=== PATIENT | female | born 1990 | race Caucasian/White ===

== ENCOUNTER 2022-05-08 17:14 | Emergency (ER) | payer MEDICAID, SELFPAY ==
[2022-05-08 17:14] VITALS: BP 183/119; PULSE 111; RESP 18; TEMP 35.9; O2SAT 95; BMI 43.3
--- NOTE | 2022-05-08 17:45 | CT_ITS ---
STUDY: CT FACIAL BONES WITHOUT CONTRAST REASON FOR EXAM: Female, 32 years old. Left mandibular trauma. RADIATION DOSAGE (If Supplied By Facility): CTDIvol = ( 29.38 ) mGy, DLP = ( 620.92 ) mGycm TECHNIQUE: The patient was scanned in a multi detector CT scanner. Sagittal and coronal images were reconstructed. Individualized dose optimization techniques were used for this CT. COMPARISON: CT of the head, May 08, 2022. FINDINGS: Normal soft tissue structures. There is a small central cutaneous calcification in the left maxillary region. Normal orbital curiel and orbital contents. Normal nasal bones and anterior nasal spine. Normal facial bones. There is no demonstrated fracture. Normal visualized paranasal sinuses. CT/Sinus/Facial Bone IMPRESSION: Normal unenhanced CT of the facial bones. Electronically Signed: Nawaf Abebe DO at 18:47 EST ,
--- NOTE | 2022-05-08 17:45 | EDS_ITS ---
HPI HPI - Fall History of Present Illness Chief Complaint: Fall Detail of Chief Complaint: Left jaw pain post fall down steps Informant: patient Occured/Mechanism Occurred: Today and Hours Usually ambulates: Without assistance Pain/Injury Pain Location: head, face and upper extremity Quality of Pain: Dull and Aching Current Severity: Mild Maximum Severity: Mild Associated Symptoms Associated Symptoms: Negative for Parasthesias, Weakness, Loss of function, Inability to ambulate, Loss of consciousness or Amnesia Narrative Narrative: 32-year-old female no seen past medical history. Today was going down wooden steps into the basement tripped and fell went down multiple steps hit her left jaw head and left arm. Denies any LOC. Primarily complaining of swelling and discomfort to her left jaw. No nausea or vomiting. She is on no blood thinners. Denies any neck or back pain. She has contusions to her left arm but normal range of motion. Prior similar symptoms: No Recent Illness/Hospitalization: No PFSH PFSH Medical History no medical history no medical history Allergy/AdvReac Type Severity Reaction Status Date / Time No Known Allergies Allergy Verified 05/08/22 17:14 Surgical History no surgical history Social History Smoking Status: Current every day smoker tobacco type: cigarettes ROS ROS ED ROS Narrative Denies recent illness. Review of Systems ROS Unobtainable: Denies due to encephalopathy Constitutional Constitutional ED: Denies chills or fever(s) Eyes Eyes: Denies blurry vision ENT ENT ED: Denies ear pain Cardiovascular Cardiovascular: Denies chest pain Respiratory/Chest Respiratory/Chest: Denies cough or dyspnea Gastrointestinal Gastrointestinal: Denies abdominal pain Genitourinary Genitourinary ED: Denies dysuria or hematuria Musculoskeletal Musculoskeletal: Denies arthralgias Integumentary Denies abscess Neurologic Neurologic: Denies headache(s) Psychiatric Psychiatric: Denies anxiety Endocrine Endocrinology: Denies polydipsia Hematologic/Lymphatic Hematologic/Lymphatic: Denies easy bleeding Allergic/Immunologic Allergic/Immunologic ED: Denies mouth swelling or tongue swelling EXAM Physical Exam Narrative Exam Narrative: 32-year-old female no acute distress. Vital signs stable afebrile. Blood pressure elevated 183/119. H EENT exam give dry reactive light. Mild tenderness and swelling of the left mandible. Able to open and close her mouth. Dentition intact. No trismus. No blood. Scalp nontender. C-spine and back nontender. No signs of trauma to the back. Trachea midline. Lungs clear to auscultation bilaterally. Heart regular rhythm rate about 110 no murmur. Chest wall and ribs nontender. Abdomen soft nontender no peritoneal signs. No bruising. Pelvic girdle intact. Moving all 4 extremities. Contusions and bruising left upper arm. No deformity. Normal range of motion. 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 Neurologic exam normal. GCS of 15. Awake and alert. Answering questions following commands. Const Vital Signs: 05/08/22 17:14 05/08/22 17:29 05/08/22 19:30 Temperature 96.7 F L Temperature Source Temporal Pulse Rate 111 H 94 Respiratory Rate 18 18 Respiratory Effort Normal Non-Labored Respiratory Depth Normal Respiratory Pattern Normal Blood Pressure 183/119 H 151/109 H Blood Pressure Mean 140 123 Pulse Ox 95 94 Oxygen Delivery Method Room Air Room Air Room Air Positive well nourished, well developed and obese; Negative for cachectic, contractures or unkempt General Appearance ED: well developed and NAD; Negative for unkempt, cachectic or contractures Nutritional Appearance: obese; Negative for cachectic HEENT Reports normocephalic HEENT Narrative: Mild swelling and tenderness along the left mandible. No deformity. No trismus. trauma, contusion and tenderness; Negative for atraumatic Eyes PERRL and EOMs intact bilaterally General Eye ED: Negative for pale conjunctiva or scleral icterus Neck full ROM, no lymphadenopathy and supple General: Negative for tenderness Chest Wall inspection of chest normal and palpation of chest normal Resp normal respiratory effort, no retractions and clear to auscultation bilaterally Effort and Inspection: Negative for pain with movement Auscultation: Negative for rales, rhonchi or wheezes Cardio regular rhythm, S1 normal heart sound, S2 normal heart sound and no murmurs; Negative for regular rate Rate: tachycardic GI non-tender, non-distended and no masses Inspection: Negative for abdominal distention Auscultation: normoactive bowel sounds Palpation: soft; Negative for guarding Back/Spine no CVA tenderness General Back: Negative for CVA tenderness Cervical Spine: Negative for cervical spine tenderness Thoracic Spine / Upper Back: Negative for ROM limited Lumbar Spine / Lower Back: Negative for lumbar spinal tenderness or paraspinal muscle tenderness Neuro oriented x3, CN's II-XII intact bilaterally, moves all extremities, no focal motor deficits and no sensory deficits noted Anthony Coma Scale: document GCS findings Spontaneous Obeys Commands Oriented 15 Sensorium / Orientation: alert, oriented to person, oriented to place and oriented to time; Negative for orientation impaired, confused, lethargic or stuporous Motor Exam: strength 5/5 throughout Psych mental status grossly normal and thought process normal Appearance: Negative for unkempt Attitude: No agitated Mood & Affect: Negative for depressed, anxious or tearful Skin Lesions: no lesions Rashes: no rashes Trauma: Negative for abrasion MDM MDM MDM Narrative Medical decision making narrative: 32-year-old female fell down steps primarily injured her left jaw. She has bruise on her left arm but normal range of motion no significant tenderness or bony deformity. She did not want a thing for pain. CAT scan of her head and facial bones to be obtained. Repeat exam patient is doing well at 7:40 PM. We went over CAT scan results. Atraumatic there is no acute intercranial abnormality and no jaw fracture. Discharged home. Treated with Tylenol Motrin for pain. Ice to the area. Follow-up if not improving. Radiography Diagnostic Testing: Clinical Impression(s) from Imaging Studies Brain CT 05/08/22 17:45 IMPRESSION: No acute intracranial or calvarial abnormality. Electronically Signed: Nawaf Abebe DO at 18:46 EST Reading Location ID and State: [employer] [facility] [employer] Tel [phone], Service support , Facial/Sinus 05/08/22 17:45 IMPRESSION: Normal unenhanced CT of the facial bones. Electronically Signed: Nawaf Abebe DO at 18:47 EST Reading Location ID and State: [employer] [facility] [employer] Tel [phone], Service support , Discharge Plan Triage Chief Complaint: Fall ED Provider: Augie Vargas Dx/Rx/DC Orders Clinical Impression: Fall down steps, Closed head injury, Contusion of jaw, Contusion of arm Instructions: ED Contusion, Upper Extremity, ED Facial Contusion, ED Head Injury (Adult) Primary Care Provider: Care Physician,No Primary Referrals: Ludin Warren MD [Med Staff - Manager Revenue] - 1 Week if not improving Care Physician,No Primary [Primary Care Provider] - Activity Restrictions/Additional Instructions: Motrin for pain and swelling and Tylenol for pain. Ice to the jaw on your arm. This should progressively continue to improve if not follow-up as reevaluated. Disposition Disposition: Home, Self Care
--- NOTE | 2022-05-08 17:45 | CT_ITS ---
STUDY: CT BRAIN WITHOUT CONTRAST REASON FOR EXAM: Female, 32 years old. Trauma. RADIATION DOSAGE (If Supplied By Facility): CTDIvol = ( 37.19 ) mGy, DLP = ( 1443.42 ) mGycm TECHNIQUE: Transaxial CT imaging of the brain was performed without administration of intravenous contrast material. Individualized dose optimization techniques were used for this CT. COMPARISON: [facility] line FINDINGS: Normal soft tissue structures. Normal calvarium. Normal size ventricles and extra-axial spaces for the patient''s age. Normal white matter tracts of the cerebral hemispheres. Normal basal ganglia and thalami. Normal brainstem. Normal cerebellum. There is no intracranial hemorrhage. There are no findings of an acute ischemic infarction. Normal visualized paranasal sinuses. CT/Brain/Head without Contrast IMPRESSION: No acute intracranial or calvarial abnormality. Electronically Signed: Nawaf Abebe DO at 18:46 EST ,
[2022-05-08 19:30] VITALS: BP 151/109; PULSE 94; RESP 18; O2SAT 94
== END 2022-05-08 19:53 | disposition home or self-care (01) ==
PROVIDERS: Emergency Provider Emergency Medicine; Visit Provider Emergency Medicine
DX: S09.90XA Unspecified injury of head, initial encounter (principal); S00.83XA Contusion of other part of head, initial encounter; S40.022A Contusion of left upper arm, initial encounter; F17.210 Nicotine dependence, cigarettes, uncomplicated; W10.9XXA Fall (on) (from) unspecified stairs and steps, initial encounter
CPT/HCPCS: 70450; 70486; 99282

== ENCOUNTER 2022-08-26 17:23 | Emergency (ER) | payer MEDICAID, SELFPAY ==
[2022-08-26 17:24] VITALS: BP 157/115; PULSE 117; RESP 18; TEMP 36.1; O2SAT 97; BMI 40.6
--- NOTE | 2022-08-26 19:58 | EDS_ITS ---
HPI History of Present Illness Chief Complaint: Nausea/Vomiting Informant: patient Onset/Context/Timing Onset: Days (5 days) Context: Gradual Onset Narrative Narrative: Patient presents with nausea and vomiting over the past 5 days. She states she will have chills and sweats but has had no measured fever. She has nausea sensation in her stomach, but no significant abdominal pain. She denies diarrhea. She does admit to alcoholism and has still been drinking over the past couple days. [facility] Medical History Alcoholism Home Medications ondansetron 4 mg disintegrating tablet 8 mg PO Q8H PRN PRN Nausea #20 tabs 08/27/22 [Rx Last Taken Unknown] sulfamethoxazole 800 mg-trimethoprim 160 mg tablet (Bactrim DS) 1 tab PO BID #6 tabs 08/27/22 [Rx Last Taken Unknown] Allergy/AdvReac Type Severity Reaction Status Date / Time hydrocodone Allergy Hives Verified 08/26/22 17:25 Social History Smoking Status: Current every day smoker tobacco type: cigarettes ROS ROS ED Constitutional Constitutional ED: Reports chills and sweats; Denies fever(s) Eyes Eyes: Denies change in vision or discharge from eye(s) ENT ENT ED: Denies discharge from eye(s), rhinorrhea or sore throat Cardiovascular Cardiovascular: Denies chest pain or palpitations Respiratory/Chest Respiratory/Chest: Denies cough or dyspnea Gastrointestinal Gastrointestinal: Reports nausea and vomiting; Denies abdominal pain or diarrhea Genitourinary Genitourinary ED: Denies difficulty urinating or dysuria Musculoskeletal Musculoskeletal: Denies back pain or extremity pain Integumentary Denies Abrasions or rash Neurologic Neurologic: Denies headache(s) or weakness Psychiatric Psychiatric: Denies anxiety or depression Allergic/Immunologic Allergic/Immunologic ED: Denies lip swelling or urticaria EXAM Physical Exam Const Vital Signs: 08/26/22 17:24 08/26/22 22:56 Temperature 97.0 F L Temperature Source Temporal Pulse Rate 117 H 104 H Respiratory Rate 18 16 Blood Pressure 157/115 H 134/78 H Blood Pressure Mean 129 96 Pulse Ox 97 98 Oxygen Delivery Method Room Air Room Air Positive well nourished and well developed General Appearance ED: well developed HEENT Reports normocephalic and head/scalp atraumatic Eyes PERRL and EOMs intact bilaterally Neck supple Chest Wall inspection of chest normal and palpation of chest normal Resp normal respiratory effort and clear to auscultation bilaterally Cardio regular rate and regular rhythm GI non-tender Auscultation: hypoactive bowel sounds Palpation: soft Extremity normal to inspection Neuro oriented x3 and no sensory deficits noted Sensorium / Orientation: alert Motor Exam: strength 5/5 throughout Psych mental status grossly normal Skin no rashes or lesions noted MDM MDM MDM Narrative Medical decision making narrative: Patient ordered IV fluids and Zofran. Lab work obtained to evaluate for leukocytosis, anemia, electrolyte derangement. Because the patient was considering possible admission for alcohol detox, alcohol level and urine tox screen are obtained. Lab Data Labs: Laboratory Results - last 24 hr 08/26/22 08/26/22 08/26/22 20:26 20:26 20:26 WBC 16.5 H RBC 4.82 Hgb 16.3 H Hct 47.5 H MCV 98.5 MCH 33.8 H MCHC 34.3 RDW Std Deviation 47.0 H RDW Coeff of Yan 12.9 Plt Count 146 L MPV 9.3 Immature Gran % (Auto) 0.500 Neut % (Auto) 92.3 H Lymph % (Auto) 2.9 L [place] % (Auto) 4.0 Eos % (Auto) 0.1 Baso % (Auto) 0.2 Absolute Neuts (auto) 15.2 H Absolute Lymphs (auto) 0.48 L Nucleated RBC % 0 Differential Comment SCANNED Sodium 136 Potassium 3.8 Chloride 97 L Carbon Dioxide 25.0 Anion Gap 14 BUN 7 Creatinine 0.71 Estim Creat Clear Calc 91.63 Est GFR (MDRD) Af Amer 124 Est GFR (MDRD) Non-Af 103 BUN/Creatinine Ratio 9.9 L Glucose 134 H Calcium 9.3 Total Bilirubin 2.60 H Direct Bilirubin 1.17 H AST 144 H ALT 175 H Alkaline Phosphatase 75 Total Protein 7.7 Albumin 3.8 Globulin 3.9 Lipase 54 L Serum , Qual Urine Color Urine Clarity Urine pH Ur Specific [place] Urine Protein Urine Glucose (UA) Urine Ketones Urine Occult Blood Urine Nitrite Urine Bilirubin Urine Urobilinogen Ur Leukocyte Esterase Urine RBC Urine WBC Ur Squamous Epith Cells Urine Bacteria Urine Mucus Ur Drug Screen Comment Ethyl Alcohol < 3.0 02/24/23 02/24/23 02/24/23 20:26 22:35 23:05 WBC RBC Hgb Hct MCV MCH MCHC RDW Std Deviation RDW Coeff of Yan Plt Count MPV Immature Gran % (Auto) Neut % (Auto) Lymph % (Auto) [place] % (Auto) Eos % (Auto) Baso % (Auto) Absolute Neuts (auto) Absolute Lymphs (auto) Nucleated RBC % Differential Comment Sodium Potassium Chloride Carbon Dioxide Anion Gap BUN Creatinine Estim Creat Clear Calc Est GFR (MDRD) Af Amer Est GFR (MDRD) Non-Af BUN/Creatinine Ratio Glucose Calcium Total Bilirubin Direct Bilirubin AST ALT Alkaline Phosphatase Total Protein Albumin Globulin Lipase Serum , Qual NEGATIVE Urine Color [place] Urine Clarity Clear Urine pH 6.5 Ur Specific [place] 1.010 Urine Protein 30 H Urine Glucose (UA) Normal Urine Ketones 150 A* Urine Occult Blood 150 H Urine Nitrite Positive H Urine Bilirubin 3 H Urine Urobilinogen 8 H Ur Leukocyte Esterase 25 H Urine RBC 0-5 SEEN Urine WBC 0-5 SEEN Ur Squamous Epith Cells 5-10 SEEN Urine Bacteria 1+ Urine Mucus 3+ Ur Drug Screen Comment Ethyl Alcohol Treatment and Re-Evaluation Narrative: CBC was a white count of 16.5 with 92% neutrophils. Hemoglobin is concentrated at 16.3. I believe this leukocytosis is secondary to acute stress response for her vomiting. Her abdominal examination is very benign. Chemistry studies are unremarkable. Her LFTs are elevated with a total bili of 2.6, direct bili of 1. 17, AST of 144, ALT of 75. Patient does admit to longstanding alcohol use. She does not have any focal tenderness in the right upper quadrant. Alcohol level today is negative. test negative. Urinalysis reveals 150 ketones. She is also positive for nitrates with 1+ bacteria. She does not have significantly elevated white count. However, because nitrites are only produced with bacteria, I will treat her with antibiotics. She is given a dose of IV Rocephin here. I was told by nursing staff that patient had been given something to drink after her Zofran. She became nauseated again. She was given a dose of Phenergan. At this time I have given her ice chips. She reports some mild nausea and states that she did have a small emesis. I discussed with her possible hospital ad mission for intractable vomiting as she has had 2 rounds of antiemetics. She would like to try to go home. I will write her for Zofran and return instructions have been given. Abdominal exam remains very benign. Discharge Plan Triage Chief Complaint: Nausea/Vomiting ED Provider: Zenaida Headley Dx/Rx/DC Orders Clinical Impression: Viral gastroenteritis, UTI (urinary tract infection), Transaminitis Instructions: ED Cystitis Female Adult, ED Gastroenteritis, Viral (Adult) Prescriptions: New ondansetron 4 mg tablet,disintegrating 8 mg PO Q8H PRN PRN (Reason: Nausea) Qty: 20 0RF sulfamethoxazole-trimethoprim [Bactrim DS] 800-160 mg tablet 1 tab PO BID Qty: 6 0RF Primary Care Provider: Care Physician,No Primary Referrals: Cristina Menchaca MD [Med Staff - Caddymaster] - 1-2 Weeks Care Physician,No Primary [Primary Care Provider] - Disposition Disposition: Home, Self Care
--- NOTE | 2022-08-26 20:15 | CM.ED ---
SW Note Referral Source: MD Headley Referral Reason: RAMP questions MD Headley met with SW and explained patient discussed struggling with alcohol use and had questions about RAMP program. SW to follow up. SW met with patient and patient's guest and introduced herself and role as [facility] [employer] Button Maker. SW requested permission to speak with guest present, patient in agreement. SW inquired about patient's currently frequency in drinking and increase in resources. Patient explained she had been drinking consistently and knows she needs to detox at some point. SW provided overview of program including 3-5 day stay, patient's items being locked up, patient not having access to their phone and working with Addictions therapist Clary for discharge plans which could include rehab or outpatient. Patient reports she is interested and wants to go at a later date so she has vacation time to use. SW explained patient would just need to present to ED and explain she was here to detox from alcohol. Patient voiced understanding. SW provided patient with treatment navigator information if she had other questions as well as [facility] resource list. No other needs voiced at this time. informed of interaction. Kristi Haley SENIOR MANAGER ASSET PROTECTION, DEE DEE
[2022-08-26] MEDS: 0.9% Normal Saline 1,000 ML 1000 ML IV (20:35)
[2022-08-26] MEDS: 0.9% Normal Saline 1,000 ML 150 ML IV (20:36)
[2022-08-26] MEDS: Ondansetron 4 MG/2 ML Vial IV (20:36)
[2022-08-26 20:39] LABS: Absolute Lymphocyte Count 0.48 X10^3/uL (0.83-4.51); Absolute Neutrophil Count 15.2 X10^3/uL (2.0-7.7); Basophil# 0.03 X10^3/uL; Basophil% 0.2 % (0-1); Eosinophil# 0.02 X10^3/uL; Eosinophils% 0.1 % (0-5); Hematocrit 47.5 % (37-47); Hemoglobin 16.3 g/dL (12.0-15.0); Lymphocyte # 0.48 X10^3/ul (0.83-4.51); Lymphocyte % 2.9 % (19-41); Mean Corp Hgb Conc 34.3 g/dL (32-36); Mean Corpuscular Hgb 33.8 pg (27.0-32.0); Mean Corpuscular Volume 98.5 fL (81-99); Mean Platelet Vol. 9.3 fl (6.2-12.0); Monocyte# 0.66 X10^3/uL; NRBC Flagged by Analyzer 0 % (0-5); Neutrophil # 15.21 X10^3/uL (2.7-7.7); Neutrophil % 92.3 % (47-70); POSITIVE DIFFERENTIAL YES; Platelet Count 146 K/mm3 (150-450); RBC Distribution Width CV 12.9 % (11.6-14.6); Red Blood Count 4.82 M/mm3 (4.2-5.4); White Blood Count 16.5 K/mm3 (4.4-11.0)
[2022-08-26 20:43] LABS: Differential Indicated SCAN CRITERIA MET
[2022-08-26 20:55] LABS: AST(SGOT) 144 U/L (15-37); Alanine Aminotransfer ALT/SGPT 175 U/L (13-56); Albumin, Serum 3.8 g/dL (3.2-5.0); Alkaline Phosphatase 75 U/L (45-117); Anion Gap 14 (5-15); BUN 7 mg/dL (7-18); BUN/Creat Ratio 9.9 RATIO (10-20); Bilirubin, Direct 1.17 mg/dL (0.00-0.30); Calcium,Total 9.3 mg/dL (8.5-10.1); Chloride 97 mmol/L (98-107); Creatinine, Serum 0.71 mg/dL (0.55-1.02); EST Glomerular Filtration Rate 103 mL/min (>60); Est Glom Filt Rate - Afr Amer 124 mL/min (>60); Estimated Creatinine Clearance 91.63 ml/min; Globulin 3.9 g/dL (2.2-4.2); Glucose 134 mg/dL (74-106); Internal QC Validated? YES +Cl - CLEAR BKGD; Lipase 54 U/L (73-393); Potassium 3.8 mmol/L (3.5-5.1); Pregnancy, Serum, hCG Quali. NEGATIVE Negative; Protein, Total 7.7 g/dL (6.4-8.2); Sodium Level 136 mmol/L (136-145)
[2022-08-26 20:58] LABS: Alcohol, Blood (Medical)-Serum < 3.0 mg/dL
[2022-08-26 21:45] LABS: Differential Comment SCANNED
[2022-08-26] MEDS: proMETHazine 25 MG/ML Syringe IM (22:47)
[2022-08-26 22:55] LABS: Glucose, Dipstick Normal (Normal); Leukocyte Esterase-Dipstick 25 /ul (Negative); Nitrite-Dipstick Positive (Negative); Occult Blood-Urine 150 /ul (Negative); Protein-Dipstick 30 mg/dl (Negative); Urine Clarity Clear (Clear); Urine Urobilinogen 8 mg/dl (Normal); Urine pH 6.5 (5.0 - 8.0)
[2022-08-26 22:56] VITALS: BP 134/78; PULSE 104; RESP 16; O2SAT 98
[2022-08-26 23:02] LABS: Urine Bilirubin Dipstick 3 mg/dL (Negative)
[2022-08-26 23:05] LABS: Color, Urine Orange (Yellow); Ketone-Dipstick 150 mg/dl (Negative)
[2022-08-26 23:07] LABS: Bacteria 1+ /hpf (None Seen); Squamous Epithelial Cells - UA 5-10 SEEN /hpf (5-10)
[2022-08-26 23:08] LABS: Mucous, Urine 3+ /hpf (<or=2+); Red Blood Cells-Urine 0-5 SEEN /hpf (0-5); White Blood Cells 0-5 SEEN /hpf (0-5)
[2022-08-26] MEDS: Ceftriaxone 1 GM/50 ML BAG IV (23:55)
[2022-08-27 00:15] LABS: Amphetamine Urine VISTA NEGATIVE (<1000 ng/mL); Barbiturate Urine VISTA NEGATIVE (< 200 ng/mL); Benzodiazepine Urine VISTA NEGATIVE (< 200 ng/mL); Cocaine Urine VISTA NEGATIVE (< 300 ng/mL); Ecstacy Urine VISTA NEGATIVE (< 500 ng/mL); Methadone Urine VISTA NEGATIVE (< 300 ng/mL); PCP Urine VISTA NEGATIVE (< 25 ng/mL); THC Urine VISTA POSITIVE (< 50 ng/mL); Vista UDS pH Range 6
== END 2022-08-27 01:03 | disposition home or self-care (01) ==
PROVIDERS: Emergency Provider Emergency Medicine; Visit Provider Emergency Medicine
DX: A08.4 Viral intestinal infection, unspecified (principal); N39.0 Urinary tract infection, site not specified; R74.01 Elevation of levels of liver transaminase levels; F17.210 Nicotine dependence, cigarettes, uncomplicated
CPT/HCPCS: 80048; 80076; 80307; 81001; 82077; 83690; 84703; 85025; 96365; 96372; 96375; 99283; J7030; A4216; J2405

== ENCOUNTER 2023-12-16 05:48 | Emergency (ER) | payer SELFPAY ==
[2023-12-16 05:50] VITALS: BP 129/78; PULSE 102; RESP 18; TEMP 36.6; O2SAT 99; BMI 27.4
--- NOTE | 2023-12-16 06:13 | CT_ITS ---
EXAM: CT ANGIOGRAPHY ABDOMEN AND PELVIS WITHOUT AND WITH INTRAVENOUS CONTRAST CLINICAL INDICATION: GI bleed GI bleed TECHNIQUE: Helically acquired angiography images were obtained of the abdomen and pelvis without and with intravenous contrast. This CT exam was performed using one or more of the following dose reduction techniques: automated exposure control, adjustment of the mA and/or kV according to patient size, and/or use of iterative reconstruction technique. MIP reconstructed images were created and reviewed. CONTRAST: IV 100mL [id number] RADIATION DOSE: CTDIvol = 13.28 mGy, DLP = 610.88 mGy-cm COMPARISON: No relevant prior studies available. FINDINGS: VASCULATURE: AORTA: No acute findings. Normal caliber abdominal aorta. No dissection. CELIAC TRUNK AND MESENTERIC ARTERIES: No acute findings. No occlusion or significant stenosis. No dissection. RENAL ARTERIES: No acute findings. No occlusion or significant stenosis. No dissection. ILIAC ARTERIES: No acute findings. No occlusion or significant stenosis. No dissection. LOWER THORAX: Unremarkable. Lung bases are clear. No cardiomegaly. No significant pericardial effusion. ABDOMEN: LIVER: There is decreased attenuation of the liver consistent with fatty infiltration. The liver is mildly enlarged. GALLBLADDER AND BILE DUCTS: There are multiple gallstones. No gallbladder distention or wall edema. No intra- or extrahepatic biliary ductal dilation. PANCREAS: Unremarkable. No focal cystic or solid mass. SPLEEN: The spleen is mildly enlarged. ADRENALS: Unremarkable. No nodules. KIDNEYS AND URETERS: Unremarkable. Normal renal size and position. No hydronephrosis. STOMACH AND BOWEL: There is mural thickening of loops of proximal jejunum and there is also mild mural thickening of some loops of distal ileum, including the terminal ileum. There is infiltration of mesenteric fat. Findings suggest an enteritis.. Crohn''s disease would be a strong consideration, given that discontinuous small bowel segments are involved. No stomach or bowel distention. PELVIS: APPENDIX: A normal appendix is seen on axial images 97-107. BLADDER: Unremarkable. REPRODUCTIVE: Unremarkable as visualized. No mass. ABDOMEN and PELVIS: INTRAPERITONEAL SPACE: Unremarkable. No ascites or other fluid collection. No free air. BONES/JOINTS: There are multilevel degenerative changes in the visualized spine. 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 No suspicious lytic or blastic abnormality. SOFT TISSUES: Unremarkable. No discrete abdominal or pelvic wall hernia. LYMPH NODES: Unremarkable. No enlarged lymph nodes. CT/CTA Abd/Pelvis W/WO Contrast IMPRESSION: 1. No demonstrated active GI bleed during the exam. 2. No evidence for aneurysm, dissection, or stenosis of the abdominal aorta or major abdominal or pelvic arteries. 3. Mural thickening of multiple discontinuous small bowel loops as well as mesenteric fat infiltration consistent with an enteritis. Given the distribution of findings, Crohn''s disease would be a consideration. 4. Gallstones. 5. Fatty liver. Mild hepatomegaly. 6. Mild splenomegaly. Electronically Signed: Marko Brown MD at 8:06 EDT Reading Location ID and State: [facility] / [place] , Service support ,
[2023-12-16] MEDS: 0.9% Normal Saline (1000mL) 1,000 ML 999 ML IV (06:22)
[2023-12-16] MEDS: Ondansetron 4 MG/2 ML Vial IV (06:25)
[2023-12-16 06:27] LABS: Absolute Neutrophil Count 3.1 X10^3/uL (2.0-7.7); Basophil# 0.01 X10^3/uL; Basophil% 0.2 % (0-1); Eosinophil# 0.02 X10^3/uL; Eosinophils% 0.5 % (0-5); Hematocrit 36.2 % (37-47); Hemoglobin 12.4 g/dL (12.0-15.0); Lymphocyte % 20.6 % (19-41); Mean Corp Hgb Conc 34.3 g/dL (32-36); Mean Corpuscular Hgb 38.4 pg (27.0-32.0); Mean Corpuscular Volume 112.1 fL (81-99); Mean Platelet Vol. 9.7 fl (6.2-12.0); Monocyte# 0.32 X10^3/uL; Monocyte% 7.3 % (0-10); NRBC Flagged by Analyzer 0 % (0-5); Neutrophil # 3.08 X10^3/uL (2.7-7.7); Neutrophil % 70.7 % (47-70); POSITIVE COUNT YES; Platelet Count 56 K/mm3 (150-450); RBC Distribution Width CV 13.9 % (11.6-14.6); RBC Distribution Width SD 56.4 fl (35.1-43.9); Red Blood Count 3.23 M/mm3 (4.2-5.4); White Blood Count 4.4 K/mm3 (4.4-11.0)
[2023-12-16 06:28] LABS: Differential Indicated SCAN CRITERIA MET
[2023-12-16 06:34] LABS: International Normalized Ratio 1.1; Prothrombin Time (Protime)PT. 14.6 SECONDS (11.7-14.9)
[2023-12-16 06:35] LABS: Partial Thromboplast Time 32.8 Seconds (24.1-36.2)
--- NOTE | 2023-12-16 06:39 | EDS_ITS ---
HPI History of Present Illness Chief Complaint: GI Bleed Informant: patient and spouse/S.O. Narrative Narrative: Patient is a 33-year-old female who reports a longstanding history of alcohol abuse. She reports she drinks a half a pint to a pint of whiskey daily. She also reports that she smokes roughly 1 pack a day. She states that she has bouts of vomiting intermittently secondary to her recurrent alcohol use. However today in the emesis appeared more dark with specks of bright red blood. Patient states that she has not noticed any type of blood in her urine or stool and she denies any abdominal pain. She does state that she has remote history of acid reflux but only takes medication for it occasionally and these meds are [id number]. Therefore at this time with her history of alcohol abuse and the worsening bouts of emesis now with discoloration concerning for blood she presents for evaluation [facility] Medical History Alcoholism Home Medications ?Medication ?Instructions ?Recorded ?Last Taken ?Type pantoprazole 40 mg tablet,delayed 40 mg PO BID 30 days #60 tabs 12/16/23 Unknown Rx release (Protonix) Allergy/AdvReac Type Severity Reaction Status Date / Time hydrocodone Allergy Hives Verified 12/16/23 05:56 Social History Smoking Status: Current every day smoker tobacco type: cigarettes ROS ROS ED Constitutional Constitutional ED: Denies chills or fever(s) Eyes Eyes: Denies change in vision or diplopia ENT ENT ED: Denies sore throat Cardiovascular Cardiovascular: Denies chest pain Respiratory/Chest Respiratory/Chest: Denies cough or dyspnea Gastrointestinal Gastrointestinal: Reports nausea and vomiting; Denies abdominal pain, diarrhea or melena Genitourinary Genitourinary ED: Denies dysuria or hematuria Musculoskeletal Musculoskeletal: Denies myalgias Integumentary Denies rash Neurologic Neurologic: Denies headache(s) Hematologic/Lymphatic Hematologic/Lymphatic: Denies easy bleeding or easy bruising EXAM Physical Exam Const Vital Signs: 12/16/23 05:50 12/16/23 07:49 Temperature 97.9 F Temperature Source Temporal Pulse Rate 102 H 100 Respiratory Rate 18 16 Blood Pressure 129/78 H 121/87 H Blood Pressure Mean 95 98 Pulse Ox 99 97 Oxygen Delivery Method Room Air Room Air Positive well nourished and well developed General Appearance ED: well developed; Negative for pallor HEENT Reports moist mucous membranes HEENT Narrative: No dried blood or active bleeding noted in the posterior pharynx No tongue or lip swelling no oral lesions no airway edema or compromise No secondary findings in the posterior pharynx to suggest infection Eyes PERRL and EOMs intact bilaterally General Eye ED: Yes scleral icterus Neck supple Neck Narrative: No crepitance palpated in the anterior neck No pain with external manipulation of the thyroid cartilage Chest Wall palpation of chest normal Resp normal respiratory effort Resp Narrative: Breath sounds are diminished throughout with diffuse expiratory wheeze and rhonchi in the bilateral bases consistent with history of smoking however no signs of respiratory distress Cardio regular rate and regular rhythm GI normal to inspection, nondistended, normoactive bowel sounds, non-tender, non- distended and no masses GI Narrative: No voluntary guarding or rigidity or pulsatile mass Auscultation: normoactive bowel sounds Palpation: soft Narrative: Rectal tone is normal stool is brown in color Extremity Extremity Narrative: Trace to +1 pitting edema to the bilateral lower extremities Negative Homans' sign bilaterally Neuro oriented x3, CN's II-XII intact bilaterally and no sensory deficits noted Sensorium / Orientation: alert Motor Exam: strength 5/5 throughout Psych mental status grossly normal Skin no rashes or lesions noted General Skin Exam: jaundice; Negative for pallor MDM MDM MDM Narrative Medical decision making narrative: Patient arrived to the ER with stable vitals and a soft nonsurgical abdomen. However with report of approximately 10 years of daily alcohol abuse patient is highly likely to have alcoholic gastritis which could lead to the cause of her hematemesis. She also has jaundice on exam and scleral icterus indicating she has worsening liver failure/cirrhosis. There is concern for acute blood loss anemia with her symptoms as well as potential intestinal/gastric perforation or esophageal varices. Secondary to this patient had basic lab work as well as a CTA of the abdomen and pelvis. The patient does not have crepitance in the neck or pain with palpation/manipulation of the thyroid cartilage and therefore I have low concern for Iliana-Tobar tear or Boerhaave syndrome. The patient was hydrated with normal saline and started on Protonix drip and bolus secondary to concern for GI bleed. At this time her hemoglobin is not anemic but she has dropped from 16-12 in the last year her platelets have also decreased to 56 and with Hemoccult positive stool as well as report of hematemesis I do feel her safest option would be admission to the hospital at this time for continued care and testing. Secondary to this the case was discussed with gastroenterology/Dr. Dyson. He states as patient's vitals are stable and she is not clinically anemic that she would benefit from an EGD and/or colonoscopy but there is no true emergent need for it. He states that if patient has concern about getting it performed that it could be admitted and she would be given IV medication and fluids and repeat labs and watch until Monday or Monday. The patient's had no further bouts of vomiting in the ER and states that she does not want to stay in the hospital. Therefore she replaced on Protonix twice a day and discharged home. She understands she needs to reduce her alcohol use to help heal the alcoholic gastritis but she cannot quit completely at this time as she would go through withdrawals. She understands that if she develops severe abdominal pain recurrent bouts of hematemesis or hematochezia that she needs to return for repeat evaluation. History & Record Review Discussion w/independent historian: Patient and Significant other Lab Data Attestation: I reviewed the patient's lab results. Labs: Laboratory Results - last 24 hr 12/16/23 12/16/23 06:05 06:20 WBC 4.4 RBC 3.23 L Hgb 12.4 Hct 36.2 L MCV 112.1 H MCH 38.4 H MCHC 34.3 RDW Std Deviation 56.4 H RDW Coeff of Yan 13.9 Plt Count 56 L MPV 9.7 Immature Gran % (Auto) 0.700 Neut % (Auto) 70.7 H Lymph % (Auto) 20.6 [place] % (Auto) 7.3 Eos % (Auto) 0.5 Baso % (Auto) 0.2 Absolute Neuts (auto) 3.1 Absolute Lymphs (auto) 0.90 Nucleated RBC % 0 Platelet Estimate MOD DEC PT 14.6 INR 1.1 APTT 32.8 Sodium 138 Potassium 4.1 Chloride 97 L Carbon Dioxide 28.0 Anion Gap 13 BUN 7 Creatinine 0.43 L Estim Creat Clear Calc 171.40 Est GFR (MDRD) Af Amer 219 Est GFR (MDRD) Non-Af 181 BUN/Creatinine Ratio 16.2 Glucose 69 L Lactic Acid 3.8 H* Calcium 8.5 Total Bilirubin 8.00 H Direct Bilirubin 4.84 H AST 214 H ALT 46 Alkaline Phosphatase 240 H Total Protein 7.1 Albumin 2.9 L Globulin 4.2 Lipase 37 Ethyl Alcohol 273.0 Radiography Diagnostic Testing: Clinical Impression(s) from Imaging Studies Abdomen/Pelvis CTA 12/16/23 06:13 IMPRESSION: 1. No demonstrated active GI bleed during the exam. 2. No evidence for aneurysm, dissection, or stenosis of the abdominal aorta or major abdominal or pelvic arteries. 3. Mural thickening of multiple discontinuous small bowel loops as well as mesenteric fat infiltration consistent with an enteritis. Given the distribution of findings, Crohn''s disease would be a consideration. 4. Gallstones. 5. Fatty liver. Mild hepatomegaly. 6. Mild splenomegaly. Electronically Signed: Marko Brown MD at 8:06 EDT Reading Location ID and State: [facility] / [place] , Service support , Discharge Plan Triage Chief Complaint: GI Bleed ED Provider: Maury Grijalva Dx/Rx/DC Orders Clinical Impression: Acute alcoholic gastritis, GI (gastrointestinal bleed), Thrombocytopenia, Alcohol abuse, Transaminitis Instructions: Alcohol Addiction, Alcoholism: Getting Help, ED Upper GI Bleeding (Stable) Prescriptions: New pantoprazole [Protonix] 40 mg tablet,delayed release (DR/EC) 40 mg PO BID 30 Days Qty: 60 0RF Primary Care Provider: Care Physician,No Primary Referrals: Roderick Myers MD [Med Staff - Active Staff] - Richar Dyson DO [Med Staff - Active Staff] - Care Physician,No Primary [Primary Care Provider] - Activity Restrictions/Additional Instructions: You need to reduce your alcohol intake to help heal your stomach but you cannot quit completely or cold turkey as this will precipitate alcohol withdrawal. If you develop increased abdominal pain blood in your stool or recurrent emesis with blood you need to return for repeat evaluation. Please follow-up with your family doctor and/or Dr. Dyson to discuss EGD and/or colonoscopy to further assess the cause of your symptoms. Print Language: [place] Disposition Disposition: Home, Self Care
[2023-12-16] MEDS: Pantoprazole Sodium 80 MG in 0.9% Normal Saline (50mL Bag) 15 ML 420 MG IV BOLUS (06:47)
[2023-12-16] MEDS: Pantoprazole Sodium 80 MG in 0.9% Normal Saline (100mL Bag) 80 ML 10 MG CONT INF (06:53)
[2023-12-16 06:56] LABS: AST(SGOT) 214 U/L (15-37); Alanine Aminotransfer ALT/SGPT 46 U/L (13-56); Albumin, Serum 2.9 g/dL (3.2-5.0); Alkaline Phosphatase 240 U/L (45-117); Anion Gap 13 (5-15); BUN 7 mg/dL (7-18); BUN/Creat Ratio 16.2 RATIO (10-20); Bilirubin, Direct 4.84 mg/dL (0.00-0.30); Calcium,Total 8.5 mg/dL (8.5-10.1); Chloride 97 mmol/L (98-107); Creatinine, Serum 0.43 mg/dL (0.55-1.02); EST Glomerular Filtration Rate 181 mL/min (>60); Est Glom Filt Rate - Afr Amer 219 mL/min (>60); Globulin 4.2 g/dL (2.2-4.2); Glucose 69 mg/dL (74-106); Lipase 37 U/L (13-75); Potassium 4.1 mmol/L (3.5-5.1); Protein, Total 7.1 g/dL (6.4-8.2); Sodium Level 138 mmol/L (136-145)
[2023-12-16 06:57] LABS: Platelet Estimate MOD DEC (ADEQ)
[2023-12-16 07:03] LABS: Lactic Acid 3.8 mmol/L (0.4-1.9)
[2023-12-16 07:49] VITALS: BP 121/87; PULSE 100; RESP 16; O2SAT 97
[2023-12-16 08:47] VITALS: BP 117/80; PULSE 64; RESP 16; TEMP 36.2; O2SAT 97
[2023-12-16 10:29] LABS: Reflex Lactate? Y
== END 2023-12-16 08:48 | disposition home or self-care (01) ==
PROVIDERS: Emergency Provider Emergency Medicine; Visit Provider Emergency Medicine
DX: K29.21 Alcoholic gastritis with bleeding (principal); D69.6 Thrombocytopenia, unspecified; F10.10 Alcohol abuse, uncomplicated; R74.01 Elevation of levels of liver transaminase levels; F17.210 Nicotine dependence, cigarettes, uncomplicated
CPT/HCPCS: 74174; 80048; 80076; 80320; 82274; 83605; 83690; 85025; 85610; 85730; 96365; 96366; 96375; 96376; 99282; J7030; Q9967; A4216; G0480; J2405; J3490

== ENCOUNTER 2024-01-09 09:19 | Inpatient (IN) | payer MEDICAID, SELFPAY ==
[2024-01-09] VITALS (44 sets, daily range): BP systolic 71–115; BP diastolic 31–76; PULSE 20–123; RESP 16–35; TEMP 36.4–38.8; O2SAT 94–100; BMI 29.7; BMI 28.8
--- NOTE | 2024-01-09 09:31 | EX.ED.GENINJ ---
HPI History of Present Illness Chief Complaint: Nausea/Vomiting [facility] Medical History Alcoholism Home Medications ?Medication ?Instructions ?Recorded ?Last Taken ?Type pantoprazole 40 mg tablet,delayed 40 mg PO BID GERD 30 days #60 tabs 12/16/23 Unknown Rx release (Protonix) Allergy/AdvReac Type Severity Reaction Status Date / Time hydrocodone Allergy Hives Verified 01/09/24 09:29 Social History Smoking Status: Current every day smoker tobacco type: cigarettes EXAM Physical Exam Const Vital Signs: 01/09/24 09:20 01/09/24 09:22 01/09/24 09:33 Temperature 98.2 F 98.2 F Temperature Source Oral Oral Pulse Rate 117 H 118 H Respiratory Rate 19 H 18 Blood Pressure 71/50 L 71/50 L Blood Pressure Mean 57 57 Blood Pressure Source Blood Pressure Position Blood Pressure Location Pulse Ox 99 100 100 Oxygen Delivery Method Room Air Room Air Room Air Oxygen Flow Rate (L/min) 01/09/24 09:38 01/09/24 10:29 01/09/24 10:38 Temperature 98.4 F Temperature Source Oral Pulse Rate 115 H 111 H 118 H Respiratory Rate 21 H 20 H 20 H Blood Pressure 77/44 L 83/31 L 81/34 L Blood Pressure Mean 55 48 49 Blood Pressure Source Blood Pressure Position Blood Pressure Location Pulse Ox 100 99 98 Oxygen Delivery Method Room Air Room Air Room Air Oxygen Flow Rate (L/min) 01/09/24 11:00 01/09/24 11:16 01/09/24 11:31 Temperature 97.8 F 98.7 F Temperature Source Temporal Oral Pulse Rate 115 H 115 H 119 H Respiratory Rate 21 H 18 20 H Blood Pressure 105/65 105/65 89/34 L Blood Pressure Mean 78 78 52 Blood Pressure Source Blood Pressure Position Blood Pressure Location Pulse Ox 100 98 97 Oxygen Delivery Method Room Air Room Air Room Air Oxygen Flow Rate (L/min) 01/09/24 11:46 01/09/24 12:00 01/09/24 12:01 Temperature 98.7 F 98.6 F Temperature Source Temporal Temporal Pulse Rate 114 H 20 L 114 H Respiratory Rate 16 18 16 Blood Pressure 81/31 L 89/34 L 81/76 L Blood Pressure Mean 47 52 77 Blood Pressure Source Blood Pressure Position Blood Pressure Location Pulse Ox 97 98 98 Oxygen Delivery Method Room Air Room Air Room Air Oxygen Flow Rate (L/min) 01/09/24 12:16 01/09/24 12:25 01/09/24 12:40 Temperature 98.9 F 98.6 F 97.6 F L Temperature Source Temporal Oral Core Pulse Rate 122 H 119 H 121 H Respiratory Rate 20 H 19 H 24 H Blood Pressure 99/55 L 99/55 L 88/44 L Blood Pressure Mean 69 69 58 Blood Pressure Source Monitor Monitor Blood Pressure Position Supine Supine Blood Pressure Location Right Arm Right Arm Pulse Ox 98 98 98 Oxygen Delivery Method Room Air Room Air Room Air Oxygen Flow Rate (L/min) 01/09/24 13:00 01/09/24 13:17 01/09/24 13:52 Temperature 99.5 F H 98.9 F 99.6 F H Temperature Source Core Core Core Pulse Rate 123 H 120 H 113 H Respiratory Rate 21 H 20 H 20 H Blood Pressure 104/67 95/33 L 84/53 L Blood Pressure Mean 79 53 63 Blood Pressure Source Monitor Blood Pressure Position Supine Blood Pressure Location Right Arm Pulse Ox 96 94 99 Oxygen Delivery Method Room Air Room Air Oxygen Flow Rate (L/min) 2 01/09/24 14:34 01/09/24 15:00 01/09/24 15:13 Temperature 99.7 F H 99.8 F H Temperature Source Core Core Pulse Rate 111 H 101 H 112 H Respiratory Rate 22 H 20 H 25 H Blood Pressure 90/60 81/44 L 81/44 L Blood Pressure Mean 70 56 56 Blood Pressure Source Blood Pressure Position Blood Pressure Location Pulse Ox 100 100 100 Oxygen Delivery Method Nasal Cannula Nasal Cannula Oxygen Flow Rate (L/min) 2 2 2 MDM MDM MDM Narrative Medical decision making narrative: HISTORY OF PRESENT ILLNESS: 33-year-old female presents with nausea vomiting weakness. Notes ongoing symptoms for the last several weeks. notes today symptoms became worse after she was having a bowel movement. Notes diffusely bloody bowel movement and then syncope thereafter. Denies chest pain currently. Denies shortness of breath. Denies fever. Does note a chronic cough. Does note episodes of bloody vomitus. Last bowel was just prior to arrival had merle blood. REVIEW OF SYSTEMS: Pertinent positives: weakness, fatigue, bright red blood per rectum, abdominal pain, nausea Pertinent negatives: PHYSICAL EXAM: Nursing triage notes reviewed, Vital signs reviewed Constitutional: please see [facility] HENT: MMM Eyes: Pupils equal round and reactive to light, Extraocular muscles intact Neck: No stridor, no JVD, full neck ROM Lungs: Clear to auscultation, No wheezing or rales. No increased work of breathing, no conversational dyspnea, no accessory muscle use, no nasal flaring. No respiratory distress noted Heart: Regular rate and rhythm, No murmurs, No rubs and No gallops, 2+ distal pulses (radial, femoral, posterior tibial) in all extremities Abdomen: Soft, there is no tenderness, rigidity, rebound or guarding, no obvious peritoneal signs, no palpable pulsatile abdominal masses, no auscultated abdominal bruit : No CVAT Exam: Performed group chief operator in room, Carol Ann JACKSON Extremities: No edema Neuro: No focal neurological deficits, cranial nerves II through XII intact, 5/5 strength in all extremities. Intact sensation to light touch in all extremities, 2+ reflexes bilateral patella tendons. Normal gait. No ataxia. Skin: No rash or lesions noted MEDICAL DECISION MAKING: Chief Complaint: Nausea vomiting and weakness External records reviewed: Last ED visit from December 2023 Factors affecting care: Alcohol-induced gastritis Social determinants of health: Alcohol abuse History obtained from others: Patient significant other Consults: Gastroenterology (Dr. Dyson), internal medicine open sees Dr. Rich), critical care (Dr. Prado) [facility] Narrative: Patient was initially hypotensive, tachycardic, afebrile I considered the following differential diagnosis: Bleeding gastric ulcer, anemia, electrolyte disturbance, distributive shock, acute pancreatitis, intra-abdominal surgical pathology (acute appendicitis, acute cholecystitis), , ectopic I obtained a broad lab and imaging workup to further elucidate etiology the patient complaints. 2 large-bore IVs were placed immediately. Patient was resuscitated with 30 cc/kg bolus. Patient continued to be hypotensive despite 2 L fluid bolus, 25 mg albumin bolus and 1 unit of packed red blood cells Given that his central line was placed. Please see below procedure note. Patient was started on Levophed at 5 mcg/min with improvement in blood pressures and maintenance of mean arterial pressures. ALL IMAGES (IF OBTAINED) HAVE BEEN PERSONALLY REVIEWED AND INTERPRETED BY MYSELF. EKG with sinus tachycardia, normal axis, intervals, no STEMI High-sensitivity troponin is negative, no evidence of myocardial ischemia Fecal occult blood sample positive CBC with no leukocytosis, noted severe worsening anemia, noted severe thrombocytopenia PT and PTT are elevated consistent with mild coagulopathy VBG without evidence of significant acidosis, there is a compensated metabolic acidosis BMP with hyponatremia, hypokalemia, no anion gap, noted CRICKET LFTs with significant hyperbilirubinemia with total bilirubin 21.6, but elevations in liver enzymes as well Lipase is wnl indicating no pancreatic inflammation. The synthesis of the patient's history, physical exam, labs images suggest multifactorial etiology including blood loss anemia, possibly septic shock due to pancolitis), acute liver failure, acute kidney injury. Patient's etiology is likely secondary to heavy habitual alcohol use. Patient was treated with 100 mg IV thiamine, D5 normal saline drip, as well as Ativan 2 improvement acute alcohol withdrawal. Discussed case with Dr. Dyson (gastroenterology) who agreed to see the patient to continue to manage as an inpatient. Endorsed the case to the hospitalist Dr. Archibald agreed admit the patient to intensive care unit. Also discussed the case with the family resource management specialist of Dr. Prado. Patient was admitted to intensive care unit in guarded condition for further evaluation workup and therapies. Procedure: Central line placement. Indication: Venous Access Consent: verbal. Risks of bleeding, infection, and pneumothorax were explained. A time out was completed. Maximal sterile barrier technique was used including cap, gown, sterile gloves, large sheet, hand washing and chlorhexidine prep. Anesthesia: The area anesthetized with 1% lidocaine. Procedure: Theright femoral vein vein was punctured with a 19 gauge finder needle, then a wire introducer was placed, a 7 [place] triple lumen catheter was placed using Seldinger technique. There were no complications. Blood return was low pressure and non-pulsatile dark blood. Line secured in place with suture, and a sterile bio-occlusive dressing was applied. Patient tolerated procedure well. The procedure was performed by Giuseppe Salcedo DO The patient and/or family, caregivers express understanding. The patient and/or family, caregivers agrees with the plan. Shared decision making: I will have a discussion with the patient and or visitors regarding risk/benefits of further testing or admission. They will be made aware of of the risk/benefits inherent in this decision they will be given the opportunity to voice understanding. Total critical care time today provided was at least 60 minutes. This excludes separately billable procedures. Critical care time (if documented) is secondary to the patient having high probability of clinically significant/life threatening deterioration in the patient's condition which required my urgent intervention. Impression: 1. Septic versus hemorrhagic shock 2. Acute liver failure 3. Acute kidney injury 4. Hyponatremia 5. Hypokalemia 6. Chronic alcohol abuse Dispo: Admit to ICU This note was generated with [employer] dictation software. It may contain incorrect words, spelling, and punctuation that were not noted in review of the chart prior to signing. Lab Data Labs: Laboratory Results - last 24 hr 01/09/24 01/09/24 01/09/24 09:25 09:54 13:01 WBC 6.0 RBC 1.92 L Hgb 7.7 L Hct 21.7 L MCV 113.0 H MCH 40.1 H MCHC 35.5 RDW Std Deviation 67.8 H RDW Coeff of Yan 16.7 H Plt Count 58 L MPV 11.7 Immature Gran % (Auto) 1.800 H Neut % (Auto) 84.0 H Lymph % (Auto) 8.1 L [place] % (Auto) 6.1 Eos % (Auto) 0.0 Baso % (Auto) 0.0 Absolute Neuts (auto) 5.0 Absolute Lymphs (auto) 0.48 L Nucleated RBC % 0.8 Differential Comment SCANNED Platelet Estimate MOD DEC Anisocytosis 2+ Macrocytosis 3+ Target Cells 1+ PT 17.8 H INR 1.5 APTT 36.8 H Sodium 128 L Potassium 3.4 L Chloride 88 L Carbon Dioxide 26.0 Anion Gap 14 BUN 10 Creatinine 1.58 H Estim Creat Clear Calc 48.49 Est GFR (MDRD) Af Amer 49 L Est GFR (MDRD) Non-Af 40 L BUN/Creatinine Ratio 6.3 L Glucose 61 L Lactic Acid 6.7 H* Calcium 8.2 L Total Bilirubin 21.60 H* AST 159 H ALT 44 Alkaline Phosphatase 161 H Troponin I High Sens 5 Total Protein 5.8 L Albumin 2.2 L Globulin 3.6 Albumin/Globulin Ratio 0.6 L Urine Color Brown Urine Clarity Turbid Urine pH 6.5 Ur Specific [place] 1.015 Urine Protein 100 H Urine Glucose (UA) 50 H Urine Ketones 15 H Urine Occult Blood 250 H Urine Nitrite Negative Urine Bilirubin 6 H Urine Urobilinogen 12 H Ur Leukocyte Esterase 25 H Urine RBC 0-5 SEEN Urine WBC 5-10 SEEN Ur Squamous Epith Cells 10-25 SEEN Ur Renal Epithelial Cell 50-100 SEEN Urine Bacteria 3+ Urine Mucus 0 SEEN Urine Test Negative Blood Type A NEGATIVE Antibody Screen NEGATIVE Crossmatch See Detail Radiography Diagnostic Testing: Clinical Impression(s) from Imaging Studies Chest X-Ray 01/09/24 09:40 IMPRESSION: No radiographic evidence of acute cardiopulmonary disease. Electronically Signed: Xochitl King MD at 9:50 EDT , Chest/Abdomen/Pelvis CTA 01/09/24 12:00 IMPRESSION: Hepatomegaly and diffuse fatty infiltration of the liver with the heterogeneities in appearance. Mild splenomegaly. Pancolitis. Diffuse thickening of the gastric wall. Thickened small bowel loops. Small amount of free fluid in the pelvis and perihepatic region. Electronically Signed: Tony Falcon MD at 14:56 EDT , Discharge Plan Triage Chief Complaint: Nausea/Vomiting ED Provider: Giuseppe Salcedo Dx/Rx/DC Orders Primary Care Provider: Care Physician,No Primary
--- NOTE | 2024-01-09 09:33 | EKG12_ITS ---
Test Reason : SOB Blood Pressure : / mmHG Vent. Rate : 111 BPM Atrial Rate : 111 BPM P-R Int : 114 ms QRS Dur : 080 ms QT Int : 338 ms P-R-T Axes : 071 071 090 degrees QTc Int : 459 ms Sinus tachycardia Otherwise normal ECG Confirmed by Edvin Foster ([id number]), communications editor JOHANNA VILLARREAL ([id number]) on 01/10/2024 9:54:26 AM Referred By: ADDISON Confirmed By:Edvin Foster
--- NOTE | 2024-01-09 09:40 | RAD_ITS ---
INDICATION: Weakness EXAMINATION/TECHNIQUE: X-RAY - XR Chest 1 View COMPARISON: No relevant prior comparison study available FINDINGS: LINES/DEVICES: None. LUNGS: No consolidation, edema or effusion. No pneumothorax. MEDIASTINUM AND CARDIOVASCULAR STRUCTURES: Cardiac silhouette not enlarged. Central airways and mediastinal contour are unremarkable. BONES AND SOFT TISSUES: Unremarkable. RAD/Chest 1 View (Portable) IMPRESSION: No radiographic evidence of acute cardiopulmonary disease. Electronically Signed: Xochitl King MD at 9:50 EDT ,
[2024-01-09 09:54] LABS: Absolute Lymphocyte Count 0.48 X10^3/uL (0.83-4.51); Hematocrit 21.7 % (37-47); Hemoglobin 7.7 g/dL (12.0-15.0); Lymphocyte # 0.48 X10^3/ul (0.83-4.51); Lymphocyte % 8.1 % (19-41); Mean Corp Hgb Conc 35.5 g/dL (32-36); Mean Corpuscular Hgb 40.1 pg (27.0-32.0); Mean Platelet Vol. 11.7 fl (6.2-12.0); Monocyte# 0.36 X10^3/uL; Monocyte% 6.1 % (0-10); NRBC Flagged by Analyzer 0.8 % (0-5); POSITIVE COUNT YES; POSITIVE DIFFERENTIAL YES; POSITIVE MORPHOLOGY YES; Platelet Count 58 K/mm3 (150-450); RBC Distribution Width CV 16.7 % (11.6-14.6); RBC Distribution Width SD 67.8 fl (35.1-43.9); Red Blood Count 1.92 M/mm3 (4.2-5.4)
[2024-01-09 09:59] LABS: Differential Indicated SCAN CRITERIA MET
[2024-01-09] MEDS: Ondansetron 4 MG/2 ML Vial IV ×2 (10:00→14:34)
[2024-01-09] MEDS: 0.9% Normal Saline (1000mL) 1,000 ML 999 ML IV ×2 (10:00→10:11)
[2024-01-09 10:06] LABS: International Normalized Ratio 1.5; Partial Thromboplast Time 36.8 Seconds (24.1-36.2); Prothrombin Time (Protime)PT. 17.8 SECONDS (11.7-14.9)
[2024-01-09 10:25] LABS: ALB/GLOB Ratio 0.6 RATIO (0.9-2.4); AST(SGOT) 159 U/L (15-37); Alanine Aminotransfer ALT/SGPT 44 U/L (13-56); Albumin, Serum 2.2 g/dL (3.2-5.0); Alkaline Phosphatase 161 U/L (45-117); Anion Gap 14 (5-15); BUN 10 mg/dL (7-18); BUN/Creat Ratio 6.3 RATIO (10-20); Calcium,Total 8.2 mg/dL (8.5-10.1); Chloride 88 mmol/L (98-107); Creatinine, Serum 1.58 mg/dL (0.55-1.02); EST Glomerular Filtration Rate 40 mL/min (>60); Est Glom Filt Rate - Afr Amer 49 mL/min (>60); Estimated Creatinine Clearance 48.49 ml/min; Globulin 3.6 g/dL (2.2-4.2); Glucose 61 mg/dL (74-106); Potassium 3.4 mmol/L (3.5-5.1); Protein, Total 5.8 g/dL (6.4-8.2); Sodium Level 128 mmol/L (136-145); Troponin-I HS 5 pg/mL (3.0-54.0)
[2024-01-09 10:49] LABS: Lactic Acid 6.7 mmol/L (0.4-1.9)
[2024-01-09] MEDS: Albumin Human 25% (100 mL) 25 GM/100 ML BAG IV (11:13)
[2024-01-09] MEDS: Thiamine Hydrochloride 100 MG in 0.9% Normal Saline (50mL Bag) 50 ML 200 MG IV (11:36)
[2024-01-09] MEDS: Dextrose 5%/0.9% NaCl 1,000 ML 200 ML IV (11:37)
--- NOTE | 2024-01-09 12:00 | CT_ITS ---
STUDY: CT CHEST, ABDOMEN T PELVIS WITH CONTRAST REASON FOR EXAM: Female, 33 years old. Vomiting, GI bleed RADIATION DOSAGE (If Supplied By Facility): CTDIvol = ( 14.69 ) mGy, DLP = ( 1187.93 ) mGycm TECHNIQUE: Transaxial imaging was performed following intravenous administration of IV 100mL Isovue-370. Multiplanar coronal and sagittal images were reformatted. Individualized dose optimization techniques were used for this CT. COMPARISON: Comparison is made with prior study dated December 16, 2023. FINDINGS: CHEST Stable mild linear scarring in the anterior aspect of the right lower lobe. There is no demonstrated pleural abnormality. Normal heart and pericardium. Normal mediastinum. Normal hilar regions. Normal unenhanced pulmonary arteries. Normal aorta arch and descending thoracic aorta. Normal osseous structures. ABDOMEN There is decreased attenuation of the liver consistent with steatosis. Hepatomegaly. Small amount of perihepatic fluid. Small gallstones. There is mild splenomegaly. Normal pancreas. Normal bilateral adrenal glands. Normal right kidney. Normal left kidney. Diffuse thickening of the gastric wall with prominence of the gastric folds. Mild thickening of multiple small bowel loops. Diffuse colitis. The appendix is visualized and appears normal. Normal abdominal aorta. Normal inferior vena cava. Normal retroperitoneum. Normal abdominal wall. Straightening of the normal lumbar lordosis. Fusion at the L4-L5 vertebral level. PELVIS A [place] catheter seen within a decompressed urinary bladder. There is diffuse mural thickening of the urinary bladder although this may be due to lack of adequate distention. Small amount of free fluid in the pelvis. Normal visualized small intestine. Normal visualized colon. There is no pelvic fluid. There is no pelvic lymphadenopathy or mass lesion. Normal visualized pelvic arteries. CT/CTA Chst, Abd, Pel W and/or WO IMPRESSION: Hepatomegaly and diffuse fatty infiltration of the liver with the heterogeneities in appearance. Mild splenomegaly. Pancolitis. Diffuse thickening of the gastric wall. Thickened small bowel loops. Small amount of free fluid in the pelvis and perihepatic region. Electronically Signed: Tony Falcon MD at 14:56 EDT ,
[2024-01-09] MEDS: Ceftriaxone 1 GM/50 ML BAG IV (12:49)
[2024-01-09] MEDS: Pantoprazole Sodium 80 MG in 0.9% Normal Saline (50mL Bag) 15 ML 420 MG IVPB (12:58)
[2024-01-09 13:12] LABS: Mucous, Urine 0 SEEN /hpf (<or=2+)
[2024-01-09 13:15] LABS: Anisocytosis 2+; Differential Comment SCANNED; Macrocytosis 3+; Platelet Estimate MOD DEC (ADEQ); Target Cells 1+
[2024-01-09 13:21] LABS: Color, Urine Brown (Yellow); Glucose, Dipstick 50 mg/dl (Normal); Ketone-Dipstick 15 mg/dl (Negative); Leukocyte Esterase-Dipstick 25 /ul (Negative); Nitrite-Dipstick Negative (Negative); Occult Blood-Urine 250 /ul (Negative); Protein-Dipstick 100 mg/dl (Negative); Specific Gravity, Urine 1.015 (1.002-1.030); Urine Clarity Turbid (Clear); Urine Urobilinogen 12 mg/dl (Normal); Urine pH 6.5 (5.0 - 8.0)
[2024-01-09 13:23] LABS: Internal QC Validated? YES +Cl - CLEAR BKGD; Pregnancy, Urine Negative Negative
[2024-01-09 13:27] LABS: Urine Bilirubin Dipstick 6 mg/dL (Negative)
[2024-01-09] MEDS: Octreotide 0.5 MG in Dextrose 5%-Water (250mL Bag) 249 ML 25 MG CONT INF ×2 (13:42→22:59)
[2024-01-09] MEDS: fentaNYL 100 MCG/2 ML Ampul 25 MCG IV (13:43)
[2024-01-09] MEDS: Norepinephrine 8 MG in 0.9% Normal Saline (250mL Bag) 242 ML 9.4 MG CONT INF (13:52)
[2024-01-09 13:56] LABS: White Blood Cells 5-10 SEEN /hpf (0-5)
[2024-01-09 13:58] LABS: Red Blood Cells-Urine 0-5 SEEN /hpf (0-5)
[2024-01-09 13:59] LABS: Reflex Lactate? Y
[2024-01-09 13:59] LABS: Bacteria 3+ /hpf (None Seen); Renal Epithelial Cells 50-100 SEEN /hpf (0-5); Squamous Epithelial Cells - UA 10-25 SEEN /hpf (5-10)
--- NOTE | 2024-01-09 15:14 | NURSING ---
NEED GREEN TOP FOR LIPASE
--- NOTE | 2024-01-09 15:33 | PCM.HP.STD ---
HPI - General General Date of Admission: 01/09/24 Date of Service: 01/09/24 HPI Narrative DEANA BADILLO, is a 33 F came to ED with vomiting blood, generalized weakness and jaundice ongoing for about a month. She states she also cares on and off abdominal pain mainly right and left upper quadrant but sometimes it becomes generalized for about 1 month. Her bowel movement is irregular Dion diarrhea, mucus, lose but sometimes constipated 2. Today she had a bloody bowel movement in the morning and and then she fainted, had syncope. Patient is accompanied with her girlfriend. Her girlfriend said she was thinking to come in the ER but she passed out before that. Patient also does not have insurance and no doctor takes her. She drinks whiskey daily about 1 to 2 pints daily. In ED, patient blood pressure was low hypotensive on IV vasopressor, Levophed drip. She had right femoral CVC catheter from where she was oozing blood for some time, coagulopathy. ABG was not done for this reason. Labs and imaging reviewed discussion assessment and plan. Patient is going to be admitted in ICU. [facility] Medical History Alcoholism Home Medications ?Medication ?Instructions ?Recorded ?Last Taken ?Type pantoprazole 40 mg tablet,delayed 40 mg PO BID GERD 30 days #60 tabs 12/16/23 Unknown Rx release (Protonix) Allergy/AdvReac Type Severity Reaction Status Date / Time hydrocodone Allergy Hives Verified 01/09/24 09:29 Social History Smoking Status: Current every day smoker tobacco type: cigarettes ROS ROS Narrative Constitutional: Generalized fatigue and very weak. Low-grade fever. HEENT: Reports systems reviewed and no addt'l complaints, except as documented Respiratory/Chest: Dyspnea on exertion. No respiratory distress or wheezing. CVS: Denies chest pain but had syncope. Gastrointestinal: Chronic alcohol hepatitis. The rest as described in HPI. Hematemesis, hematochezia. Diffuse abdominal pain. Genitourinary: Denies burning urination or new urinary tract symptoms Musculoskeletal: Denies acute joint pain or limited range of motion. No acute injury Neurologic: Denies seizure-like symptoms. skin: No ulcer. No rash Endocrinology: Reports systems reviewed and no addt'l complaints, except as documented Hematologic/Lymphatic: Coagulopathy. Reports systems reviewed and no addt'l complaints, except as documented Rest 14 ROS are negative except as mentioned in HPI Vital Signs Vital Signs Vital Signs: 01/09/24 09:20 01/09/24 09:22 01/09/24 09:33 Temperature 98.2 F 98.2 F Temperature Source Oral Oral Pulse Rate 117 H 118 H Respiratory Rate 19 H 18 Blood Pressure 71/50 L 71/50 L Blood Pressure Mean 57 57 Blood Pressure Source Blood Pressure Position Blood Pressure Location Pulse Ox 99 100 100 Oxygen Delivery Method Room Air Room Air Room Air Oxygen Flow Rate (L/min) 01/09/24 09:38 01/09/24 10:29 01/09/24 10:38 Temperature 98.4 F Temperature Source Oral Pulse Rate 115 H 111 H 118 H Respiratory Rate 21 H 20 H 20 H Blood Pressure 77/44 L 83/31 L 81/34 L Blood Pressure Mean 55 48 49 Blood Pressure Source Blood Pressure Position Blood Pressure Location Pulse Ox 100 99 98 Oxygen Delivery Method Room Air Room Air Room Air Oxygen Flow Rate (L/min) 01/09/24 11:00 01/09/24 11:16 01/09/24 11:31 Temperature 97.8 F 98.7 F Temperature Source Temporal Oral Pulse Rate 115 H 115 H 119 H Respiratory Rate 21 H 18 20 H Blood Pressure 105/65 105/65 89/34 L Blood Pressure Mean 78 78 52 Blood Pressure Source Blood Pressure Position Blood Pressure Location Pulse Ox 100 98 97 Oxygen Delivery Method Room Air Room Air Room Air Oxygen Flow Rate (L/min) 01/09/24 11:46 01/09/24 12:00 01/09/24 12:01 Temperature 98.7 F 98.6 F Temperature Source Temporal Temporal Pulse Rate 114 H 20 L 114 H Respiratory Rate 16 18 16 Blood Pressure 81/31 L 89/34 L 81/76 L Blood Pressure Mean 47 52 77 Blood Pressure Source Blood Pressure Position Blood Pressure Location Pulse Ox 97 98 98 Oxygen Delivery Method Room Air Room Air Room Air Oxygen Flow Rate (L/min) 01/09/24 12:16 01/09/24 12:25 01/09/24 12:40 Temperature 98.9 F 98.6 F 97.6 F L Temperature Source Temporal Oral Core Pulse Rate 122 H 119 H 121 H Respiratory Rate 20 H 19 H 24 H Blood Pressure 99/55 L 99/55 L 88/44 L Blood Pressure Mean 69 69 58 Blood Pressure Source Monitor Monitor Blood Pressure Position Supine Supine Blood Pressure Location Right Arm Right Arm Pulse Ox 98 98 98 Oxygen Delivery Method Room Air Room Air Room Air Oxygen Flow Rate (L/min) 01/09/24 13:00 01/09/24 13:17 01/09/24 13:52 Temperature 99.5 F H 98.9 F 99.6 F H Temperature Source Core Core Core Pulse Rate 123 H 120 H 113 H Respiratory Rate 21 H 20 H 20 H Blood Pressure 104/67 95/33 L 84/53 L Blood Pressure Mean 79 53 63 Blood Pressure Source Monitor Blood Pressure Position Supine Blood Pressure Location Right Arm Pulse Ox 96 94 99 Oxygen Delivery Method Room Air Room Air Oxygen Flow Rate (L/min) 2 01/09/24 14:34 01/09/24 15:00 01/09/24 15:13 Temperature 99.7 F H 99.8 F H Temperature Source Core Core Pulse Rate 111 H 101 H 112 H Respiratory Rate 22 H 20 H 25 H Blood Pressure 90/60 81/44 L 81/44 L Blood Pressure Mean 70 56 56 Blood Pressure Source Blood Pressure Position Blood Pressure Location Pulse Ox 100 100 100 Oxygen Delivery Method Nasal Cannula Nasal Cannula Oxygen Flow Rate (L/min) 2 2 2 Weight Weight: 162 lb 7.691 oz Body Mass Index (BMI) 29.7 Physical Exam Narrative General: Awake, oriented x3, Cooperative. Fatigue. Looks very sick. HEENT: Deep jaundice, icterus. Atraumatic, PERRLA, EOMI, Normocephalic Oral: Oral mucosa dry. Yellowish discoloration of oral mucosa. Neck: Supple, No JVD, Negative Carotid Bruits Chest wall/Lungs: Air entry diminished in bilateral lung bases. No crepitation/rhonchi Cardiovascular: Sinus rhythm, Normal S1, Normal S2, No M/G/R Abdomen: Bowel Sounds sluggish. Tenderness present all over predominantly in right and left upper quadrants. Liver enlarged. Spleen palpable. Abdomen distended. : No dysuria. No renal angle tenderness. No suprapubic tenderness. Extremities: Mild bilateral leg pitting edema, Capillary Refill Less than 3 Seconds Skin: No rashes, No breakdown Musculoskeletal: No Tenderness to Palpation of Joints or Extremities. ROM full and adequate. Neurological: Cranial nerves II-XII grossly intact, DTR 2+/4. No acute focal neurological deficit. Psych/Mental Status: Flat affect. Results Lab / Micro Data 01/09/24 09:25 01/09/24 09:25 Labs: Laboratory Results - last 24 hr 01/09/24 09:25: WBC 6.0, RBC 1.92 L, Hgb 7.7 L, Hct 21.7 L, MCV 113.0 H, MCH 40.1 H, MCHC 35.5, RDW Std Deviation 67.8 H, RDW Coeff of Yan 16.7 H, Plt Count 58 L, MPV 11.7, Immature Gran % (Auto) 1.800 H, Neut % (Auto) 84.0 H, Lymph % (Auto) 8.1 L, [place] % (Auto) 6.1, Eos % (Auto) 0.0, Baso % (Auto) 0.0, Absolute Neuts (auto) 5.0, Absolute Lymphs (auto) 0.48 L, Nucleated RBC % 0.8, Differential Comment SCANNED, Platelet Estimate MOD DEC, Anisocytosis 2+, Macrocytosis 3+, Target Cells 1+, PT 17.8 H, INR 1.5, APTT 36.8 H, Sodium 128 L, Potassium 3.4 L, Chloride 88 L, Carbon Dioxide 26.0, Anion Gap 14, BUN 10, Creatinine 1.58 H, Estim Creat Clear Calc 48.49, Est GFR (MDRD) Af Amer 49 L, Est GFR (MDRD) Non-Af 40 L, BUN/Creatinine Ratio 6.3 L, Glucose 61 L, Calcium 8.2 L, Total Bilirubin 21.60 H*, AST 159 H, ALT 44, Alkaline Phosphatase 161 H, Troponin I High Sens 5, Total Protein 5.8 L, Albumin 2.2 L, Globulin 3.6, Albumin/Globulin Ratio 0.6 L 01/09/24 09:54: Lactic Acid 6.7 H*, Blood Type A NEGATIVE, Antibody Screen NEGATIVE, Crossmatch See Detail 01/09/24 13:01: Urine Color Brown, Urine Clarity Turbid, Urine pH 6.5, Ur Specific Line [place] 1.015, Urine Protein 100 H, Urine Glucose (UA) 50 H, Urine Ketones 15 H, Urine Occult Blood 250 H, Urine Nitrite Negative, Urine Bilirubin 6 H, Urine Urobilinogen 12 H, Ur Leukocyte Esterase 25 H, Urine RBC 0-5 SEEN, Urine WBC 5-10 SEEN, Ur Squamous Epith Cells 10-25 SEEN, Ur Renal Epithelial Cell 50-100 SEEN, Urine Bacteria 3+, Urine Mucus 0 SEEN, Urine Test Negative Imaging Radiology Impression Chest X-Ray 01/09/24 09:40 IMPRESSION: No radiographic evidence of acute cardiopulmonary disease. Electronically Signed: Xochitl King MD at 9:50 EDT , Chest/Abdomen/Pelvis CTA 01/09/24 12:00 IMPRESSION: Hepatomegaly and diffuse fatty infiltration of the liver with the heterogeneities in appearance. Mild splenomegaly. Pancolitis. Diffuse thickening of the gastric wall. Thickened small bowel loops. Small amount of free fluid in the pelvis and perihepatic region. Electronically Signed: Tony Falcon MD at 14:56 EDT , Assessment & Plan Assessment/Plan (1) Shock: PLAN: Plan This is a 33-year-old female is being admitted in ICU for severe jaundice, abdominal pain, severe anemia and coagulopathy consistent with of acute liver injury and and shock 1. Shock likely hemorrhagic shock but possible septic shock possible due to hepatobiliary sepsis and/or pancolitis: Patient is being admitted in ICU. The patient presented with possible septic shock with clinical indicators of Low-grade fever Tmax 100.2 Fahrenheit, tachycardia, tachypnea due to hepatobiliary sepsis/acute liver injury with acute sepsis-related organ dysfunction as evidenced by hypotension not responsive to IV fluid, requiring vasopressor, coagulopathy, severe thrombocytopenia, hyperbilirubinemia. Patient started on broad-spectrum IV antibiotic Zosyn for gram-positive, gram-negative aerobic and anaerobic bacteria. Patient had 1 dose of IV ceftriaxone in the ER. [employer] and GI consulted. ABG was not done but VBG shows 7.56/20/total bicarb 18. Anion gap 14. Overall suggestive of high anion gap metabolic acidosis with respiratory alkalosis. 2. Acute liver injury, severe acute alcoholic hepatitis with history of chronic alcoholic hepatitis: CT abdomen shows hepatomegaly with diffuse heterogenous, fatty infiltration and splenomegaly. Liver chemistry shows total bilirubin 21.6, INR 1.5 with Madrey's discriminant function 48.3 showing poor prognosis. Patient not candidate for steroid because of possible septic shock. 3. Pancolitis, possible infectious: CT abdomen shows pancolitis, mild thickening of multiple small bowel loops, diffuse thickening of gastric wall. Patient on IV antibiotic. Enteric bacteriology panel, C. difficile ordered. 4. Electrolyte abnormality, hyponatremia, hypokalemia, 5. CRICKET, possible prerenal but at risk for ATN, possible HRS: BUN/creatinine 10/1.58. BUNs/creatinine ratio 6.3. Previous creatinine was 0.43 on December 16, 2023. Patient has [place] catheter. Strict intake and output. Patient on octreotide drip. Since patient already on Levophed and therefore did not start on midodrine 6. Coagulopathy and severe thrombocytopenia due to severe liver disease: INR 1.5. Platelet count is 58,000. Patient platelet count was low on December 15 56,000 and was 146,000 and infiltrate 2022. 7. DVT prophylaxis: Bilateral SCDs. Pharmacological prophylaxis contraindicated. Living will/advanced directive/end of life care: Patient does not have living will or advanced directive. Patient is accompanied with her girlfriend. After discussion of benefits/risks procedures involved with full code, DNR CC arrest and DNR CC, the patient Opted for full code. Patient does want artificial life support including intubation, tube feed, ventilator and/chest compression, central venous catheter, vasopressor and DC shock if needed Total time spent in [id number] encounter in discussion of advanced directive 17 minutes. Laboratory Results 01/09/24 09:25: WBC 6.0, RBC 1.92 L, Hgb 7.7 L, Hct 21.7 L, MCV 113.0 H, MCH 40.1 H, MCHC 35.5, RDW Std Deviation 67.8 H, RDW Coeff of Yan 16.7 H, Plt Count 58 L, MPV 11.7, Immature Gran % (Auto) 1.800 H, Neut % (Auto) 84.0 H, Lymph % (Auto) 8.1 L, [place] % (Auto) 6.1, Eos % (Auto) 0.0, Baso % (Auto) 0.0, Absolute Neuts (auto) 5.0, Absolute Lymphs (auto) 0.48 L, Nucleated RBC % 0.8, Differential Comment SCANNED, Platelet Estimate MOD DEC, Anisocytosis 2+, Macrocytosis 3+, Target Cells 1+, PT 17.8 H, INR 1.5, APTT 36.8 H, Sodium 128 L, Potassium 3.4 L, Chloride 88 L, Carbon Dioxide 26.0, Anion Gap 14, BUN 10, Creatinine 1.58 H, Estim Creat Clear Calc 48.49, Est GFR (MDRD) Af Amer 49 L, Est GFR (MDRD) Non-Af 40 L, BUN/Creatinine Ratio 6.3 L, Glucose 61 L, Calcium 8.2 L, Phosphorus 1.3 L, Magnesium 1.6, Total Bilirubin 21.60 H*, AST 159 H, ALT 44, Alkaline Phosphatase 161 H, Troponin I High Sens 5, Total Protein 5.8 L, Albumin 2.2 L, Globulin 3.6, Albumin/Globulin Ratio 0.6 L, Lipase 10 L 01/09/24 09:54: Lactic Acid 6.7 H*, Blood Type A NEGATIVE, Antibody Screen NEGATIVE, Crossmatch See Detail 01/09/24 09:54: Crossmatch See Detail 01/09/24 13:01: Urine Color Brown, Urine Clarity Turbid, Urine pH 6.5, Ur Specific Line [place] 1.015, Urine Protein 100 H, Urine Glucose (UA) 50 H, Urine Ketones 15 H, Urine Occult Blood 250 H, Urine Nitrite Negative, Urine Bilirubin 6 H, Urine Urobilinogen 12 H, Ur Leukocyte Esterase 25 H, Urine RBC 0-5 SEEN, Urine WBC 5-10 SEEN, Ur Squamous Epith Cells 10-25 SEEN, Ur Renal Epithelial Cell 50-100 SEEN, Urine Bacteria 3+, Urine Mucus 0 SEEN, Urine Test Negative 01/09/24 15:38: Lactic Acid 4.0 H* 01/09/24 16:07: Specimen Type CONSUELO, Sample Site Not entered, VBG pH 7.56 H, VBG pO2 133 H, VBG HCO3 18 L, VBG Total CO2 18 L, VBG O2 Sat (Calc) 100 H, VBG Base Excess -4 L, POC Mix VBG pCO2 Pt Tmp 19.7 L, O2 Delivery Device Not entered Clinical Impression(s) from Imaging Studies Chest X-Ray 01/09/24 09:40 IMPRESSION: No radiographic evidence of acute cardiopulmonary disease. Electronically Signed: Xochitl King MD at 9:50 EDT , Chest/Abdomen/Pelvis CTA 01/09/24 12:00 IMPRESSION: Hepatomegaly and diffuse fatty infiltration of the liver with the heterogeneities in appearance. Mild splenomegaly. Pancolitis. Diffuse thickening of the gastric wall. Thickened small bowel loops. Small amount of free fluid in the pelvis and perihepatic region. Electronically Signed: Tony Falcon MD at 14:56 EDT , Charges/Coding Visit Charges Inpatient E&M: 57703 Init Hosp L3 Procedures Hospitalists Procedures: [id number] Advncd Care Plan 30 Min
[2024-01-09 15:37] LABS: Lipase 10 U/L (13-75)
--- NOTE | 2024-01-09 15:47 | NURSING ---
ICU SOFYA HYPOTENSION
[2024-01-09] MEDS: LORazepam 2 MG/ML Syringe IV (16:04)
[2024-01-09 16:11] LABS: Blood Gas Specimen Type VEN; O2 Delivery Device Not entered; SITE Not entered; VBG BASE EXCESS -4 mmol/L (-1.0-3.5); VBG Bicarbonate 18 mmol/L (22-26); VBG PO2 133 mmHg (25-40); VBG SO2 100 % (50-70); VBG TCO2 18 mmol/L (23-33); VBG pCO2 19.7 mmHg (41-51); VBG pH 7.56 (7.32-7.42)
[2024-01-09 16:17] LABS: Magnesium 1.6 mg/dL (1.6-2.6); Phosphorus 1.3 mg/dL (2.5-4.9)
[2024-01-09 17:30] LABS: Hematocrit 22.5 % (37-47)
[2024-01-09] MEDS: 0.9% Normal Saline (250mL Bag) 250 ML 15 ML IV (17:30)
[2024-01-09] MEDS: Piperacil/Tazobactam 3.375 GM in 0.9% Normal Saline (50mL MB+) 50 ML IV ×2 (17:30→22:20)
[2024-01-09] MEDS: 0.9% Normal Saline (1000mL) 1,000 ML 100 ML IV (17:30)
--- NOTE | 2024-01-09 20:05 | EX.PCM.CON.G ---
HPI Consult Data Date of Consult: 01/09/24 HPI Narrative Reason for Consultation: GI bleed HPI Narrative: DEANA BADILLO, is a Patient is a 33-year-old female who reports a longstanding history of alcohol abuse and possible cirrhosis. She reports she drinks a half a pint to a pint of whiskey daily. She also reports that she smokes roughly 1 pack a day. She states that she has bouts of vomiting intermittently secondary to her recurrent alcohol use. However today in the emesis appeared more dark with specks of bright red blood. Patient states that she has not noticed any type of blood in her urine or stool and she denies any abdominal pain. She does state that she has remote history of acid reflux but only takes medication for it occasionally and these meds are [id number]. She Notes ongoing symptoms for the last several weeks. notes today symptoms became worse after she was having a bowel movement. Notes diffusely bloody bowel movement and then syncope thereafter. Denies chest pain currently. Denies shortness of breath. Denies fever. Does note a chronic cough. Does note episodes of bloody vomitus. Last bowel was just prior to arrival had merle blood. Biochemical workup in the ED shows a lactic acidosis of 6.1, hemoglobin is 7.7, MCV of 113, platelet count of 58. Also noted was a potassium of 3.4, sodium 128, INR 1.5, BUN of 10, creatinine of 1.5. Her bilirubin is 21, AST of 159, ALT of 44, alkaline phosphatase 161. [facility] Medical History Alcoholism Home Medications ?Medication ?Instructions ?Recorded ?Last Taken ?Type pantoprazole 40 mg tablet,delayed 40 mg PO BID GERD 30 days #60 tabs 12/16/23 Unknown Rx release (Protonix) Allergy/AdvReac Type Severity Reaction Status Date / Time hydrocodone Allergy Hives Verified 01/09/24 09:29 Social History Smoking Status: Current every day smoker tobacco type: cigarettes ROS ROS Narrative Constitutional: Generalized fatigue and very weak. Low-grade fever. HEENT: Reports systems reviewed and no addt'l complaints, except as documented Respiratory/Chest: Dyspnea on exertion. No respiratory distress or wheezing. CVS: Denies chest pain but had syncope. Gastrointestinal: Chronic alcohol hepatitis. The rest as described in HPI. Hematemesis, hematochezia. Diffuse abdominal pain. Genitourinary: Denies burning urination or new urinary tract symptoms Musculoskeletal: Denies acute joint pain or limited range of motion. No acute injury Neurologic: Denies seizure-like symptoms. skin: No ulcer. No rash Endocrinology: Reports systems reviewed and no addt'l complaints, except as documented Hematologic/Lymphatic: Coagulopathy. Reports systems reviewed and no addt'l complaints, except as documented Rest 14 ROS are negative except as mentioned in HPI Physical Exam Narrative General: Awake, oriented x3, Cooperative. Fatigue. Looks very sick. HEENT: Deep jaundice, icterus. Atraumatic, PERRLA, EOMI, Normocephalic Oral: Oral mucosa dry. Yellowish discoloration of oral mucosa. Neck: Supple, No JVD, Negative Carotid Bruits Chest wall/Lungs: Air entry diminished in bilateral lung bases. No crepitation/rhonchi Cardiovascular: Sinus rhythm, Normal S1, Normal S2, No M/G/R Abdomen: Bowel Sounds sluggish. Tenderness present all over predominantly in right and left upper quadrants. Liver enlarged. Spleen palpable. Abdomen distended. : No dysuria. No renal angle tenderness. No suprapubic tenderness. Extremities: Mild bilateral leg pitting edema, Capillary Refill Less than 3 Seconds Skin: No rashes, No breakdown Musculoskeletal: No Tenderness to Palpation of Joints or Extremities. ROM full and adequate. Neurological: Cranial nerves II-XII grossly intact, DTR 2+/4. No acute focal neurological deficit. Psych/Mental Status: Flat affect. Lab / Micro Data 01/09/24 17:00 01/09/24 09:25 Labs: Laboratory Results - last 24 hr 01/09/24 09:25: WBC 6.0, RBC 1.92 L, Hgb 7.7 L, Hct 21.7 L, MCV 113.0 H, MCH 40.1 H, MCHC 35.5, RDW Std Deviation 67.8 H, RDW Coeff of Yan 16.7 H, Plt Count 58 L, MPV 11.7, Immature Gran % (Auto) 1.800 H, Neut % (Auto) 84.0 H, Lymph % (Auto) 8.1 L, [place] % (Auto) 6.1, Eos % (Auto) 0.0, Baso % (Auto) 0.0, Absolute Neuts (auto) 5.0, Absolute Lymphs (auto) 0.48 L, Nucleated RBC % 0.8, Differential Comment SCANNED, Platelet Estimate MOD DEC, Anisocytosis 2+, Macrocytosis 3+, Target Cells 1+, PT 17.8 H, INR 1.5, APTT 36.8 H, Sodium 128 L, Potassium 3.4 L, Chloride 88 L, Carbon Dioxide 26.0, Anion Gap 14, BUN 10, Creatinine 1.58 H, Estim Creat Clear Calc 48.49, Est GFR (MDRD) Af Amer 49 L, Est GFR (MDRD) Non-Af 40 L, BUN/Creatinine Ratio 6.3 L, Glucose 61 L, Calcium 8.2 L, Phosphorus 1.3 L, Magnesium 1.6, Total Bilirubin 21.60 H*, AST 159 H, ALT 44, Alkaline Phosphatase 161 H, Troponin I High Sens 5, Total Protein 5.8 L, Albumin 2.2 L, Globulin 3.6, Albumin/Globulin Ratio 0.6 L, Lipase 10 L 01/09/24 09:54: Lactic Acid 6.7 H*, Blood Type A NEGATIVE, Antibody Screen NEGATIVE, Crossmatch See Detail 01/09/24 09:54: Crossmatch See Detail 01/09/24 13:01: Urine Color Brown, Urine Clarity Turbid, Urine pH 6.5, Ur Specific [place] 1.015, Urine Protein 100 H, Urine Glucose (UA) 50 H, Urine Ketones 15 H, Urine Occult Blood 250 H, Urine Nitrite Negative, Urine Bilirubin 6 H, Urine Urobilinogen 12 H, Ur Leukocyte Esterase 25 H, Urine RBC 0-5 SEEN, Urine WBC 5-10 SEEN, Ur Squamous Epith Cells 10-25 SEEN, Ur Renal Epithelial Cell 50-100 SEEN, Urine Bacteria 3+, Urine Mucus 0 SEEN, Urine Test Negative 01/09/24 15:38: Lactic Acid 4.0 H* 01/09/24 17:00: Hgb 8.0 L, Hct 22.5 L ABG Data ABG results: ABG 01/09/24 16:07 Specimen Type CONSUELO Sample Site Not entered VBG pH 7.56 H VBG pO2 133 H VBG HCO3 18 L VBG Total CO2 18 L VBG O2 Sat (Calc) 100 H VBG Base Excess -4 L POC Mix VBG pCO2 Pt Tmp 19.7 L O2 Delivery Device Not entered Imaging Radiology Impression Chest X-Ray 01/09/24 09:40 IMPRESSION: No radiographic evidence of acute cardiopulmonary disease. Electronically Signed: Xochitl King MD at 9:50 EDT , Chest/Abdomen/Pelvis CTA 01/09/24 12:00 IMPRESSION: Hepatomegaly and diffuse fatty infiltration of the liver with the heterogeneities in appearance. Mild splenomegaly. Pancolitis. Diffuse thickening of the gastric wall. Thickened small bowel loops. Small amount of free fluid in the pelvis and perihepatic region. Electronically Signed: Tony Falcon MD at 14:56 EDT , Assessment & Plan Assessment/Plan (1) Shock: PLAN: Plan 33-year-old female with history of alcohol abuse and possible alcoholic cirrhosis presents with intermittent episodes of hematemesis and discovered to have severe jaundice, abdominal pain, severe anemia and coagulopathy consistent with of acute liver injury and and shock Agree with her currently experiencing shock likely hemorrhagic shock. She has not had any more episodes of vomiting or hematemesis. Also the differential diagnosis is b septic shock possible or mild DIC secondary to hepatobiliary sepsis and/or pancolitis that was seen on the CT scan abdomen pelvis. Patient started on broad-spectrum IV antibiotic Zosyn for gram-positive, gram-negative aerobic and anaerobic bacteria. Patient had 1 dose of IV ceftriaxone in the ER. Plan is to perform an upper endoscopy tomorrow. Unless she becomes more hemodynamically unstable I would like her to have antibiotics and have doses of PPI and octreotide. Acute on chronic liver injury, severe acute alcoholic hepatitis with history of chronic alcoholic hepatitis: Liver chemistry shows total bilirubin 21.6, INR 1.5 with Madrey's discriminant function 48.3 showing poor prognosis. Patient not candidate for steroid because of possible septic shock. She is also not a candidate for N-acetylcysteine at this time because monotherapy with N-acetylcysteine and an acute alcoholic injury or been toxic finally do not have a long-term improvement or decrease length of stay in the hospital Pancolitis, possible infectious, but likely ischemic: CT abdomen shows pancolitis, mild thickening of multiple small bowel loops, diffuse thickening of gastric wall. Patient on IV antibiotic. Enteric bacteriology panel, C. difficile ordered. Charges/Coding Visit Charges Inpatient E&M: 34029 Init Hosp L3
[2024-01-09] MEDS: Norepinephrine 8 MG in 0.9% Normal Saline (250mL Bag) 242 ML 56.3 MG CONT INF (20:33)
[2024-01-09] MEDS: Acetaminophen 325 MG Tablet 650 MG PO (20:36)
[2024-01-09] MEDS: Pantoprazole Sodium 40 MG in 0.9% Normal Saline (100mL MB+) 100 ML 330 MG IV (21:57)
[2024-01-09] MEDS: 0.9% Saline Lock 10 ML Syringe IV ×3 (21:58→23:55)
[2024-01-09 22:11] LABS: Hematocrit 21.9 % (37-47); Hemoglobin 7.6 g/dL (12.0-15.0)
--- NOTE | 2024-01-09 23:20 | PN.HOSP_ITS ---
Hospitalist Note Patient with ongoing hypotension. From review of records GI bleed in the setting of chronic alcohol abuse. Currently maintained on IV Protonix with bolus initially given, octreotide IV infusion ongoing, norepinephrine and IV Zosyn therapy. GI and civil litigation attorney Dr. Prado consulted with whom ED physician discussed case upon patient's presentation in addition. Per discussion with civil litigation attorney nursing team tentative plan for endoscopy in a.m. Unfortunately, patient is still hypotensive but from review of records on 12/16/2023 hemoglobin had been 12.4 and is now down by a significant amount with most recent 01/09/2024 at 22:00 hemoglobin 7.6 patient. Is also still tachycardic in addition to hypotension thus in the interim will initiate also vasopressin but will order 2 additional PRBC units to be given now which was discussed with staff. In addition we will add electrolyte ICU protocol. Will continue to trend hemoglobin.
[2024-01-09] MEDS: Vasopressin 20 UNITS in 0.9% Normal Saline (50mL Bag) 24 ML 3 UNITS CONT INF (23:42)
[2024-01-10] VITALS (40 sets, daily range): BP systolic 104–140; BP diastolic 49–79; PULSE 70–117; RESP 18–31; TEMP 37–38.2; O2SAT 94–100; BMI 30.4
[2024-01-10 00:07] LABS: Magnesium 1.5 mg/dL (1.6-2.6); Phosphorus 1.5 mg/dL (2.5-4.9)
--- NOTE | 2024-01-10 00:17 | PCMCONS.TICU ---
HPI Consult Data Date of Consult: 01/10/24 HPI Narrative Reason for Consultation: shock with multiorgan failure, GIB HPI Narrative: 33Y F PMH ETOH, marijuana and tobacco abuse with likely underlying cirrhosis who presented early in the day today to the ED due to hematemesis. Workup in the ED c/w with acute liver injury and shock with multiorgan failure in the setting of GIB and acute ETOH abuse. Case discussed with on-site dividend deposit voucher clerk by ED but consult not completed. Pt ultimately was admitted to the ICU on NEpi and with GI on board with plans for EGD in AM. Pt's shock however continued to worsen and when RN had maxed her NEpi I was contacted for further assistance. Pt was started on vasopressin and given 2U PRBC shortly before my visit. On my exam the patient is acutely ill and lethargic but A&Ox3 and appropriate. She has not had further episodes of GIB since admission to the ICU. Current pressors are NEpi @ 30 & Vaso @ 0.04 via Rt fem CVC with a current MAP of 68. Octreotide gtt & NS also infusing. PPI IV BID on board. [facility] Medical History Alcoholism Home Medications ?Medication ?Instructions ?Recorded ?Last Taken ?Type pantoprazole 40 mg tablet,delayed 40 mg PO BID GERD 30 days #60 tabs 12/16/23 Unknown Rx release (Protonix) Allergy/AdvReac Type Severity Reaction Status Date / Time hydrocodone Allergy Hives Verified 01/09/24 09:29 Social History Smoking Status: Current every day smoker tobacco type: cigarettes ROS ROS Narrative Full 12 point ROS completed and neg unless stated in HPI above Objective Data Objective Data Vital Signs: Vital Signs Last response Temperature 38.2 C H 01/10/24 00:00 Temperature Source Core 01/10/24 00:00 Pulse Rate 117 H 01/10/24 00:00 Respiratory Rate 26 H 01/10/24 00:00 Respiratory Effort Normal, Non-Labored 01/10/24 00:00 Respiratory Depth Normal 01/10/24 00:00 Respiratory Pattern Tachypnea 01/10/24 00:00 Blood Pressure 104/51 L 01/10/24 00:00 Blood Pressure Mean 68 01/10/24 00:00 Blood Pressure Source Monitor 01/10/24 00:00 Blood Pressure Position Supine 01/09/24 13:17 Blood Pressure Location Right Arm 01/09/24 13:17 Pulse Ox 97 01/10/24 00:00 Oxygen Delivery Method Nasal Cannula 01/10/24 00:00 Oxygen Flow Rate (L/min) 3 01/10/24 00:00 I&O: I&O Last 24 Hours 01/09/24 01/09/24 01/10/24 11:59 23:59 11:59 Intake Total 4002.75 / 4059.05 56.3 / 56.3 Balance 4002.75 / 4059.05 56.3 / 56.3 I&O: Total Stay 01/09/24 09:19 thru 01/10/24 00:00 Intake Total 4059.05 Balance 4059.05 Current Meds Ordered / Administered: Current meds ordered / Administered Generic Name Dose Route Start Last Admin Trade Name Freq PRN Reason Stop Dose Admin Acetaminophen 650 mg 01/09/24 16:27 01/09/24 20:36 Acetaminophen 325 Mg Tablet PO 650 mg Q6H PRN PRN Administration Pain 1-10 Or Fever >100.7 Folic Acid 1 mg 01/10/24 08:00 Folic Acid 1 Mg Tablet PO BREAKFAST XENIA Norepinephrine Bitartrate 8 mg 250 mls @ 9.375 mls/hr 01/09/24 12:00 01/10/24 00:00 / Sodium Chloride CONT INF 30 mcg/min .[id number] XENIA 56.3 mls/hr Titration Protocol 5 MCG/MIN Octreotide Acetate 0.5 mg/ 250 mls @ 25 mls/hr 01/09/24 12:05 01/09/24 22:59 Dextrose CONT INF 25 mls/hr .Q10H XENIA Administration Sodium Chloride 1,000 mls @ 100 mls/hr 01/09/24 16:27 01/09/24 17:30 IV 100 mls/hr .Q10H XENIA Administration Pantoprazole Sodium 40 mg/ 110 mls @ 330 mls/hr 01/09/24 22:00 01/09/24 22:20 Sodium Chloride IV Infused Q12 XENIA Infusion Sodium Chloride 250 mls @ 15 mls/hr 01/09/24 16:33 01/09/24 17:30 IV 15 mls/hr .[id number] PRN Administration Additional IVPB Infusion Sodium Chloride 250 mls @ 15 mls/hr 01/09/24 16:33 IV .[id number] PRN Saline Flush Piperacillin Sod/Tazobactam 50 mls @ 12.5 mls/hr 01/09/24 16:50 01/09/24 22:20 Sod 3.375 gm/ Sodium Chloride IV 12.5 mls/hr Q8 XENIA Administration Vasopressin 20 units/ Sodium 25 mls @ 3 mls/hr 01/09/24 23:20 01/09/24 23:42 Chloride CONT INF 0.04 units/min .[id number] XENIA 3 mls/hr Administration 0.04 UNITS/MIN Nicotine 21 mg 01/09/24 18:00 01/09/24 19:19 Nicotine 21 Mg Patch TD 21 mg DAILY XENIA Administration Nitroglycerin 0.4 mg 01/09/24 16:27 Nitroglycerin (Inpatient Use) 0.4 Mg Tab.Subl SL Q5M PRN CARDIAC/CHEST PAIN Prochlorperazine Edisylate 5 mg 01/09/24 16:27 Prochlorperazine 10 Mg/2 Ml Vial IV Q4H PRN PRN Breakthrough Nausea/Vomiting Senna/Docusate Sodium 2 tablet 01/09/24 16:27 Senna/Docusate Sodium 1 Tablet PO BID PRN Constipation Sodium Chloride 10 - 40 ml 01/09/24 16:33 0.9 % Nacl (Sterile) Posiflush 10 Ml IV UD PRN Port access or dressing change Sodium Chloride 10 - 40 ml 01/09/24 16:33 01/09/24 23:55 0.9% Saline Lock 10 Ml Syringe IV 20 ml UD PRN Administration Multilumen/Rincon Flush Sodium Chloride 10 - 40 ml 01/09/24 16:33 0.9% Saline Lock 10 Ml Syringe IV UD PRN SALINE FLUSH Thiamine HCl 100 mg 01/10/24 08:00 Thiamine Hydrochloride 100 Mg Tablet PO BREAKFAST XENIA Physical Exam Narrative General: obese acutely ill female, lethargic HEENT: PERRL, EOMI, + scleral icterus, nl nose; supple neck, no masses Cardiovascular: tachy, S1/S2; No rubs, gallops; no displaced PM Respiratory: diminished; no crackles, wheezes, or rhonchi Abdominal: soft, mildly distended, + tenderness; +BS x 4 Extremities: Warm, well perfused; No clubbing, cyanosis; capillary refill >2 sec Skin: intact, no rashes Neurological: lethargic but A&Ox3, no asterixis, no gross deficits appreciated Psych: normal affect, no hallucinations Lab / Micro Data 01/09/24 22:00 01/09/24 09:25 Labs: Laboratory Results - last 24 hr 01/09/24 09:25: WBC 6.0, RBC 1.92 L, Hgb 7.7 L, Hct 21.7 L, MCV 113.0 H, MCH 40.1 H, MCHC 35.5, RDW Std Deviation 67.8 H, RDW Coeff of Yan 16.7 H, Plt Count 58 L, MPV 11.7, Immature Gran % (Auto) 1.800 H, Neut % (Auto) 84.0 H, Lymph % (Auto) 8.1 L, [place] % (Auto) 6.1, Eos % (Auto) 0.0, Baso % (Auto) 0.0, Absolute Neuts (auto) 5.0, Absolute Lymphs (auto) 0.48 L, Nucleated RBC % 0.8, Differential Comment SCANNED, Platelet Estimate MOD DEC, Anisocytosis 2+, Macrocytosis 3+, Target Cells 1+, PT 17.8 H, INR 1.5, APTT 36.8 H, Sodium 128 L, Potassium 3.4 L, Chloride 88 L, Carbon Dioxide 26.0, Anion Gap 14, BUN 10, Creatinine 1.58 H, Estim Creat Clear Calc 48.49, Est GFR (MDRD) Af Amer 49 L, Est GFR (MDRD) Non-Af 40 L, BUN/Creatinine Ratio 6.3 L, Glucose 61 L, Calcium 8.2 L, Phosphorus 1.3 L, Magnesium 1.6, Total Bilirubin 21.60 H*, AST 159 H, ALT 44, Alkaline Phosphatase 161 H, Troponin I High Sens 5, Total Protein 5.8 L, Albumin 2.2 L, Globulin 3.6, Albumin/Globulin Ratio 0.6 L, Lipase 10 L 01/09/24 09:54: Lactic Acid 6.7 H*, Blood Type A NEGATIVE, Antibody Screen NEGATIVE, Crossmatch See Detail 01/09/24 09:54: Crossmatch See Detail 01/09/24 13:01: Urine Color Brown, Urine Clarity Turbid, Urine pH 6.5, Ur Specific [place] 1.015, Urine Protein 100 H, Urine Glucose (UA) 50 H, Urine Ketones 15 H, Urine Occult Blood 250 H, Urine Nitrite Negative, Urine Bilirubin 6 H, Urine Urobilinogen 12 H, Ur Leukocyte Esterase 25 H, Urine RBC 0-5 SEEN, Urine WBC 5-10 SEEN, Ur Squamous Epith Cells 10-25 SEEN, Ur Renal Epithelial Cell 50-100 SEEN, Urine Bacteria 3+, Urine Mucus 0 SEEN, Urine Test Negative 01/09/24 15:38: Lactic Acid 4.0 H* 01/09/24 17:00: Hgb 8.0 L, Hct 22.5 L 01/09/24 22:00: Hgb 7.6 L, Hct 21.9 L 01/09/24 23:35: Phosphorus 1.5 L, Magnesium 1.5 L ABG Data ABG results: ABG 01/09/24 16:07 Specimen Type CONSUELO Sample Site Not entered VBG pH 7.56 H VBG pO2 133 H VBG HCO3 18 L VBG Total CO2 18 L VBG O2 Sat (Calc) 100 H VBG Base Excess -4 L POC Mix VBG pCO2 Pt Tmp 19.7 L O2 Delivery Device Not entered Imaging Radiology Impression Chest X-Ray 01/09/24 09:40 IMPRESSION: No radiographic evidence of acute cardiopulmonary disease. Electronically Signed: Xochitl King MD at 9:50 EDT , Chest/Abdomen/Pelvis CTA 01/09/24 12:00 IMPRESSION: Hepatomegaly and diffuse fatty infiltration of the liver with the heterogeneities in appearance. Mild splenomegaly. Pancolitis. Diffuse thickening of the gastric wall. Thickened small bowel loops. Small amount of free fluid in the pelvis and perihepatic region. Electronically Signed: Tony Falcon MD at 14:56 EDT , Assessment and Plan . Assessment and plan: A/P: #Shock, multifactorial (septic, hypovolemic 2* to GIB) #Acute on chronic liver injury with acute failure and severe acute alcoholic hepatitis #Acute GIB #Acute blood loss anemia #Acute on likely chronic thrombocytopenia #UTI #?Pancolitis #CRICKET #Acute lactic acidosis #Hyponatremia #Hypokalemia #Hypomagnesemia #Acute toxic/metabolic encephalopathy #ETOH abuse #Tobacco abuse #Marijuana abuse -Cont NEpi, agree with fixed dose vaso, add [place] if needed; add scheduled albumin + stress dose steroids -Cont broad spectrum emp IV Abx, F/U Cx -Cont PPI + octreotide gtt, GI on board and pending EGD when more hemodynamically stable; cont mgmt of acute liver failure per GI -Cont serial Hgb monitoring; transfuse to keep Hgb > 7 but given worsening shock OK to continue more aggressive transfusion strategy -Monitor PLTs, F/U DIC labs, cont supportive care and transfuse per usual guidelines -Cont IVF, strict I/Os, high risk of ATN and need for COACH OPERATOR, recommend early nephro consult -Close monitoring of electolytes, repeat chem panel now, replace per usual guidelines -Close glycemic monitoring given acute liver failure and high risk of hypo-/hyperglycemic events; goal ~140-200 mg/dL -Cont thiamine/folic/MVIs x3d; monitor for withdrawal syndromes in coming days -Counseling for substance abuse cessation when appropriate NPO PPI IV BID, SCDs Poor prognosis Critical Care Time: 60 min The entirety of this encounter was done via Telemedicine
[2024-01-10] MEDS: Norepinephrine 8 MG in 0.9% Normal Saline (250mL Bag) 242 ML 56.3 MG CONT INF ×2 (00:56→05:23)
[2024-01-10 01:36] LABS: Anion Gap 12 (5-15); BUN 12 mg/dL (7-18); BUN/Creat Ratio 6.2 RATIO (10-20); Calcium,Total 7.1 mg/dL (8.5-10.1); Chloride 100 mmol/L (98-107); Creatinine, Serum 1.92 mg/dL (0.55-1.02); EST Glomerular Filtration Rate 32 mL/min (>60); Est Glom Filt Rate - Afr Amer 39 mL/min (>60); Estimated Creatinine Clearance 39.29 ml/min; Glucose 111 mg/dL (74-106); Sodium Level 134 mmol/L (136-145)
[2024-01-10] MEDS: Potassium Chloride 20mEq/100mL 20 MEQ/100 ML IV.SOLN. 100 MEQ IV BOLUS ×2 (02:24→08:37)
[2024-01-10] MEDS: 0.9% Normal Saline (1000mL) 1,000 ML 100 ML IV ×3 (02:29→23:51)
[2024-01-10] MEDS: Magnesium Sulfate 2 GM in Dextrose 5%-Water (100mL Bag) 100 ML IV (03:24)
--- NOTE | 2024-01-10 03:54 | PCM.HOSP.N ---
Hospitalist Note Nursing staff reporting + cdiff on stool assessment. Will start oral vanc.
[2024-01-10] MEDS: Vancomycin HCl 250 MG Capsule 500 MG PO ×2 (04:30→17:33)
[2024-01-10] MEDS: Piperacil/Tazobactam 3.375 GM in 0.9% Normal Saline (50mL MB+) 50 ML IV ×3 (05:30→21:33)
[2024-01-10] MEDS: 0.9% Saline Lock 10 ML Syringe IV (05:38)
[2024-01-10] MEDS: Hydrocortisone Sod Succinate 100 MG/2 ML Vial 50 MG IV ×3 (05:38→17:33)
[2024-01-10] MEDS: Albumin Human 25% (100 mL) 25 GM/100 ML BAG IV (05:39)
[2024-01-10 05:44] LABS: Blood Gas Specimen Type VEN; O2 Delivery Device Cannula; SITE Central Line; VBG BASE EXCESS -5 mmol/L (-1.0-3.5); VBG Bicarbonate 20 mmol/L (22-26); VBG PO2 42 mmHg (25-40); VBG SO2 77 % (50-70); VBG TCO2 21 mmol/L (23-33); VBG pCO2 32.3 mmHg (41-51); VBG pH 7.39 (7.32-7.42)
[2024-01-10 06:00] LABS: Absolute Lymphocyte Count 0.41 X10^3/uL (0.83-4.51); Basophil# 0.02 X10^3/uL; Basophil% 0.2 % (0-1); Eosinophil# 0.01 X10^3/uL; Eosinophils% 0.1 % (0-5); Hematocrit 27.5 % (37-47); Hemoglobin 9.5 g/dL (12.0-15.0); Lymphocyte # 0.41 X10^3/ul (0.83-4.51); Lymphocyte % 4.5 % (19-41); Mean Corp Hgb Conc 34.5 g/dL (32-36); Mean Corpuscular Hgb 34.8 pg (27.0-32.0); Mean Corpuscular Volume 100.7 fL (81-99); Mean Platelet Vol. 10.1 fl (6.2-12.0); Monocyte# 0.51 X10^3/uL; Monocyte% 5.5 % (0-10); NRBC Flagged by Analyzer 0.7 % (0-5); Neutrophil # 7.99 X10^3/uL (2.7-7.7); POSITIVE COUNT YES; POSITIVE DIFFERENTIAL YES; POSITIVE MORPHOLOGY YES; Platelet Count 70 K/mm3 (150-450); RBC Distribution Width CV 25.9 % (11.6-14.6); Red Blood Count 2.73 M/mm3 (4.2-5.4); White Blood Count 9.2 K/mm3 (4.4-11.0)
[2024-01-10 06:21] LABS: Differential Indicated SCAN CRITERIA MET
[2024-01-10 06:34] LABS: International Normalized Ratio 1.8; Prothrombin Time (Protime)PT. 20.7 SECONDS (11.7-14.9)
[2024-01-10 06:36] LABS: ALB/GLOB Ratio 0.8 RATIO (0.9-2.4); AST(SGOT) 112 U/L (15-37); Alanine Aminotransfer ALT/SGPT 36 U/L (13-56); Albumin, Serum 2.2 g/dL (3.2-5.0); Alkaline Phosphatase 112 U/L (45-117); Anion Gap 13 (5-15); BUN 12 mg/dL (7-18); BUN/Creat Ratio 6.6 RATIO (10-20); Chloride 100 mmol/L (98-107); Creatinine, Serum 1.81 mg/dL (0.55-1.02); EST Glomerular Filtration Rate 35 mL/min (>60); Est Glom Filt Rate - Afr Amer 42 mL/min (>60); Estimated Creatinine Clearance 42.72 ml/min; Globulin 2.9 g/dL (2.2-4.2); Glucose 143 mg/dL (74-106); Potassium 3.1 mmol/L (3.5-5.1); Protein, Total 5.1 g/dL (6.4-8.2); Sodium Level 133 mmol/L (136-145)
[2024-01-10] MEDS: Vasopressin 20 UNITS in 0.9% Normal Saline (50mL Bag) 24 ML 3 UNITS CONT INF ×2 (06:37→13:30)
--- NOTE | 2024-01-10 07:02 | PN.HOSP_ITS ---
Reason for Visit Reason for Visit: Diagnoses Shock, unspecified (01/09/24) Subjective Subjective Wants to go home. Having abdominal pain. Objective Data Objective Data Vital Signs: Vital Signs Temp Pulse Resp BP Pulse Ox O2 Del Method O2 Flow Rate 37.9 C H 105 H 31 H 125/62 H 99 Nasal Cannula 3 01/10/24 04:00 01/10/24 06:00 01/10/24 06:00 01/10/24 06:00 01/10/24 06:00 01/10/24 06:00 01/10/24 06:00 Oxygen Flow Rate (L/min) 3 Oxygen Delivery Method Nasal Cannula Weight: 75.07 kg Body Mass Index (BMI) 30.4 Intake & Output: Intake and Output for Last 24 Hours 01/08/24 01/09/24 01/10/24 23:59 23:59 23:59 Intake Total 4002.75 / 4059.05 1568.05 / 1568.05 Output Total 200 / 200 Balance 4002.75 / 4059.05 1368.05 / 1368.05 Lab / Micro Data 01/10/24 05:35 01/10/24 05:35 Labs: Laboratory Results - last 24 hr 01/09/24 09:25: WBC 6.0, RBC 1.92 L, Hgb 7.7 L, Hct 21.7 L, MCV 113.0 H, MCH 40.1 H, MCHC 35.5, RDW Std Deviation 67.8 H, RDW Coeff of Yan 16.7 H, Plt Count 58 L, MPV 11.7, Immature Gran % (Auto) 1.800 H, Neut % (Auto) 84.0 H, Lymph % (Auto) 8.1 L, [place] % (Auto) 6.1, Eos % (Auto) 0.0, Baso % (Auto) 0.0, Absolute Neuts (auto) 5.0, Absolute Lymphs (auto) 0.48 L, Nucleated RBC % 0.8, Differential Comment SCANNED, Platelet Estimate MOD DEC, Anisocytosis 2+, Macrocytosis 3+, Target Cells 1+, PT 17.8 H, INR 1.5, APTT 36.8 H, Sodium 128 L, Potassium 3.4 L, Chloride 88 L, Carbon Dioxide 26.0, Anion Gap 14, BUN 10, C reatinine 1.58 H, Estim Creat Clear Calc 48.49, Est GFR (MDRD) Af Amer 49 L, Est GFR (MDRD) Non-Af 40 L, BUN/Creatinine Ratio 6.3 L, Glucose 61 L, Calcium 8.2 L, Phosphorus 1.3 L, Magnesium 1.6, Total Bilirubin 21.60 H*, AST 159 H, ALT 44, A lkaline Phosphatase 161 H, Troponin I High Sens 5, Total Protein 5.8 L, Albumin 2.2 L, Globulin 3.6, Albumin/Globulin Ratio 0.6 L, Lipase 10 L 01/09/24 09:54: Lactic Acid 6.7 H*, Blood Type A NEGATIVE, Antibody Screen NEGATIVE, Crossmatch See Detail 01/09/24 09:54: Crossmatch See Detail 01/09/24 13:01: Urine Color Brown, Urine Clarity Turbid, Urine pH 6.5, Ur Specific [place] 1.015, Urine Protein 100 H, Urine Glucose (UA) 50 H, Urine Ketones 15 H, Urine Occult Blood 250 H, Urine Nitrite Negative, Urine Bilirubin 6 H, Urine Urobilinogen 12 H, Ur Leukocyte Esterase 25 H, Urine RBC 0-5 SEEN, Urine WBC 5-10 SEEN, Ur Squamous Epith Cells 10-25 SEEN, Ur Renal Epithelial Cell 50-100 SEEN, Urine Bacteria 3+, Urine Mucus 0 SEEN, Urine Test Negative 01/09/24 15:38: Lactic Acid 4.0 H* 01/09/24 17:00: Hgb 8.0 L, Hct 22.5 L 01/09/24 22:00: Hgb 7.6 L, Hct 21.9 L 01/09/24 23:35: Sodium 134 L, Potassium 3.0 L, Chloride 100, Carbon Dioxide 22.0, Anion Gap 12, BUN 12, Creatinine 1.92 H, Estim Creat Clear Calc 39.29, Est GFR (MDRD) Af Amer 39 L, Est GFR (MDRD) Non-Af 32 L, BUN/Creatinine Ratio 6.2 L, Glucose 111 H, Calcium 7.1 L, Phosphorus 1.5 L, Magnesium 1.5 L 01/10/24 05:35: WBC 9.2, RBC 2.73 L, Hgb 9.5 L, Hct 27.5 L, MCV 100.7 H D, MCH 34.8 H, MCHC 34.5, RDW Std Deviation 93.0 H, RDW Coeff of Yan 25.9 H, Plt Count 70 L, MPV 10.1, Immature Gran % (Auto) 2.700 H, Neut % (Auto) 87.0 H, Lymph % (Auto) 4.5 L, [place] % (Auto) 5.5, Eos % (Auto) 0.1, Baso % (Auto) 0.2, Absolute Neuts (auto) 8.0 H, Absolute Lymphs (auto) 0.41 L, Nucleated RBC % 0.7, PT 20.7 H, INR 1.8, Sodium 133 L, Potassium 3.1 L, Chloride 100, Carbon Dioxide 20.0 L, Anion Gap 13, BUN 12, Creatinine 1.81 H, Estim Creat Clear Calc 42.72, Est GFR (MDRD) Af Amer 42 L, Est GFR (MDRD) Non-Af 35 L, BUN/Creatinine Ratio 6.6 L, G lucose 143 H, Calcium 7.0 L, Total Bilirubin 24.20 H*, AST 112 H, ALT 36, Alkaline Phosphatase 112, Total Protein 5.1 L, Albumin 2.2 L, Globulin 2.9, A lbumin/Globulin Ratio 0.8 L Micro: Microbiology 01/10/24 02:15 Stool Clostridioides difficile (PCR) - Final ABG Data ABG results: ABG 01/09/24 01/10/24 16:07 05:40 Specimen Type CONSUELO CONSUELO Sample Site Not entered Central Line O2 % 3.0 VBG pH 7.56 H 7.39 VBG pO2 133 H 42 H VBG HCO3 18 L 20 L VBG Total CO2 18 L 21 L VBG O2 Sat (Calc) 100 H 77 H VBG Base Excess -4 L -5 L POC Mix VBG pCO2 Pt Tmp 19.7 L 32.3 L O2 Delivery Device Not entered Cannula Radiography Diagnostic Testing: Radiology Impression Chest X-Ray 01/09/24 09:40 IMPRESSION: No radiographic evidence of acute cardiopulmonary disease. Electronically Signed: Xochitl King MD at 9:50 EDT , Chest/Abdomen/Pelvis CTA 01/09/24 12:00 IMPRESSION: Hepatomegaly and diffuse fatty infiltration of the liver with the heterogeneities in appearance. Mild splenomegaly. Pancolitis. Diffuse thickening of the gastric wall. Thickened small bowel loops. Small amount of free fluid in the pelvis and perihepatic region. Electronically Signed: Tony Falcon MD at 14:56 EDT , Physical Exam Const alert Constitutional Narrative: uncomfortable. Jaundiced. HEENT head/scalp atraumatic and moist oral mucous membranes Eyes PERRL Eyes Narrative: icterus. Neck no lymphadenopathy Neck Narrative: no thyromegaly. Resp normal respiratory effort, no retractions, no use of accessory muscles and clear to auscultation bilaterally Cardio regular rate, regular rhythm, S1 normal heart sound and S2 normal heart sound GI GI Narrative: distended. NT. hypoactive BS. Extremity normal to inspection and no clubbing, cyanosis or edema Skin Skin Narrative: jaundiced. Neuro Sensorium / Orientation: awake and alert Psych affect normal Assessment & Plan Assessment/Plan (1) Shock: PLAN: Plan Shock * septic and hemorrhagic * on norepinephrine gtt and vasopressin gtt (Right femoral TLC) placed on 01/08. Started on hydrocortisone 50 Q6. * on pip/tazo and PO vancomycin * follow up cultures * CCM consult Cdiff Pancolitis * C.diff + * enteric panel pending * on PO vancomycin. IV pip/tazo Acute blood loss anemia * hematemesis and hematochezia * Hg was 12.4 on 12/16/23 dropped to 7.6. * Transfused 2 units PRBCs and Hg improved to 9.5 GI bleed * GI consult * Was seen in ED 12/15 with milder hematemesis, advised admission at that time, but elected to go home. * on PPI gtt and octeotide gtt * at least partly due to the colitis, but from the upper source may be PUD, MWT, varix. Complicated by coagulaopathy and thrombocytopenia. Suspected acute alcoholic hepatitis * Hyperbilirubinemia 24.2, was 8 on 12/15 and 2.6 on 08/26/22. * CT showed hepatomegaly and diffuse fatty infiltration of the liver * suspect due to liver disease. * Madrey score 50.2 * started on hydrocortisone 50 Q6 CRICKET * Baseline creatinine 0.43 on 12/16/23, admission 1.58, went up to 1.92, down to 1.81 * Check urine studies * Continue IVF Impending alcohol withdrawal * per significant other, drinks about 1 pint whiskey/d. I suspect pt drinks more than that. * Thiamine and folate * PRN lorazepam Thrombocytopenia * Had been low in 08/26/22 at 146, 56 on 12/16/23, now 70. * Likely 2/2 underlying alcoholic cirrhosis * monitor for now. VTE prophylaxis: SCDs poor prognosis. Charges/Coding Visit Charges Inpatient E&M: 99183 Subs Hosp L3
--- NOTE | 2024-01-10 07:16 | PCM.PN.INT ---
Assessment & Plan Assessment/Plan (1) Shock: PLAN: Plan RECOMMENDATIONS: 1. Continue empiric broad-spectrum antimicrobials, pending finalized infectious workup. 2. Continue vasopressor support to maintain a mean arterial pressure at or above 65 mmHg. 3. Continue stress dose steroids. 4. Aggressive electrolyte repletion. 5. Octreotide as ordered. Continue PPI therapy. 6. Tentative plans for endoscopic evaluation. 7. Maintain n.p.o. status for now. IMPRESSIONS: 1. Multifactorial shock The patient presented to the hospital with nausea, vomiting and generalized weakness and developed fluid refractory hypotension, which is likely multifactorial in etiology. I do suspect that the patient has a component of hemorrhagic shock based upon her presenting anemia coupled with hypovolemia and possible septic etiologies, given positive C. difficile PCR and possible urinary tract source of infection. The patient has received supplemental IV fluid hydration and has been initiated on appropriate vasopressor support with Levophed and vasopressin. Stress dose steroids have been initiated and will be continued. The patient's anemia has improved with transfusion of blood products. The patient will be continued on empiric broad-spectrum antimicrobials, pending finalized culture results. 2. Acute liver injury with severe alcoholic hepatitis Gastroenterology is currently following to assist with medical management. Continue PPI therapy along with octreotide. There are tentative plans for possible endoscopic evaluation today. 3. C. difficile colitis Continue p.o. vancomycin as ordered. 4. Acute kidney injury Most likely prerenal in etiology, with possible evolution to ischemic ATN in the setting of #1. The patient will be continued on vasopressor support in an attempt to maintain hemodynamic stability. Continue to monitor urine output for now. No emergent indication for renal replacement therapy. 5. Encephalopathy Most likely toxic/metabolic in etiology, in the setting of acute liver injury and sepsis. Continue supportive measures as noted above. 6. Anemia/thrombocytopenia Most likely related to presenting sepsis and potential sources of GI blood loss. The patient has been transfused blood products with appropriate improvement in her H&H. Continue octreotide and PPI therapy. Transfuse if hemoglobin drops below 7 g/dL. Gastroenterology is currently following to assist with additional medical management. 7. Hypokalemia/hypophosphatemia/hypomagnesemia Continue aggressive electrolyte repletion as needed. 8. History of alcohol and tobacco dependency Complicates care, management, recovery and prognosis. Continue supportive measures as noted above. Anticipate that the patient will experience alcohol withdrawal during this hospitalization. Continue thiamine and folic acid supplementation. TIME: 34 minutes of critical care time, independent of procedures, was spent addressing the patient's multifactorial shock, acute liver injury, C. difficile colitis, acute kidney injury, encephalopathy, anemia, thrombocytopenia, electrolyte disturbances, review of all data and collaboration with the care team. Subjective Subjective The patient was seen and examined at the bedside this morning. Events from the last 24 hours have been reviewed. The patient currently has a low-grade fever and remains on a combination of Levophed and vasopressin in an attempt to maintain hemodynamic stability. The patient is also scheduled to receive stress dose steroids. Overnight, the patient was transfused 2 units packed red blood cells. Hemoglobin is improved to 9.5 g/dL this morning. Platelet count has improved to 70,000. Potassium is low at 3.1 with a bicarbonate of 20 and creatinine of 1.8. Total bilirubin has increased to 24.2. The patient remains confused and disoriented this morning. Objective Data Objective Data The patient's most recent lab work, culture data and imaging studies have all been personally reviewed. C. difficile PCR was positive. Blood and urine cultures are pending. Vital Signs: Vital Signs Temp Pulse Resp BP Pulse Ox O2 Del Method O2 Flow Rate 100.3 F H 99 30 H 140/59 H 95 Nasal Cannula 3 01/10/24 07:00 01/10/24 07:00 01/10/24 07:00 01/10/24 07:00 01/10/24 07:00 01/10/24 07:00 01/10/24 07:00 Oxygen Flow Rate (L/min) 3 Oxygen Delivery Method Nasal Cannula Weight: 165 lb 8 oz Body Mass Index (BMI) 30.4 Intake & Output: Intake and Output for Last 24 Hours 01/08/24 01/09/24 01/10/24 23:59 23:59 23:59 Intake Total 4002.75 / 4059.05 1624.35 / 1624.35 Output Total 200 / 200 Balance 4002.75 / 4059.05 1424.35 / 1424.35 Lab / Micro Data Attestation: I reviewed the patient's lab results. 01/10/24 05:35 01/10/24 05:35 Labs: Laboratory Results - last 24 hr 01/09/24 09:25: WBC 6.0, RBC 1.92 L, Hgb 7.7 L, Hct 21.7 L, MCV 113.0 H, MCH 40.1 H, MCHC 35.5, RDW Std Deviation 67.8 H, RDW Coeff of Yan 16.7 H, Plt Count 58 L, MPV 11.7, Immature Gran % (Auto) 1.800 H, Neut % (Auto) 84.0 H, Lymph % (Auto) 8.1 L, [place] % (Auto) 6.1, Eos % (Auto) 0.0, Baso % (Auto) 0.0, Absolute Neuts (auto) 5.0, Absolute Lymphs (auto) 0.48 L, Nucleated RBC % 0.8, Differential Comment SCANNED, Platelet Estimate MOD DEC, Anisocytosis 2+, Macrocytosis 3+, Target Cells 1+, PT 17.8 H, INR 1.5, APTT 36.8 H, Sodium 128 L, Potassium 3.4 L, Chloride 88 L, Carbon Dioxide 26.0, Anion Gap 14, BUN 10, Creatinine 1.58 H, Estim Creat Clear Calc 48.49, Est GFR (MDRD) Af Amer 49 L, Est GFR (MDRD) Non-Af 40 L, BUN/Creatinine Ratio 6.3 L, Glucose 61 L, Calcium 8.2 L, Phosphorus 1.3 L, Magnesium 1.6, Total Bilirubin 21.60 H*, AST 159 H, ALT 44, Alkaline Phosphatase 161 H, Troponin I High Sens 5, Total Protein 5.8 L, Albumin 2.2 L, Globulin 3.6, Albumin/Globulin Ratio 0.6 L, Lipase 10 L 01/09/24 09:54: Lactic Acid 6.7 H*, Blood Type A NEGATIVE, Antibody Screen NEGATIVE, Crossmatch See Detail 01/09/24 09:54: Crossmatch See Detail 01/09/24 13:01: Urine Color Brown, Urine Clarity Turbid, Urine pH 6.5, Ur Specific [place] 1.015, Urine Protein 100 H, Urine Glucose (UA) 50 H, Urine Ketones 15 H, Urine Occult Blood 250 H, Urine Nitrite Negative, Urine Bilirubin 6 H, Urine Urobilinogen 12 H, Ur Leukocyte Esterase 25 H, Urine RBC 0-5 SEEN, Urine WBC 5-10 SEEN, Ur Squamous Epith Cells 10-25 SEEN, Ur Renal Epithelial Cell 50-100 SEEN, Urine Bacteria 3+, Urine Mucus 0 SEEN, Urine Test Negative 01/09/24 15:38: Lactic Acid 4.0 H* 01/09/24 17:00: Hgb 8.0 L, Hct 22.5 L 01/09/24 22:00: Hgb 7.6 L, Hct 21.9 L 01/09/24 23:35: Sodium 134 L, Potassium 3.0 L, Chloride 100, Carbon Dioxide 22.0, Anion Gap 12, BUN 12, Creatinine 1.92 H, Estim Creat Clear Calc 39.29, Est GFR (MDRD) Af Amer 39 L, Est GFR (MDRD) Non-Af 32 L, BUN/Creatinine Ratio 6.2 L, Glucose 111 H, Calcium 7.1 L, Phosphorus 1.5 L, Magnesium 1.5 L 01/10/24 05:35: WBC 9.2, RBC 2.73 L, Hgb 9.5 L, Hct 27.5 L, MCV 100.7 H D, MCH 34.8 H, MCHC 34.5, RDW Std Deviation 93.0 H, RDW Coeff of Yan 25.9 H, Plt Count 70 L, MPV 10.1, Immature Gran % (Auto) 2.700 H, Neut % (Auto) 87.0 H, Lymph % (Auto) 4.5 L, [place] % (Auto) 5.5, Eos % (Auto) 0.1, Baso % (Auto) 0.2, Absolute Neuts (auto) 8.0 H, Absolute Lymphs (auto) 0.41 L, Nucleated RBC % 0.7, PT 20.7 H, INR 1.8, Sodium 133 L, Potassium 3.1 L, Chloride 100, Carbon Dioxide 20.0 L, Anion Gap 13, BUN 12, Creatinine 1.81 H, Estim Creat Clear Calc 42.72, Est GFR (MDRD) Af Amer 42 L, Est GFR (MDRD) Non-Af 35 L, BUN/Creatinine Ratio 6.6 L, Glucose 143 H, Calcium 7.0 L, Total Bilirubin 24.20 H*, AST 112 H, ALT 36, Alkaline Phosphatase 112, Total Protein 5.1 L, Albumin 2.2 L, Globulin 2.9, Albumin/Globulin Ratio 0.8 L Micro: Microbiology 01/10/24 02:15 Stool Clostridioides difficile (PCR) - Final ABG Data ABG results: ABG 01/09/24 01/10/24 16:07 05:40 Specimen Type CONSUELO CONSUELO Sample Site Not entered Central Line O2 % 3.0 VBG pH 7.56 H 7.39 VBG pO2 133 H 42 H VBG HCO3 18 L 20 L VBG Total CO2 18 L 21 L VBG O2 Sat (Calc) 100 H 77 H VBG Base Excess -4 L -5 L POC Mix VBG pCO2 Pt Tmp 19.7 L 32.3 L O2 Delivery Device Not entered Cannula Radiography Diagnostic Testing: Radiology Impression Chest X-Ray 01/09/24 09:40 IMPRESSION: No radiographic evidence of acute cardiopulmonary disease. Electronically Signed: Xochitl King MD at 9:50 EDT , Chest/Abdomen/Pelvis CTA 01/09/24 12:00 IMPRESSION: Hepatomegaly and diffuse fatty infiltration of the liver with the heterogeneities in appearance. Mild splenomegaly. Pancolitis. Diffuse thickening of the gastric wall. Thickened small bowel loops. Small amount of free fluid in the pelvis and perihepatic region. Electronically Signed: Tony Falcon MD at 14:56 EDT , Physical Exam Const General Appearance: lethargic and ill appearing HEENT normocephalic and head/scalp atraumatic HEENT Narrative: Dry mucous membranes Eyes EOMs intact bilaterally Sclera: sclera abnormal Neck supple General: trachea midline Chest inspection of chest normal Resp normal respiratory effort Auscultation: diminished lung sounds Cardio S1 normal heart sound and S2 normal heart sound Rate: tachycardic GI soft to palpation Extremity no clubbing, cyanosis or edema Skin no rashes or lesions noted Neuro CN's II-XII intact bilaterally and no focal motor deficits Psych Mood & Affect: flat affect Charges/Coding Procedures Hospitalists Procedures: 86943 Critical Care 1st Hr
[2024-01-10 08:01] LABS: Anisocytosis 2+; Platelet Estimate MOD DEC (ADEQ)
[2024-01-10] MEDS: Folic Acid 1 MG Tablet PO (08:35)
[2024-01-10] MEDS: Thiamine Hydrochloride 100 MG Tablet PO (08:35)
[2024-01-10] MEDS: Pantoprazole Sodium 40 MG in 0.9% Normal Saline (100mL MB+) 100 ML 330 MG IV ×2 (08:42→21:33)
[2024-01-10] MEDS: Octreotide 0.5 MG in Dextrose 5%-Water (250mL Bag) 249 ML 25 MG CONT INF (08:43)
[2024-01-10 08:57] LABS: Fibrinogen 157 mg/dl (203-444)
[2024-01-10 09:34] LABS: Urine Sodium 9 mmol/L (Not Establ.)
[2024-01-10 09:51] LABS: LDH 244 U/L (84-246); Magnesium 2.3 mg/dL (1.6-2.6)
[2024-01-10 10:29] LABS: Phosphorus 1.9 mg/dL (2.5-4.9)
--- NOTE | 2024-01-10 11:09 | CASEMGMT ---
Social Work SW met with pt and friend Addi Parker and introduced self and role of SW. Pt laying in bed with eyes closed but does speak with SW, is AOx4 and answer questions appropriately. Pt and friend agreeable to complete initial assessment. Care providers, pharmacy, and demographics verified. SW provided emotional support to pt's significant other Addi during visit as pt's medical course is complicated. PCP: none, Jennifer Penn information provided Specialists: none Preferred Pharmacy: [facility] Insurance: none, prior to SW arrival to room pt met with Ruthie at [facility] who will assist with completing Medicaid application Prescription Benefit:? none, prescription assistance information given Living Will/HPOA:?Pt does not have a living will or HCPOA. SW explored with pt legal decision maker hierarchy. Pt states her mother is and she does not speak with her father. Pt has a twin sister and an older sistera and a step brother. SW explained that pt's father would be legal decision maker if pt was not able to make her own decisions. Pt does not want this and pt is able to express desire for her friend Addi to be medical decision maker. SW explained HCPOA and Living Will and pt requesting to complete both. SW assisted pt in completing advance directives. Original given to pt and copy placed on pt chart. Pt has named Addi Parker as her HCPOA. LNOK: Addi Parker, friend/HCPOA. Pt does have two sister and a step brother Living Arrangements: Pt lives in an apartment with a flight of stairs in. Pt lives with her significant other Addi Parekr. Addi reports that pt has had a decline over the past two weeks and has needed assignment desk assistant to get up the stairs, assistance with bathing and dressing. Prior to decline, pt was independent. 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 Addi works third shift and is therefore available to help pt during the day. Addi provides for IADLs. Transportation:?Pt does not drive, Addi provides transportation HHC/SNF: none prior Substace Use: Pt admits to drinking 1/2 pint of whiskey daily and smoking marijuana some. Pt states she has never spoken to a counselor regarding alcohol use. LATASHA spoke with pt regarding [employer] and the Addiction Therapist who would be able to meed with pt while in the hospital. Pt is agreeable to meet with Addiction Therapy. LATASHA will make referral at the appropriate time when pt is medically improved. Finances: Addi reports that pt and Addi work and at this time have no housing, food or transportation concerns. [facility] to discuss [facility] application. SW provided pt with resources for [facility], Prescription Assistance Information, [employer], [employer], [employer] and [employer] card. PLAN: Pt plans to return home at time of discharge with assistance of significant other Addi. LATASHA/MARY GRACE to follow along for dc planning and support. MARIA VICTORIA Moore
--- NOTE | 2024-01-10 12:49 | OP.EGD_ITS ---
Patient Name: Genevieve Maldonado Procedure Date: 01/10/2024 11:51 AM Date of : 1990 Age: 33 Procedure: Upper GI endoscopy Indications: Iron deficiency anemia, Hematemesis Providers: Richar Dyson DO Medicines: Monitored Anesthesia Care Patient Profile: This is a 33 year old female. Refer to note in patient chart for documentation of history and physical. Patient has symptoms of acute vomiting. Complications: No immediate complications. Procedure: Pre-Anesthesia Assessment: - Prior to the procedure, a History and Physical was performed, and patient medications and allergies were reviewed. The patient is competent. The risks and benefits of the procedure and the sedation options and risks were discussed with the patient. All questions were answered and informed consent was obtained. Patient identification and proposed procedure were verified by the physician in the pre-procedure area. Mental Status Examination: alert and oriented. Airway Examination: normal oropharyngeal airway and neck mobility. Respiratory Examination: clear to auscultation. CV Examination: normal. Prophylactic Antibiotics: The patient does not require prophylactic antibiotics. Prior Anticoagulants: The patient has taken no anticoagulant or antiplatelet agents. ASA Grade Assessment: III - A patient with severe systemic disease. After reviewing the risks and benefits, the patient was deemed in satisfactory condition to undergo the procedure. The anesthesia plan was to use moderate sedation / analgesia (conscious sedation). Immediately prior to administration of medications, the patient was re-assessed for adequacy to receive sedatives. The heart rate, respiratory rate, oxygen saturations, blood pressure, adequacy of pulmonary ventilation, and response to care were monitored throughout the procedure. The physical status of the patient was re-assessed after the procedure. After obtaining informed consent, the endoscope was passed under direct vision. Throughout the procedure, the patient's blood pressure, pulse, and oxygen saturations were monitored continuously. The was introduced through the mouth, and advanced to the second part of duodenum. The upper GI endoscopy was accomplished without difficulty. The patient tolerated the procedure well. Scope In: 12:24:51 PM Scope Out: 12:30:12 PM Total Procedure Duration Time 0 hours 5 minutes 21 seconds Findings: A 5 mm bleeding Iliana-Tobar tear with stigmata of recent bleeding was found. To stop active bleeding, one hemostatic clip was successfully placed. Clip supervisor housecleaner: KO-SU. There was no bleeding at the end of the procedure. The entire examined stomach was normal. The first portion of the duodenum was normal. Impression: - Iliana-Tobar tear. Clip was placed. Clip supervisor housecleaner: KO-SU. - Normal stomach. - Normal first portion of the duodenum. - No specimens collected. Recommendation: - Return patient to ICU for ongoing care. - Full liquid diet. - Continue present medications. Procedure Code(s): --- Professional --- 06096, Esophagogastroduodenoscopy, flexible, transoral; with control of bleeding, any method CPT copyright 2021 [employer]. All rights reserved. The codes documented in this report are preliminary and upon surgical coder review may be revised to meet current compliance requirements. Richar Dyson DO 01/10/2024 12:49:03 PM This report has been signed electronically. Number of Addenda: 0 Note Initiated On: 01/10/2024 11:51 AM
--- NOTE | 2024-01-10 12:49 | OP.CCLET_ITS ---
01/10/2024 No Primary Care Physician Re : Upper GI endoscopy procedure for Genevieve Maldonado Dear Care Physician This procedure was performed on Wednesday, January 10, 2024. My impressions and recommendations are as follows: Impressions : - Iliana-Tobar tear. Clip was placed. Clip collet gluer: [employer]. - Normal stomach. - Normal first portion of the duodenum. - No specimens collected. Recommendations : - Return patient to ICU for ongoing care. - Full liquid diet. - Continue present medications. My findings are described in the full procedure note, which is enclosed. If I can be of further assistance, please feel free to contact me at . Sincerely, Richar Dyson, 01/10/2024 12:49:03 PM This report has been signed electronically.
[2024-01-10] MEDS: LORazepam 1 MG Tablet 2 MG PO (13:27)
[2024-01-10] MEDS: Acetaminophen 325 MG Tablet 650 MG PO (13:28)
[2024-01-10] MEDS: Gabapentin 300 MG Capsule PO (13:29)
[2024-01-10] MEDS: Norepinephrine 8 MG in 0.9% Normal Saline (250mL Bag) 242 ML 37.5 MG CONT INF (13:40)
--- NOTE | 2024-01-10 21:05 | PN.GI_ITS ---
Objective Data Objective Data Vital Signs: Vital Signs Temp Pulse Resp BP Pulse Ox O2 Del Method O2 Flow Rate 99.3 F H 71 24 H 105/55 L 94 Nasal Cannula 3 01/10/24 17:00 01/10/24 17:00 01/10/24 17:00 01/10/24 17:00 01/10/24 17:00 01/10/24 20:00 01/10/24 20:00 Oxygen Flow Rate (L/min) 3 Oxygen Delivery Method Nasal Cannula Weight: 165 lb 8.016 oz Body Mass Index (BMI) 30.4 Intake & Output: Intake and Output for Last 24 Hours 01/08/24 01/09/24 01/10/24 23:59 23:59 23:59 Intake Total 4002.75 / 4059.05 4021.02 / 4021.02 Output Total 400 / 400 Balance 4002.75 / 4059.05 3621.02 / 3621.02 Lab / Micro Data 01/10/24 05:35 01/10/24 05:35 Labs: Laboratory Results - last 24 hr 01/09/24 09:54: Crossmatch See Detail 01/09/24 22:00: Hgb 7.6 L, Hct 21.9 L 01/09/24 23:35: Sodium 134 L, Potassium 3.0 L, Chloride 100, Carbon Dioxide 22.0, Anion Gap 12, BUN 12, Creatinine 1.92 H, Estim Creat Clear Calc 39.29, Est GFR (MDRD) Af Amer 39 L, Est GFR (MDRD) Non-Af 32 L, BUN/Creatinine Ratio 6.2 L, Glucose 111 H, Calcium 7.1 L, Phosphorus 1.5 L, Magnesium 1.5 L 01/10/24 05:35: WBC 9.2, RBC 2.73 L, Hgb 9.5 L, Hct 27.5 L, MCV 100.7 H D, MCH 34.8 H, MCHC 34.5, RDW Std Deviation 93.0 H, RDW Coeff of Yan 25.9 H, Plt Count 70 L, MPV 10.1, Immature Gran % (Auto) 2.700 H, Neut % (Auto) 87.0 H, Lymph % (Auto) 4.5 L, [place] % (Auto) 5.5, Eos % (Auto) 0.1, Baso % (Auto) 0.2, Absolute Neuts (auto) 8.0 H, Absolute Lymphs (auto) 0.41 L, Nucleated RBC % 0.7, Platelet Estimate MOD DEC, Anisocytosis 2+, PT 20.7 H, INR 1.8, Fibrinogen 157 L, Sodium 133 L, Potassium 3.1 L, Chloride 100, Carbon Dioxide 20.0 L, Anion Gap 13, BUN 12, Creatinine 1.81 H, Estim Creat Clear Calc 42.72, Est GFR (MDRD) Af Amer 42 L , Est GFR (MDRD) Non-Af 35 L, BUN/Creatinine Ratio 6.6 L, Glucose 143 H, Calcium 7.0 L, Total Bilirubin 24.20 H*, AST 112 H, ALT 36, Alkaline Phosphatase 112, T otal Protein 5.1 L, Albumin 2.2 L, Globulin 2.9, Albumin/Globulin Ratio 0.8 L 01/10/24 08:45: Phosphorus 1.9 L, Magnesium 2.3, Lactate Dehydrogenase 244 01/10/24 08:50: Ur Random Sodium 9, Urine Creatinine 102.00 Micro: Microbiology 01/10/24 02:15 Stool Stool Occult Blood (ESTRELLITA) - Final Occult Blood Positive 01/10/24 02:15 Stool Enteric Bacteriology - Final 01/10/24 02:15 Stool C. difficile GDH Antigen & Toxins - Final Toxigenic C. difficile 01/10/24 02:15 Stool Clostridioides difficile (PCR) - Final 01/09/24 13:01 Urine, Clean Catch Urine Culture - Preliminary Gram negative avelina ABG Data ABG results: ABG 01/10/24 05:40 Specimen Type CONSUELO Sample Site Central Line O2 % 3.0 VBG pH 7.39 VBG pO2 42 H VBG HCO3 20 L VBG Total CO2 21 L VBG O2 Sat (Calc) 77 H VBG Base Excess -5 L POC Mix VBG pCO2 Pt Tmp 32.3 L O2 Delivery Device Cannula Assessment & Plan Assessment/Plan (1) Shock: (2) C. difficile colitis: (3) Alcoholic hepatitis: PLAN: Plan 33-year-old female with history of alcohol abuse and possible alcoholic cirrhosis presents with intermittent episodes of hematemesis and discovered to have severe jaundice, abdominal pain, severe anemia and coagulopathy consistent with of acute liver injury and and shock Agree with her currently experiencing shock likely hemorrhagic shock. She has not had any more episodes of vomiting or hematemesis. Also the differential diagnosis is b septic shock possible or mild DIC secondary to hepatobiliary sepsis and/or pancolitis that was seen on the CT scan abdomen pelvis. Patient started on broad-spectrum IV antibiotic Zosyn for gram-positive, gram-negative aerobic and anaerobic bacteria. Patient had 1 dose of IV ceftriaxone in the ER. Plan is to perform an upper endoscopy tomorrow. Unless she becomes more hemodynamically unstable I would like her to have antibiotics and have doses of PPI and octreotide. Acute on chronic liver injury, severe acute alcoholic hepatitis with history of chronic alcoholic hepatitis: Liver chemistry shows total bilirubin 21.6, INR 1.5 with Madrey's discriminant function 48.3 showing poor prognosis. Patient not candidate for steroid because of possible septic shock. She is also not a candidate for N-acetylcysteine at this time because monotherapy with N- acetylcysteine and an acute alcoholic injury or been toxic finally do not have a long-term improvement or decrease length of stay in the hospital Pancolitis, possible infectious, but likely ischemic: CT abdomen shows pancolitis, mild thickening of multiple small bowel loops, diffuse thickening of gastric wall. Patient on IV antibiotic. Enteric bacteriology panel, C. difficile ordered. 01/10/2024-The patient underwent and upper endoscopy at the bedside. She was discovered to have large Iliana Tobar tear. They were no esophageal gastric or doudenal varices. She did have alcoholic and stress induced gastritis without any sign of recent hemorrhage. There were no ulcerations seen in the upper GI tract. She did have hemorrhagic esophagitis that was also seen. She still remains on pressors and receive stress dose steroids today for septic shock. Her severe alcoholic hepatitis is getting worse corresponding with the decrease completely count, increase INR and Bilirubin with the picture of DIC multifactorial from acute alcoholic hepatitis, and now discovered severe pain colitis associated with Cdiff. I am suspecting that she has elements of homolysis secondary to severe alcoholic hepatitis was as a unfortunate complication. She did receive blood transfusion today. Severe alcoholic hepatitis is defined by modified discriminant function >=2, is the most severe form of alcohol-induced liver disease and is associated with a 1-month mortality rate of around 30%. Corticosteroid treatment remains the only therapeutic option that improves short-term survival. Infectious complications, occurring in approximately 50% of patients, are the main causes of , even in patients who benefit from corticosteroids. Although infection is a well-described feature of cirrhosis, little is known about the characteristics of infections in SAH. Infection is mainly of bacterial origin and frequently affects the respiratory tract. Pathogens classically observed in cirrhosis, such as gram-negative bacilli, are frequently involved, but opportunistic pathogens, such as fungi (Aspergillus fumigatus, Pneumocystis jirovecii) or viruses (Cytomegalovirus, Herpes simplex) may appear, mainly related to corticosteroid treatment. She is on broad spectrum antibiotics at this time. She continues to be febrile. Recommendations: -low threshold for diagnostic paracentesis. -Check INR. -Start xifaxan 500 mg PO BID and lactulose 30 cc BID -Check ammonia level Charges/Coding Visit Charges Inpatient E&M: 52257 Subs Hosp L3
[2024-01-10] MEDS: 0.9 % NaCl (Sterile) Posiflush 10 mL IV (21:33)
[2024-01-10] MEDS: Norepinephrine 8 MG in 0.9% Normal Saline (250mL Bag) 242 ML 18.8 MG CONT INF (21:47)
[2024-01-11] VITALS (29 sets, daily range): BP systolic 83–128; BP diastolic 54–90; PULSE 61–98; RESP 17–27; TEMP 35.9–36.8; O2SAT 90–100; BMI 31.6
[2024-01-11] MEDS: Vancomycin HCl 250 MG Capsule 500 MG PO ×3 (00:20→10:56)
[2024-01-11] MEDS: Hydrocortisone Sod Succinate 100 MG/2 ML Vial 50 MG IV ×4 (00:20→17:35)
[2024-01-11 01:57] LABS: Bedside Glucose 147 mg/dL (74-106)
[2024-01-11 02:32] LABS: Magnesium 1.9 mg/dL (1.6-2.6); Phosphorus 1.3 mg/dL (2.5-4.9)
[2024-01-11 04:07] LABS: Haptoglobin < 10 mg/dL (33-278)
[2024-01-11] MEDS: Piperacil/Tazobactam 3.375 GM in 0.9% Normal Saline (50mL MB+) 50 ML IV (04:41)
[2024-01-11] MEDS: 0.9 % NaCl (Sterile) Posiflush 10 mL IV (04:45)
[2024-01-11 05:13] LABS: Absolute Lymphocyte Count 0.46 X10^3/uL (0.83-4.51); Absolute Neutrophil Count 5.2 X10^3/uL (2.0-7.7); Basophil# 0.01 X10^3/uL; Basophil% 0.2 % (0-1); Hematocrit 24.1 % (37-47); Hemoglobin 8.2 g/dL (12.0-15.0); Lymphocyte # 0.46 X10^3/ul (0.83-4.51); Lymphocyte % 7.6 % (19-41); Mean Corpuscular Hgb 34.7 pg (27.0-32.0); Mean Corpuscular Volume 102.1 fL (81-99); Mean Platelet Vol. 10.1 fl (6.2-12.0); Monocyte# 0.24 X10^3/uL; NRBC Flagged by Analyzer 0 % (0-5); Neutrophil # 5.17 X10^3/uL (2.7-7.7); Neutrophil % 85.2 % (47-70); POSITIVE COUNT YES; POSITIVE DIFFERENTIAL YES; POSITIVE MORPHOLOGY YES; Platelet Count 53 K/mm3 (150-450); RBC Distribution Width CV 27.2 % (11.6-14.6); RBC Distribution Width SD 95.7 fl (35.1-43.9); Red Blood Count 2.36 M/mm3 (4.2-5.4); White Blood Count 6.1 K/mm3 (4.4-11.0)
[2024-01-11 05:19] LABS: International Normalized Ratio 1.7; Prothrombin Time (Protime)PT. 20.2 SECONDS (11.7-14.9)
[2024-01-11 05:24] LABS: Differential Indicated SCAN CRITERIA MET
[2024-01-11 05:59] LABS: ALB/GLOB Ratio 0.9 RATIO (0.9-2.4); AST(SGOT) 88 U/L (15-37); Alanine Aminotransfer ALT/SGPT 35 U/L (13-56); Albumin, Serum 2.2 g/dL (3.2-5.0); Alkaline Phosphatase 83 U/L (45-117); Anion Gap 10 (5-15); BUN 18 mg/dL (7-18); BUN/Creat Ratio 14.4 RATIO (10-20); Chloride 104 mmol/L (98-107); Creatinine, Serum 1.25 mg/dL (0.55-1.02); EST Glomerular Filtration Rate 53 mL/min (>60); Est Glom Filt Rate - Afr Amer 64 mL/min (>60); Estimated Creatinine Clearance 63.23 ml/min; Globulin 2.5 g/dL (2.2-4.2); Glucose 164 mg/dL (74-106); Potassium 2.9 mmol/L (3.5-5.1); Protein, Total 4.7 g/dL (6.4-8.2); Sodium Level 135 mmol/L (136-145)
--- NOTE | 2024-01-11 06:51 | PCM.PN.INT ---
Assessment & Plan Assessment/Plan (1) Shock: PLAN: Plan RECOMMENDATIONS: 1. Continue antimicrobials. 2. Continue stress dose steroids. If the patient remains hemodynamically stable over the next 24 hours, will begin to wean. 3. Aggressive electrolyte repletion. 4. Continue PPI therapy. 5. Aggressive physical therapy. 6. Dietary advancement, following speech therapy evaluation. IMPRESSIONS: 1. Multifactorial shock The patient presented to the hospital with nausea, vomiting and generalized weakness and developed fluid refractory hypotension, which is likely multifactorial in etiology. I do suspect that the patient has a component of hemorrhagic shock based upon her presenting anemia coupled with hypovolemia and possible septic etiologies, given positive C. difficile PCR. The patient received supplemental IV fluid hydration and was initiated on vasopressor support. However, at this time, she has been weaned from Levophed and remains hemodynamically stable. The patient remains on stress dose steroids, which will be continued at the current dose yet today. If she remains hemodynamically stable over the next 24 hours, will begin to wean stress dose steroids beginning tomorrow. 2. Acute liver injury with severe alcoholic hepatitis Gastroenterology is currently following to assist with medical management. Continue PPI therapy. 3. C. difficile colitis Continue p.o. vancomycin as ordered. 4. Acute kidney injury Improving. Most likely prerenal in etiology, with possible evolution to ischemic ATN in the setting of #1. Continue to monitor urine output for now. No current indication for renal replacement therapy. 5. Encephalopathy Most likely toxic/metabolic in etiology, in the setting of acute liver injury and sepsis. Continue supportive measures as noted above. 6. Anemia/thrombocytopenia Most likely related to presenting sepsis and GI blood loss in the setting of Iliana-Tobar tear. The patient has been transfused blood products with appropriate improvement in her H&H. Continue PPI therapy. Transfuse if hemoglobin drops below 7 g/dL. Gastroenterology is currently following to assist with additional medical management. 7. Hypokalemia/hypophosphatemia Continue aggressive electrolyte repletion as needed. 8. History of alcohol and tobacco dependency Complicates care, management, recovery and prognosis. Continue supportive measures as noted above. Anticipate that the patient will experience alcohol withdrawal during this hospitalization. Continue thiamine and folic acid supplementation. This note was generated with [employer] dictation software. It may contain incorrect words, spelling, and punctuation that were not noted in checking the note before signing. Subjective Subjective The patient was seen and examined at the bedside this morning. Events from the last 24 hours have been reviewed. The patient is currently afebrile maintaining appropriate oxygen saturations on room air. She had an uneventful night, according to nursing report. She was able to be weaned off of her Levophed. The patient is more alert and interactive this morning. The patient was noted to have a Iliana-Tobar tear on EGD yesterday, which was treated endoscopically. Hemoglobin is stable at 8.2 g/dL with a platelet count of 53,000. INR this morning was noted to be 1.7. Potassium is low at 2.9. Creatinine has improved to 1.25. Phosphorus remains low at 1.3. Total bilirubin remains elevated at 23.7. Objective Data Objective Data The patient's most recent lab work, culture data and imaging studies have all been personally reviewed. C. difficile PCR was positive. Vital Signs: Vital Signs Temp Pulse Resp BP Pulse Ox O2 Del Method O2 Flow Rate 97.8 F 95 19 H 112/73 97 Room Air 3 01/11/24 06:00 01/11/24 06:00 01/11/24 06:00 01/11/24 06:00 01/11/24 06:00 01/11/24 06:00 01/11/24 03:45 Oxygen Flow Rate (L/min) 3 Oxygen Delivery Method Room Air Weight: 172 lb 13.478 oz Body Mass Index (BMI) 31.6 Intake & Output: Intake and Output for Last 24 Hours 01/09/24 01/10/24 01/11/24 23:59 23:59 23:59 Intake Total 4002.75 / 4059.05 5243.82 / 5762.62 644.00 / 644.00 Output Total 400 / 650 250 / 250 Balance 4002.75 / 4059.05 4843.82 / 5112.62 394.00 / 394.00 Lab / Micro Data Attestation: I reviewed the patient's lab results. 01/11/24 04:52 01/11/24 04:52 Labs: Laboratory Results - last 24 hr 01/10/24 05:35: Platelet Estimate MOD DEC, Anisocytosis 2+, Fibrinogen 157 L 01/10/24 08:45: Haptoglobin < 10 L, Phosphorus 1.9 L, Magnesium 2.3, Lactate Dehydrogenase 244 01/10/24 08:50: Ur Random Sodium 9, Urine Creatinine 102.00 01/10/24 21:45: Ammonia 62.0 H 01/11/24 01:07: POC Glucose 147 H 01/11/24 01:43: Phosphorus 1.3 L, Magnesium 1.9 01/11/24 04:52: WBC 6.1, RBC 2.36 L, Hgb 8.2 L, Hct 24.1 L, MCV 102.1 H, MCH 34.7 H, MCHC 34.0, RDW Std Deviation 95.7 H, RDW Coeff of Yan 27.2 H, Plt Count 53 L, MPV 10.1, Immature Gran % (Auto) 3.000 H, Neut % (Auto) 85.2 H, Lymph % (Auto) 7.6 L, [place] % (Auto) 4.0, Eos % (Auto) 0.0, Baso % (Auto) 0.2, Absolute Neuts (auto) 5.2, Absolute Lymphs (auto) 0.46 L, Nucleated RBC % 0, PT 20.2 H, INR 1.7, Sodium 135 L, Potassium 2.9 L, Chloride 104, Carbon Dioxide 21.0, Anion Gap 10, BUN 18, Creatinine 1.25 H, Estim Creat Clear Calc 63.23, Est GFR (MDRD) Af Amer 64, Est GFR (MDRD) Non-Af 53 L, BUN/Creatinine Ratio 14.4, Glucose 164 H, Calcium 7.0 L, Total Bilirubin 23.70 H*, AST 88 H, ALT 35, Alkaline Phosphatase 83, Total Protein 4.7 L, Albumin 2.2 L, Globulin 2.5, Albumin/Globulin Ratio 0.9 Micro: Microbiology 01/09/24 13:01 Urine, Clean Catch Urine Culture - Final Escherichia coli 01/10/24 02:15 Stool Stool Occult Blood (ESTRELLITA) - Final Occult Blood Positive 01/10/24 02:15 Stool Enteric Bacteriology - Final 01/10/24 02:15 Stool C. difficile GDH Antigen & Toxins - Final Toxigenic C. difficile 01/10/24 02:15 Stool Clostridioides difficile (PCR) - Final Physical Exam Const Constitutional Narrative: Extremely jaundiced in appearance. General Appearance: lethargic and ill appearing HEENT normocephalic and head/scalp atraumatic HEENT Narrative: Dry mucous membranes Eyes EOMs intact bilaterally Sclera: sclera abnormal Neck supple General: trachea midline Chest inspection of chest normal Resp normal respiratory effort Auscultation: diminished lung sounds Cardio regular rate, regular rhythm, S1 normal heart sound and S2 normal heart sound GI soft to palpation and non-tender Extremity no clubbing, cyanosis or edema Skin no rashes or lesions noted Neuro CN's II-XII intact bilaterally and no focal motor deficits Psych Mood & Affect: flat affect Charges/Coding Visit Charges Inpatient E&M: 68737 Subs Hosp L3
[2024-01-11 07:01] LABS: Differential Comment SCANNED
[2024-01-11 07:02] LABS: Anisocytosis 1+; Platelet Estimate MOD DEC (ADEQ); Stomatocyte 2+
[2024-01-11 07:06] LABS: Bedside Glucose 170 mg/dL (74-106)
[2024-01-11] MEDS: 0.9% Normal Saline (1000mL) 1,000 ML 100 ML IV ×2 (08:04→17:33)
[2024-01-11] MEDS: Folic Acid 1 MG Tablet PO (08:04)
[2024-01-11] MEDS: Thiamine Hydrochloride 100 MG Tablet PO (08:04)
[2024-01-11] MEDS: Potassium Chloride 20mEq/100mL 20 MEQ/100 ML IV.SOLN. 100 MEQ IV BOLUS ×2 (08:21→09:22)
[2024-01-11] MEDS: Potassium Phosphate 40 MM in 0.9% Normal Saline (500mL Bag) 500 ML 62.5 MM IV (08:25)
--- NOTE | 2024-01-11 08:51 | PN.HOSP_ITS ---
Reason for Visit Reason for Visit: Diagnoses Enterocolitis due to Clostridium difficile, not specified as recurrent (01/09/24) Alcoholic hepatitis without ascites (01/09/24) Shock, unspecified (01/09/24) Subjective Subjective More lethargic today. Objective Data Objective Data Vital Signs: Vital Signs Temp Pulse Resp BP Pulse Ox O2 Del Method O2 Flow Rate 36.2 C L 95 21 H 98/72 97 Room Air 3 01/11/24 08:00 01/11/24 08:00 01/11/24 08:00 01/11/24 08:00 01/11/24 08:00 01/11/24 08:00 01/11/24 03:45 Oxygen Flow Rate (L/min) 3 Oxygen Delivery Method Room Air Weight: 78.4 kg Body Mass Index (BMI) 31.6 Intake & Output: Intake and Output for Last 24 Hours 01/09/24 01/10/24 01/11/24 23:59 23:59 23:59 Intake Total 4002.75 / 4059.05 5243.82 / 5762.62 1715.67 / 1715.67 Output Total 400 / 650 425 / 425 Balance 4002.75 / 4059.05 4843.82 / 5112.62 1290.67 / 1290.67 Lab / Micro Data 01/11/24 04:52 01/11/24 04:52 Labs: Laboratory Results - last 24 hr 01/10/24 05:35: Fibrinogen 157 L 01/10/24 08:45: Haptoglobin < 10 L, Phosphorus 1.9 L, Magnesium 2.3, Lactate Dehydrogenase 244 01/10/24 08:50: Ur Random Sodium 9, Urine Creatinine 102.00 01/10/24 21:45: Ammonia 62.0 H 01/11/24 01:07: POC Glucose 147 H 01/11/24 01:43: Phosphorus 1.3 L, Magnesium 1.9 01/11/24 04:51: POC Glucose 170 H 01/11/24 04:52: WBC 6.1, RBC 2.36 L, Hgb 8.2 L, Hct 24.1 L, MCV 102.1 H, MCH 34.7 H, MCHC 34.0, RDW Std Deviation 95.7 H, RDW Coeff of Yan 27.2 H, Plt Count 53 L, MPV 10.1, Immature Gran % (Auto) 3.000 H, Neut % (Auto) 85.2 H, Lymph % (Auto) 7.6 L, [place] % (Auto) 4.0, Eos % (Auto) 0.0, Baso % (Auto) 0.2, Absolute Neuts (auto) 5.2, Absolute Lymphs (auto) 0.46 L, Nucleated RBC % 0, Differential Comment SCANNED, Platelet Estimate MOD DEC, Anisocytosis 1+, Stomatocytes 2+, PT 20.2 H, INR 1.7, Sodium 135 L, Potassium 2.9 L, Chloride 104, Carbon Dioxide 21.0, Anion Gap 10, BUN 18, Creatinine 1.25 H, Estim Creat Clear Calc 63.23, Est GFR (MDRD) Af Amer 64, Est GFR (MDRD) Non-Af 53 L, BUN/Creatinine Ratio 14.4, G lucose 164 H, Calcium 7.0 L, Total Bilirubin 23.70 H*, AST 88 H, ALT 35, Alkaline Phosphatase 83, Total Protein 4.7 L, Albumin 2.2 L, Globulin 2.5, Albumin/Globulin Ratio 0.9 Micro: Microbiology 01/09/24 13:01 Urine, Clean Catch Urine Culture - Final Escherichia coli 01/10/24 02:15 Stool Stool Occult Blood (ESTRELLITA) - Final Occult Blood Positive 01/10/24 02:15 Stool Enteric Bacteriology - Final 01/10/24 02:15 Stool C. difficile GDH Antigen & Toxins - Final Toxigenic C. difficile 01/10/24 02:15 Stool Clostridioides difficile (PCR) - Final Physical Exam Const no apparent distress Constitutional Narrative: listless. afebrile. making jokes despite her listlessness. HEENT head/scalp atraumatic and moist oral mucous membranes Eyes Eyes Narrative: icterus. Resp normal respiratory effort, no retractions, no use of accessory muscles and clear to auscultation bilaterally Cardio regular rate, regular rhythm, S1 normal heart sound and S2 normal heart sound GI normal to inspection, nondistended, normoactive bowel sounds, soft to palpation and non-tender GI Narrative: distended but not taut. Extremity normal to inspection and no clubbing, cyanosis or edema Neuro Sensorium / Orientation: awake and alert Psych affect normal Assessment & Plan Assessment/Plan (1) Shock: PLAN: Plan Shock * improving * septic and hemorrhagic * on norepinephrine gtt and vasopressin gtt, since weaned off. Started on hydrocortisone 50 Q6. * on pip/tazo and PO vancomycin * follow up cultures * [facility] consult Cdiff Pancolitis * C.diff + * enteric panel pending * on PO vancomycin. IV pip/tazo Acute blood loss anemia * hematemesis and hematochezia * Hg was 12.4 on 12/16/23 dropped to 7.6. * Transfused 2 units PRBCs and Hg improved to 9.5 GI bleed * GI consult * Was seen in ED 12/15 with milder hematemesis, advised admission at that time, but elected to go home. * 2/ MWT. Clipped on 01/09 Suspected acute alcoholic hepatitis * Hyperbilirubinemia 24.2, was 8 on 12/15 and 2.6 on 08/26/22. * CT showed hepatomegaly and diffuse fatty infiltration of the liver * suspect due to liver disease. * Madrey score 50.2 * started on hydrocortisone 50 Q6 CRICKET * Baseline creatinine 0.43 on 12/16/23, admission 1.58, went up to 1.92, down to 1.81 * Improving with IVF. Impending alcohol withdrawal * per significant other, drinks about 1 pint whiskey/d. I suspect pt drinks more than that. * Thiamine and folate * PRN lorazepam Thrombocytopenia * Had been low in 08/26/22 at 146, 56 on 12/16/23, now 70. * Likely 2/2 underlying alcoholic cirrhosis * monitor for now. Lethargy * pt profoundly weak. Ammonia on 48. Monitor. Maybe related with underlying illnesses. VTE prophylaxis: SCDs DW patient's significant other at bedside. Greater than 50 minutes of which greater than 50% of time was counseling the significant other about septic shock, C.diff, CRICKET. Charges/Coding Visit Charges Inpatient E&M: 71196 Subs Hosp L3
[2024-01-11] MEDS: Pantoprazole Sodium 40 MG in 0.9% Normal Saline (100mL MB+) 100 ML 330 MG IV ×2 (09:21→23:30)
[2024-01-11] MEDS: 0.9% Saline Lock 10 ML Syringe IV (10:57)
[2024-01-11] MEDS: hydrOXYzine PAM 25 MG Capsule 50 MG PO (13:24)
[2024-01-11] MEDS: Ensure Plus High Protein 120 ML LIQUID PO (13:29)
[2024-01-11] MEDS: LORazepam 2 MG/ML Syringe 1 MG IV (14:47)
[2024-01-11] MEDS: Albuterol 2.5 MG/3 ML VIAL.NEB. INHALATION (15:22)
[2024-01-11] MEDS: dexMEDEtomidine 400 MCG in 0.9% Normal Saline (100mL Bag) 96 ML 9.8 MCG CONT INF (15:39)
--- NOTE | 2024-01-11 15:54 | PCM.HOSP.N ---
Hospitalist Note Patient more agitated insisting on being discharged was still confused. Patient had received earlier some lorazepam but was ineffective. Will start the patient on dexmedetomidine drip.
[2024-01-11] MEDS: Vancomycin 125 MG/5 ML Susp PO.SYRINGE 500 MG PO (17:33)
--- NOTE | 2024-01-11 18:23 | NURSING ---
1733- patient able to wake up and started taking vancomycin. Patient continued to state leave me alone I want to leave, get out of here. This RN educated patient on c-diff and the treatement is taking oral vancomycin. Patient took 15 mLs of vancomycin and then became more verbally aggressive stating to leave her the Fk alone she isn't taking anymore of that sh and spitting out the medication. This RN continued to increase precedex per protocol (see med titrations) 1820- patient sitting up in bed, took off EKG leads, pulling at ta catheter, ta stat lock broken, patient threatening to hit up, continued to state don't Fdanielle touch me, let's Fdanielle go, get me the Fk out of here. Multiple staff in room to assist patient, Dr. Martinez contacted for restraint order.
--- NOTE | 2024-01-11 19:31 | EX.PCM.PN.GI ---
Subjective Subjective Patient is currently on Precedex with her family at the bedside. She has been sleeping most of the day. Objective Data Objective Data Vital Signs: Vital Signs Temp Pulse Resp BP Pulse Ox O2 Del Method O2 Flow Rate 97.0 F L 67 26 H 83/57 L 99 Nasal Cannula 2 01/11/24 17:00 01/11/24 18:40 01/11/24 18:40 01/11/24 18:40 01/11/24 18:40 01/11/24 18:40 01/11/24 18:40 Oxygen Flow Rate (L/min) 2 Oxygen Delivery Method Nasal Cannula Weight: 172 lb 13.478 oz Body Mass Index (BMI) 31.6 Intake & Output: Intake and Output for Last 24 Hours 01/09/24 01/10/24 01/11/24 23:59 23:59 23:59 Intake Total 4002.75 / 4059.05 5243.82 / 5762.62 3577.5533 / 3577.5533 Output Total 400 / 650 875 / 875 Balance 4002.75 / 4059.05 4843.82 / 5112.62 2702.5533 / 2702.5533 Lab / Micro Data 01/11/24 04:52 01/11/24 04:52 Labs: Laboratory Results - last 24 hr 01/10/24 08:45: Haptoglobin < 10 L 01/10/24 21:45: Ammonia 62.0 H 01/11/24 01:07: POC Glucose 147 H 01/11/24 01:43: Phosphorus 1.3 L, Magnesium 1.9 01/11/24 04:51: POC Glucose 170 H 01/11/24 04:52: WBC 6.1, RBC 2.36 L, Hgb 8.2 L, Hct 24.1 L, MCV 102.1 H, MCH 34.7 H, MCHC 34.0, RDW Std Deviation 95.7 H, RDW Coeff of Yan 27.2 H, Plt Count 53 L, MPV 10.1, Immature Gran % (Auto) 3.000 H, Neut % (Auto) 85.2 H, Lymph % (Auto) 7.6 L, Story % (Auto) 4.0, Eos % (Auto) 0.0, Baso % (Auto) 0.2, Absolute Neuts (auto) 5.2, Absolute Lymphs (auto) 0.46 L, Nucleated RBC % 0, Differential Comment SCANNED, Platelet Estimate MOD DEC, Anisocytosis 1+, Stomatocytes 2+, PT 20.2 H, INR 1.7, Sodium 135 L, Potassium 2.9 L, Chloride 104, Carbon Dioxide 21.0, Anion Gap 10, BUN 18, Creatinine 1.25 H, Estim Creat Clear Calc 63.23, Est GFR (MDRD) Af Amer 64, Est GFR (MDRD) Non-Af 53 L, BUN/Creatinine Ratio 14.4, Glucose 164 H, Calcium 7.0 L, Total Bilirubin 23.70 H*, AST 88 H, ALT 35, Alkaline Phosphatase 83, Total Protein 4.7 L, Albumin 2.2 L, Globulin 2.5, Albumin/Globulin Ratio 0.9 01/11/24 10:45: Ammonia 48.0 H Micro: Microbiology 01/09/24 10:25 Blood Culture (Wb) - Arm Left Blood Culture - Preliminary No growth in 48 hours. 01/09/24 09:54 Blood Culture (Wb) - Left Forearm Blood Culture - Preliminary No growth in 48 hours. 01/09/24 13:01 Urine, Clean Catch Urine Culture - Final Escherichia coli 01/10/24 02:15 Stool Stool Occult Blood (ESTRELLITA) - Final Occult Blood Positive 01/10/24 02:15 Stool Enteric Bacteriology - Final 01/10/24 02:15 Stool C. difficile GDH Antigen & Toxins - Final Toxigenic C. difficile 01/10/24 02:15 Stool Clostridioides difficile (PCR) - Final Physical Exam Const no apparent distress Constitutional Narrative: listless. afebrile. making jokes despite her listlessness. General Appearance: lethargic and ill appearing HEENT head/scalp atraumatic and moist oral mucous membranes HEENT Narrative: Dry mucous membranes Eyes EOMs intact bilaterally Eyes Narrative: icterus. Sclera: sclera abnormal Neck supple General: trachea midline Chest inspection of chest normal Resp normal respiratory effort, no retractions, no use of accessory muscles and clear to auscultation bilaterally Auscultation: diminished lung sounds Cardio regular rate, regular rhythm, S1 normal heart sound and S2 normal heart sound GI normal to inspection, nondistended, normoactive bowel sounds, soft to palpation and non-tender GI Narrative: distended but not taut. Extremity normal to inspection and no clubbing, cyanosis or edema Skin no rashes or lesions noted Neuro CN's II-XII intact bilaterally and no focal motor deficits Sensorium / Orientation: awake and alert Psych affect normal Mood & Affect: flat affect Assessment & Plan Assessment/Plan (1) Shock: (2) C. difficile colitis: (3) Alcoholic hepatitis: PLAN: Plan 33-year-old female with history of alcohol abuse and possible alcoholic cirrhosis presents with intermittent episodes of hematemesis and discovered to have severe jaundice, abdominal pain, severe anemia and coagulopathy consistent with of acute liver injury and and shock Agree with her currently experiencing shock likely hemorrhagic shock. She has not had any more episodes of vomiting or hematemesis. Also the differential diagnosis is b septic shock possible or mild DIC secondary to hepatobiliary sepsis and/or pancolitis that was seen on the CT scan abdomen pelvis. Patient started on broad-spectrum IV antibiotic Zosyn for gram-positive, gram-negative aerobic and anaerobic bacteria. Patient had 1 dose of IV ceftriaxone in the ER. Plan is to perform an upper endoscopy tomorrow. Unless she becomes more hemodynamically unstable I would like her to have antibiotics and have doses of PPI and octreotide. Acute on chronic liver injury, severe acute alcoholic hepatitis with history of chronic alcoholic hepatitis: Liver chemistry shows total bilirubin 21.6, INR 1.5 with Madrey's discriminant function 48.3 showing poor prognosis. Patient not candidate for steroid because of possible septic shock. She is also not a candidate for N-acetylcysteine at this time because monotherapy with N-acetylcysteine and an acute alcoholic injury or been toxic finally do not have a long-term improvement or decrease length of stay in the hospital Pancolitis, possible infectious, but likely ischemic: CT abdomen shows pancolitis, mild thickening of multiple small bowel loops, diffuse thickening of gastric wall. Patient on IV antibiotic. Enteric bacteriology panel, C. difficile ordered. 01/10/2024-The patient underwent and upper endoscopy at the bedside. She was discovered to have large Iliana Tobar tear. They were no esophageal gastric or doudenal varices. She did have alcoholic and stress induced gastritis without any sign of recent hemorrhage. There were no ulcerations seen in the upper GI tract. She did have hemorrhagic esophagitis that was also seen. She still remains on pressors and receive stress dose steroids today for septic shock. Her severe alcoholic hepatitis is getting worse corresponding with the decrease completely count, increase INR and Bilirubin with the picture of DIC multifactorial from acute alcoholic hepatitis, and now discovered severe pain colitis associated with Cdiff. I am suspecting that she has elements of homolysis secondary to severe alcoholic hepatitis was as a unfortunate complication. She did receive blood transfusion today. Severe alcoholic hepatitis is defined by modified discriminant function >=2, is the most severe form of alcohol-induced liver disease and is associated with a 1-month mortality rate of around 30%. Corticosteroid treatment remains the only therapeutic option that improves short-term survival. Infectious complications, occurring in approximately 50% of patients, are the main causes of , even in patients who benefit from corticosteroids. Although infection is a well-described feature of cirrhosis, little is known about the characteristics of infections in SAH. Infection is mainly of bacterial origin and frequently affects the respiratory tract. Pathogens classically observed in cirrhosis, such as gram-negative bacilli, are frequently involved, but opportunistic pathogens, such as fungi (Aspergillus fumigatus, Pneumocystis jirovecii) or viruses (Cytomegalovirus, Herpes simplex) may appear, mainly related to corticosteroid treatment. She is on broad spectrum antibiotics at this time. She continues to be febrile. Recommendations: -low threshold for diagnostic paracentesis. -Check INR. -Start xifaxan 500 mg PO BID and lactulose 30 cc BID -Check ammonia level 01/11/2024-I had a talk with the family at the bedside and told him how sick she is. I explained to her with her very high modified discriminant score she has a almost 50% mortality due to severe alcoholic hepatitis in the setting of sepsis. She remains on vancomycin and fortunately has been able to be weaned off of pressors. She is on hydrocortisone prophylaxis. She is still bicytopenia with hemoglobin slightly down to 8.2 from 9.5 and platelet count of 53,000. Kidney function has improved which is a good sign. Her INR is down to 1.7 from 1.8. Her ammonia went from 62-48 which is also a good sign. Hopefully she will continue to improve. No clear need for paracenteses on exam. Mental status cannot be assessed at that time. Recommendations: -Continue to monitor INR, LFTs. -Continue to monitor ammonia -Continue current medications Charges/Coding Visit Charges Inpatient E&M: 62499 [facility] Hosp L3
[2024-01-11] MEDS: dexMEDEtomidine 400 MCG in 0.9% Normal Saline (100mL Bag) 96 ML 27.4 MCG CONT INF (22:30)
[2024-01-12] VITALS (29 sets, daily range): BP systolic 78–109; BP diastolic 42–64; PULSE 57–74; RESP 16–77; TEMP 36–36.4; O2SAT 92–100; BMI 31.6
[2024-01-12] MEDS: Hydrocortisone Sod Succinate 100 MG/2 ML Vial 50 MG IV ×5 (00:19→22:49)
--- NOTE | 2024-01-12 00:30 | NURSING ---
attempted to give oral vanc to pt. started coughing after swallowing the first few mls. medication not given. pt npo until speech eval this am.
[2024-01-12] MEDS: dexMEDEtomidine 1,000 MCG in 0.9% Normal Saline (250mL Bag) 240 ML 19.6 MCG CONT INF (02:21)
[2024-01-12 02:48] LABS: Bedside Glucose 161 mg/dL (74-106)
[2024-01-12] MEDS: 0.9% Normal Saline (1000mL) 1,000 ML 100 ML IV ×2 (03:56→15:38)
[2024-01-12 04:25] LABS: Hemoglobin 8.3 g/dL (12.0-15.0); Mean Corp Hgb Conc 33.2 g/dL (32-36); Mean Corpuscular Hgb 34.4 pg (27.0-32.0); Mean Corpuscular Volume 103.7 fL (81-99); Mean Platelet Vol. 10.1 fl (6.2-12.0); POSITIVE COUNT YES; POSITIVE DIFFERENTIAL YES; POSITIVE MORPHOLOGY YES; RBC Distribution Width CV 26.5 % (11.6-14.6); Red Blood Count 2.41 M/mm3 (4.2-5.4); White Blood Count 3.1 K/mm3 (4.4-11.0)
[2024-01-12 04:30] LABS: Differential Indicated MANUAL DIFF; Platelet Count 36 K/mm3 (150-450)
[2024-01-12 04:46] LABS: Magnesium 2.2 mg/dL (1.6-2.6); Phosphorus 3.4 mg/dL (2.5-4.9)
[2024-01-12 07:00] LABS: Total Cells Counted 100 (MANUAL DIFF)
[2024-01-12 07:01] LABS: Differential Comment SCANNED; Lymphocyte 8 % (19-41); Myelocyte 3 % (0-0); Neutrophil-Band 0 % (0-5); Neutrophil-Segmented 89 % (47-70)
[2024-01-12 07:02] LABS: Anisocytosis 1+; Platelet Estimate MKD DEC (ADEQ)
[2024-01-12 07:03] LABS: Absolute Neutrophil Count 2.7 X10^3/uL (2.0-7.7)
[2024-01-12 07:04] LABS: Absolute Lymphocyte Count 0.25 X10^3/uL (0.83-4.51)
--- NOTE | 2024-01-12 07:19 | PN.HOSP_ITS ---
Reason for Visit Reason for Visit: Diagnoses Enterocolitis due to Clostridium difficile, not specified as recurrent (01/09/24) Alcoholic hepatitis without ascites (01/09/24) Shock, unspecified (01/09/24) Subjective Subjective More lethargic today. Precedex gtt turn off. Diffuse petechiae noted. Objective Data Objective Data Vital Signs: Vital Signs Temp Pulse Resp BP Pulse Ox O2 Del Method O2 Flow Rate 36.3 C L 58 L 20 H 94/59 L 99 Nasal Cannula 2 01/12/24 06:00 01/12/24 06:00 01/12/24 06:00 01/12/24 06:00 01/12/24 06:00 01/12/24 06:00 01/12/24 06:00 Oxygen Flow Rate (L/min) 2 Oxygen Delivery Method Nasal Cannula Weight: 78.401 kg Body Mass Index (BMI) 31.6 Intake & Output: Intake and Output for Last 24 Hours 01/10/24 01/11/24 01/12/24 23:59 23:59 23:59 Intake Total 5243.82 / 5762.62 3637.3333 / 3678.4333 1236.32 / 1236.32 Output Total 400 / 650 945 / 965 145 / 145 Balance 4843.82 / 5112.62 2692.3333 / 2713.4333 1091.32 / 1091.32 Lab / Micro Data 01/12/24 04:00 01/12/24 08:40 Labs: Laboratory Results - last 24 hr 01/11/24 10:45: Ammonia 48.0 H 01/12/24 02:27: POC Glucose 161 H 01/12/24 04:00: WBC 3.1 L, RBC 2.41 L, Hgb 8.3 L, Hct 25.0 L, MCV 103.7 H, MCH 34.4 H, MCHC 33.2, RDW Std Deviation 96.0 H, RDW Coeff of Yan 26.5 H, Plt Count 36 L*, MPV 10.1, Neut % (Auto) Not Reportable, Absolute Neuts (auto) 2.7, A bsolute Lymphs (auto) 0.25 L, Total Counted 100, Neutrophils % (Manual) 89 H, Band Neutrophils % 0, Lymphocytes % (Manual) 8 L, Myelocytes % 3 H, Differential Comment SCANNED, Diff Path Review May foll, Platelet Estimate MKD DEC, Anisocytosis 1+, Phosphorus 3.4, Magnesium 2.2 Micro: Microbiology 01/09/24 10:25 Blood Culture (Wb) - Arm Left Blood Culture - Preliminary No growth in 48 hours. 01/09/24 09:54 Blood Culture (Wb) - Left Forearm Blood Culture - Preliminary No growth in 48 hours. 01/09/24 13:01 Urine, Clean Catch Urine Culture - Final Escherichia coli 01/10/24 02:15 Stool Stool Occult Blood (ESTRELLITA) - Final Occult Blood Positive 01/10/24 02:15 Stool Enteric Bacteriology - Final 01/10/24 02:15 Stool C. difficile GDH Antigen & Toxins - Final Toxigenic C. difficile 01/10/24 02:15 Stool Clostridioides difficile (PCR) - Final Physical Exam Const Constitutional Narrative: lethargic. mumble incoherently. HEENT head/scalp atraumatic Eyes Eyes Narrative: narrow pupils. icterus. Neck no lymphadenopathy Neck Narrative: no thyromegaly. Resp normal respiratory effort, no retractions, no use of accessory muscles and clear to auscultation bilaterally Cardio regular rate, regular rhythm, S1 normal heart sound and S2 normal heart sound GI normal to inspection, nondistended, normoactive bowel sounds and soft to palpation Skin Skin Narrative: diffuse petechiae. on abdomen. Neuro Neuro Narrative: no asterixis. no clonus. Assessment & Plan Assessment/Plan (1) Shock: PLAN: Plan Shock * improving * septic and hemorrhagic * on norepinephrine gtt and vasopressin gtt, since weaned off. Started on hydrocortisone 50 Q6. * on pip/tazo and PO vancomycin * follow up cultures * CCM consult Cdiff Pancolitis * C.diff + * enteric panel pending * on PO vancomycin. Acute blood loss anemia * hematemesis and hematochezia * Hg was 12.4 on 12/16/23 dropped to 7.6. * Transfused 2 units PRBCs and Hg improved to 9.5 GI bleed * Was seen in ED 12/15 with milder hematemesis, advised admission at that time, but elected to go home. * EGD on 01/09 showed MWT. Clipped Suspected acute alcoholic hepatitis * Hyperbilirubinemia 24.2, was 8 on 12/15 and 2.6 on 08/26/22. * CT showed hepatomegaly and diffuse fatty infiltration of the liver * suspect due to liver disease. * Madrey score 50.2 * started on hydrocortisone 50 Q6 * INR has been stable. Discussed with Dr. Dyson and he and I were both in the room together discussing with the patient's significant other about her overall poor prognosis. He is recommending a liver biopsy to see if there is any evidence of necrosis. He feels that if there is evidence of necrosis the patient may be potentially candidate for referral for a liver transplant. Did discuss case with Dr. Falcon who was seen there again to look into see if they could fit him in today. CRICKET * Baseline creatinine 0.43 on 12/16/23, admission 1.58, went up to 1.92, down to 1.81 * Improving with IVF. Acute alcohol withdrawal * per significant other, drinks about 1 pint whiskey/d. I suspect pt drinks more than that. * Thiamine and folate * 01/10: Started on dexmedetomidine drip due to severe agitation. Given severe agitation and, at risk for self, patient did require soft restraints. * 01/11: Patient more lethargic so the dexmedetomidine drip was discontinued. Patient has remained lethargic after its discontinuation. Thrombocytopenia * Had been low in 08/26/22 at 146, 56 on 12/16/23, now 70. * Likely 2/2 underlying alcoholic cirrhosis * monitor for now. * Now developing petechiae. INR 1.7. Lethargy * pt profoundly weak. Ammonia on 48. Monitor. Maybe related with underlying illnesses. VTE prophylaxis: SCDs DW patient's significant other at bedside. Poor prognosis. Greater than 55 minutes of which greater than 50% of time was coordinating care and, speaking with specialist, speak with the patient's significant other. Charges/Coding Visit Charges Inpatient E&M: 40689 Subs Hosp L3
[2024-01-12] MEDS: Pantoprazole Sodium 40 MG in 0.9% Normal Saline (100mL MB+) 100 ML 330 MG IV ×2 (08:50→20:19)
[2024-01-12] MEDS: Menthol/Lanolin/Calamine/Znox 113 GM Tube 1 APPLIC TOPICAL ×2 (08:52→20:19)
[2024-01-12 09:07] LABS: International Normalized Ratio 1.7; Prothrombin Time (Protime)PT. 19.6 SECONDS (11.7-14.9)
[2024-01-12 09:11] LABS: ALB/GLOB Ratio 0.8 RATIO (0.9-2.4); AST(SGOT) 97 U/L (15-37); Alanine Aminotransfer ALT/SGPT 49 U/L (13-56); Albumin, Serum 2.1 g/dL (3.2-5.0); Alkaline Phosphatase 81 U/L (45-117); Anion Gap 6 (5-15); BUN 29 mg/dL (7-18); BUN/Creat Ratio 25.7 RATIO (10-20); Calcium,Total 7.3 mg/dL (8.5-10.1); Chloride 111 mmol/L (98-107); Creatinine, Serum 1.13 mg/dL (0.55-1.02); EST Glomerular Filtration Rate 59 mL/min (>60); Est Glom Filt Rate - Afr Amer 72 mL/min (>60); Estimated Creatinine Clearance 69.94 ml/min; Globulin 2.7 g/dL (2.2-4.2); Glucose 155 mg/dL (74-106); Potassium 3.8 mmol/L (3.5-5.1); Protein, Total 4.8 g/dL (6.4-8.2); Sodium Level 137 mmol/L (136-145)
--- NOTE | 2024-01-12 10:09 | PCM.PN.TICU ---
Objective Data Objective Data Vital Signs: Vital Signs Last response Temperature 36.2 C L 01/12/24 09:00 Temperature Source Core 01/12/24 09:00 Pulse Rate 58 L 01/12/24 09:00 Pulse Strength Normal (2+) 01/12/24 09:23 Respiratory Rate 18 01/12/24 09:00 Respiratory Effort Normal, Non-Labored 01/11/24 16:00 Respiratory Depth Normal 01/11/24 16:00 Respiratory Pattern Normal 01/11/24 16:00 Blood Pressure 87/56 L 01/12/24 09:00 Blood Pressure Mean 66 01/12/24 09:00 Blood Pressure Source Monitor 01/12/24 09:00 Blood Pressure Position Semi-Fowlers 01/12/24 09:00 Blood Pressure Location Right Forearm 01/12/24 09:00 Pulse Ox 98 01/12/24 09:00 Oxygen Delivery Method Nasal Cannula 01/12/24 09:00 Oxygen Flow Rate (L/min) 2 01/12/24 09:00 I&O: I&O Last 24 Hours 01/11/24 01/11/24 01/12/24 11:59 23:59 11:59 Intake Total 2075.67 / 3678.4333 1561.6633 / 3678.4333 1346.32 / 1346.32 Output Total 550 / 965 395 / 965 175 / 175 Balance 1525.67 / 2713.4333 1166.6633 / 2713.4333 1171.32 / 1171.32 I&O: Total Stay 01/09/24 09:19 thru 01/12/24 09:38 Intake Total 43071.2233 Output Total 1520 Balance 95506.2233 Current Meds Ordered / Administered: Current meds ordered / Administered Generic Name Dose Route Start Last Admin Trade Name Freq PRN Reason Stop Dose Admin Acetaminophen 650 mg 01/09/24 16:27 01/10/24 13:28 Acetaminophen 325 Mg Tablet PO 650 mg Q6H PRN PRN Administration Pain 1-10 Or Fever >100.7 Albuterol Sulfate 2.5 mg 01/11/24 14:42 01/11/24 15:22 Albuterol 2.5 Mg/3 Ml Vial.Neb. INHALATION 2.5 mg Q2H PRN PRN Administration SOB &/OR WHEEZING Calamine/Phenol 1 applic 01/12/24 10:00 01/12/24 08:52 Menthol/Lanolin/Calamine/Znox 113 Gm Tube TOPICAL 1 applic BID XENIA Administration Protocol Dicyclomine HCl 20 mg 01/10/24 11:26 Dicyclomine 10 Mg Capsule PO Q6H PRN PRN abdominal discomfort Folic Acid 1 mg 01/10/24 08:00 01/12/24 08:51 Folic Acid 1 Mg Tablet PO Not Given BREAKFAST XENIA Gabapentin 300 mg 01/10/24 11:26 01/10/24 13:29 Gabapentin 300 Mg Capsule PO 300 mg Q8H PRN PRN Administration moderate to severe anxiety Hydrocortisone Sodium Succinate 50 mg 01/10/24 06:00 01/12/24 06:00 Hydrocortisone Sod Succinate 100 Mg/2 Ml Vial IV 50 mg Q6 XENIA Administration Hydroxyzine Pamoate 50 mg 01/10/24 11:26 01/11/24 13:24 Hydroxyzine Dayanna 25 Mg Capsule PO 50 mg Q4H PRN PRN Administration mild anxiety Sodium Chloride 1,000 mls @ 100 mls/hr 01/09/24 16:27 01/12/24 03:56 IV 100 mls/hr .Q10H XENIA Administration Pantoprazole Sodium 40 mg/ 110 mls @ 330 mls/hr 01/09/24 22:00 01/12/24 09:38 Sodium Chloride IV Infused Q12 XENIA Infusion Sodium Chloride 250 mls @ 15 mls/hr 01/09/24 16:33 01/10/24 10:21 IV Infused .[id number] PRN Infusion Additional IVPB Infusion Sodium Chloride 250 mls @ 15 mls/hr 01/09/24 16:33 IV .[id number] PRN Saline Flush Dexmedetomidine HCl 1,000 mcg/ 250 mls @ 9.8 mls/hr 01/12/24 02:00 01/12/24 04:00 Sodium Chloride CONT INF 0.5 mcg/kg/hr .[id number] XENIA 9.8 mls/hr Titration Protocol 0.5 MCG/KG/HR Lorazepam 1 mg 01/11/24 14:42 01/11/24 14:47 Lorazepam 2 Mg/Ml Syringe IV 1 mg Q4H PRN PRN Administration AGITATION Nicotine 21 mg 01/09/24 18:00 01/12/24 08:52 Nicotine 21 Mg Patch TD 21 mg DAILY XENIA Administration Nitroglycerin 0.4 mg 01/09/24 16:27 Nitroglycerin (Inpatient Use) 0.4 Mg Tab.Subl SL Q5M PRN CARDIAC/CHEST PAIN Nutritional Formula (Lactose Free) 120 ml 01/11/24 10:00 01/12/24 08:50 Ensure Plus High Protein 120 Ml Liquid PO Not Given 4X/DAY [facility] Ondansetron HCl 8 mg 01/10/24 11:26 Ondansetron 8 Mg Tablet PO Q8H PRN PRN NAUSEA Prochlorperazine Edisylate 5 mg 01/09/24 16:27 Prochlorperazine 10 Mg/2 Ml Vial IV Q4H PRN PRN Breakthrough Nausea/Vomiting Senna/Docusate Sodium 2 tablet 01/09/24 16:27 Senna/Docusate Sodium 1 Tablet PO BID PRN Constipation Sodium Chloride 10 - 40 ml 01/09/24 16:33 01/11/24 04:45 0.9 % Nacl (Sterile) Posiflush 10 Ml IV 40 ml UD PRN Administration Port access or dressing change Sodium Chloride 10 - 40 ml 01/09/24 16:33 01/10/24 05:38 0.9% Saline Lock 10 Ml Syringe IV 40 ml UD PRN Administration Multilumen/Rincon Flush Sodium Chloride 10 - 40 ml 01/09/24 16:33 01/11/24 10:57 0.9% Saline Lock 10 Ml Syringe IV 10 ml UD PRN Administration SALINE FLUSH Thiamine HCl 100 mg 01/10/24 08:00 01/12/24 08:51 Thiamine Hydrochloride 100 Mg Tablet PO Not Given BREAKFAST [facility] Trazodone HCl 100 mg 01/10/24 11:26 Trazodone 100 Mg Tablet PO QHS PRN INSOMNIA Vancomycin HCl 500 mg 01/11/24 18:00 01/12/24 06:07 Vancomycin 125 Mg/5 Ml Susp Po.Syringe PO Not Given Q6 [facility] Lab / Micro Data 01/13/24 04:17 01/13/24 04:17 Labs: Laboratory Results - last 24 hr 01/11/24 10:45: Ammonia 48.0 H 01/12/24 02:27: POC Glucose 161 H 01/12/24 04:00: WBC 3.1 L, RBC 2.41 L, Hgb 8.3 L, Hct 25.0 L, MCV 103.7 H, MCH 34.4 H, MCHC 33.2, RDW Std Deviation 96.0 H, RDW Coeff of Yan 26.5 H, Plt Count 36 L*, MPV 10.1, Neut % (Auto) Not Reportable, Absolute Neuts (auto) 2.7, Absolute Lymphs (auto) 0.25 L, Total Counted 100, Neutrophils % (Manual) 89 H, Band Neutrophils % 0, Lymphocytes % (Manual) 8 L, Myelocytes % 3 H, Differential Comment SCANNED, Diff Path Review October foll, Platelet Estimate MKD DEC, Anisocytosis 1+, Phosphorus 3.4, Magnesium 2.2 01/12/24 08:40: PT 19.6 H, INR 1.7, Sodium 137, Potassium 3.8, Chloride 111 H, Carbon Dioxide 20.0 L, Anion Gap 6, BUN 29 H, Creatinine 1.13 H, Estim Creat Clear Calc 69.94, Est GFR (MDRD) Af Amer 72, Est GFR (MDRD) Non-Af 59 L, BUN/Creatinine Ratio 25.7 H, Glucose 155 H, Calcium 7.3 L, Total Bilirubin 21.10 H*, AST 97 H, ALT 49, Alkaline Phosphatase 81, Ammonia 45.0 H, Total Protein 4.8 L, Albumin 2.1 L, Globulin 2.7, Albumin/Globulin Ratio 0.8 L Micro: Microbiology 01/09/24 10:25 Blood Culture (Wb) - Arm Left Blood Culture - Preliminary No growth in 48 hours. 01/09/24 09:54 Blood Culture (Wb) - Left Forearm Blood Culture - Preliminary No growth in 48 hours. 01/09/24 13:01 Urine, Clean Catch Urine Culture - Final Escherichia coli Assessment and Plan . Assessment and plan: [facility] Medical Records Department [address] [place] [address] Progress Note - Clinical Documentation Manager 01/12/24 1013 MR#: [id number] Acct: [id number] Name: MAY THOMPSON Rep #: [id number] : 01/05/1983 41 From: Kenji March MD PCP: Dr. Edvin Chavez, DO Status: ADM IN Location: ICU ICU02-1 Objective Data Objective Data Vital Signs: Vital Signs Last response Temperature 36.6 C 01/12/24 06:00 Temperature Source Temporal 01/12/24 06:00 Pulse Rate 106 H 01/12/24 06:38 Pulse Strength Normal (2+) 01/11/24 21:42 Respiratory Rate 14 01/12/24 06:38 Respiratory Effort Normal, Non-Labored 01/12/24 00:00 Respiratory Depth Normal 01/12/24 00:00 Respiratory Pattern Normal 01/12/24 06:38 Blood Pressure 88/64 L 01/12/24 06:00 Blood Pressure Mean 72 01/12/24 06:00 Blood Pressure Source Monitor 01/12/24 02:00 Blood Pressure Position Semi-Fowlers 01/12/24 04:00 Blood Pressure Location Left Arm 01/12/24 04:00 Pulse Ox 97 01/12/24 06:38 Oxygen Delivery Method Room Air 01/12/24 06:38 I&O: I&O Last 24 Hours 01/11/24 01/11/24 01/12/24 11:59 23:59 11:59 Intake Total 839.52 / 1278.12 434.8 / 1278.12 876.60 / 876.60 Output Total 150 / 500 250 / 500 100 / 100 Balance 689.52 / 778.12 184.8 / 778.12 776.60 / 776.60 I&O: Total Stay 01/09/24 12:47 thru 01/12/24 09:42 Intake Total 6478.82 Output Total 1050 Balance 5428.82 Current Meds Ordered / Administered: Current meds ordered / Administered Generic Name Dose Route Start Last Admin Trade Name Freq PRN Reason Stop Dose Admin Albuterol/Ipratropium 3 ml 01/11/24 13:30 01/12/24 06:38 Ipratropium/Albuterol Sulfate 3 Ml Ampul.Neb INHALATION 3 ml Q4HWA.RT XENIA Administration Ascorbic Acid 500 mg 01/10/24 10:00 01/12/24 08:08 Ascorbic Acid 500 Mg Tablet PO 500 mg DAILY XENIA Administration Calamine/Phenol 1 applic 01/09/24 22:00 01/12/24 08:07 Menthol/Lanolin/Calamine/Znox 113 Gm Tube TOPICAL 1 applic 4X/DAY XENIA Administration Protocol Colestipol HCl 1 gm 01/10/24 09:00 01/12/24 08:09 Colestipol 1 Gm Tablet PO 1 gm BIDPC XENIA Administration Dicyclomine HCl 20 mg 01/09/24 21:00 Dicyclomine 10 Mg Capsule PO DAILY PRN PRN ABD CRAMPING Enoxaparin Sodium 30 mg 01/09/24 18:30 01/12/24 08:04 Enoxaparin 30 Mg/0.3 Ml Syringe SC 30 mg Q24 XENIA Administration Fluoxetine HCl 20 mg 01/10/24 10:00 01/12/24 08:08 Fluoxetine 20 Mg Capsule PO 20 mg DAILY XENIA Administration Fluticasone Propionate 1 spray 01/10/24 10:00 01/12/24 08:05 Fluticasone 0.05% 1 Brook Nasal.Sry NASAL 1 spray DAILY XENIA Administration Folic Acid 1 mg 01/10/24 08:00 01/12/24 08:08 Folic Acid 1 Mg Tablet PO 1 mg DAILYCM XENIA Administration Gabapentin 300 mg 01/09/24 22:00 01/12/24 08:12 Gabapentin 300 Mg Capsule PO 300 mg BID XENIA Administration Hydroxyzine Pamoate 50 mg 01/10/24 10:00 01/12/24 08:10 Hydroxyzine Dayanna 25 Mg Capsule PO 50 mg DAILY XENIA Administration Sodium Chloride 250 mls @ 15 mls/hr 01/09/24 18:11 01/12/24 04:33 IV Infused .[id number] PRN Infusion Additional IVPB Infusion Sodium Chloride 250 mls @ 15 mls/hr 01/09/24 18:11 IV .[id number] PRN Saline Flush Norepinephrine Bitartrate 8 mg 250 mls @ 9.375 mls/hr 01/10/24 18:05 01/12/24 06:00 / Sodium Chloride CONT INF 2 mcg/min .[id number] XENIA 3.8 mls/hr Titration Protocol 5 MCG/MIN Sodium Chloride 500 mls @ 30 mls/hr 01/11/24 10:00 01/12/24 03:03 Sodium Cl 3% IV 30 mls/hr .[id number] XENIA Administration Ceftriaxone Sodium 1 gm in 50 mls @ 100 mls/hr 01/11/24 10:00 01/12/24 08:14 Rocephin IV 100 mls/hr Q24 XENIA Administration Albumin Human 25 gm in 100 mls @ 60 mls/hr 01/12/24 10:00 IV 01/13/24 21:00 BID XENIA Lactulose 20 gm 01/09/24 18:10 01/12/24 05:42 Lactulose 20 Gm/30 Ml Udc PO 20 gm Q6 XENIA Administration Lamotrigine 25 mg 01/09/24 22:00 01/12/24 08:09 Lamotrigine 25 Mg Tablet PO 25 mg BID XENIA Administration Midodrine 10 mg 01/10/24 17:00 01/12/24 08:08 Midodrine Hcl 5 Mg Tablet PO 10 mg TIDCM XENIA Administration Nicotine 21 mg 01/09/24 18:35 01/12/24 08:04 Nicotine 21 Mg Patch TD 21 mg DAILY XENIA Administration Nutritional Formula (Lactose Free) 118 ml 01/10/24 08:00 01/12/24 08:18 Ensure Compact 118 Ml Liquid PO 118 ml TIDCM XENIA Administration Nystatin 1 applic 01/09/24 22:00 01/12/24 05:42 Nystatin Ointment TOPICAL 1 applic TID XENIA Administration Octreotide Acetate 0.1 mg 01/10/24 16:00 01/12/24 05:44 Octreotide 0.1 Mg/Ml Ml SC 0.1 mg TID XENIA Administration Oxycodone HCl 5 mg 01/09/24 22:00 01/12/24 05:41 Oxycodone 5 Mg Tablet PO 5 mg Q8 XENIA Administration Pantoprazole Sodium 40 mg 01/10/24 10:00 01/12/24 08:04 Pantoprazole Sodium 40 Mg Tablet PO 40 mg DAILY XENIA Administration Prochlorperazine Edisylate 5 mg 01/09/24 18:10 01/12/24 01:22 Prochlorperazine 10 Mg/2 Ml Vial IV 5 mg Q4H PRN PRN Administration Breakthrough Nausea/Vomiting Rifaximin 550 mg 01/09/24 22:00 01/12/24 08:08 Rifaximin 550 Mg Tablet PO 550 mg BID XENIA Administration Sodium Chloride 10 - 40 ml 01/09/24 18:11 01/12/24 01:23 0.9% Saline Lock 10 Ml Syringe IV 10 ml UD PRN Administration SALINE FLUSH Lab / Micro Data 01/13/24 03:25 01/13/24 03:25 Labs: Laboratory Results - last 24 hr 01/11/24 13:25: Sodium 127 L 01/11/24 14:45: Sodium 117 L* 01/11/24 21:33: Sodium 120 L 01/12/24 01:40: Sodium 121 L 01/12/24 05:55: PT 18.5 H, INR 1.5, Sodium 120 L, Potassium 4.5, Chloride 91 L, Carbon Dioxide 19.0 L, Anion Gap 10, BUN 57 H, Creatinine 2.93 H, Estim Creat Clear Calc 27.19, Est GFR (MDRD) Af Amer 23 L, Est GFR (MDRD) Non-Af 19 L, BUN/Creatinine Ratio 19.5, Glucose 126 H, Calcium 7.9 L, Total Bilirubin 0.40, AST 12 L, ALT 8 L, Alkaline Phosphatase 196 H, Total Protein 5.2 L, Albumin 1.8 L, Globulin 3.4, Albumin/Globulin Ratio 0.5 L Micro: Microbiology 01/09/24 19:45 Blood Culture (Wb) - Anticubital Right Blood Culture - Preliminary No growth in 48 hours. 01/09/24 15:20 Urine Catheter - [place] Urine Culture - Final [facility] Medical Records Department [address] [place] [address] Progress Note - Clinical Documentation Manager 01/12/24 1013 MR#: [id number] Acct: [id number] Name: MAY THOMPSON Rep #: [id number] : 01/05/1983 41 From: Kenji March MD PCP: Dr. Edvin Chavez, DO Status: ADM IN Location: ICU ICU02-1 Objective Data Objective Data Vital Signs: Vital Signs Last response Temperature 36.6 C 01/12/24 06:00 Temperature Source Temporal 01/12/24 06:00 Pulse Rate 106 H 01/12/24 06:38 Pulse Strength Normal (2+) 01/11/24 21:42 Respiratory Rate 14 01/12/24 06:38 Respiratory Effort Normal, Non-Labored 01/12/24 00:00 Respiratory Depth Normal 01/12/24 00:00 Respiratory Pattern Normal 01/12/24 06:38 Blood Pressure 88/64 L 01/12/24 06:00 Blood Pressure Mean 72 01/12/24 06:00 Blood Pressure Source Monitor 01/12/24 02:00 Blood Pressure Position Semi-Fowlers 01/12/24 04:00 Blood Pressure Location Left Arm 01/12/24 04:00 Pulse Ox 97 01/12/24 06:38 Oxygen Delivery Method Room Air 01/12/24 06:38 I&O: I&O Last 24 Hours 01/11/24 01/11/24 01/12/24 11:59 23:59 11:59 Intake Total 839.52 / 1278.12 434.8 / 1278.12 876.60 / 876.60 Output Total 150 / 500 250 / 500 100 / 100 Balance 689.52 / 778.12 184.8 / 778.12 776.60 / 776.60 I&O: Total Stay 01/09/24 12:47 thru 01/12/24 09:42 Intake Total 6478.82 Output Total 1050 Balance 5428.82 Current Meds Ordered / Administered: Current meds ordered / Administered Generic Name Dose Route Start Last Admin Trade Name Freq PRN Reason Stop Dose Admin Albuterol/Ipratropium 3 ml 01/11/24 13:30 01/12/24 06:38 Ipratropium/Albuterol Sulfate 3 Ml Ampul.Neb INHALATION 3 ml Q4HWA.RT XENIA Administration Ascorbic Acid 500 mg 01/10/24 10:00 01/12/24 08:08 Ascorbic Acid 500 Mg Tablet PO 500 mg DAILY XENIA Administration Calamine/Phenol 1 applic 01/09/24 22:00 01/12/24 08:07 Menthol/Lanolin/Calamine/Znox 113 Gm Tube TOPICAL 1 applic 4X/DAY XENIA Administration Protocol Colestipol HCl 1 gm 01/10/24 09:00 01/12/24 08:09 Colestipol 1 Gm Tablet PO 1 gm BIDPC XENIA Administration Dicyclomine HCl 20 mg 01/09/24 21:00 Dicyclomine 10 Mg Capsule PO DAILY PRN PRN ABD CRAMPING Enoxaparin Sodium 30 mg 01/09/24 18:30 01/12/24 08:04 Enoxaparin 30 Mg/0.3 Ml Syringe SC 30 mg Q24 XENIA Administration Fluoxetine HCl 20 mg 01/10/24 10:00 01/12/24 08:08 Fluoxetine 20 Mg Capsule PO 20 mg DAILY XENIA Administration Fluticasone Propionate 1 spray 01/10/24 10:00 01/12/24 08:05 Fluticasone 0.05% 1 [place] Nasal.Sry NASAL 1 spray DAILY XENIA Administration Folic Acid 1 mg 01/10/24 08:00 01/12/24 08:08 Folic Acid 1 Mg Tablet PO 1 mg DAILYCM XENIA Administration Gabapentin 300 mg 01/09/24 22:00 01/12/24 08:12 Gabapentin 300 Mg Capsule PO 300 mg BID XENIA Administration Hydroxyzine Pamoate 50 mg 01/10/24 10:00 01/12/24 08:10 Hydroxyzine Dayanna 25 Mg Capsule PO 50 mg DAILY XENIA Administration Sodium Chloride 250 mls @ 15 mls/hr 01/09/24 18:11 01/12/24 04:33 IV Infused .[id number] PRN Infusion Additional IVPB Infusion Sodium Chloride 250 mls @ 15 mls/hr 01/09/24 18:11 IV .[id number] PRN Saline Flush Norepinephrine Bitartrate 8 mg 250 mls @ 9.375 mls/hr 01/10/24 18:05 01/12/24 06:00 / Sodium Chloride CONT INF 2 mcg/min .[id number] XENIA 3.8 mls/hr Titration Protocol 5 MCG/MIN Sodium Chloride 500 mls @ 30 mls/hr 01/11/24 10:00 01/12/24 03:03 Sodium Cl 3% IV 30 mls/hr .[id number] XENIA Administration Ceftriaxone Sodium 1 gm in 50 mls @ 100 mls/hr 01/11/24 10:00 01/12/24 08:14 Rocephin IV 100 mls/hr Q24 XENIA Administration Albumin Human 25 gm in 100 mls @ 60 mls/hr 01/12/24 10:00 IV 01/13/24 21:00 BID XENIA Lactulose 20 gm 01/09/24 18:10 01/12/24 05:42 Lactulose 20 Gm/30 Ml Udc PO 20 gm Q6 XENIA Administration Lamotrigine 25 mg 01/09/24 22:00 01/12/24 08:09 Lamotrigine 25 Mg Tablet PO 25 mg BID XENIA Administration Midodrine 10 mg 01/10/24 17:00 01/12/24 08:08 Midodrine Hcl 5 Mg Tablet PO 10 mg TIDCM XENIA Administration Nicotine 21 mg 01/09/24 18:35 01/12/24 08:04 Nicotine 21 Mg Patch TD 21 mg DAILY XENIA Administration Nutritional Formula (Lactose Free) 118 ml 01/10/24 08:00 01/12/24 08:18 Ensure Compact 118 Ml Liquid PO 118 ml TIDCM XENIA Administration Nystatin 1 applic 01/09/24 22:00 01/12/24 05:42 Nystatin Ointment TOPICAL 1 applic TID XENIA Administration Octreotide Acetate 0.1 mg 01/10/24 16:00 01/12/24 05:44 Octreotide 0.1 Mg/Ml Ml SC 0.1 mg TID XENIA Administration Oxycodone HCl 5 mg 01/09/24 22:00 01/12/24 05:41 Oxycodone 5 Mg Tablet PO 5 mg Q8 XENIA Administration Pantoprazole Sodium 40 mg 01/10/24 10:00 01/12/24 08:04 Pantoprazole Sodium 40 Mg Tablet PO 40 mg DAILY XENIA Administration Prochlorperazine Edisylate 5 mg 01/09/24 18:10 01/12/24 01:22 Prochlorperazine 10 Mg/2 Ml Vial IV 5 mg Q4H PRN PRN Administration Breakthrough Nausea/Vomiting Rifaximin 550 mg 01/09/24 22:00 01/12/24 08:08 Rifaximin 550 Mg Tablet PO 550 mg BID XENIA Administration Sodium Chloride 10 - 40 ml 01/09/24 18:11 01/12/24 01:23 0.9% Saline Lock 10 Ml Syringe IV 10 ml UD PRN Administration SALINE FLUSH Lab / Micro Data 01/13/24 03:25 01/13/24 03:25 Labs: Laboratory Results - last 24 hr 01/11/24 13:25: Sodium 127 L 01/11/24 14:45: Sodium 117 L* 01/11/24 21:33: Sodium 120 L 01/12/24 01:40: Sodium 121 L 01/12/24 05:55: PT 18.5 H, INR 1.5, Sodium 120 L, Potassium 4.5, Chloride 91 L, Carbon Dioxide 19.0 L, Anion Gap 10, BUN 57 H, Creatinine 2.93 H, Estim Creat Clear Calc 27.19, Est GFR (MDRD) Af Amer 23 L, Est GFR (MDRD) Non-Af 19 L, BUN/Creatinine Ratio 19.5, Glucose 126 H, Calcium 7.9 L, Total Bilirubin 0.40, AST 12 L, ALT 8 L, Alkaline Phosphatase 196 H, Total Protein 5.2 L, Albumin 1.8 L, Globulin 3.4, Albumin/Globulin Ratio 0.5 L Micro: Microbiology 01/09/24 19:45 Blood Culture (Wb) - Anticubital Right Blood Culture - Preliminary No growth in 48 hours. 01/09/24 15:20 Urine Catheter - [place] Urine Culture - Final Patient seen and examined Chart and data reviewed She is gravely ill Stuporous today - unable to take po No gross bleeding currently NS infusing UCX reveals E coli Modest stool o/p She is receiving ABX and hydrocortisone PHYSICAL EXAM GEN NAD, stuporous VS as above HEENT o/p clear NECK supple COR RRR CHEST CTAB ABD soft EXT modest edema SKIN jaundiced LISET NF, stuporous ASSESSMENT 1. Stupor/encephalopathy 2. Severe alcoholic liver disease 3. Recent GI bleeding d/t M-W tear 4. CDAD 5. UTI 6. Pancytopenia TREATMENT PLAN -follow CLIENT SERVICES ADMINISTRATOR clinically -lactulose/xifaxan -IV ABX -thiamine -hydrocortisone -no A/C for now -nutritional support, as able -prognosis very guarded -50 min CCT -the entirety of this encounter performed using telemedicine
--- NOTE | 2024-01-12 13:02 | CASEMGMT ---
Social Work Pt's significant other Addi and pt's sister are at the bedside. SW met with family and provided emotional support. Family aware that SW will remain available should they desire additional support. MARIA VICTORIA Moore
--- NOTE | 2024-01-12 13:28 | NURSING ---
patient transferred off floor at this time for liver biopsy
--- NOTE | 2024-01-12 13:36 | PN.GI_ITS ---
Subjective Subjective Patient seen at the bedside with patient's girlfriend. She is off of Precedex but very incoherent. Objective Data Objective Data Vital Signs: Vital Signs Temp Pulse Resp BP Pulse Ox O2 Del Method O2 Flow Rate 97.3 F L 60 18 91/56 L 93 Nasal Cannula 1 01/12/24 12:00 01/12/24 12:00 01/12/24 12:00 01/12/24 12:00 01/12/24 12:00 01/12/24 12:00 01/12/24 12:00 Oxygen Flow Rate (L/min) 1 Oxygen Delivery Method Nasal Cannula Weight: 172 lb 13.5 oz Body Mass Index (BMI) 31.6 Intake & Output: Intake and Output for Last 24 Hours 01/10/24 01/11/24 01/12/24 23:59 23:59 23:59 Intake Total 5243.82 / 5762.62 3637.3333 / 3678.4333 1346.32 / 1346.32 Output Total 400 / 650 945 / 965 245 / 245 Balance 4843.82 / 5112.62 2692.3333 / 2713.4333 1101.32 / 1101.32 Lab / Micro Data 01/12/24 04:00 01/12/24 08:40 Labs: Laboratory Results - last 24 hr 01/12/24 02:27: POC Glucose 161 H 01/12/24 04:00: WBC 3.1 L, RBC 2.41 L, Hgb 8.3 L, Hct 25.0 L, MCV 103.7 H, MCH 34.4 H, MCHC 33.2, RDW Std Deviation 96.0 H, RDW Coeff of Yan 26.5 H, Plt Count 36 L*, MPV 10.1, Neut % (Auto) Not Reportable, Absolute Neuts (auto) 2.7, A bsolute Lymphs (auto) 0.25 L, Total Counted 100, Neutrophils % (Manual) 89 H, Band Neutrophils % 0, Lymphocytes % (Manual) 8 L, Myelocytes % 3 H, Differential Comment SCANNED, Diff Path Review May , Platelet Estimate MKD DEC, Anisocytosis 1+, Phosphorus 3.4, Magnesium 2.2 01/12/24 08:40: PT 19.6 H, INR 1.7, Sodium 137, Potassium 3.8, Chloride 111 H, C arbon Dioxide 20.0 L, Anion Gap 6, BUN 29 H, Creatinine 1.13 H, Estim Creat Clear Calc 69.94, Est GFR (MDRD) Af Amer 72, Est GFR (MDRD) Non-Af 59 L, B UN/Creatinine Ratio 25.7 H, Glucose 155 H, Calcium 7.3 L, Total Bilirubin 21.10 H*, AST 97 H, ALT 49, Alkaline Phosphatase 81, Ammonia 45.0 H, Total Protein 4.8 L, Albumin 2.1 L, Globulin 2.7, Albumin/Globulin Ratio 0.8 L Micro: Microbiology 01/09/24 10:25 Blood Culture (Wb) - Arm Left Blood Culture - Preliminary No growth in 48 hours. 01/09/24 09:54 Blood Culture (Wb) - Left Forearm Blood Culture - Preliminary No growth in 48 hours. 01/09/24 13:01 Urine, Clean Catch Urine Culture - Final Escherichia coli 01/10/24 02:15 Stool Stool Occult Blood (ESTRELLITA) - Final Occult Blood Positive 01/10/24 02:15 Stool Enteric Bacteriology - Final 01/10/24 02:15 Stool C. difficile GDH Antigen & Toxins - Final Toxigenic C. difficile 01/10/24 02:15 Stool Clostridioides difficile (PCR) - Final Physical Exam Const Constitutional Narrative: lethargic. mumble incoherently. HEENT head/scalp atraumatic Eyes Eyes Narrative: narrow pupils. icterus. Neck no lymphadenopathy Neck Narrative: no thyromegaly. Resp normal respiratory effort, no retractions, no use of accessory muscles and clear to auscultation bilaterally Cardio regular rate, regular rhythm, S1 normal heart sound and S2 normal heart sound GI normal to inspection, nondistended, normoactive bowel sounds and soft to palpation Skin Skin Narrative: diffuse petechiae. on abdomen. Neuro Neuro Narrative: no asterixis. no clonus. Assessment & Plan Assessment/Plan (1) Shock: (2) C. difficile colitis: (3) Alcoholic hepatitis: PLAN: Plan 33-year-old female with history of alcohol abuse and possible alcoholic cirrhosis presents with intermittent episodes of hematemesis and discovered to have severe jaundice, abdominal pain, severe anemia and coagulopathy consistent with of acute liver injury and and shock Agree with her currently experiencing shock likely hemorrhagic shock. She has not had any more episodes of vomiting or hematemesis. Also the differential diagnosis is b septic shock possible or mild DIC secondary to hepatobiliary sepsis and/or pancolitis that was seen on the CT scan abdomen pelvis. Patient started on broad-spectrum IV antibiotic Zosyn for gram-positive, gram-negative aerobic and anaerobic bacteria. Patient had 1 dose of IV ceftriaxone in the ER. Plan is to perform an upper endoscopy tomorrow. Unless she becomes more hemodynamically unstable I would like her to have antibiotics and have doses of PPI and octreotide. Acute on chronic liver injury, severe acute alcoholic hepatitis with history of chronic alcoholic hepatitis: Liver chemistry shows total bilirubin 21.6, INR 1.5 with Madrey's discriminant function 48.3 showing poor prognosis. Patient not candidate for steroid because of possible septic shock. She is also not a candidate for N-acetylcysteine at this time because monotherapy with N- acetylcysteine and an acute alcoholic injury or been toxic finally do not have a long-term improvement or decrease length of stay in the hospital Pancolitis, possible infectious, but likely ischemic: CT abdomen shows pancolitis, mild thickening of multiple small bowel loops, diffuse thickening of gastric wall. Patient on IV antibiotic. Enteric bacteriology panel, C. difficile ordered. 01/10/2024-The patient underwent and upper endoscopy at the bedside. She was discovered to have large Iliana Tobar tear. They were no esophageal gastric or doudenal varices. She did have alcoholic and stress induced gastritis without any sign of recent hemorrhage. There were no ulcerations seen in the upper GI tract. She did have hemorrhagic esophagitis that was also seen. She still remains on pressors and receive stress dose steroids today for septic shock. Her severe alcoholic hepatitis is getting worse corresponding with the decrease completely count, increase INR and Bilirubin with the picture of DIC multifactorial from acute alcoholic hepatitis, and now discovered severe pain colitis associated with Cdiff. I am suspecting that she has elements of homolysis secondary to severe alcoholic hepatitis was as a unfortunate complication. She did receive blood transfusion today. Severe alcoholic hepatitis is defined by modified discriminant function >=2, is the most severe form of alcohol-induced liver disease and is associated with a 1-month mortality rate of around 30%. Corticosteroid treatment remains the only therapeutic option that improves short-term survival. Infectious complications, occurring in approximately 50% of patients, are the main causes of , even in patients who benefit from corticosteroids. Although infection is a well-described feature of cirrhosis, little is known about the characteristics of infections in SAH. Infection is mainly of bacterial origin and frequently affects the respiratory tract. Pathogens classically observed in cirrhosis, such as gram-negative bacilli, are frequently involved, but opportunistic pathogens, such as fungi (Aspergillus fumigatus, Pneumocystis jirovecii) or viruses (Cytomegalovirus, Herpes simplex) may appear, mainly related to corticosteroid treatment. She is on broad spectrum antibiotics at this time. She continues to be febrile. Recommendations: -low threshold for diagnostic paracentesis. -Check INR. -Start xifaxan 500 mg PO BID and lactulose 30 cc BID -Check ammonia level 01/11/2024-I had a talk with the family at the bedside and told him how sick she is. I explained to her with her very high modified discriminant score she has a almost 50% mortality due to severe alcoholic hepatitis in the setting of sepsis. She remains on vancomycin and fortunately has been able to be weaned off of pressors. She is on hydrocortisone prophylaxis. She is still bicytopenia with hemoglobin slightly down to 8.2 from 9.5 and platelet count of 53,000. Kidney function has improved which is a good sign. Her INR is down to 1.7 from 1.8. Her ammonia went from 62-48 which is also a good sign. Hopefully she will continue to improve. No clear need for paracenteses on exam. Mental status cannot be assessed at that time. Recommendations: -Continue to monitor INR, LFTs. -Continue to monitor ammonia -Continue current medications 01/12/2024-patient has worsening auto mental status. Her ammonia level is basically the same it went from 62-40 8-45. She is on prophylaxis for hyperammonemia. She is incoherent. Her bilirubin improved slightly to 21. That did help her overall numbers but clinically she looks a little worse. She is developing worsening pancytopenia. Her INR is the same at 1.7. Creatinine remains normal which is also a good sign Recommendations: -Liver biopsy to see if there is any sign of necrosis -Autoimmune labs are pending -Continue to monitor INR, LFTs, CBC -Guarded prognosis Charges/Coding Visit Charges Inpatient E&M: 03184 Subs Hosp L3
[2024-01-12] MEDS: Lidocaine 2% (20 ml mdv) 20 ML Vial INFILT (14:22)
--- NOTE | 2024-01-12 14:25 | LIV_PTH ---
PATIENT: DEANA BADILLO LOC: [facility] U#:[id number] AGE/SX: 33/F ROOM: [facility] RE01/09/[address]: Dr. Wood Rich MD : 1990 BED: 1 DIS: 01/24/2024 SPEC #: [id number] RECD: 01/12/24 14:40 STATUS: LIZETH REQ #: [id number] GRISEL: 01/12/24 14:[address]: Fabian Martinez DEPT: SURGICAL PATHOLOGY RECD BY: Lionel Pacheco ENTERED: 01/12/24 14:40 SP TYPE: LIVER RES OTHR DR: MD Dr. Juan Bautista MD Dr. Derek Brown, DO Dr. Edward Matheis, MD Dr. Gautam Baskaran, MD Dr. Gabriele Pedicelli, MD Dr. Yordanos Habtegebriel, MD Dr. Hemant Dand, MD Dr. Jose Ochoa, MD Dr. Kimber Foust, MD Dr. Lamia Aljundi, MD Dr. Prakash Chand, MD Dr. Pritam Ghosh, MD Dr. Pavan Irukulla, MD Dr. Saad Farooqi, MD Dr. Vikram Anand, MD Dr. William Haden, MD No Primary Care Phys Tissues: Liver, NOS Procedures: PAS with Diastase (control) Trichrome (control) Special Stain Group I PAS Stain (control) Surgery Specimen Level V Retic (control) Iron Stain (control) HEADER OPERATION: CT guided liver biopsy PRE-OP DIAGNOSIS: Septic shock, alcoholic hepatitis TISSUE SUBMITTED: 18 gauge x 3 cores- right lobe liver MICROSCOPIC DIAGNOSIS Liver, CT guided core biopsy: Consistent with cirrhosis. Extensive macro- and microvesicular steatosis. See microscopic description and comment. Charlene 01/15/2024 COMMENT Correlation with clinical, laboratory and radiologic findings and appropriate follow up are necessary. MICROSCOPIC DESCRIPTION Slides are reviewed. This specimen shows liver parenchymal tissue with distortion of abnormal architecture into multiple nodules divided by fibrous septa. Hepatocytes show extensive macro- and microvesicular steatosis, and reactive changes. Ballooning degeneration of hepatocytes are also noted. Hepatocytes also shows bile stasis. Mild chronic inflammation is noted in the hepatocyte nodules. Fibrous septa in between the hepatocyte nodules shows chronic inflammation consisting of lymphocytes and plasma cells. Iron stains show 3-4+ iron in the hepatocytes. Trichrome and reticulin stain highlights the fibrosepta in between the hepatocyte nodules. PAS stain with and without diastase do not show any abnormal accumulation of protein. All stains are performed with appropriate matched controls. GROSS DESCRIPTION Received in fixative is one container labeled with the patient's name and designated Liver biopsy. The specimen consists of three elongated pieces of liu soft tissue measuring in aggregate 2.0 x 0.3 x 0.1cm. The entire specimen is submitted in one cassette. Charlene 01/12/2024 TC:5 CPT:53214
--- NOTE | 2024-01-12 14:31 | PCM.OP.PRO ---
Procedure Report Date of Procedure: 01/12/24 Assessment & Plan Assessment/Plan (1) Alcoholic hepatitis: QUALIFIERS: Ascites presence: unspecified Qualified Code(s): K70.10 - Alcoholic hepatitis without ascites PLAN: PROCEDURE: CT DIRECTED CORE LIVER BIOPSY ORDERING PROVIDER: Dr. Martinez INDICATION: Female, 33 years old. Alcoholic hepatitis. PROVIDER: JAMES Esparza CONSENT: Written informed consent was obtained having explained the risks, benefits and alternatives in detail with the patient who accepted the risks and agreed to proceed. Laboratory review and clinical assessment was performed. PRE-PROCEDURE SEDATION ASSESSMENT: Current history and physical dictated by referring provider and reviewed. No clinical changes since date of exam. Patient is sleeping and will arouse to tactile stimulation. Patient is alert to self but is reoriented to her location and time. Patient is comfortable and will be reassessed during the procedure to determine need for sedation. Current plan is local anesthetic only. Patient has an ASA score of 3. PROCEDURAL SEDATION PROTOCOL: Procedural sedation was not used. RADIATION DOSAGE (If Supplied By Facility): CTDIvol = 24.38 mGy, DLP = 689.34 mGycm Individualized dose optimization techniques were used for this CT. TECHNIQUE: The patient was placed in a supine position. Using CT image guidance with image documentation, a suitable location in the right anterior lobe of the liver was identified. The skin surface was prepped with betadine and draped in a sterile fashion. 2% lidocaine was used for local anesthesia. Using an anterior approach, puncture of the liver was uneventful with an 18-gauge core needle system. 3, 18-gauge core samples were obtained, and submitted in formalin to the pathologist for further assessment. The needle was removed. An occlusive sterile dressing was applied. Patient tolerated the procedure well, and returned to the holding bay for nursing monitoring. IMPRESSION: 1. CT directed core needle biopsy of the liver, using CT image guidance with image documentation as described. Procedures Radiology Radiology CT Procedures: 40692 Biopsy Liver Multi Select Codes Radiology Radiology CT Procedures: 13341-95 CT guidance parenchymal tissue
[2024-01-13] VITALS (26 sets, daily range): BP systolic 88–124; BP diastolic 48–75; PULSE 62–97; RESP 18–32; TEMP 36.3–37.1; O2SAT 88–100; BMI 33.1
[2024-01-13 00:12] LABS: Bedside Glucose 135 mg/dL (74-106)
[2024-01-13] MEDS: 0.9% Normal Saline (1000mL) 1,000 ML 100 ML IV ×2 (01:20→10:19)
[2024-01-13 04:27] LABS: Hematocrit 24.7 % (37-47); Hemoglobin 8.1 g/dL (12.0-15.0); Mean Corp Hgb Conc 32.8 g/dL (32-36); Mean Corpuscular Hgb 34.8 pg (27.0-32.0); Mean Platelet Vol. 10.6 fl (6.2-12.0); POSITIVE COUNT YES; POSITIVE DIFFERENTIAL YES; POSITIVE MORPHOLOGY YES; RBC Distribution Width CV 25.9 % (11.6-14.6); RBC Distribution Width SD 97.6 fl (35.1-43.9); Red Blood Count 2.33 M/mm3 (4.2-5.4)
[2024-01-13 04:30] LABS: Differential Indicated MANUAL DIFF; Platelet Count 35 K/mm3 (150-450)
[2024-01-13 05:12] LABS: ALB/GLOB Ratio 0.8 RATIO (0.9-2.4); AST(SGOT) 133 U/L (15-37); Alanine Aminotransfer ALT/SGPT 65 U/L (13-56); Alkaline Phosphatase 82 U/L (45-117); Anion Gap 7 (5-15); BUN 39 mg/dL (7-18); BUN/Creat Ratio 33.9 RATIO (10-20); Calcium,Total 7.4 mg/dL (8.5-10.1); Chloride 112 mmol/L (98-107); Creatinine, Serum 1.15 mg/dL (0.55-1.02); EST Glomerular Filtration Rate 58 mL/min (>60); Est Glom Filt Rate - Afr Amer 70 mL/min (>60); Estimated Creatinine Clearance 70.43 ml/min; Globulin 2.5 g/dL (2.2-4.2); Glucose 146 mg/dL (74-106); Potassium 3.9 mmol/L (3.5-5.1); Protein, Total 4.5 g/dL (6.4-8.2); Sodium Level 139 mmol/L (136-145)
[2024-01-13] MEDS: 0.9% Saline Lock 10 ML Syringe IV (05:13)
[2024-01-13] MEDS: Hydrocortisone Sod Succinate 100 MG/2 ML Vial 50 MG IV ×3 (05:13→18:18)
[2024-01-13 05:25] LABS: Magnesium 2.2 mg/dL (1.6-2.6)
[2024-01-13 05:28] LABS: Neutrophil-Band 4 % (0-5); Neutrophil-Segmented 79 % (47-70); Total Cells Counted 100 (MANUAL DIFF)
[2024-01-13 05:29] LABS: Lymphocyte 10 % (19-41); Metamyelocyte 1 % (0-1); Monocyte 2 % (0-10); Myelocyte 3 % (0-0); Nucleated Red Bld Cells,Manual 3 % (0-5); Other WBC Type 1 %
[2024-01-13 05:31] LABS: Anisocytosis 3+; Macrocytosis 1+; Platelet Estimate MKD DEC (ADEQ)
[2024-01-13 05:32] LABS: Ovalocyte 1+; Stomatocyte RARE
[2024-01-13 05:33] LABS: Absolute Neutrophil Count 0.3 X10^3/uL (2.0-7.7)
--- NOTE | 2024-01-13 07:07 | PN.HOSP_ITS ---
Reason for Visit Reason for Visit: Diagnoses Enterocolitis due to Clostridium difficile, not specified as recurrent (01/09/24) Alcoholic hepatitis without ascites (01/09/24) Shock, unspecified (01/09/24) Subjective Subjective More alert today. Saying she wants to go home. Denies pain. Objective Data Objective Data Vital Signs: Vital Signs Temp Pulse Resp BP Pulse Ox O2 Del Method O2 Flow Rate 36.4 C L 73 23 H 99/60 99 Nasal Cannula 1 01/13/24 04:00 01/13/24 07:00 01/13/24 07:00 01/13/24 07:00 01/13/24 07:00 01/13/24 07:00 01/13/24 07:00 Oxygen Flow Rate (L/min) 1 Oxygen Delivery Method Nasal Cannula Weight: 82.2 kg Body Mass Index (BMI) 33.1 Intake & Output: Intake and Output for Last 24 Hours 01/11/24 01/12/24 01/13/24 23:59 23:59 23:59 Intake Total 3637.3333 / 3678.4333 2485.72 / 2485.72 970 / 970 Output Total 945 / 965 415 / 415 75 / 75 Balance 2692.3333 / 2713.4333 2070.72 / 2070.72 895 / 895 Lab / Micro Data 01/13/24 04:17 01/13/24 04:17 Labs: Laboratory Results - last 24 hr 01/12/24 08:40: PT 19.6 H, INR 1.7, Sodium 137, Potassium 3.8, Chloride 111 H, C arbon Dioxide 20.0 L, Anion Gap 6, BUN 29 H, Creatinine 1.13 H, Estim Creat Clear Calc 69.94, Est GFR (MDRD) Af Amer 72, Est GFR (MDRD) Non-Af 59 L, B UN/Creatinine Ratio 25.7 H, Glucose 155 H, Calcium 7.3 L, Total Bilirubin 21.10 H*, AST 97 H, ALT 49, Alkaline Phosphatase 81, Ammonia 45.0 H, Total Protein 4.8 L, Albumin 2.1 L, Globulin 2.7, Albumin/Globulin Ratio 0.8 L 01/12/24 23:52: POC Glucose 135 H 01/13/24 04:17: WBC 3.0 L, RBC 2.33 L, Hgb 8.1 L, Hct 24.7 L, MCV 106.0 H, MCH 34.8 H, MCHC 32.8, RDW Std Deviation 97.6 H, RDW Coeff of Yan 25.9 H, Plt Count 35 L*, MPV 10.6, Neut % (Auto) Not Reportable, Absolute Neuts (auto) 0.3 L, A bsolute Lymphs (auto) 0.30 L, Total Counted 100, Neutrophils % (Manual) 79 H, Band Neutrophils % 4, Lymphocytes % (Manual) 10 L, Monocytes % (Manual) 2, Metamyelocytes % 1, Myelocytes % 3 H, Other Cells % 1, Nucleated RBCs/100 WBC 3, Diff Path Review October, Platelet Estimate MKD DEC, Anisocytosis 3+, Macrocytosis 1+, Ovalocytes 1+, Stomatocytes RARE, Sodium 139, Potassium 3.9, C hloride 112 H, Carbon Dioxide 20.0 L, Anion Gap 7, BUN 39 H, Creatinine 1.15 H, Estim Creat Clear Calc 70.43, Est GFR (MDRD) Af Amer 70, Est GFR (MDRD) Non-Af 58 L, BUN/Creatinine Ratio 33.9 H, Glucose 146 H, Calcium 7.4 L, Phosphorus 3.0, Magnesium 2.2, Total Bilirubin 20.00 H*, AST 133 H, ALT 65 H, Alkaline Phosphatase 82, Total Protein 4.5 L, Albumin 2.0 L, Globulin 2.5, A lbumin/Globulin Ratio 0.8 L Micro: Microbiology 01/09/24 10:25 Blood Culture (Wb) - Arm Left Blood Culture - Preliminary No growth in 48 hours. 01/09/24 09:54 Blood Culture (Wb) - Left Forearm Blood Culture - Preliminary No growth in 48 hours. 01/09/24 13:01 Urine, Clean Catch Urine Culture - Final Escherichia coli 01/10/24 02:15 Stool Stool Occult Blood (ESTRELLITA) - Final Occult Blood Positive 01/10/24 02:15 Stool Enteric Bacteriology - Final 01/10/24 02:15 Stool C. difficile GDH Antigen & Toxins - Final Toxigenic C. difficile 01/10/24 02:15 Stool Clostridioides difficile (PCR) - Final Physical Exam Const alert and oriented x3 Constitutional Narrative: Jaundiced. Follows commands. HEENT head/scalp atraumatic and moist oral mucous membranes Eyes EOMs intact bilaterally Eyes Narrative: icterus Resp normal respiratory effort, no retractions, no use of accessory muscles and clear to auscultation bilaterally Cardio regular rate, regular rhythm, S1 normal heart sound and S2 normal heart sound GI normal to inspection, nondistended, normoactive bowel sounds and soft to palpation GI Narrative: slight distention Neuro Sensorium / Orientation: awake and alert Psych affect normal Assessment & Plan Assessment/Plan (1) Shock: PLAN: Plan Shock * improving * septic and hemorrhagic * on norepinephrine gtt and vasopressin gtt, since weaned off. Started on hydrocortisone 50 Q6. * on pip/tazo and PO vancomycin * follow up cultures * CCM consult Cdiff Pancolitis * C.diff + * enteric panel pending * on PO vancomycin. Acute blood loss anemia * hematemesis and hematochezia * Hg was 12.4 on 12/16/23 dropped to 7.6. * Transfused 2 units PRBCs and Hg improved to 9.5 GI bleed * Was seen in ED 12/15 with milder hematemesis, advised admission at that time, but elected to go home. * EGD on 01/09 showed MWT. Clipped Suspected acute alcoholic hepatitis * Hyperbilirubinemia 24.2, was 8 on 12/15 and 2.6 on 08/26/22. * CT showed hepatomegaly and diffuse fatty infiltration of the liver * suspect due to liver disease. * Madrey score 50.2 * started on hydrocortisone 50 Q6 * Biopsy performed on 01/11. CRICKET * Baseline creatinine 0.43 on 12/16/23, admission 1.58, went up to 1.92, down to 1.81 * Improving with IVF. Acute alcohol withdrawal * per significant other, drinks about 1 pint whiskey/d. I suspect pt drinks more than that. * Thiamine and folate * 01/10: Started on dexmedetomidine drip due to severe agitation. Given severe agitation and, at risk for self, patient did require soft restraints. * 01/11: Patient more lethargic so the dexmedetomidine drip was discontinued. Patient has remained lethargic after its discontinuation. Thrombocytopenia * Had been low in 08/26/22 at 146, 56 on 12/16/23, now 70. * Likely 2/2 underlying alcoholic cirrhosis * monitor for now. * Now developing petechiae. INR 1.7. Lethargy * pt profoundly weak. Ammonia on 48. Monitor. Maybe related with underlying illnesses. * 01/12: much more alert. VTE prophylaxis: SCDs DW patient's significant other at bedside. Guarded prognosis. Discussed with the patient's significant other, Addi. Explained that she does look slightly better today as she is more alert, kidney functions better, her hyperbilirubinemia though still elevated is better. Explained to patient is going other as well as segment others mother and father that the patient is improved at this point in time and I do not feel that she is hospice appropriate at this time. Would recommend continue with ongoing treatments to see how she does. She was relieved given the patient's appearance on the 12th was much more diarrhea. But understands that the patient still has a very long way to get better. Greater than 60 minutes of which greater than 50% of time was counseling patient assessing and other about her status. Charges/Coding Visit Charges Inpatient E&M: 41972 Subs Hosp L3
[2024-01-13] MEDS: Ensure Plus High Protein 120 ML LIQUID PO ×4 (10:17→20:26)
[2024-01-13] MEDS: Pantoprazole Sodium 40 MG in 0.9% Normal Saline (100mL MB+) 100 ML 330 MG IV ×2 (10:18→20:24)
--- NOTE | 2024-01-13 12:39 | PN.CC_ITS ---
Objective Data Objective Data Vital Signs: Vital Signs Last response 3 Temperature 36.7 C 01/13/24 10:00 Temperature Source Core 01/13/24 10:00 Pulse Rate 86 01/13/24 10:00 Pulse Strength Weak (1+) 01/12/24 21:13 Respiratory Rate 23 H 01/13/24 10:00 Respiratory Effort Normal, Non-Labored 01/13/24 08:00 Respiratory Depth Normal 01/13/24 08:00 Respiratory Pattern Normal 01/13/24 08:00 Blood Pressure 112/69 01/13/24 10:00 Blood Pressure Mean 83 01/13/24 10:00 Blood Pressure Source Monitor 01/13/24 10:00 Blood Pressure Position Semi-Fowlers 01/13/24 10:00 Blood Pressure Location Right Forearm 01/13/24 10:00 Pulse Ox 100 01/13/24 10:00 Oxygen Delivery Method Nasal Cannula 01/13/24 10:00 Oxygen Flow Rate (L/min) 1 01/13/24 10:00 I&O: I&O Last 24 Hours 3 01/12/24 01/13/24 01/13/24 23:59 11:59 23:59 Intake Total 1110 / 2485.72 1977.33 / 1977.33 Output Total 170 / 415 75 / 75 Balance 940 / 2070.72 1903.33 / 1903.33 I&O: Total Stay 3 01/09/24 09:19 thru 01/13/24 10:38 Intake Total 57542.9533 Output Total 1835 Balance 56447.9533 Current Meds Ordered / Administered: Current meds ordered / Administered 3 Generic Name Dose Route Start Last Admin Trade Name Sandy PRN Reason Stop Dose Admin Acetaminophen 650 mg 01/09/24 16:27 01/10/24 13:28 Acetaminophen 325 Mg Tablet PO 650 mg Q6H PRN PRN Administration Pain 1-10 Or Fever >100.7 Albuterol Sulfate 2.5 mg 01/11/24 14:42 01/11/24 15:22 Albuterol 2.5 Mg/3 Ml Vial.Neb. INHALATION 2.5 mg Q2H PRN PRN Administration SOB &/OR WHEEZING Calamine/Phenol 1 applic 01/12/24 10:00 01/12/24 20:19 Menthol/Lanolin/Calamine/Znox 113 Gm Tube TOPICAL 1 applic BID XENIA Administration Protocol Dicyclomine HCl 20 mg 01/10/24 11:26 Dicyclomine 10 Mg Capsule PO Q6H PRN PRN abdominal discomfort Flumazenil 0.2 mg 01/12/24 14:09 Flumazenil 0.5 Mg/5 Ml Vial IV Q1M PRN Respirations <10 per minute Folic Acid 1 mg 01/10/24 08:00 01/13/24 09:25 Folic Acid 1 Mg Tablet PO Not Given BREAKFAST XENIA Hydrocortisone Sodium Succinate 50 mg 01/10/24 06:00 01/13/24 05:13 Hydrocortisone Sod Succinate 100 Mg/2 Ml Vial IV 50 mg Q6 XENIA Administration Hydroxyzine Pamoate 50 mg 01/10/24 11:26 01/11/24 13:24 Hydroxyzine Dayanna 25 Mg Capsule PO 50 mg Q4H PRN PRN Administration mild anxiety Sodium Chloride 1,000 mls @ 100 mls/hr 01/09/24 16:27 01/13/24 10:19 IV 100 mls/hr .Q10H XENIA Administration Pantoprazole Sodium 40 mg/ 110 mls @ 330 mls/hr 01/09/24 22:00 01/13/24 10:38 Sodium Chloride IV Infused Q12 XENIA Infusion Sodium Chloride 250 mls @ 15 mls/hr 01/09/24 16:33 01/10/24 10:21 IV Infused .[id number] PRN Infusion Additional IVPB Infusion Sodium Chloride 250 mls @ 15 mls/hr 01/09/24 16:33 IV .[id number] PRN Saline Flush Dexmedetomidine HCl 1,000 mcg/ 250 mls @ 9.8 mls/hr 01/12/24 02:00 01/13/24 05:00 Sodium Chloride CONT INF Not Given .[id number] XENIA Protocol 0.5 MCG/KG/HR Naloxone HCl 0.02 mg 01/12/24 14:09 Naloxone 0.02mg/0.5ml Syringe Kit IV Q1M PRN Respiratory Depression Nicotine 21 mg 01/09/24 18:00 01/13/24 10:17 Nicotine 21 Mg Patch TD 21 mg DAILY XENIA Administration Nitroglycerin 0.4 mg 01/09/24 16:27 Nitroglycerin (Inpatient Use) 0.4 Mg Tab.Subl SL Q5M PRN CARDIAC/CHEST PAIN Nutritional Formula (Lactose Free) 120 ml 01/11/24 10:00 01/13/24 10:17 Ensure Plus High Protein 120 Ml Liquid PO 120 ml 4X/DAY XENIA Administration Ondansetron HCl 8 mg 01/10/24 11:26 Ondansetron 8 Mg Tablet PO Q8H PRN PRN NAUSEA Ondansetron HCl 4 mg 01/12/24 14:09 Ondansetron 4 Mg/2 Ml Vial IV X1 PRN NAUSEA/VOMITING Prochlorperazine Edisylate 5 mg 01/09/24 16:27 Prochlorperazine 10 Mg/2 Ml Vial IV Q4H PRN PRN Breakthrough Nausea/Vomiting Senna/Docusate Sodium 2 tablet 01/09/24 16:27 Senna/Docusate Sodium 1 Tablet PO BID PRN Constipation Sodium Chloride 10 - 40 ml 01/09/24 16:33 01/11/24 04:45 0.9 % Nacl (Sterile) Posiflush 10 Ml IV 40 ml UD PRN Administration Port access or dressing change Sodium Chloride 10 - 40 ml 01/09/24 16:33 01/10/24 05:38 0.9% Saline Lock 10 Ml Syringe IV 40 ml UD PRN Administration Multilumen/Rincon Flush Sodium Chloride 10 - 40 ml 01/09/24 16:33 01/13/24 05:13 0.9% Saline Lock 10 Ml Syringe IV 10 ml UD PRN Administration SALINE FLUSH Thiamine HCl 100 mg 01/10/24 08:00 01/13/24 09:25 Thiamine Hydrochloride 100 Mg Tablet PO Not Given BREAKFAST [facility] Vancomycin HCl 500 mg 01/11/24 18:00 01/13/24 05:14 Vancomycin 125 Mg/5 Ml Susp Po.Syringe PO Not Given Q6 [facility] Lab / Micro Data 01/13/24 04:17 01/13/24 04:17 Labs: Laboratory Results - last 24 hr 01/12/24 23:52: POC Glucose 135 H 01/13/24 04:17: WBC 3.0 L, RBC 2.33 L, Hgb 8.1 L, Hct 24.7 L, MCV 106.0 H, MCH 34.8 H, MCHC 32.8, RDW Std Deviation 97.6 H, RDW Coeff of Yan 25.9 H, Plt Count 35 L*, MPV 10.6, Neut % (Auto) Not Reportable, Absolute Neuts (auto) 0.3 L, A bsolute Lymphs (auto) 0.30 L, Total Counted 100, Neutrophils % (Manual) 79 H, Band Neutrophils % 4, Lymphocytes % (Manual) 10 L, Monocytes % (Manual) 2, Metamyelocytes % 1, Myelocytes % 3 H, Other Cells % 1, Nucleated RBCs/100 WBC 3, Diff Path Review May foll, Platelet Estimate MKD DEC, Anisocytosis 3+, Macrocytosis 1+, Ovalocytes 1+, Stomatocytes RARE, Sodium 139, Potassium 3.9, C hloride 112 H, Carbon Dioxide 20.0 L, Anion Gap 7, BUN 39 H, Creatinine 1.15 H, Estim Creat Clear Calc 70.43, Est GFR (MDRD) Af Amer 70, Est GFR (MDRD) Non-Af 58 L, BUN/Creatinine Ratio 33.9 H, Glucose 146 H, Calcium 7.4 L, Phosphorus 3.0, Magnesium 2.2, Total Bilirubin 20.00 H*, AST 133 H, ALT 65 H, Alkaline Phosphatase 82, Total Protein 4.5 L, Albumin 2.0 L, Globulin 2.5, A lbumin/Globulin Ratio 0.8 L Assessment and Plan . Assessment and plan: Patient seen and examined Chart and data reviewed She is gravely ill She is more interactive today, but remains hypoactive No gross bleeding currently NS infusing UCX reveals E coli s/p perc liver BX yesterday She is receiving ABX and hydrocortisone PHYSICAL EXAM GEN NAD, hypoactive VS as above HEENT o/p clear NECK supple COR RRR CHEST CTAB ABD soft EXT modest edema SKIN jaundiced LISET NF ASSESSMENT 1. Stupor/encephalopathy 2. Severe alcoholic liver disease - s/p liver BX 01/12/24 3. Recent GI bleeding d/t M-W tear 4. CDAD 5. UTI 6. Pancytopenia TREATMENT PLAN -follow [facility] clinically -lactulose/xifaxan -IV ABX -thiamine -hydrocortisone -no A/C for now -nutritional support, as able -f/u hepatic pathology -prognosis very guarded -50 min CCT -the entirety of this encounter performed using telemedicine
[2024-01-13] MEDS: Menthol/Lanolin/Calamine/Znox 113 GM Tube 1 APPLIC TOPICAL ×2 (12:46→20:24)
[2024-01-13] MEDS: Vancomycin 125 MG/5 ML Susp PO.SYRINGE 500 MG PO ×2 (12:47→18:18)
[2024-01-13 14:07] LABS: Bedside Glucose 123 mg/dL (74-106)
[2024-01-13] MEDS: Lactulose 20 GM/30 ML UDC PO ×2 (15:00→20:24)
[2024-01-13] MEDS: 0.9% Normal Saline (1000mL) 1,000 ML 150 ML IV (18:17)
[2024-01-14] VITALS (17 sets, daily range): BP systolic 106–134; BP diastolic 68–94; PULSE 76–99; RESP 18–30; TEMP 36.7–37.1; O2SAT 93–100; BMI 34.4
[2024-01-14] MEDS: Vancomycin 125 MG/5 ML Susp PO.SYRINGE 500 MG PO ×4 (00:05→20:21)
[2024-01-14] MEDS: Hydrocortisone Sod Succinate 100 MG/2 ML Vial 50 MG IV ×4 (00:06→18:33)
[2024-01-14] MEDS: 0.9% Normal Saline (1000mL) 1,000 ML 150 ML IV ×4 (01:13→22:04)
[2024-01-14 04:39] LABS: Absolute Lymphocyte Count 0.39 X10^3/uL (0.83-4.51); Absolute Neutrophil Count 3.1 X10^3/uL (2.0-7.7); Basophil# 0.05 X10^3/uL; Basophil% 1.1 % (0-1); Hemoglobin 8.2 g/dL (12.0-15.0); Lymphocyte # 0.39 X10^3/ul (0.83-4.51); Lymphocyte % 8.6 % (19-41); Mean Corp Hgb Conc 34.2 g/dL (32-36); Mean Corpuscular Volume 102.6 fL (81-99); Mean Platelet Vol. 10.7 fl (6.2-12.0); Monocyte# 0.49 X10^3/uL; Monocyte% 10.8 % (0-10); NRBC Flagged by Analyzer 1.3 % (0-5); Neutrophil # 3.12 X10^3/uL (2.7-7.7); Neutrophil % 68.5 % (47-70); POSITIVE COUNT YES; POSITIVE DIFFERENTIAL YES; POSITIVE MORPHOLOGY YES; RBC Distribution Width CV 24.7 % (11.6-14.6); Red Blood Count 2.34 M/mm3 (4.2-5.4); White Blood Count 4.6 K/mm3 (4.4-11.0)
[2024-01-14 04:47] LABS: International Normalized Ratio 1.7; Prothrombin Time (Protime)PT. 19.6 SECONDS (11.7-14.9)
[2024-01-14 04:55] LABS: ALB/GLOB Ratio 0.8 RATIO (0.9-2.4); AST(SGOT) 212 U/L (15-37); Alanine Aminotransfer ALT/SGPT 110 U/L (13-56); Albumin, Serum 2.1 g/dL (3.2-5.0); Alkaline Phosphatase 99 U/L (45-117); Anion Gap 7 (5-15); BUN 35 mg/dL (7-18); BUN/Creat Ratio 41.4 RATIO (10-20); Calcium,Total 7.8 mg/dL (8.5-10.1); Chloride 115 mmol/L (98-107); Creatinine, Serum 0.85 mg/dL (0.55-1.02); EST Glomerular Filtration Rate 83 mL/min (>60); Est Glom Filt Rate - Afr Amer 100 mL/min (>60); Estimated Creatinine Clearance 97.22 ml/min; Globulin 2.8 g/dL (2.2-4.2); Glucose 146 mg/dL (74-106); Magnesium 2.3 mg/dL (1.6-2.6); Phosphorus 1.4 mg/dL (2.5-4.9); Potassium 3.3 mmol/L (3.5-5.1); Protein, Total 4.9 g/dL (6.4-8.2); Sodium Level 143 mmol/L (136-145)
[2024-01-14 04:56] LABS: Differential Indicated SCAN CRITERIA MET; Platelet Count 35 K/mm3 (150-450)
[2024-01-14 05:18] LABS: Differential Comment SCANED
[2024-01-14] MEDS: Potassium Phosphate 30 MM in 0.9% Normal Saline (250mL Bag) 250 ML 42 MM IV (06:01)
[2024-01-14] MEDS: 0.9% Saline Lock 10 ML Syringe IV (06:02)
[2024-01-14] MEDS: Lactulose 20 GM/30 ML UDC PO (06:02)
[2024-01-14 07:29] LABS: Bedside Glucose 146 mg/dL (74-106)
--- NOTE | 2024-01-14 07:30 | PN.HOSP_ITS ---
Reason for Visit Reason for Visit: Diagnoses Enterocolitis due to Clostridium difficile, not specified as recurrent (01/09/24) Alcoholic hepatitis without ascites (01/09/24) Shock, unspecified (01/09/24) Subjective Subjective Still alert. Wants to shower. Objective Data Objective Data Vital Signs: Vital Signs Temp Pulse Resp BP Pulse Ox O2 Del Method O2 Flow Rate 37.1 C 96 24 H 131/86 H 97 Room Air 1 01/14/24 04:00 01/14/24 07:00 01/14/24 07:00 01/14/24 07:00 01/14/24 07:00 01/14/24 07:00 01/14/24 06:00 Oxygen Flow Rate (L/min) 1 Oxygen Delivery Method Room Air Weight: 85.4 kg Body Mass Index (BMI) 34.4 Intake & Output: Intake and Output for Last 24 Hours 01/12/24 01/13/24 01/14/24 23:59 23:59 23:59 Intake Total 2485.72 / 2485.72 3288.33 / 3388.33 1200 / 1200 Output Total 415 / 415 425 / 575 300 / 300 Balance 2070.72 / 2070.72 2863.33 / 2813.33 900 / 900 Lab / Micro Data 01/14/24 04:20 01/14/24 04:20 Labs: Laboratory Results - last 24 hr 01/13/24 13:35: POC Glucose 123 H 01/14/24 01:12: POC Glucose 146 H 01/14/24 04:20: WBC 4.6, RBC 2.34 L, Hgb 8.2 L, Hct 24.0 L, MCV 102.6 H, MCH 35.0 H, MCHC 34.2, RDW Std Deviation 90.0 H, RDW Coeff of Yan 24.7 H, Plt Count 35 L*, MPV 10.7, Immature Gran % (Auto) 11.000 H, Neut % (Auto) 68.5, Lymph % (Auto) 8.6 L, [place] % (Auto) 10.8 H, Eos % (Auto) 0.0, Baso % (Auto) 1.1 H, Absolute Neuts (auto) 3.1, Absolute Lymphs (auto) 0.39 L, Nucleated RBC % 1.3, Differential Comment SCANED, Diff Path Review May foll, PT 19.6 H, INR 1.7, Sodium 143, Potassium 3.3 L, Chloride 115 H, Carbon Dioxide 21.0, Anion Gap 7, B UN 35 H, Creatinine 0.85, Estim Creat Clear Calc 97.22, Est GFR (MDRD) Af Amer 100, Est GFR (MDRD) Non-Af 83, BUN/Creatinine Ratio 41.4 H, Glucose 146 H, C alcium 7.8 L, Phosphorus 1.4 L, Magnesium 2.3, Total Bilirubin 22.70 H*, AST 212 H, ALT 110 H, Alkaline Phosphatase 99, Total Protein 4.9 L, Albumin 2.1 L, Globulin 2.8, Albumin/Globulin Ratio 0.8 L Micro: Microbiology 01/09/24 10:25 Blood Culture (Wb) - Arm Left Blood Culture - Preliminary No growth in 48 hours. 01/09/24 09:54 Blood Culture (Wb) - Left Forearm Blood Culture - Preliminary No growth in 48 hours. 01/09/24 13:01 Urine, Clean Catch Urine Culture - Final Escherichia coli 01/10/24 02:15 Stool Stool Occult Blood (ESTRELLITA) - Final Occult Blood Positive 01/10/24 02:15 Stool Enteric Bacteriology - Final 01/10/24 02:15 Stool C. difficile GDH Antigen & Toxins - Final Toxigenic C. difficile 01/10/24 02:15 Stool Clostridioides difficile (PCR) - Final Physical Exam Const alert Constitutional Narrative: listless. afebrile. HEENT head/scalp atraumatic and moist oral mucous membranes Eyes Eyes Narrative: icterus. Neck no lymphadenopathy and supple Resp normal respiratory effort, no retractions, no use of accessory muscles and clear to auscultation bilaterally Cardio regular rate and regular rhythm GI GI Narrative: distended. Hepatomegaly. Extremity Extremity Narrative: non-pitting LE edema. Neuro Sensorium / Orientation: awake and alert Psych affect normal Assessment & Plan Assessment/Plan (1) Shock: PLAN: Plan Shock * improved * septic and hemorrhagic * on norepinephrine gtt and vasopressin gtt, since weaned off. Started on hydrocortisone 50 Q6. * on pip/tazo and PO vancomycin * follow up cultures * [facility] consult Cdiff Pancolitis * improving * C.diff + * enteric panel pending * on PO vancomycin. Acute blood loss anemia * stable after transufusion of 2 units PRBCs. * hematemesis and hematochezia * Hg was 12.4 on 12/16/23 dropped to 7.6. GI bleed 2/2 MWT * Was seen in ED 12/15 with milder hematemesis, advised admission at that time, but elected to go home. * EGD on 01/09 showed MWT. Clipped Suspected acute alcoholic hepatitis * Hyperbilirubinemia 24.2, was 8 on 12/15 and 2.6 on 08/26/22. * CT showed hepatomegaly and diffuse fatty infiltration of the liver * suspect due to liver disease. * Madrey score 50.2 * started on hydrocortisone 50 Q6 * Biopsy performed on 01/11. Pathology still pending CRICKET * Baseline creatinine 0.43 on 12/16/23, admission 1.58, went up to 1.92, down to 1.81 * Improving with IVF. Acute alcohol withdrawal * per significant other, drinks about 1 pint whiskey/d. I suspect pt drinks more than that. * Thiamine and folate * 01/10: Started on dexmedetomidine drip due to severe agitation. Given severe agitation and, at risk for self, patient did require soft restraints. * 01/11: Patient more lethargic so the dexmedetomidine drip was discontinued. Patient has remained lethargic after its discontinuation. * 01/12: overall improved. Thrombocytopenia * low, but stable. Likely due to [facility] Lethargy * pt profoundly weak. Ammonia on 48. Monitor. Maybe related with underlying illnesses. * More alert on lactulose. VTE prophylaxis: SCDs DW patient's significant other at bedside. Explained it is too early to determine which direction she is going into. Guarded prognosis. Greater than 50 minutes of which greater than 50% of time was lying the patient, discussing with the patient's, and other bedside, reviewing labs. Charges/Coding Visit Charges Inpatient E&M: 35867 Subs Hosp L3
[2024-01-14] MEDS: Thiamine Hydrochloride 100 MG Tablet PO (08:57)
[2024-01-14] MEDS: Folic Acid 1 MG Tablet PO (08:57)
[2024-01-14] MEDS: Pantoprazole Sodium 40 MG in 0.9% Normal Saline (100mL MB+) 100 ML 330 MG IV ×2 (08:58→20:21)
[2024-01-14] MEDS: Menthol/Lanolin/Calamine/Znox 113 GM Tube 1 APPLIC TOPICAL ×2 (08:58→20:21)
[2024-01-14] MEDS: Ensure Plus High Protein 120 ML LIQUID PO (08:58)
[2024-01-14] MEDS: 0.9 % NaCl (Sterile) Posiflush 10 mL IV (08:59)
[2024-01-15] VITALS (9 sets, daily range): BP systolic 106–130; BP diastolic 75–107; PULSE 81–97; RESP 14–24; TEMP 36.5–37.3; O2SAT 94–98; BMI 35.4
[2024-01-15] MEDS: Vancomycin 125 MG/5 ML Susp PO.SYRINGE 500 MG PO ×5 (00:02→22:53)
[2024-01-15] MEDS: Hydrocortisone Sod Succinate 100 MG/2 ML Vial 50 MG IV ×3 (00:02→22:09)
--- NOTE | 2024-01-15 00:28 | PN.CC_ITS ---
Objective Data Objective Data Vital Signs: Vital Signs Last response 3 Temperature 36.7 C 01/14/24 20:00 Temperature Source Core 01/14/24 20:00 Pulse Rate 87 01/14/24 20:00 Pulse Strength Weak (1+) 01/14/24 20:31 Respiratory Rate 18 01/14/24 20:00 Respiratory Effort Normal, Non-Labored 01/15/24 00:00 Respiratory Depth Normal 01/15/24 00:00 Respiratory Pattern Normal 01/15/24 00:00 Blood Pressure 114/85 H 01/14/24 20:00 Blood Pressure Mean 94 01/14/24 20:00 Blood Pressure Source Monitor 01/14/24 20:00 Blood Pressure Position Semi-Fowlers 01/14/24 20:00 Blood Pressure Location Right Forearm 01/14/24 20:00 Pulse Ox 99 01/14/24 20:00 Oxygen Delivery Method Room Air 01/15/24 00:00 Oxygen Flow Rate (L/min) 1 01/14/24 06:00 I&O: I&O Last 24 Hours 3 01/14/24 01/14/24 01/15/24 11:59 23:59 11:59 Intake Total 2450 / 5130 2530 / 5130 150 / 150 Output Total 300 / 815 415 / 815 100 / 100 Balance 2150 / 4315 2115 / 4315 50 / 50 I&O: Total Stay 3 01/09/24 09:19 thru 01/15/24 00:00 Intake Total 66818.9533 Output Total 3000 Balance 95408.9533 Current Meds Ordered / Administered: Current meds ordered / Administered 3 Generic Name Dose Route Start Last Admin Trade Name Sandy PRN Reason Stop Dose Admin Acetaminophen 650 mg 01/09/24 16:27 01/10/24 13:28 Acetaminophen 325 Mg Tablet PO 650 mg Q6H PRN PRN Administration Pain 1-10 Or Fever >100.7 Albuterol Sulfate 2.5 mg 01/11/24 14:42 01/11/24 15:22 Albuterol 2.5 Mg/3 Ml Vial.Neb. INHALATION 2.5 mg Q2H PRN PRN Administration SOB &/OR WHEEZING Calamine/Phenol 1 applic 01/12/24 10:00 01/14/24 20:21 Menthol/Lanolin/Calamine/Znox 113 Gm Tube TOPICAL 1 applic BID XENIA Administration Protocol Dicyclomine HCl 20 mg 01/10/24 11:26 Dicyclomine 10 Mg Capsule PO Q6H PRN PRN abdominal discomfort Flumazenil 0.2 mg 01/12/24 14:09 Flumazenil 0.5 Mg/5 Ml Vial IV Q1M PRN Respirations <10 per minute Folic Acid 1 mg 01/10/24 08:00 01/14/24 08:57 Folic Acid 1 Mg Tablet PO 1 mg BREAKFAST XENIA Administration Hydrocortisone Sodium Succinate 50 mg 01/10/24 06:00 01/15/24 00:02 Hydrocortisone Sod Succinate 100 Mg/2 Ml Vial IV 50 mg Q6 XENIA Administration Hydroxyzine Pamoate 50 mg 01/10/24 11:26 01/11/24 13:24 Hydroxyzine Dayanna 25 Mg Capsule PO 50 mg Q4H PRN PRN Administration mild anxiety Sodium Chloride 1,000 mls @ 150 mls/hr 01/09/24 16:27 01/14/24 22:04 IV 150 mls/hr .[id number] XENIA Administration Pantoprazole Sodium 40 mg/ 110 mls @ 330 mls/hr 01/09/24 22:00 01/14/24 20:41 Sodium Chloride IV Infused Q12 XENIA Infusion Sodium Chloride 250 mls @ 15 mls/hr 01/09/24 16:33 01/10/24 10:21 IV Infused .[id number] PRN Infusion Additional IVPB Infusion Sodium Chloride 250 mls @ 15 mls/hr 01/09/24 16:33 IV .[id number] PRN Saline Flush Nicotine 21 mg 01/09/24 18:00 01/14/24 08:56 Nicotine 21 Mg Patch TD 21 mg DAILY XENIA Administration Nitroglycerin 0.4 mg 01/09/24 16:27 Nitroglycerin (Inpatient Use) 0.4 Mg Tab.Subl SL Q5M PRN CARDIAC/CHEST PAIN Nutritional Formula (Lactose Free) 120 ml 01/11/24 10:00 01/14/24 20:21 Ensure Plus High Protein 120 Ml Liquid PO Not Given 4X/DAY XENIA Ondansetron HCl 8 mg 01/10/24 11:26 Ondansetron 8 Mg Tablet PO Q8H PRN PRN NAUSEA Ondansetron HCl 4 mg 01/12/24 14:09 Ondansetron 4 Mg/2 Ml Vial IV X1 PRN NAUSEA/VOMITING Prochlorperazine Edisylate 5 mg 01/09/24 16:27 Prochlorperazine 10 Mg/2 Ml Vial IV Q4H PRN PRN Breakthrough Nausea/Vomiting Senna/Docusate Sodium 2 tablet 01/09/24 16:27 Senna/Docusate Sodium 1 Tablet PO BID PRN Constipation Sodium Chloride 10 - 40 ml 01/09/24 16:33 01/14/24 08:59 0.9 % Nacl (Sterile) Posiflush 10 Ml IV 30 ml UD PRN Administration Port access or dressing change Thiamine HCl 100 mg 01/10/24 08:00 01/14/24 08:57 Thiamine Hydrochloride 100 Mg Tablet PO 100 mg BREAKFAST XENIA Administration Vancomycin HCl 500 mg 01/11/24 18:00 01/15/24 00:02 Vancomycin 125 Mg/5 Ml Susp Po.Syringe PO 500 mg Q6 XENIA Administration Lab / Micro Data 01/14/24 04:20 01/14/24 04:20 Labs: Laboratory Results - last 24 hr 01/14/24 01:12: POC Glucose 146 H 01/14/24 04:20: WBC 4.6, RBC 2.34 L, Hgb 8.2 L, Hct 24.0 L, MCV 102.6 H, MCH 35.0 H, MCHC 34.2, RDW Std Deviation 90.0 H, RDW Coeff of Yan 24.7 H, Plt Count 35 L*, MPV 10.7, Immature Gran % (Auto) 11.000 H, Neut % (Auto) 68.5, Lymph % (Auto) 8.6 L, Door % (Auto) 10.8 H, Eos % (Auto) 0.0, Baso % (Auto) 1.1 H, Absolute Neuts (auto) 3.1, Absolute Lymphs (auto) 0.39 L, Nucleated RBC % 1.3, Differential Comment SCANED, Diff Path Review October foll, PT 19.6 H, INR 1.7, Sodium 143, Potassium 3.3 L, Chloride 115 H, Carbon Dioxide 21.0, Anion Gap 7, B UN 35 H, Creatinine 0.85, Estim Creat Clear Calc 97.22, Est GFR (MDRD) Af Amer 100, Est GFR (MDRD) Non-Af 83, BUN/Creatinine Ratio 41.4 H, Glucose 146 H, C alcium 7.8 L, Phosphorus 1.4 L, Magnesium 2.3, Total Bilirubin 22.70 H*, AST 212 H, ALT 110 H, Alkaline Phosphatase 99, Total Protein 4.9 L, Albumin 2.1 L, Globulin 2.8, Albumin/Globulin Ratio 0.8 L Micro: Microbiology 01/09/24 10:25 Blood Culture (Wb) - Arm Left Blood Culture - Final No growth in 5 days. 01/09/24 09:54 Blood Culture (Wb) - Left Forearm Blood Culture - Final No growth in 5 days. Assessment and Plan . Assessment and plan: Patient seen and examined Chart and data reviewed She is gravely ill She interactive today, but remains hypoactive No gross bleeding s/p perc liver BX She is receiving empiric hydrocortisone PHYSICAL EXAM GEN NAD, hypoactive VS as above HEENT o/p clear NECK supple COR RRR CHEST CTAB ABD soft EXT modest edema SKIN jaundiced LISET NF ASSESSMENT 1. Stupor/encephalopathy 2. Severe alcoholic liver disease - s/p liver BX 01/12/24 3. Recent GI bleeding d/t M-W tear 4. CDAD - enteral vancomycin 5. UTI 6. Pancytopenia TREATMENT PLAN -follow [employer] clinically -lactulose -IV ABX -thiamine -hydrocortisone -no A/C for now -nutritional support, as able -f/u hepatic pathology -ongoing alcohol use precludes TX evaluation -prognosis very guarded -50 min CCT -the entirety of this encounter performed using telemedicine
--- NOTE | 2024-01-15 02:07 | PCM.HOSP.N ---
Hospitalist Note Patient with evidence thrush, will start oral nystatin S/S.
[2024-01-15 03:48] LABS: Hemoglobin 8.2 g/dL (12.0-15.0); Mean Corp Hgb Conc 34.2 g/dL (32-36); Mean Corpuscular Volume 102.6 fL (81-99); Mean Platelet Vol. 10.8 fl (6.2-12.0); POSITIVE COUNT YES; POSITIVE DIFFERENTIAL YES; POSITIVE MORPHOLOGY YES; RBC Distribution Width CV 25.2 % (11.6-14.6); RBC Distribution Width SD 91.2 fl (35.1-43.9); Red Blood Count 2.34 M/mm3 (4.2-5.4); White Blood Count 7.1 K/mm3 (4.4-11.0)
[2024-01-15 04:00] LABS: International Normalized Ratio 1.7; Prothrombin Time (Protime)PT. 19.7 SECONDS (11.7-14.9)
[2024-01-15 04:05] LABS: Magnesium 2.2 mg/dL (1.6-2.6); Phosphorus 1.8 mg/dL (2.5-4.9)
[2024-01-15 04:26] LABS: ALB/GLOB Ratio 0.8 RATIO (0.9-2.4); AST(SGOT) 181 U/L (15-37); Alanine Aminotransfer ALT/SGPT 119 U/L (13-56); Alkaline Phosphatase 100 U/L (45-117); Anion Gap 7 (5-15); BUN 28 mg/dL (7-18); BUN/Creat Ratio 41.7 RATIO (10-20); Calcium,Total 7.9 mg/dL (8.5-10.1); Chloride 116 mmol/L (98-107); Creatinine, Serum 0.67 mg/dL (0.55-1.02); EST Glomerular Filtration Rate 108 mL/min (>60); Est Glom Filt Rate - Afr Amer 131 mL/min (>60); Estimated Creatinine Clearance 125.26 ml/min; Globulin 2.6 g/dL (2.2-4.2); Glucose 132 mg/dL (74-106); Potassium 3.3 mmol/L (3.5-5.1); Protein, Total 4.6 g/dL (6.4-8.2); Sodium Level 144 mmol/L (136-145)
[2024-01-15 04:34] LABS: Platelet Count 43 K/mm3 (150-450)
[2024-01-15 04:36] LABS: Differential Indicated MANUAL DIFF
[2024-01-15] MEDS: 0.9 % NaCl (Sterile) Posiflush 10 mL IV (05:29)
[2024-01-15] MEDS: 0.9% Normal Saline (1000mL) 1,000 ML 150 ML IV (05:30)
[2024-01-15 06:38] LABS: Lymphocyte 9 % (19-41); Metamyelocyte 7 % (0-1); Monocyte 6 % (0-10); Myelocyte 2 % (0-0); Neutrophil-Band 3 % (0-5); Neutrophil-Segmented 72 % (47-70); Nucleated Red Bld Cells,Manual 3 % (0-5); Other WBC Type 1 %; Total Cells Counted 100 (MANUAL DIFF)
[2024-01-15 06:40] LABS: Platelet Estimate MKD DEC (ADEQ)
[2024-01-15 06:41] LABS: Anisocytosis 3+; Macrocytosis 1+; Ovalocyte 1+; Polychromasia 2+
[2024-01-15 06:42] LABS: Absolute Lymphocyte Count 0.63 X10^3/uL (0.83-4.51); Absolute Neutrophil Count 5.3 X10^3/uL (2.0-7.7)
--- NOTE | 2024-01-15 06:54 | PN.HOSP_ITS ---
Reason for Visit Reason for Visit: Diagnoses Enterocolitis due to Clostridium difficile, not specified as recurrent (01/09/24) Alcoholic hepatitis without ascites (01/09/24) Shock, unspecified (01/09/24) Subjective Subjective Denies any pain. Remains very weak. Objective Data Objective Data Vital Signs: Vital Signs Temp Pulse Resp BP Pulse Ox O2 Del Method O2 Flow Rate 36.8 C 86 18 117/78 94 Room Air 1 01/15/24 02:00 01/15/24 02:00 01/15/24 02:00 01/15/24 02:00 01/15/24 02:00 01/15/24 02:00 01/14/24 06:00 Oxygen Flow Rate (L/min) 1 Oxygen Delivery Method Room Air Weight: 87.9 kg Body Mass Index (BMI) 35.4 Intake & Output: Intake and Output for Last 24 Hours 01/13/24 01/14/24 01/15/24 23:59 23:59 23:59 Intake Total 3288.33 / 3388.33 4980 / 5130 1350 / 1350 Output Total 425 / 575 715 / 815 250 / 250 Balance 2863.33 / 2813.33 4265 / 4315 1100 / 1100 Lab / Micro Data 01/15/24 03:20 01/15/24 03:20 Labs: Laboratory Results - last 24 hr 01/14/24 01:12: POC Glucose 146 H 01/15/24 03:20: WBC 7.1, RBC 2.34 L, Hgb 8.2 L, Hct 24.0 L, MCV 102.6 H, MCH 35.0 H, MCHC 34.2, RDW Std Deviation 91.2 H, RDW Coeff of Yan 25.2 H, Plt Count 43 L*, MPV 10.8, Neut % (Auto) Not Reportable, Absolute Neuts (auto) 5.3, A bsolute Lymphs (auto) 0.63 L, Total Counted 100, Neutrophils % (Manual) 72 H, Band Neutrophils % 3, Lymphocytes % (Manual) 9 L, Monocytes % (Manual) 6, M etamyelocytes % 7 H, Myelocytes % 2 H, Other Cells % 1, Nucleated RBCs/100 WBC 3, Diff Path Review May , Platelet Estimate MKD DEC, Polychromasia 2+, Anisocytosis 3+, Macrocytosis 1+, Ovalocytes 1+, PT 19.7 H, INR 1.7, Sodium 144, Potassium 3.3 L, Chloride 116 H, Carbon Dioxide 21.0, Anion Gap 7, BUN 28 H, Creatinine 0.67, Estim Creat Clear Calc 125.26, Est GFR (MDRD) Af Amer 131, Est GFR (MDRD) Non-Af 108, BUN/Creatinine Ratio 41.7 H, Glucose 132 H, Calcium 7.9 L , Phosphorus 1.8 L, Magnesium 2.2, Total Bilirubin 24.30 H*, AST 181 H, ALT 119 H, Alkaline Phosphatase 100, Total Protein 4.6 L, Albumin 2.0 L, Globulin 2.6, A lbumin/Globulin Ratio 0.8 L Micro: Microbiology 01/09/24 10:25 Blood Culture (Wb) - Arm Left Blood Culture - Final No growth in 5 days. 01/09/24 09:54 Blood Culture (Wb) - Left Forearm Blood Culture - Final No growth in 5 days. 01/09/24 13:01 Urine, Clean Catch Urine Culture - Final Escherichia coli 01/10/24 02:15 Stool Stool Occult Blood (ESTRELLITA) - Final Occult Blood Positive 01/10/24 02:15 Stool Enteric Bacteriology - Final 01/10/24 02:15 Stool C. difficile GDH Antigen & Toxins - Final Toxigenic C. difficile 01/10/24 02:15 Stool Clostridioides difficile (PCR) - Final Physical Exam Const Constitutional Narrative: Listless but alert. HEENT head/scalp atraumatic and moist oral mucous membranes Neck no lymphadenopathy Neck Narrative: No thyromegaly Resp normal respiratory effort, no retractions, no use of accessory muscles and clear to auscultation bilaterally Cardio regular rate, regular rhythm, S1 normal heart sound and S2 normal heart sound GI normal to inspection, nondistended, normoactive bowel sounds, soft to palpation, non-tender and non-distended Extremity Extremity Narrative: Edema Neuro Neuro Narrative: Diffuse jaundice. Petechiae. Psych Psych Narrative: Flat affect Assessment & Plan Assessment/Plan (1) Shock: PLAN: Plan Shock combination of sepsis and to lesser degree hemorrhagic * resolved. * Had been on on norepinephrine gtt and vasopressin gtt, since weaned off. Started on hydrocortisone 50 Q6. * Secondary to C. difficile Cdiff Pancolitis * improving * C.diff + * enteric panel pending * on PO vancomycin. Acute blood loss anemia * stable after transfusion of 2 units PRBCs. * hematemesis and hematochezia * Hg was 12.4 on 12/16/23 dropped to 7.6. GI bleed 08/04 MWT * Was seen in ED 12/15 with milder hematemesis, advised admission at that time, but elected to go home. * EGD on 01/09 showed MWT. Clipped Suspected acute alcoholic hepatitis * Hyperbilirubinemia 24.2, was 8 on 12/15 and 2.6 on 08/26/22. * CT showed hepatomegaly and diffuse fatty infiltration of the liver * Madrey score 50.2 * started on hydrocortisone 50 Q6 * Biopsy performed on 01/11. Pathology pending CRICKET * resolved, though urine output has been low Acute alcohol withdrawal * per significant other, drinks about 1 pint whiskey/d. I suspect pt drinks more than that. * Thiamine and folate * 01/10: Started on dexmedetomidine drip due to severe agitation. Given severe agitation and, at risk for self, patient did require soft restraints. 01/11: Patient more lethargic so the dexmedetomidine drip was discontinued. Patient has remained lethargic after its discontinuation. 01/12: overall improved. Thrombocytopenia * low, but stable. Likely due to [facility] Lethargy * pt profoundly weak. Ammonia on 48. Monitor. Maybe related with underlying illnesses. * More alert overall. Likely a multitude of issues: shock, liver disease, alcohol withdrawal, severe hyperbilirubinemia. Hypokalemia/Hypophosphatemia * replace. Monitor VTE prophylaxis: SCDs Guarded prognosis. Charges/Coding Visit Charges Inpatient E&M: 89856 Subs Hosp L2
[2024-01-15] MEDS: Thiamine Hydrochloride 100 MG Tablet PO ×2 (08:16)
[2024-01-15] MEDS: NYSTATIN 500,000 UNIT/5 ML UDC 500000 UNIT PO ×4 (08:16→22:09)
[2024-01-15] MEDS: Ensure Plus High Protein 120 ML LIQUID PO ×3 (08:17→17:50)
[2024-01-15] MEDS: Pantoprazole Sodium 40 MG in 0.9% Normal Saline (100mL MB+) 100 ML 330 MG IV ×2 (08:17→22:09)
[2024-01-15] MEDS: Folic Acid 1 MG Tablet PO (08:22)
[2024-01-15] MEDS: Menthol/Lanolin/Calamine/Znox 113 GM Tube 1 APPLIC TOPICAL (08:22)
--- NOTE | 2024-01-15 08:51 | PCM.PN.INT ---
Assessment & Plan Assessment/Plan (1) Shock: PLAN: Plan RECOMMENDATIONS: 1. Continue antimicrobials. 2. Stop continuous IV fluids. 3. Decrease stress dose steroids as ordered. 4. Continue PPI therapy. 5. Aggressive physical therapy. 6. Dietary advancement, following speech therapy evaluation. IMPRESSIONS: 1. Multifactorial shock The patient presented to the hospital with nausea, vomiting and generalized weakness and developed fluid refractory hypotension, which is likely multifactorial in etiology. I do suspect that the patient has a component of hemorrhagic shock based upon her presenting anemia coupled with hypovolemia and possible septic etiologies, given positive C. difficile PCR. The patient received supplemental IV fluid hydration and was initiated on vasopressor support. However, she has since been weaned from vasopressor support and remains hemodynamically stable. Accordingly, we will begin to wean stress dose steroids today. 2. Acute liver injury with severe alcoholic hepatitis Gastroenterology is currently following to assist with medical management. Continue PPI therapy. 3. C. difficile colitis Continue p.o. vancomycin as ordered. 4. Encephalopathy Most likely toxic/metabolic in etiology, in the setting of acute liver injury and sepsis. Continue supportive measures as noted above. 5. Anemia/thrombocytopenia Most likely related to presenting sepsis and GI blood loss in the setting of Iliana-Tobar tear. The patient has been transfused blood products with appropriate improvement in her H&H. Continue PPI therapy. Transfuse if hemoglobin drops below 7 g/dL. Gastroenterology is currently following to assist with additional medical management. 6. History of alcohol and tobacco dependency Complicates care, management, recovery and prognosis. Continue supportive measures as noted above. This note was generated with [employer] dictation software. It may contain incorrect words, spelling, and punctuation that were not noted in checking the note before signing. Subjective Subjective The patient was seen and examined at the bedside this morning. Events from the last 24 hours have been reviewed. The patient is currently afebrile, hemodynamically stable and maintaining appropriate oxygen saturations on room air. The patient reported feeling tired this morning. Hemoglobin is stable at 8.2 g/dL with a platelet count of 43,000. Potassium is low at 3.3. Creatinine is within normal limits. Total bilirubin remains elevated at 24.3. Liver biopsy was completed on Monday with pathology pending. Objective Data Objective Data The patient's most recent lab work, culture data and imaging studies have all been personally reviewed. C. difficile PCR was positive. Vital Signs: Vital Signs Temp Pulse Resp BP Pulse Ox O2 Del Method O2 Flow Rate 98.9 F 96 23 H 121/75 H 96 Room Air 1 01/15/24 08:00 01/15/24 08:00 01/15/24 08:00 01/15/24 08:00 01/15/24 08:00 01/15/24 08:34 01/14/24 06:00 Oxygen Flow Rate (L/min) 1 Oxygen Delivery Method Room Air Weight: 193 lb 12.581 oz Body Mass Index (BMI) 35.4 Intake & Output: Intake and Output for Last 24 Hours 01/13/24 01/14/24 01/15/24 23:59 23:59 23:59 Intake Total 3288.33 / 3388.33 4980 / 5130 1460 / 1460 Output Total 425 / 575 715 / 815 250 / 250 Balance 2863.33 / 2813.33 4265 / 4315 1210 / 1210 Lab / Micro Data Attestation: I reviewed the patient's lab results. 01/15/24 03:20 01/15/24 03:20 Labs: Laboratory Results - last 24 hr 01/15/24 03:20: WBC 7.1, RBC 2.34 L, Hgb 8.2 L, Hct 24.0 L, MCV 102.6 H, MCH 35.0 H, MCHC 34.2, RDW Std Deviation 91.2 H, RDW Coeff of Yan 25.2 H, Plt Count 43 L*, MPV 10.8, Neut % (Auto) Not Reportable, Absolute Neuts (auto) 5.3, Absolute Lymphs (auto) 0.63 L, Total Counted 100, Neutrophils % (Manual) 72 H, Band Neutrophils % 3, Lymphocytes % (Manual) 9 L, Monocytes % (Manual) 6, Metamyelocytes % 7 H, Myelocytes % 2 H, Other Cells % 1, Nucleated RBCs/100 WBC 3, Diff Path Review October, Platelet Estimate MKD DEC, Polychromasia 2+, Anisocytosis 3+, Macrocytosis 1+, Ovalocytes 1+, PT 19.7 H, INR 1.7, Sodium 144, Potassium 3.3 L, Chloride 116 H, Carbon Dioxide 21.0, Anion Gap 7, BUN 28 H, Creatinine 0.67, Estim Creat Clear Calc 125.26, Est GFR (MDRD) Af Amer 131, Est GFR (MDRD) Non-Af 108, BUN/Creatinine Ratio 41.7 H, Glucose 132 H, Calcium 7.9 L, Phosphorus 1.8 L, Magnesium 2.2, Total Bilirubin 24.30 H*, AST 181 H, ALT 119 H, Alkaline Phosphatase 100, Total Protein 4.6 L, Albumin 2.0 L, Globulin 2.6, Albumin/Globulin Ratio 0.8 L Micro: Microbiology 01/09/24 10:25 Blood Culture (Wb) - Arm Left Blood Culture - Final No growth in 5 days. 01/09/24 09:54 Blood Culture (Wb) - Left Forearm Blood Culture - Final No growth in 5 days. 01/09/24 13:01 Urine, Clean Catch Urine Culture - Final Escherichia coli 01/10/24 02:15 Stool Stool Occult Blood (ESTRELLITA) - Final Occult Blood Positive 01/10/24 02:15 Stool Enteric Bacteriology - Final 01/10/24 02:15 Stool C. difficile GDH Antigen & Toxins - Final Toxigenic C. difficile 01/10/24 02:15 Stool Clostridioides difficile (PCR) - Final Physical Exam Const Constitutional Narrative: Remains jaundiced in appearance. General Appearance: lethargic and ill appearing HEENT normocephalic and head/scalp atraumatic HEENT Narrative: Dry mucous membranes Eyes EOMs intact bilaterally Sclera: sclera abnormal Neck supple General: trachea midline Chest inspection of chest normal Resp normal respiratory effort Auscultation: diminished lung sounds Cardio regular rate, regular rhythm, S1 normal heart sound and S2 normal heart sound GI soft to palpation and non-tender Extremity no clubbing, cyanosis or edema Skin no rashes or lesions noted Neuro CN's II-XII intact bilaterally and no focal motor deficits Psych Mood & Affect: flat affect Charges/Coding Visit Charges Inpatient E&M: 48803 Subs Hosp L2
[2024-01-15] MEDS: Potassium Phosphate 30 MM in 0.9% Normal Saline (250mL Bag) 250 ML 42 MM IV (09:09)
--- NOTE | 2024-01-15 12:43 | ST.MBS ---
Modified Barium Swallow Patient Information Study Date: 01/15/24 Study Time: 11:55 Direct Billable Minutes: 89 Total Minutes procedure & reportin Diagnosis: Alcoholic hepatitis K70.10; Shock R57.9 Referring Physician: Fabian Martinez Reason for Referral: Objectively assess swallow function, assess risk for aspiration, and determine recommendations for least restrictive diet textures and compensatory strategies to improve safety of swallow. Medical History: Pt is a 33-year-old female with PMH of alcoholism (whiskey, about 1 to 2 pints daily) who presented to [facility] ED 01/09/2024 with vomiting blood, generalized weakness, and jaundice ongoing ~1 month prior to ED presentation. She also had a syncopal episode before coming to the ED. Pt was admitted to the ICU for management of alcoholic hepatitis and shock. She has also been treated for C diff. BSE on 01/11/24 recommended puree textures / thin liquids. She was made NPO due to poor responsiveness on 01/12/24. DIABETES SOLUTIONS SPECIALIST recommended her for MBSS today to assess risk for aspiration. She had wet coughing prior to the evaluation. Current Diet Ordered: NPO Mental Status: WNL (Pt appeared very fatigued.) Respiratory Status: Oxygenating on Room Air Penetration-Aspiration Scale Penetration-Aspiration Scale: OBJECTIVE ASSESSMENT OF SWALLOW FUNCTION (QUANTITATIVE ? PER TRIAL): PENETRATION / ASPIRATION SCALE (HERNANDEZ): 1 = does not enter airway 2 = enters airway/above vocal folds/ejected 3 = enters airway/above vocal folds/not ejected 4 = enters airway/contacts vocal folds/ejected 5 = enters airway/contacts vocal folds/not ejected 6 = enters airway/below vocal folds/ejected 7 = enters airway/below vocal folds/not ejected despite effort 8 = enters airway/below vocal folds/no effort VIDEOFLOROSCOPIC SCALE SCORE (HERNANDEZ): Grade I = aspiration of material that has penetrated into the laryngeal vestibule, intact cough reflex Grade II = aspiration < 10 % of the bolus, intact cough reflex Grade III = aspiration of < 10 % of the bolus, reduced cough reflex or aspiration of > 10 % of the bolus, intact cough reflex Grade IV = aspiration of > 10 % of the bolus, reduced cough reflex Penetration-Aspiration Scale Score Thin Liquid via teaspoon: Result: 1= does not enter airway Thin Liquid via teaspoon Trial 2: Result: 1= does not enter airway Thin Liquid via large single sip: cup: Result: 1= does not enter airway Malcom Thick Liquid via large single sip: cup: Result: 1= does not enter airway Pudding via teaspoon: Result: 1= does not enter airway Comment: Esophageal screen - Complete clearance. 1/2 Cookie: Result: 1= does not enter airway Thin Liquid via sequential sips:straw: Result: 2= enter airway/above vocal folds/ejected Oral Phase Labial Seal: Interlabial escape, no progression to anterior lip Tongue Control During Bolus Hold: Escape to lateral buccal cavity/floor of mouth Bolus Preparation/Mastication: Slow prolonged chewing/mashing with complete recollection Bolus Transport/Lingual Motion: Repetitive/disorganized tongue motion Oral Residue: Residue collection on oral structures Pharyngeal Phase Initiation of Pharyngeal Swallow: Bolus head at posterior laryngeal surgace of epiglottis Soft Palate Elevation: Trace column of contrast/air between soft palate and pharyngeal wall Laryngeal Elevation: Comp. Superior move thyroid cart w/comp. apprx arytenoid cart-epig pet Anterior Hyoid Excursion: Complete anterior movement Epiglottic Movement: Complete inversion Laryngeal Vestibule Closure at Height of Swallow: Incomplete; narrow column of air/contrast in laryngeal vestibule Pharyngeal Stripping Wave: Present - complete Pharyngoesophageal Segment Opening: Complete distension and complete duration; no obstruction of flow Tongue Base Retraction: Trace column of contrast between tongue base & post. pharyngeal wall Pharyngeal Residue: Trace residue within or on pharyngeal structures Esophageal Phase Esophageal Clearance: Complete clearance Diagnosis/Impression Diagnosis: Mild oropharyngeal dysphagia R13.12 Impression: The oral phase is primarily marked by... -Slowed, disorganized tongue motion both to collect the bolus on her tongue surface, as well as for A-P transport. -Very prolonged, but complete mastication of cookie. -Trace-mild oral residues after the swallow. The pharyngeal phase is primarily marked by... -Mild delay in swallow onset. -Decreased anterior hyoid excursion; however, good airway closure during the swallow. Only trace laryngeal penetration with sequential sips of thin liquids, which fully ejected. No aspiration observed despite coughing before, during, and between trials. Recommendations Diet: Regular Textures (Easy to Chew textures - IDDSI Level 7) and Thin Liquids Compensatory Strategies: Small Bites, Small Sips, Slow Rate, Sitting upright and Remain sitting upright for 30 minutes after PO intake Supervision: Assist as needed and Distant Supervision (Ensure pt is fully alert for meal tray) Recommend Repeat Modified Barium Swallow: No Need for Skilled Speech Therapy Services: Yes Comment: -Train the patient in use of strategies to decrease risk for aspiration. -Ongoing assessment of diet tolerance of recommended textures. Trials of regular textures with DIABETES SOLUTIONS SPECIALIST to determine appropriateness for diet advancement in upcoming sessions. -If continued oral weakness, train the patient in oral motor exercise program to improve bolus control and A-P transport (lingual coordination and strength exercises). Education Completed: 1. Described result of evaluation., 2. Pt understands evaluation & agrees with goals and treatment plan. and 7. Pt requires further education on strategies & risks. Status Active ST Patient: Active Contact Information [facility] Speech Therapy:: Karlee Hines M.A. CCC-DIABETES SOLUTIONS SPECIALIST? Speech-Language Pathologist? [facility] [address] [place] [address]? [email or web address]? [phone]
[2024-01-15 14:56] LABS: Pathologist Review Reviewed
[2024-01-15 14:58] LABS: Pathologist Review Reviewed
[2024-01-15 15:16] LABS: Pathologist Review Reviewed
[2024-01-15 15:18] LABS: Pathologist Review Reviewed
--- NOTE | 2024-01-15 15:47 | CASEMGMT ---
Social Work SW met with pt and significant other Addi. SW encouraged verbalization of feelings and provided emotional support surrounding illness of pt. SW will continue to be available to pt and significant other. MARIA VICTORIA Moore
--- NOTE | 2024-01-15 18:09 | PN.GI_ITS ---
Subjective Subjective Patient is very nauseous and able to eat a little bit. She says she is very weak. Objective Data Objective Data Vital Signs: Vital Signs Temp Pulse Resp BP Pulse Ox O2 Del Method O2 Flow Rate 98.1 F 81 16 119/78 98 Room Air 1 01/15/24 17:47 01/15/24 17:47 01/15/24 17:47 01/15/24 17:47 01/15/24 17:47 01/15/24 18:04 01/14/24 06:00 Oxygen Flow Rate (L/min) 1 Oxygen Delivery Method Room Air Weight: 193 lb 12.581 oz Body Mass Index (BMI) 35.4 Intake & Output: Intake and Output for Last 24 Hours 01/13/24 01/14/24 01/15/24 23:59 23:59 23:59 Intake Total 3288.33 / 3388.33 4980 / 5130 2267.5 / 2267.5 Output Total 425 / 575 715 / 815 475 / 475 Balance 2863.33 / 2813.33 4265 / 4315 1792.5 / 1792.5 Lab / Micro Data 01/15/24 03:20 01/15/24 03:20 Labs: Laboratory Results - last 24 hr 01/12/24 04:00: Diff Path Review Reviewed 01/13/24 04:17: Diff Path Review Reviewed 01/14/24 04:20: Diff Path Review Reviewed 01/15/24 03:20: WBC 7.1, RBC 2.34 L, Hgb 8.2 L, Hct 24.0 L, MCV 102.6 H, MCH 35.0 H, MCHC 34.2, RDW Std Deviation 91.2 H, RDW Coeff of Yan 25.2 H, Plt Count 43 L*, MPV 10.8, Neut % (Auto) Not Reportable, Absolute Neuts (auto) 5.3, A bsolute Lymphs (auto) 0.63 L, Total Counted 100, Neutrophils % (Manual) 72 H, Band Neutrophils % 3, Lymphocytes % (Manual) 9 L, Monocytes % (Manual) 6, M etamyelocytes % 7 H, Myelocytes % 2 H, Other Cells % 1, Nucleated RBCs/100 WBC 3, Diff Path Review Reviewed, Platelet Estimate MKD DEC, Polychromasia 2+, Anisocytosis 3+, Macrocytosis 1+, Ovalocytes 1+, PT 19.7 H, INR 1.7, Sodium 144, Potassium 3.3 L, Chloride 116 H, Carbon Dioxide 21.0, Anion Gap 7, BUN 28 H, Creatinine 0.67, Estim Creat Clear Calc 125.26, Est GFR (MDRD) Af Amer 131, Est GFR (MDRD) Non-Af 108, BUN/Creatinine Ratio 41.7 H, Glucose 132 H, Calcium 7.9 L , Phosphorus 1.8 L, Magnesium 2.2, Total Bilirubin 24.30 H*, AST 181 H, ALT 119 H, Alkaline Phosphatase 100, Total Protein 4.6 L, Albumin 2.0 L, Globulin 2.6, A lbumin/Globulin Ratio 0.8 L Micro: Microbiology 01/09/24 10:25 Blood Culture (Wb) - Arm Left Blood Culture - Final No growth in 5 days. 01/09/24 09:54 Blood Culture (Wb) - Left Forearm Blood Culture - Final No growth in 5 days. 01/09/24 13:01 Urine, Clean Catch Urine Culture - Final Escherichia coli 01/10/24 02:15 Stool Stool Occult Blood (ESTRELLITA) - Final Occult Blood Positive 01/10/24 02:15 Stool Enteric Bacteriology - Final 01/10/24 02:15 Stool C. difficile GDH Antigen & Toxins - Final Toxigenic C. difficile 01/10/24 02:15 Stool Clostridioides difficile (PCR) - Final Physical Exam Const Constitutional Narrative: Remains jaundiced in appearance. General Appearance: lethargic and ill appearing HEENT normocephalic and head/scalp atraumatic HEENT Narrative: Dry mucous membranes Eyes EOMs intact bilaterally Sclera: sclera abnormal Neck supple General: trachea midline Chest inspection of chest normal Resp normal respiratory effort Auscultation: diminished lung sounds Cardio regular rate, regular rhythm, S1 normal heart sound and S2 normal heart sound GI soft to palpation and non-tender Extremity no clubbing, cyanosis or edema Skin no rashes or lesions noted Neuro CN's II-XII intact bilaterally and no focal motor deficits Psych Mood & Affect: flat affect Assessment & Plan Assessment/Plan (1) Shock: (2) C. difficile colitis: (3) Alcoholic hepatitis: QUALIFIERS: Ascites presence: unspecified Qualified Code(s): K 70.10 - Alcoholic hepatitis without ascites PLAN: Plan 33-year-old female with history of alcohol abuse and possible alcoholic cirrhosis presents with intermittent episodes of hematemesis and discovered to have severe jaundice, abdominal pain, severe anemia and coagulopathy consistent with of acute liver injury and and shock Agree with her currently experiencing shock likely hemorrhagic shock. She has not had any more episodes of vomiting or hematemesis. Also the differential diagnosis is b septic shock possible or mild DIC secondary to hepatobiliary sepsis and/or pancolitis that was seen on the CT scan abdomen pelvis. Patient started on broad-spectrum IV antibiotic Zosyn for gram-positive, gram-negative aerobic and anaerobic bacteria. Patient had 1 dose of IV ceftriaxone in the ER. Plan is to perform an upper endoscopy tomorrow. Unless she becomes more hemodynamically unstable I would like her to have antibiotics and have doses of PPI and octreotide. Acute on chronic liver injury, severe acute alcoholic hepatitis with history of chronic alcoholic hepatitis: Liver chemistry shows total bilirubin 21.6, INR 1.5 with Madrey's discriminant function 48.3 showing poor prognosis. Patient not candidate for steroid because of possible septic shock. She is also not a candidate for N-acetylcysteine at this time because monotherapy with N- acetylcysteine and an acute alcoholic injury or been toxic finally do not have a long-term improvement or decrease length of stay in the hospital Pancolitis, possible infectious, but likely ischemic: CT abdomen shows pancolitis, mild thickening of multiple small bowel loops, diffuse thickening of gastric wall. Patient on IV antibiotic. Enteric bacteriology panel, C. difficile ordered. 01/10/2024-The patient underwent and upper endoscopy at the bedside. She was discovered to have large Iliana Tobar tear. They were no esophageal gastric or doudenal varices. She did have alcoholic and stress induced gastritis without any sign of recent hemorrhage. There were no ulcerations seen in the upper GI tract. She did have hemorrhagic esophagitis that was also seen. She still remains on pressors and receive stress dose steroids today for septic shock. Her severe alcoholic hepatitis is getting worse corresponding with the decrease completely count, increase INR and Bilirubin with the picture of DIC multifactorial from acute alcoholic hepatitis, and now discovered severe pain colitis associated with Cdiff. I am suspecting that she has elements of homolysis secondary to severe alcoholic hepatitis was as a unfortunate complication. She did receive blood transfusion today. Severe alcoholic hepatitis is defined by modified discriminant function >=2, is the most severe form of alcohol-induced liver disease and is associated with a 1-month mortality rate of around 30%. Corticosteroid treatment remains the only therapeutic option that improves short-term survival. Infectious complications, occurring in approximately 50% of patients, are the main causes of , even in patients who benefit from corticosteroids. Although infection is a well-described feature of cirrhosis, little is known about the characteristics of infections in SAH. Infection is mainly of bacterial origin and frequently affects the respiratory tract. Pathogens classically observed in cirrhosis, such as gram-negative bacilli, are frequently involved, but opportunistic pathogens, such as fungi (Aspergillus fumigatus, Pneumocystis jirovecii) or viruses (Cytomegalovirus, Herpes simplex) may appear, mainly related to corticosteroid treatment. She is on broad spectrum antibiotics at this time. She continues to be febrile. Recommendations: -low threshold for diagnostic paracentesis. -Check INR. -Start xifaxan 500 mg PO BID and lactulose 30 cc BID -Check ammonia level 01/11/2024-I had a talk with the family at the bedside and told him how sick she is. I explained to her with her very high modified discriminant score she has a almost 50% mortality due to severe alcoholic hepatitis in the setting of sepsis. She remains on vancomycin and fortunately has been able to be weaned off of pressors. She is on hydrocortisone prophylaxis. She is still bicytopenia with hemoglobin slightly down to 8.2 from 9.5 and platelet count of 53,000. Kidney function has improved which is a good sign. Her INR is down to 1.7 from 1.8. Her ammonia went from 62-48 which is also a good sign. Hopefully she will continue to improve. No clear need for paracenteses on exam. Mental status cannot be assessed at that time. Recommendations: -Continue to monitor INR, LFTs. -Continue to monitor ammonia -Continue current medications 01/12/2024-patient has worsening auto mental status. Her ammonia level is basically the same it went from 62-40 8-45. She is on prophylaxis for hyperammonemia. She is incoherent. Her bilirubin improved slightly to 21. That did help her overall numbers but clinically she looks a little worse. She is developing worsening pancytopenia. Her INR is the same at 1.7. Creatinine remains normal which is also a good sign Recommendations: -Liver biopsy to see if there is any sign of necrosis -Autoimmune labs are pending -Continue to monitor INR, LFTs, CBC -Guarded prognosis 01/13/2024-patient had liver biopsy. Liver, CT guided core biopsy: Consistent with cirrhosis. Extensive macro- and microvesicular steatosis. The patient's INR is holding at 1.7. His bilirubin still severely elevated secondary to alcoholic hepatitis. She is on treatment for C. difficile. I will start her on oral prednisone for alcoholic hepatitis to try to treat the remaining liver parenchyma that has extensive macro and microvesicular steatosis at this time. -Continue to monitor INR, LFTs. -Continue to monitor ammonia -Continue current medications Charges/Coding Visit Charges Inpatient E&M: 60407 Subs Hosp L3
[2024-01-15] MEDS: predniSONE 20 MG Tablet 40 MG PO (18:47)
[2024-01-16 04:00] VITALS: PULSE 81
[2024-01-16 05:08] VITALS: BMI 35.3
[2024-01-16 06:12] LABS: Hematocrit 24.2 % (37-47); Hemoglobin 8.3 g/dL (12.0-15.0); Mean Corp Hgb Conc 34.3 g/dL (32-36); Mean Corpuscular Hgb 35.2 pg (27.0-32.0); Mean Corpuscular Volume 102.5 fL (81-99); Mean Platelet Vol. 11.1 fl (6.2-12.0); POSITIVE COUNT YES; POSITIVE DIFFERENTIAL YES; POSITIVE MORPHOLOGY YES; Platelet Count 55 K/mm3 (150-450); RBC Distribution Width CV 25.2 % (11.6-14.6); RBC Distribution Width SD 89.5 fl (35.1-43.9); Red Blood Count 2.36 M/mm3 (4.2-5.4); White Blood Count 10.3 K/mm3 (4.4-11.0)
[2024-01-16 06:13] LABS: Differential Indicated MANUAL DIFF
[2024-01-16] MEDS: Vancomycin 125 MG/5 ML Susp PO.SYRINGE 500 MG PO ×3 (06:29→17:54)
[2024-01-16 06:53] LABS: ALB/GLOB Ratio 0.8 RATIO (0.9-2.4); AST(SGOT) 183 U/L (15-37); Alanine Aminotransfer ALT/SGPT 138 U/L (13-56); Alkaline Phosphatase 106 U/L (45-117); Anion Gap 6 (5-15); BUN 29 mg/dL (7-18); BUN/Creat Ratio 40.7 RATIO (10-20); Calcium,Total 7.9 mg/dL (8.5-10.1); Chloride 113 mmol/L (98-107); Creatinine, Serum 0.71 mg/dL (0.55-1.02); EST Glomerular Filtration Rate 101 mL/min (>60); Est Glom Filt Rate - Afr Amer 122 mL/min (>60); Estimated Creatinine Clearance 117.99 ml/min; Globulin 2.6 g/dL (2.2-4.2); Glucose 137 mg/dL (74-106); Magnesium 2.1 mg/dL (1.6-2.6); Potassium 3.5 mmol/L (3.5-5.1); Protein, Total 4.6 g/dL (6.4-8.2); Sodium Level 140 mmol/L (136-145)
--- NOTE | 2024-01-16 07:25 | PN.HOSP_ITS ---
Reason for Visit Reason for Visit: Diagnoses Enterocolitis due to Clostridium difficile, not specified as recurrent (01/09/24) Alcoholic hepatitis without ascites (01/09/24) Shock, unspecified (01/09/24) Subjective Subjective No pain. Edema in extremities now to the point where fluid is seeping from her extremities. Objective Data Objective Data Vital Signs: Vital Signs Temp Pulse Resp BP Pulse Ox O2 Del Method O2 Flow Rate 36.6 C 81 14 108/87 H 97 Room Air 1 01/15/24 23:19 01/16/24 04:00 01/15/24 23:19 01/15/24 23:19 01/15/24 23:19 01/15/24 23:19 01/14/24 06:00 Oxygen Flow Rate (L/min) 1 Oxygen Delivery Method Room Air Weight: 87.6 kg Body Mass Index (BMI) 35.3 Intake & Output: Intake and Output for Last 24 Hours 01/14/24 01/15/24 01/16/24 23:59 23:59 23:59 Intake Total 4980 / 5130 2377.5 / 2702.5 325 / 325 Output Total 715 / 815 475 / 475 Balance 4265 / 4315 1902.5 / 2227.5 325 / 325 Lab / Micro Data 01/16/24 05:54 01/16/24 05:54 Labs: Laboratory Results - last 24 hr 01/12/24 04:00: Diff Path Review Reviewed 01/13/24 04:17: Diff Path Review Reviewed 01/14/24 04:20: Diff Path Review Reviewed 01/15/24 03:20: Diff Path Review Reviewed 01/16/24 05:54: WBC 10.3, RBC 2.36 L, Hgb 8.3 L, Hct 24.2 L, MCV 102.5 H, MCH 35.2 H, MCHC 34.3, RDW Std Deviation 89.5 H, RDW Coeff of Yan 25.2 H, Plt Count 55 L, MPV 11.1, Neut % (Auto) Not Reportable, Sodium 140, Potassium 3.5, C hloride 113 H, Carbon Dioxide 21.0, Anion Gap 6, BUN 29 H, Creatinine 0.71, Estim Creat Clear Calc 117.99, Est GFR (MDRD) Af Amer 122, Est GFR (MDRD) Non-Af 101, BUN/Creatinine Ratio 40.7 H, Glucose 137 H, Calcium 7.9 L, Phosphorus 2.0 L , Magnesium 2.1, Total Bilirubin 23.80 H*, AST 183 H, ALT 138 H, Alkaline Phosphatase 106, Total Protein 4.6 L, Albumin 2.0 L, Globulin 2.6, A lbumin/Globulin Ratio 0.8 L Micro: Microbiology 01/09/24 10:25 Blood Culture (Wb) - Arm Left Blood Culture - Final No growth in 5 days. 01/09/24 09:54 Blood Culture (Wb) - Left Forearm Blood Culture - Final No growth in 5 days. 01/09/24 13:01 Urine, Clean Catch Urine Culture - Final Escherichia coli 01/10/24 02:15 Stool Stool Occult Blood (ESTRELLITA) - Final Occult Blood Positive 01/10/24 02:15 Stool Enteric Bacteriology - Final 01/10/24 02:15 Stool C. difficile GDH Antigen & Toxins - Final Toxigenic C. difficile 01/10/24 02:15 Stool Clostridioides difficile (PCR) - Final Physical Exam Const alert and no apparent distress Constitutional Narrative: more alert and interactive. flat affect. HEENT head/scalp atraumatic and moist oral mucous membranes Resp normal respiratory effort and no retractions Resp Narrative: coarse BS bilaterally. Cardio regular rate, regular rhythm, S1 normal heart sound and S2 normal heart sound GI normal to inspection, nondistended, normoactive bowel sounds and soft to palpation Extremity Extremity Narrative: marked bilateral LE edema. Skin Skin Narrative: jaundice. Neuro Sensorium / Orientation: awake and alert Assessment & Plan Assessment/Plan (1) Shock: PLAN: Plan Shock combination of sepsis and to lesser degree hemorrhagic * resolved. * Had been on on norepinephrine gtt and vasopressin gtt, since weaned off. Started on hydrocortisone 50 Q6. * Secondary to C. difficile Cdiff Pancolitis * improving * C.diff + * enteric panel pending * on PO vancomycin. Would treat for 14 days (through ) Acute blood loss anemia * stable after transfusion of 2 units PRBCs. * hematemesis and hematochezia * Hg was 12.4 on 12/16/23 dropped to 7.6. GI bleed 2/2 MWT * Was seen in ED 12/15 with milder hematemesis, advised admission at that time, but elected to go home. * EGD on 01/09 showed MWT. Clipped Suspected acute alcoholic hepatitis * Hyperbilirubinemia 24.2, was 8 on 12/15 and 2.6 on 08/26/22. * CT showed hepatomegaly and diffuse fatty infiltration of the liver * Madrey score 50.2 * started on hydrocortisone 50 Q6 * Biopsy performed on 01/11. Pathology shows cirrhosis.. Discussed with Dr. Dyson who stated absence of necrosis, patient would not need to be transferred to tertiary facility for liver transplant. CRICKET * resolved, though patient has been oliguric * Overall, positive 22 liters. Consulted nephrology. Furosemide initiated. Alcohol withdrawal * Transient as it developed later during her hospitalization to the point where she required dexmedetomidine drip. She was then very lethargic and was discontinued. Since resolved. * per significant other, drank about 1 pint whiskey/d. I suspect pt drinks more than that. * Thiamine and folate Thrombocytopenia * low, but stable. Likely due to HSM Hypokalemia/Hypophosphatemia * replace. Monitor VTE prophylaxis: SCDs Guarded prognosis. Discussed with the patient's significant other at bedside. Charges/Coding Visit Charges Inpatient E&M: 84403 Subs Hosp L3
[2024-01-16 07:52] LABS: Lymphocyte 11 % (19-41); Metamyelocyte 2 % (0-1); Monocyte 8 % (0-10); Neutrophil-Segmented 79 % (47-70); Platelet Estimate MKD DEC (ADEQ); Total Cells Counted 100 (MANUAL DIFF)
[2024-01-16 07:54] LABS: Anisocytosis 1+
[2024-01-16 07:56] LABS: Absolute Neutrophil Count 8.1 X10^3/uL (2.0-7.7)
[2024-01-16] MEDS: 0.9 % NaCl (Sterile) Posiflush 10 mL IV ×2 (08:41→17:54)
[2024-01-16] MEDS: NYSTATIN 500,000 UNIT/5 ML UDC 500000 UNIT PO ×4 (08:41→20:45)
[2024-01-16] MEDS: Hydrocortisone Sod Succinate 100 MG/2 ML Vial 50 MG IV (08:41)
[2024-01-16] MEDS: Ensure Plus High Protein 120 ML LIQUID PO ×3 (08:41→20:38)
[2024-01-16] MEDS: Pantoprazole Sodium 40 MG in 0.9% Normal Saline (100mL MB+) 100 ML 330 MG IV ×2 (08:42→20:34)
[2024-01-16] MEDS: Folic Acid 1 MG Tablet PO (08:42)
[2024-01-16] MEDS: predniSONE 20 MG Tablet 40 MG PO (08:42)
[2024-01-16] MEDS: Thiamine Hydrochloride 100 MG Tablet PO (08:43)
[2024-01-16] MEDS: Acetaminophen 325 MG Tablet 650 MG PO (08:43)
[2024-01-16] MEDS: Menthol/Lanolin/Calamine/Znox 113 GM Tube 1 APPLIC TOPICAL ×2 (08:46→20:39)
[2024-01-16 08:56] VITALS: BP 117/83; PULSE 81; RESP 18; TEMP 36.4; O2SAT 100
--- NOTE | 2024-01-16 11:21 | CON.PCM.RE_ITS ---
Assessment & Plan Assessment/Plan (1) Oliguria: (2) Alcoholic hepatitis: QUALIFIERS: Ascites presence: unspecified Qualified Code(s): K 70.10 - Alcoholic hepatitis without ascites (3) C. difficile colitis: PLAN: Plan This is a 33-year-old female with past medical history significant for chronic alcohol abuse who presented to the emergency room for generalized weakness, feeling unwell. Admitted to ICU for acute on chronic liver injury, severe acute alcoholic hepatitis, and combination septic and hemorrhagic shock. She was initially on IV pressor support. Fortunately hemodynamically patient has improved and is out of ICU. Patient is being followed by GI. Patient had liver biopsy consistent with cirrhosis. Patient underwent EGD with findings large Iliana-Tobar tear, no esophageal, gastric or duodenal varices, hemorrhagic esophagitis seen. Patient has been started on Xifaxan and lactulose, also started on hydrocortisone, now on prednisone daily. Patient is being treated for C. difficile, on oral Vanco. Nephrology consulted for oliguria. Patient currently has Ta catheter and urine output yesterday 475 mL, urine output has been around 400 ml since admission with most urine output 715ml on 01/13. On admission (01/08) creatinine 1.9, serum creatinine has been improving daily and today her creatinine is 0.71. Patient has normal baseline creatinine, serum creatinine 0.43 mg/dL on 12/16/2023. Per cumulative I&O patient is net +22 L. Admission weight 73.7 kg, today's weight 87.6 kg. Albumin level 2.0. Patient has received total 2 doses albumin, last on 01/09. No recent IVF. Will flush ta to ensure patency. Will also start diuretics, lasix and Aldactone with blood pressure holding parameters. Continue strict I&O. Fortunately patient has preserved renal function. Blood pressure is low normal, not on any antihypertensives. Further orders forthcoming as hospitalization evolves, thank you for allowing us to participate in the care of Ms. Badillo. HPI Consult Data Date of Consult: 01/16/24 HPI Narrative HPI Narrative: DEANA BADILLO, is a 33 F who presented to the emergency room on on January 08 with complaints of generalized weakness and jaundice which has been ongoing for about a month. Workup in the emergency room concerning for acute liver injury, severe acute alcoholic hepatitis and shock which was multifactorial with component of hemorrhagic shock (Hb 7.7 upon presentation with hypovolemia), possible septic shock with positive C. difficile infection. Patient was admitted to ICU and started on IV pressors. Fortunately hemodynamics improved and patient has been moved out of ICU. Nephrology consulted as recently patient noted to be oliguric. Reviewed patient's labs, patient has normal baseline creatinine. On admission (01/08) creatinine 1.9 however serum creatinine has been improving daily and today her creatinine is 0.71. Per cumulative I&O patient is net +22 L. Urine output documented for yesterday 475 mL, patient has Ta. Admission weight 73.7 kg, today's weight 87.6 kg. Patient is alert and oriented, her girlfriend is at bedside. Patient reports appetite is poor. Girlfriend states patient has been drinking some fluids. Girlfriend states she helps with patient's hygiene care, noted wetness around Ta catheter and wondering if it had been leaking. There has been no vomiting. Patient is having multiple loose stools. ON LICENSE OF [facility] Medical History Alcoholism Home Medications ?Medication ?Instructions ?Recorded ?Last Taken ?Type pantoprazole 40 mg tablet,delayed 40 mg PO BID GERD 30 days #60 tabs 12/16/23 Unknown Rx release (Protonix) Allergy/AdvReac Type Severity Reaction Status Date / Time hydrocodone Allergy Hives Verified 01/09/24 09:29 Social History Smoking Status: Current every day smoker tobacco type: cigarettes ROS ROS Narrative As in HPI and past medical history Physical Exam Narrative Alert and oriented x 3, no apparent distress S1, S2, RRR Lung sounds clear Abdomen rounded, soft, nontender Pitting edema bilateral legs and arms Lab / Micro Data 01/16/24 05:54 01/16/24 05:54 Labs: Laboratory Results - last 24 hr 01/12/24 04:00: Diff Path Review Reviewed 01/13/24 04:17: Diff Path Review Reviewed 01/14/24 04:20: Diff Path Review Reviewed 01/15/24 03:20: Diff Path Review Reviewed 01/16/24 05:54: WBC 10.3, RBC 2.36 L, Hgb 8.3 L, Hct 24.2 L, MCV 102.5 H, MCH 35.2 H, MCHC 34.3, RDW Std Deviation 89.5 H, RDW Coeff of Yan 25.2 H, Plt Count 55 L, MPV 11.1, Neut % (Auto) Not Reportable, Absolute Neuts (auto) 8.1 H, Absolute Lymphs (auto) 1.10, Total Counted 100, Neutrophils % (Manual) 79 H, L ymphocytes % (Manual) 11 L, Monocytes % (Manual) 8, Metamyelocytes % 2 H, Diff Path Review October foll, Platelet Estimate MKD DEC, Anisocytosis 1+, Sodium 140, Potassium 3.5, Chloride 113 H, Carbon Dioxide 21.0, Anion Gap 6, BUN 29 H, Creatinine 0.71, Estim Creat Clear Calc 117.99, Est GFR (MDRD) Af Amer 122, Est GFR (MDRD) Non-Af 101, BUN/Creatinine Ratio 40.7 H, Glucose 137 H, Calcium 7.9 L , Phosphorus 2.0 L, Magnesium 2.1, Total Bilirubin 23.80 H*, AST 183 H, ALT 138 H, Alkaline Phosphatase 106, Total Protein 4.6 L, Albumin 2.0 L, Globulin 2.6, A lbumin/Globulin Ratio 0.8 L
--- NOTE | 2024-01-16 12:01 | CASEMGMT ---
Social Work Pt completed LW/POA w/SW, naming Addi Parker as healthcare POA. GOLDIE Redd
[2024-01-16] MEDS: Spironolactone 25 MG Tablet PO (13:34)
[2024-01-16] MEDS: Potassium Phosphate 15 MM in 0.9% Normal Saline (250mL Bag) 250 ML 125 MM IV (13:35)
--- NOTE | 2024-01-16 14:22 | CASEMGMT ---
Per Ruthie with [employer] patient was approved for Medicaid. Yessenia Pollard RAMP AGENT DEE DEE
[2024-01-16 14:55] VITALS: BP 107/71; PULSE 84; RESP 18; TEMP 36.6; O2SAT 97
--- NOTE | 2024-01-16 17:18 | PN.GI_ITS ---
Subjective Subjective Patient is very uncomfortable and very swollen. Objective Data Objective Data Vital Signs: Vital Signs Temp Pulse Resp BP Pulse Ox O2 Del Method O2 Flow Rate 97.9 F 84 18 107/71 97 Room Air 1 01/16/24 14:55 01/16/24 14:55 01/16/24 14:55 01/16/24 14:55 01/16/24 14:55 01/16/24 14:55 01/14/24 06:00 Oxygen Flow Rate (L/min) 1 Oxygen Delivery Method Room Air Weight: 193 lb 1.999 oz Body Mass Index (BMI) 35.3 Intake & Output: Intake and Output for Last 24 Hours 01/14/24 01/15/24 01/16/24 23:59 23:59 23:59 Intake Total 4980 / 5130 2377.5 / 2702.5 930 / 930 Output Total 715 / 815 475 / 475 400 / 400 Balance 4265 / 4315 1902.5 / 2227.5 530 / 530 Lab / Micro Data 01/16/24 05:54 01/16/24 05:54 Labs: Laboratory Results - last 24 hr 01/16/24 05:54: WBC 10.3, RBC 2.36 L, Hgb 8.3 L, Hct 24.2 L, MCV 102.5 H, MCH 35.2 H, MCHC 34.3, RDW Std Deviation 89.5 H, RDW Coeff of Yan 25.2 H, Plt Count 55 L, MPV 11.1, Neut % (Auto) Not Reportable, Absolute Neuts (auto) 8.1 H, Absolute Lymphs (auto) 1.10, Total Counted 100, Neutrophils % (Manual) 79 H, L ymphocytes % (Manual) 11 L, Monocytes % (Manual) 8, Metamyelocytes % 2 H, Diff Path Review October, Platelet Estimate MKD DEC, Anisocytosis 1+, Sodium 140, Potassium 3.5, Chloride 113 H, Carbon Dioxide 21.0, Anion Gap 6, BUN 29 H, Creatinine 0.71, Estim Creat Clear Calc 117.99, Est GFR (MDRD) Af Amer 122, Est GFR (MDRD) Non-Af 101, BUN/Creatinine Ratio 40.7 H, Glucose 137 H, Calcium 7.9 L , Phosphorus 2.0 L, Magnesium 2.1, Total Bilirubin 23.80 H*, AST 183 H, ALT 138 H, Alkaline Phosphatase 106, Total Protein 4.6 L, Albumin 2.0 L, Globulin 2.6, A lbumin/Globulin Ratio 0.8 L Micro: Microbiology 01/09/24 10:25 Blood Culture (Wb) - Arm Left Blood Culture - Final No growth in 5 days. 01/09/24 09:54 Blood Culture (Wb) - Left Forearm Blood Culture - Final No growth in 5 days. 01/09/24 13:01 Urine, Clean Catch Urine Culture - Final Escherichia coli 01/10/24 02:15 Stool Stool Occult Blood (ESTRELLITA) - Final Occult Blood Positive 01/10/24 02:15 Stool Enteric Bacteriology - Final 01/10/24 02:15 Stool C. difficile GDH Antigen & Toxins - Final Toxigenic C. difficile 01/10/24 02:15 Stool Clostridioides difficile (PCR) - Final Physical Exam Const Constitutional Narrative: Remains jaundiced in appearance. General Appearance: lethargic and ill appearing HEENT normocephalic and head/scalp atraumatic HEENT Narrative: Dry mucous membranes Eyes EOMs intact bilaterally Sclera: sclera abnormal Neck supple General: trachea midline Chest inspection of chest normal Resp normal respiratory effort Auscultation: diminished lung sounds Cardio regular rate, regular rhythm, S1 normal heart sound and S2 normal heart sound GI soft to palpation and non-tender Extremity no clubbing, cyanosis or edema Skin no rashes or lesions noted Neuro CN's II-XII intact bilaterally and no focal motor deficits Psych Mood & Affect: flat affect Assessment & Plan Assessment/Plan (1) Shock: (2) C. difficile colitis: (3) Alcoholic hepatitis: QUALIFIERS: Ascites presence: unspecified Qualified Code(s): K 70.10 - Alcoholic hepatitis without ascites PLAN: Plan 33-year-old female with history of alcohol abuse and possible alcoholic cirrhosis presents with intermittent episodes of hematemesis and discovered to have severe jaundice, abdominal pain, severe anemia and coagulopathy consistent with of acute liver injury and and shock Agree with her currently experiencing shock likely hemorrhagic shock. She has not had any more episodes of vomiting or hematemesis. Also the differential diagnosis is b septic shock possible or mild DIC secondary to hepatobiliary sepsis and/or pancolitis that was seen on the CT scan abdomen pelvis. Patient started on broad-spectrum IV antibiotic Zosyn for gram-positive, gram-negative aerobic and anaerobic bacteria. Patient had 1 dose of IV ceftriaxone in the ER. Plan is to perform an upper endoscopy tomorrow. Unless she becomes more hemodynamically unstable I would like her to have antibiotics and have doses of PPI and octreotide. Acute on chronic liver injury, severe acute alcoholic hepatitis with history of chronic alcoholic hepatitis: Liver chemistry shows total bilirubin 21.6, INR 1.5 with Madrey's discriminant function 48.3 showing poor prognosis. Patient not candidate for steroid because of possible septic shock. She is also not a candidate for N-acetylcysteine at this time because monotherapy with N- acetylcysteine and an acute alcoholic injury or been toxic finally do not have a long-term improvement or decrease length of stay in the hospital Pancolitis, possible infectious, but likely ischemic: CT abdomen shows pancolitis, mild thickening of multiple small bowel loops, diffuse thickening of gastric wall. Patient on IV antibiotic. Enteric bacteriology panel, C. difficile ordered. 01/10/2024-The patient underwent and upper endoscopy at the bedside. She was discovered to have large Iliana Tobar tear. They were no esophageal gastric or doudenal varices. She did have alcoholic and stress induced gastritis without any sign of recent hemorrhage. There were no ulcerations seen in the upper GI tract. She did have hemorrhagic esophagitis that was also seen. She still remains on pressors and receive stress dose steroids today for septic shock. Her severe alcoholic hepatitis is getting worse corresponding with the decrease completely count, increase INR and Bilirubin with the picture of DIC multifactorial from acute alcoholic hepatitis, and now discovered severe pain colitis associated with Cdiff. I am suspecting that she has elements of homolysis secondary to severe alcoholic hepatitis was as a unfortunate complication. She did receive blood transfusion today. Severe alcoholic hepatitis is defined by modified discriminant function >=2, is the most severe form of alcohol-induced liver disease and is associated with a 1-month mortality rate of around 30%. Corticosteroid treatment remains the only therapeutic option that improves short-term survival. Infectious complications, occurring in approximately 50% of patients, are the main causes of , even in patients who benefit from corticosteroids. Although infection is a well-described feature of cirrhosis, little is known about the characteristics of infections in SAH. Infection is mainly of bacterial origin and frequently affects the respiratory tract. Pathogens classically observed in cirrhosis, such as gram-negative bacilli, are frequently involved, but opportunistic pathogens, such as fungi (Aspergillus fumigatus, Pneumocystis jirovecii) or viruses (Cytomegalovirus, Herpes simplex) may appear, mainly related to corticosteroid treatment. She is on broad spectrum antibiotics at this time. She continues to be febrile. Recommendations: -low threshold for diagnostic paracentesis. -Check INR. -Start xifaxan 500 mg PO BID and lactulose 30 cc BID -Check ammonia level 01/11/2024-I had a talk with the family at the bedside and told him how sick she is. I explained to her with her very high modified discriminant score she has a almost 50% mortality due to severe alcoholic hepatitis in the setting of sepsis. She remains on vancomycin and fortunately has been able to be weaned off of pressors. She is on hydrocortisone prophylaxis. She is still bicytopenia with hemoglobin slightly down to 8.2 from 9.5 and platelet count of 53,000. Kidney function has improved which is a good sign. Her INR is down to 1.7 from 1.8. Her ammonia went from 62-48 which is also a good sign. Hopefully she will continue to improve. No clear need for paracenteses on exam. Mental status cannot be assessed at that time. Recommendations: -Continue to monitor INR, LFTs. -Continue to monitor ammonia -Continue current medications 01/12/2024-patient has worsening auto mental status. Her ammonia level is basically the same it went from 62-40 8-45. She is on prophylaxis for hyperammonemia. She is incoherent. Her bilirubin improved slightly to 21. That did help her overall numbers but clinically she looks a little worse. She is developing worsening pancytopenia. Her INR is the same at 1.7. Creatinine remains normal which is also a good sign Recommendations: -Liver biopsy to see if there is any sign of necrosis -Autoimmune labs are pending -Continue to monitor INR, LFTs, CBC -Guarded prognosis 01/15/2024-patient had liver biopsy. Liver, CT guided core biopsy: Consistent with cirrhosis. Extensive macro- and microvesicular steatosis. The patient's INR is holding at 1.7. His bilirubin still severely elevated secondary to alcoholic hepatitis. She is on treatment for C. difficile. I will start her on oral prednisone for alcoholic hepatitis to try to treat the remaining liver parenchyma that has extensive macro and microvesicular steatosis at this time. -Continue to monitor INR, LFTs. -Continue to monitor ammonia -Continue current medications 01/16/2024-patient is very edematous. She is on Lasix. And she is on Aldactone. Both of those will need to be increased. She is third spacing a lot of fluid secondary to cirrhosis and acute liver injury in the setting of acute alcoholic hepatitis with cirrhosis and volume loss from C. difficile colitis. She was started on oral prednisone. Hydrocortisone can be DC'd. -Continue to monitor INR, LFTs. -Continue to monitor ammonia -Continue current medications -Her Lasix goal should be 160 and her Aldactone goal should be 100. -Strict I's and O's -No more than 500 mg of sodium per day -Continue prednisone Charges/Coding Visit Charges Inpatient E&M: 01895 Subs Hosp L3
[2024-01-16] MEDS: Furosemide 40 MG/4 ML Vial IV (17:54)
[2024-01-16 20:22] VITALS: BP 99/81; PULSE 72; RESP 14; TEMP 36.7; O2SAT 100
[2024-01-17] MEDS: Vancomycin 125 MG/5 ML Susp PO.SYRINGE 500 MG PO ×5 (00:35→23:34)
[2024-01-17 00:38] VITALS: BP 115/62; PULSE 71; RESP 16; TEMP 36.8; O2SAT 97
[2024-01-17 04:54] VITALS: BMI 35.0
[2024-01-17 05:15] VITALS: BP 115/82; PULSE 70; RESP 16; TEMP 36.5; O2SAT 100
[2024-01-17 06:08] LABS: Hematocrit 25.5 % (37-47); Hemoglobin 8.8 g/dL (12.0-15.0); Mean Corp Hgb Conc 34.5 g/dL (32-36); Mean Corpuscular Hgb 35.1 pg (27.0-32.0); Mean Corpuscular Volume 101.6 fL (81-99); Mean Platelet Vol. 11.4 fl (6.2-12.0); POSITIVE COUNT YES; POSITIVE MORPHOLOGY YES; Platelet Count 76 K/mm3 (150-450); RBC Distribution Width CV 25.5 % (11.6-14.6); RBC Distribution Width SD 92.9 fl (35.1-43.9); Red Blood Count 2.51 M/mm3 (4.2-5.4); White Blood Count 13.6 K/mm3 (4.4-11.0)
[2024-01-17 06:15] LABS: Differential Indicated MANUAL DIFF
[2024-01-17 06:25] LABS: Phosphorus 2.2 mg/dL (2.5-4.9)
[2024-01-17 06:26] LABS: International Normalized Ratio 1.6; Prothrombin Time (Protime)PT. 18.8 SECONDS (11.7-14.9)
[2024-01-17 07:11] LABS: ALB/GLOB Ratio 0.8 RATIO (0.9-2.4); AST(SGOT) 178 U/L (15-37); Alanine Aminotransfer ALT/SGPT 170 U/L (13-56); Albumin, Serum 2.1 g/dL (3.2-5.0); Alkaline Phosphatase 119 U/L (45-117); Anion Gap 7 (5-15); BUN 30 mg/dL (7-18); Chloride 109 mmol/L (98-107); Creatinine, Serum 0.83 mg/dL (0.55-1.02); EST Glomerular Filtration Rate 84 mL/min (>60); Est Glom Filt Rate - Afr Amer 102 mL/min (>60); Estimated Creatinine Clearance 100.49 ml/min; Globulin 2.5 g/dL (2.2-4.2); Glucose 145 mg/dL (74-106); Potassium 3.1 mmol/L (3.5-5.1); Protein, Total 4.6 g/dL (6.4-8.2); Sodium Level 139 mmol/L (136-145)
[2024-01-17 07:39] LABS: Blast 1 % (0-0); Lymphocyte 14 % (19-41); Metamyelocyte 2 % (0-1); Monocyte 4 % (0-10); Neutrophil-Band 2 % (0-5); Neutrophil-Segmented 77 % (47-70); Total Cells Counted 100 (MANUAL DIFF)
[2024-01-17 07:41] LABS: Anisocytosis 1+; Platelet Estimate MKD DEC (ADEQ)
[2024-01-17 07:43] LABS: Absolute Neutrophil Count 10.7 X10^3/uL (2.0-7.7)
[2024-01-17] MEDS: Pantoprazole Sodium 40 MG in 0.9% Normal Saline (100mL MB+) 100 ML 330 MG IV ×2 (08:26→20:29)
[2024-01-17] MEDS: 0.9 % NaCl (Sterile) Posiflush 10 mL IV ×2 (08:26→20:30)
[2024-01-17] MEDS: Thiamine Hydrochloride 100 MG Tablet PO (08:28)
[2024-01-17] MEDS: Ensure Plus High Protein 120 ML LIQUID PO ×3 (08:28→20:29)
[2024-01-17] MEDS: predniSONE 20 MG Tablet 40 MG PO (08:28)
[2024-01-17] MEDS: Spironolactone 25 MG Tablet PO (08:28)
[2024-01-17] MEDS: Folic Acid 1 MG Tablet PO (08:28)
[2024-01-17] MEDS: Furosemide 40 MG/4 ML Vial IV (08:28)
[2024-01-17] MEDS: NYSTATIN 500,000 UNIT/5 ML UDC 500000 UNIT PO ×4 (08:43→20:28)
--- NOTE | 2024-01-17 09:24 | CASEMGMT ---
Discharge Planning A list of SNF providers including quality and resource use data and consistent with the patient's preferred geographic region, medical needs, and insurance network was created in [employer] Guide.? This list was provided to the SW. Molly Harris Discharge Planning Asst.
[2024-01-17] MEDS: Potassium Phosphate 21 MM in 0.9% Normal Saline (250mL Bag) 250 ML 84 MM IV (09:37)
--- NOTE | 2024-01-17 09:42 | PN.RENAL_ITS ---
Subjective Subjective No new complaints. Urine output has picked up. Asking about going home. Potassium is low this morning. Objective Data Objective Data Vital Signs: Vital Signs Temp Pulse Resp BP Pulse Ox O2 Del Method O2 Flow Rate 97.7 F L 70 16 115/82 H 100 Room Air 1 01/17/24 05:15 01/17/24 05:15 01/17/24 05:15 01/17/24 05:15 01/17/24 05:15 01/17/24 06:00 01/14/24 06:00 Oxygen Flow Rate (L/min) 1 Oxygen Delivery Method Room Air Weight: 86.9 kg Body Mass Index (BMI) 35.0 Intake & Output: Intake and Output for Last 24 Hours 01/15/24 01/16/24 01/17/24 23:59 23:59 23:59 Intake Total 2377.5 / 2702.5 1430 / 1580 360 / 360 Output Total 475 / 475 1900 / 2500 1100 / 1100 Balance 1902.5 / 2227.5 -470 / -920 -740 / -740 Lab / Micro Data 01/17/24 05:40 01/17/24 05:40 Labs: Laboratory Results - last 24 hr 01/17/24 05:40: WBC 13.6 H, RBC 2.51 L, Hgb 8.8 L, Hct 25.5 L, MCV 101.6 H, MCH 35.1 H, MCHC 34.5, RDW Std Deviation 92.9 H, RDW Coeff of Yan 25.5 H, Plt Count 76 L, MPV 11.4, Neut % (Auto) Not Reportable, Absolute Neuts (auto) 10.7 H, Absolute Lymphs (auto) 1.90, Total Counted 100, Neutrophils % (Manual) 77 H, Band Neutrophils % 2, Lymphocytes % (Manual) 14 L, Monocytes % (Manual) 4, M etamyelocytes % 2 H, Blast Cells % 1 H*, Diff Path Review October foll, Platelet Estimate MKD DEC, Anisocytosis 1+, PT 18.8 H, INR 1.6, Sodium 139, Potassium 3.1 L, Chloride 109 H, Carbon Dioxide 23.0, Anion Gap 7, BUN 30 H, Creatinine 0.83, Estim Creat Clear Calc 100.49, Est GFR (MDRD) Af Amer 102, Est GFR (MDRD) Non-Af 84, BUN/Creatinine Ratio 36.0 H, Glucose 145 H, Calcium 8.0 L, Phosphorus 2.2 L, Total Bilirubin 26.40 H*, AST 178 H, ALT 170 H, Alkaline Phosphatase 119 H, T otal Protein 4.6 L, Albumin 2.1 L, Globulin 2.5, Albumin/Globulin Ratio 0.8 L Micro: Microbiology 01/09/24 10:25 Blood Culture (Wb) - Arm Left Blood Culture - Final No growth in 5 days. 01/09/24 09:54 Blood Culture (Wb) - Left Forearm Blood Culture - Final No growth in 5 days. 01/09/24 13:01 Urine, Clean Catch Urine Culture - Final Escherichia coli 01/10/24 02:15 Stool Stool Occult Blood (ESTRELLITA) - Final Occult Blood Positive 01/10/24 02:15 Stool Enteric Bacteriology - Final 01/10/24 02:15 Stool C. difficile GDH Antigen & Toxins - Final Toxigenic C. difficile 01/10/24 02:15 Stool Clostridioides difficile (PCR) - Final Physical Exam Narrative Alert and oriented x 3, no apparent distress S1, S2, RRR Lung sounds clear Abdomen rounded, soft, nontender Pitting edema bilateral legs and arms Assessment & Plan Assessment/Plan (1) Oliguria: (2) Alcoholic hepatitis: QUALIFIERS: Ascites presence: unspecified Qualified Code(s): K 70.10 - Alcoholic hepatitis without ascites (3) C. difficile colitis: PLAN: Plan This is a 33-year-old female with past medical history significant for chronic alcohol abuse who presented to the emergency room for generalized weakness, feeling unwell. Admitted to ICU for acute on chronic liver injury, severe acute alcoholic hepatitis, and combination septic and hemorrhagic shock. She was initially on IV pressor support. Fortunately hemodynamically patient has improved and is out of ICU. Patient is being followed by GI. Patient had liver biopsy consistent with cirrhosis. Patient underwent EGD with findings large Iliana-Tobar tear, no esophageal, gastric or duodenal varices, hemorrhagic esophagitis seen. Patient has been started on Xifaxan and lactulose, also started on hydrocortisone, now on prednisone daily. Patient is being treated for C. difficile, on oral Vanco. Nephrology consulted for oliguria. Patient currently has [place] catheter and urine output yesterday 475 mL, urine output has been around 400 ml since admission with most urine output 715ml on 01/13. On admission (01/08) creatinine 1.9, serum creatinine has been improving daily and today her creatinine is 0.71. Patient has normal baseline creatinine, serum creatinine 0.43 mg/dL on 12/16/2023. Per cumulative I&O patient is net +22 L. Admission weight 73.7 kg, today's weight 87.6 kg. Anasarca. Secondary to cirrhosis. Creatinine is relatively stable. Lasix to 40 mg twice daily p.o., increase spironolactone to 50 mg a day. If creatinine remains stable, will increase spironolactone further. Urine output has improved.
--- NOTE | 2024-01-17 10:21 | PN.HOSP_ITS ---
Subjective Subjective No new issues overnight Objective Data Objective Data Vital Signs: Vital Signs Temp Pulse Resp BP Pulse Ox O2 Del Method O2 Flow Rate 97.7 F L 70 16 115/82 H 100 Room Air 1 01/17/24 05:15 01/17/24 05:15 01/17/24 05:15 01/17/24 05:15 01/17/24 05:15 01/17/24 06:00 01/14/24 06:00 Oxygen Flow Rate (L/min) 1 Oxygen Delivery Method Room Air Weight: 191 lb 9.307 oz Body Mass Index (BMI) 35.0 Intake & Output: Intake and Output for Last 24 Hours 01/16/24 01/17/24 01/18/24 03:59 03:59 03:59 Intake Total 2552.5 / 2552.5 1255 / 1255 210 / 210 Output Total 375 / 375 2500 / 2500 500 / 500 Balance 2177.5 / 2177.5 -1245 / -1245 -290 / -290 Lab / Micro Data 01/17/24 05:40 01/17/24 05:40 Labs: Laboratory Results - last 24 hr 01/17/24 05:40: WBC 13.6 H, RBC 2.51 L, Hgb 8.8 L, Hct 25.5 L, MCV 101.6 H, MCH 35.1 H, MCHC 34.5, RDW Std Deviation 92.9 H, RDW Coeff of Yan 25.5 H, Plt Count 76 L, MPV 11.4, Neut % (Auto) Not Reportable, Absolute Neuts (auto) 10.7 H, Absolute Lymphs (auto) 1.90, Total Counted 100, Neutrophils % (Manual) 77 H, Band Neutrophils % 2, Lymphocytes % (Manual) 14 L, Monocytes % (Manual) 4, M etamyelocytes % 2 H, Blast Cells % 1 H*, Diff Path Review October, Platelet Estimate MKD DEC, Anisocytosis 1+, PT 18.8 H, INR 1.6, Sodium 139, Potassium 3.1 L, Chloride 109 H, Carbon Dioxide 23.0, Anion Gap 7, BUN 30 H, Creatinine 0.83, Estim Creat Clear Calc 100.49, Est GFR (MDRD) Af Amer 102, Est GFR (MDRD) Non-Af 84, BUN/Creatinine Ratio 36.0 H, Glucose 145 H, Calcium 8.0 L, Phosphorus 2.2 L, Total Bilirubin 26.40 H*, AST 178 H, ALT 170 H, Alkaline Phosphatase 119 H, T otal Protein 4.6 L, Albumin 2.1 L, Globulin 2.5, Albumin/Globulin Ratio 0.8 L Micro: Microbiology 01/09/24 10:25 Blood Culture (Wb) - Arm Left Blood Culture - Final No growth in 5 days. 01/09/24 09:54 Blood Culture (Wb) - Left Forearm Blood Culture - Final No growth in 5 days. 01/09/24 13:01 Urine, Clean Catch Urine Culture - Final Escherichia coli 01/10/24 02:15 Stool Stool Occult Blood (ESTRELLITA) - Final Occult Blood Positive 01/10/24 02:15 Stool Enteric Bacteriology - Final 01/10/24 02:15 Stool C. difficile GDH Antigen & Toxins - Final Toxigenic C. difficile 01/10/24 02:15 Stool Clostridioides difficile (PCR) - Final Physical Exam Narrative General: Alert, Oriented x3, Cooperative, No apparent distress HEENT: Atraumatic, PERRLA, EOMI, Normocephalic, scleral icterus Oral: Moist Mucosa Neck: Supple, No JVD Lungs: Diminished, Normal air movement, No rhonchi, No wheeze, No rales Cardiovascular: Regular rate, Regular Rhythm, Normal S1, Normal S2, No murmurs Abdomen: Soft, Non Tender, Non-Distended, No Hepato-splenomegaly Extremities: No edema, Capillary Refill Less than 3 Seconds Skin: Jaundice Musculoskeletal: No Tenderness to Palpation of Joints or Extremities Neurological: No focal neurological deficits, Motor Exam 5/5 strength throughout, Sensory exam intact to light touch and pain Psych/Mental Status: Flat Assessment & Plan Assessment/Plan (1) Shock: PLAN: Plan 1. Combination septic and hemorrhagic shock secondary to C. difficile pancolitis with acute blood loss anemia from a Iliana-Tobar tear ? Continue with p.o. vancomycin ? EGD demonstrated Iliana-Tobar tear that was treated on 01/10/2024 ? Anemia appears of stabilized ? After septic and hemorrhagic shock has resolved ? PT/OT ? Had received a 2 unit transfusion 2. Severe acute alcoholic hepatitis with alcoholic cirrhosis with chronic thrombocytopenia ? Severe hyperbilirubinemia which will take a while to resolve ? She is at increased risk for mortality ? Discussed with her the need to absolutely discontinue drinking. She does have a little bit of a fatalistic mentality in our discussion this morning she seems to think that all of her health care is outside of her control and does not fully acknowledge I think the role that alcohol was played. There is likely severe undercurrent of mental health issues but she states that she has never sought aggressive treatment in the past ? Continue with aggressive diuresis with Lasix and Aldactone ? She had been on hydrocortisone and this was transitioned to prednisone which does explain her slight increase in her white blood cell count today ? She did go through alcohol withdrawal during this admission and was on a Precedex drip, this has since resolved DVT: SCDs Charges/Coding Visit Charges Inpatient E&M: 58693 Subs Hosp L2
[2024-01-17 11:49] LABS: Pathologist Review Reviewed
[2024-01-17 11:54] LABS: Pathologist Review Reviewed
[2024-01-17 12:00] VITALS: BP 110/68; PULSE 65; RESP 16; TEMP 36.6; O2SAT 99
--- NOTE | 2024-01-17 12:12 | ADDICTION ---
Met w/pt to discuss treatment options upon d/c. Pt would like inpatient tx, however may not be medically stable enough to go directly from [facility]. A referral was made to [facility] and they will call and screen her today. She will not likely do a direct admit from [facility] to treatment but will go as soon as she is medically stable enough for [facility] to admit her.
[2024-01-17] MEDS: Menthol/Lanolin/Calamine/Znox 113 GM Tube 1 APPLIC TOPICAL ×2 (14:35→20:30)
[2024-01-17 17:00] VITALS: BP 112/64; PULSE 73; RESP 18; TEMP 36.6; O2SAT 100
--- NOTE | 2024-01-17 17:40 | PN.GI_ITS ---
Subjective Subjective Patient's mental status is a little better today. Objective Data Objective Data Vital Signs: Vital Signs Temp Pulse Resp BP Pulse Ox O2 Del Method O2 Flow Rate 97.9 F 65 16 110/68 99 Room Air 1 01/17/24 12:00 01/17/24 12:00 01/17/24 12:00 01/17/24 12:00 01/17/24 12:00 01/17/24 12:00 01/14/24 06:00 Oxygen Flow Rate (L/min) 1 Oxygen Delivery Method Room Air Weight: 191 lb 9.307 oz Body Mass Index (BMI) 35.0 Intake & Output: Intake and Output for Last 24 Hours 01/15/24 01/16/24 01/17/24 23:59 23:59 23:59 Intake Total 2377.5 / 2702.5 1430 / 1580 660 / 660 Output Total 475 / 475 1900 / 2500 2400 / 2400 Balance 1902.5 / 2227.5 -470 / -920 -1740 / -1740 Lab / Micro Data 01/17/24 05:40 01/17/24 05:40 Labs: Laboratory Results - last 24 hr 01/16/24 05:54: Diff Path Review Reviewed 01/17/24 05:40: WBC 13.6 H, RBC 2.51 L, Hgb 8.8 L, Hct 25.5 L, MCV 101.6 H, MCH 35.1 H, MCHC 34.5, RDW Std Deviation 92.9 H, RDW Coeff of Yan 25.5 H, Plt Count 76 L, MPV 11.4, Neut % (Auto) Not Reportable, Absolute Neuts (auto) 10.7 H, Absolute Lymphs (auto) 1.90, Total Counted 100, Neutrophils % (Manual) 77 H, Band Neutrophils % 2, Lymphocytes % (Manual) 14 L, Monocytes % (Manual) 4, M etamyelocytes % 2 H, Blast Cells % 1 H*, Diff Path Review Reviewed, Platelet Estimate MKD DEC, Anisocytosis 1+, PT 18.8 H, INR 1.6, Sodium 139, Potassium 3.1 L, Chloride 109 H, Carbon Dioxide 23.0, Anion Gap 7, BUN 30 H, Creatinine 0.83, Estim Creat Clear Calc 100.49, Est GFR (MDRD) Af Amer 102, Est GFR (MDRD) Non-Af 84, BUN/Creatinine Ratio 36.0 H, Glucose 145 H, Calcium 8.0 L, Phosphorus 2.2 L, Total Bilirubin 26.40 H*, AST 178 H, ALT 170 H, Alkaline Phosphatase 119 H, T otal Protein 4.6 L, Albumin 2.1 L, Globulin 2.5, Albumin/Globulin Ratio 0.8 L Micro: Microbiology 01/09/24 10:25 Blood Culture (Wb) - Arm Left Blood Culture - Final No growth in 5 days. 01/09/24 09:54 Blood Culture (Wb) - Left Forearm Blood Culture - Final No growth in 5 days. 01/09/24 13:01 Urine, Clean Catch Urine Culture - Final Escherichia coli 01/10/24 02:15 Stool Stool Occult Blood (ESTRELLITA) - Final Occult Blood Positive 01/10/24 02:15 Stool Enteric Bacteriology - Final 01/10/24 02:15 Stool C. difficile GDH Antigen & Toxins - Final Toxigenic C. difficile 01/10/24 02:15 Stool Clostridioides difficile (PCR) - Final Physical Exam Narrative General: Alert, Oriented x3, Cooperative, No apparent distress HEENT: Atraumatic, PERRLA, EOMI, Normocephalic, scleral icterus Oral: Moist Mucosa Neck: Supple, No JVD Lungs: Diminished, Normal air movement, No rhonchi, No wheeze, No rales Cardiovascular: Regular rate, Regular Rhythm, Normal S1, Normal S2, No murmurs Abdomen: Soft, Non Tender, Non-Distended, No Hepato-splenomegaly Extremities: No edema, Capillary Refill Less than 3 Seconds Skin: Jaundice Musculoskeletal: No Tenderness to Palpation of Joints or Extremities Neurological: No focal neurological deficits, Motor Exam 5/5 strength throughout, Sensory exam intact to light touch and pain Psych/Mental Status: Flat Assessment & Plan Assessment/Plan (1) Shock: (2) C. difficile colitis: (3) Alcoholic hepatitis: QUALIFIERS: Ascites presence: unspecified Qualified Code(s): K 70.10 - Alcoholic hepatitis without ascites PLAN: Plan 33-year-old female with history of alcohol abuse and possible alcoholic cirrhosis presents with intermittent episodes of hematemesis and discovered to have severe jaundice, abdominal pain, severe anemia and coagulopathy consistent with of acute liver injury and and shock Agree with her currently experiencing shock likely hemorrhagic shock. She has not had any more episodes of vomiting or hematemesis. Also the differential diagnosis is b septic shock possible or mild DIC secondary to hepatobiliary sepsis and/or pancolitis that was seen on the CT scan abdomen pelvis. Patient started on broad-spectrum IV antibiotic Zosyn for gram-positive, gram-negative aerobic and anaerobic bacteria. Patient had 1 dose of IV ceftriaxone in the ER. Plan is to perform an upper endoscopy tomorrow. Unless she becomes more hemodynamically unstable I would like her to have antibiotics and have doses of PPI and octreotide. Acute on chronic liver injury, severe acute alcoholic hepatitis with history of chronic alcoholic hepatitis: Liver chemistry shows total bilirubin 21.6, INR 1.5 with Madrey's discriminant function 48.3 showing poor prognosis. Patient not candidate for steroid because of possible septic shock. She is also not a candidate for N-acetylcysteine at this time because monotherapy with N- acetylcysteine and an acute alcoholic injury or been toxic finally do not have a long-term improvement or decrease length of stay in the hospital Pancolitis, possible infectious, but likely ischemic: CT abdomen shows pancolitis, mild thickening of multiple small bowel loops, diffuse thickening of gastric wall. Patient on IV antibiotic. Enteric bacteriology panel, C. difficile ordered. 01/10/2024-The patient underwent and upper endoscopy at the bedside. She was discovered to have large Iliana Tobar tear. They were no esophageal gastric or doudenal varices. She did have alcoholic and stress induced gastritis without any sign of recent hemorrhage. There were no ulcerations seen in the upper GI tract. She did have hemorrhagic esophagitis that was also seen. She still remains on pressors and receive stress dose steroids today for septic shock. Her severe alcoholic hepatitis is getting worse corresponding with the decrease completely count, increase INR and Bilirubin with the picture of DIC multifactorial from acute alcoholic hepatitis, and now discovered severe pain colitis associated with Cdiff. I am suspecting that she has elements of homolysis secondary to severe alcoholic hepatitis was as a unfortunate complication. She did receive blood transfusion today. Severe alcoholic hepatitis is defined by modified discriminant function >=2, is the most severe form of alcohol-induced liver disease and is associated with a 1-month mortality rate of around 30%. Corticosteroid treatment remains the only therapeutic option that improves short-term survival. Infectious complications, occurring in approximately 50% of patients, are the main causes of , even in patients who benefit from corticosteroids. Although infection is a well-described feature of cirrhosis, little is known about the characteristics of infections in SAH. Infection is mainly of bacterial origin and frequently affects the respiratory tract. Pathogens classically observed in cirrhosis, such as gram-negative bacilli, are frequently involved, but opportunistic pathogens, such as fungi (Aspergillus fumigatus, Pneumocystis jirovecii) or viruses (Cytomegalovirus, Herpes simplex) may appear, mainly related to corticosteroid treatment. She is on broad spectrum antibiotics at this time. She continues to be febrile. Recommendations: -low threshold for diagnostic paracentesis. -Check INR. -Start xifaxan 500 mg PO BID and lactulose 30 cc BID -Check ammonia level 01/11/2024-I had a talk with the family at the bedside and told him how sick she is. I explained to her with her very high modified discriminant score she has a almost 50% mortality due to severe alcoholic hepatitis in the setting of sepsis. She remains on vancomycin and fortunately has been able to be weaned off of pressors. She is on hydrocortisone prophylaxis. She is still bicytopenia with hemoglobin slightly down to 8.2 from 9.5 and platelet count of 53,000. Kidney function has improved which is a good sign. Her INR is down to 1.7 from 1.8. Her ammonia went from 62-48 which is also a good sign. Hopefully she will continue to improve. No clear need for paracenteses on exam. Mental status cannot be assessed at that time. Recommendations: -Continue to monitor INR, LFTs. -Continue to monitor ammonia -Continue current medications 01/12/2024-patient has worsening auto mental status. Her ammonia level is basically the same it went from 62-40 8-45. She is on prophylaxis for hyperammonemia. She is incoherent. Her bilirubin improved slightly to 21. That did help her overall numbers but clinically she looks a little worse. She is developing worsening pancytopenia. Her INR is the same at 1.7. Creatinine remains normal which is also a good sign Recommendations: -Liver biopsy to see if there is any sign of necrosis -Autoimmune labs are pending -Continue to monitor INR, LFTs, CBC -Guarded prognosis 01/15/2024-patient had liver biopsy. Liver, CT guided core biopsy: Consistent with cirrhosis. Extensive macro- and microvesicular steatosis. The patient's INR is holding at 1.7. His bilirubin still severely elevated secondary to alcoholic hepatitis. She is on treatment for C. difficile. I will start her on oral prednisone for alcoholic hepatitis to try to treat the remaining liver parenchyma that has extensive macro and microvesicular steatosis at this time. -Continue to monitor INR, LFTs. -Continue to monitor ammonia -Continue current medications 01/16/2024-patient is very edematous. She is on Lasix. And she is on Aldactone. Both of those will need to be increased. She is third spacing a lot of fluid secondary to cirrhosis and acute liver injury in the setting of acute alcoholic hepatitis with cirrhosis and volume loss from C. difficile colitis. She was started on oral prednisone. Hydrocortisone can be DC'd. -Continue to monitor INR, LFTs. -Continue to monitor ammonia -Continue current medications -Her Lasix goal should be 160 and her Aldactone goal should be 100. -Strict I's and O's -No more than 500 mg of sodium per d 01/17/2024 -her INR went down to 1.6. I think that correlates with a little bit better nutrition. She does complain of some bloating and abdominal pain. Her bilirubin increased to 26,000 today. She is having more and then output. Small bowel movement today. She still continues to take vancomycin. And she will be off of it soon. -Continue prednisone-I will calculate a Lucy score after 4 days of being on steroids to see if it is advantageous to continue it --Continue to monitor ammonia -Continue current medications -Her Lasix goal should be 160 and her Aldactone goal should be 100. -Strict I's and O's -No more than 500 mg of sodium per day Charges/Coding Visit Charges Inpatient E&M: 85967 Subs Hosp L3
[2024-01-17] MEDS: Furosemide 40 MG Tablet PO (18:28)
[2024-01-17 20:45] VITALS: BP 112/60; PULSE 58; RESP 18; TEMP 36.6; O2SAT 99
[2024-01-18 05:19] VITALS: BMI 35.5
[2024-01-18] MEDS: Vancomycin 125 MG/5 ML Susp PO.SYRINGE 500 MG PO ×3 (05:26→17:41)
[2024-01-18 05:45] VITALS: BP 114/64; PULSE 68; RESP 18; TEMP 36.6; O2SAT 96
[2024-01-18 05:49] LABS: Hematocrit 23.6 % (37-47); Hemoglobin 8.1 g/dL (12.0-15.0); Mean Corp Hgb Conc 34.3 g/dL (32-36); Mean Corpuscular Hgb 34.9 pg (27.0-32.0); Mean Corpuscular Volume 101.7 fL (81-99); Mean Platelet Vol. 10.7 fl (6.2-12.0); POSITIVE COUNT YES; POSITIVE DIFFERENTIAL YES; POSITIVE MORPHOLOGY YES; Platelet Count 84 K/mm3 (150-450); RBC Distribution Width CV 26.1 % (11.6-14.6); RBC Distribution Width SD 91.8 fl (35.1-43.9); Red Blood Count 2.32 M/mm3 (4.2-5.4)
[2024-01-18 06:29] LABS: ALB/GLOB Ratio 0.7 RATIO (0.9-2.4); AST(SGOT) 214 U/L (15-37); Alanine Aminotransfer ALT/SGPT 203 U/L (13-56); Albumin, Serum 1.9 g/dL (3.2-5.0); Alkaline Phosphatase 119 U/L (45-117); Anion Gap 9 (5-15); BUN 28 mg/dL (7-18); BUN/Creat Ratio 31.7 RATIO (10-20); Calcium,Total 7.9 mg/dL (8.5-10.1); Chloride 109 mmol/L (98-107); Creatinine, Serum 0.88 mg/dL (0.55-1.02); EST Glomerular Filtration Rate 79 mL/min (>60); Est Glom Filt Rate - Afr Amer 95 mL/min (>60); Estimated Creatinine Clearance 95.49 ml/min; Globulin 2.6 g/dL (2.2-4.2); Glucose 132 mg/dL (74-106); Potassium 3.1 mmol/L (3.5-5.1); Protein, Total 4.5 g/dL (6.4-8.2); Sodium Level 142 mmol/L (136-145)
[2024-01-18 06:34] LABS: Differential Indicated MANUAL DIFF
[2024-01-18 07:44] LABS: Blast 1 % (0-0); Lymphocyte 2 % (19-41); Metamyelocyte 5 % (0-1); Monocyte 1 % (0-10); Myelocyte 2 % (0-0); Neutrophil-Band 2 % (0-5); Neutrophil-Segmented 87 % (47-70); Total Cells Counted 100 (MANUAL DIFF)
[2024-01-18 07:45] LABS: Platelet Estimate MKD DEC (ADEQ)
[2024-01-18 07:46] LABS: Anisocytosis 1+
[2024-01-18 07:47] LABS: Absolute Neutrophil Count 11.6 X10^3/uL (2.0-7.7)
[2024-01-18 10:14] VITALS: BP 100/59; PULSE 76; RESP 18; TEMP 36.1; O2SAT 97
[2024-01-18] MEDS: Thiamine Hydrochloride 100 MG Tablet PO (10:16)
[2024-01-18] MEDS: Folic Acid 1 MG Tablet PO (10:16)
[2024-01-18] MEDS: Furosemide 40 MG Tablet PO ×2 (10:17→17:41)
[2024-01-18] MEDS: Menthol/Lanolin/Calamine/Znox 113 GM Tube 1 APPLIC TOPICAL ×2 (10:17→22:16)
[2024-01-18] MEDS: Spironolactone 50 MG Tablet PO (10:17)
[2024-01-18] MEDS: predniSONE 20 MG Tablet 40 MG PO (10:18)
[2024-01-18] MEDS: NYSTATIN 500,000 UNIT/5 ML UDC 500000 UNIT PO ×4 (10:18→22:16)
[2024-01-18] MEDS: Pantoprazole Sodium 40 MG in 0.9% Normal Saline (100mL MB+) 100 ML 330 MG IV ×2 (10:18→22:29)
[2024-01-18] MEDS: Acetaminophen 325 MG Tablet 650 MG PO ×2 (10:19→22:18)
[2024-01-18] MEDS: 0.9 % NaCl (Sterile) Posiflush 10 mL IV ×2 (10:19→22:24)
[2024-01-18] MEDS: Ensure Plus High Protein 120 ML LIQUID PO ×4 (10:20→22:16)
--- NOTE | 2024-01-18 13:01 | PN.HOSP_ITS ---
Subjective Subjective Doing well, no issue overnight Objective Data Objective Data Vital Signs: Vital Signs Temp Pulse Resp BP Pulse Ox O2 Del Method O2 Flow Rate 96.9 F L 76 18 100/59 L 97 Room Air 1 01/18/24 10:14 01/18/24 10:14 01/18/24 10:14 01/18/24 10:14 01/18/24 10:14 01/18/24 10:14 01/14/24 06:00 Oxygen Flow Rate (L/min) 1 Oxygen Delivery Method Room Air Weight: 194 lb 3.636 oz Body Mass Index (BMI) 35.5 Intake & Output: Intake and Output for Last 24 Hours 01/17/24 01/18/24 01/19/24 03:59 03:59 03:59 Intake Total 1255 / 1255 1467 / 1467 470 / 470 Output Total 2500 / 2500 2600 / 2600 650 / 650 Balance -1245 / -1245 -1133 / -1133 -180 / -180 Lab / Micro Data 01/18/24 05:40 01/18/24 05:40 Labs: Laboratory Results - last 24 hr 01/18/24 05:40: WBC 13.0 H, RBC 2.32 L, Hgb 8.1 L, Hct 23.6 L, MCV 101.7 H, MCH 34.9 H, MCHC 34.3, RDW Std Deviation 91.8 H, RDW Coeff of Yan 26.1 H, Plt Count 84 L, MPV 10.7, Neut % (Auto) Not Reportable, Absolute Neuts (auto) 11.6 H, A bsolute Lymphs (auto) 0.30 L, Total Counted 100, Neutrophils % (Manual) 87 H, Band Neutrophils % 2, Lymphocytes % (Manual) 2 L, Monocytes % (Manual) 1, M etamyelocytes % 5 H, Myelocytes % 2 H, Blast Cells % 1 H*, Diff Path Review October foll, Platelet Estimate MKD DEC, Anisocytosis 1+, Sodium 142, Potassium 3.1 L, C hloride 109 H, Carbon Dioxide 24.0, Anion Gap 9, BUN 28 H, Creatinine 0.88, Estim Creat Clear Calc 95.49, Est GFR (MDRD) Af Amer 95, Est GFR (MDRD) Non-Af 79, BUN/Creatinine Ratio 31.7 H, Glucose 132 H, Calcium 7.9 L, Total Bilirubin 24.90 H*, AST 214 H, ALT 203 H, Alkaline Phosphatase 119 H, Total Protein 4.5 L, Albumin 1.9 L, Globulin 2.6, Albumin/Globulin Ratio 0.7 L Micro: Microbiology 01/09/24 10:25 Blood Culture (Wb) - Arm Left Blood Culture - Final No growth in 5 days. 01/09/24 09:54 Blood Culture (Wb) - Left Forearm Blood Culture - Final No growth in 5 days. 01/09/24 13:01 Urine, Clean Catch Urine Culture - Final Escherichia coli 01/10/24 02:15 Stool Stool Occult Blood (ESTRELLITA) - Final Occult Blood Positive 01/10/24 02:15 Stool Enteric Bacteriology - Final 01/10/24 02:15 Stool C. difficile GDH Antigen & Toxins - Final Toxigenic C. difficile 01/10/24 02:15 Stool Clostridioides difficile (PCR) - Final Physical Exam Narrative General: Alert, Oriented x3, Cooperative, No apparent distress HEENT: Atraumatic, PERRLA, EOMI, Normocephalic, scleral icterus Oral: Moist Mucosa Neck: Supple, No JVD Lungs: Diminished, Normal air movement, No rhonchi, No wheeze, No rales Cardiovascular: Regular rate, Regular Rhythm, Normal S1, Normal S2, No murmurs Abdomen: Soft, Non Tender, Non-Distended, No Hepato-splenomegaly Extremities: No edema, Capillary Refill Less than 3 Seconds Skin: Jaundice Musculoskeletal: No Tenderness to Palpation of Joints or Extremities Neurological: No focal neurological deficits, Motor Exam 5/5 strength throughout, Sensory exam intact to light touch and pain Psych/Mental Status: Flat Assessment & Plan Assessment/Plan (1) Shock: PLAN: Plan 1. Combination septic and hemorrhagic shock secondary to C. difficile pancolitis with acute blood loss anemia from a Iliana-Tobar tear ? Continue with p.o. vancomycin ? EGD demonstrated Iliana-Tobar tear that was treated on 01/10/2024 ? Anemia appears of stabilized ? After septic and hemorrhagic shock has resolved ? PT/OT ? Had received a 2 unit transfusion 2. Severe acute alcoholic hepatitis with alcoholic cirrhosis with chronic thrombocytopenia ? Severe hyperbilirubinemia which will take a while to resolve ? She is at increased risk for mortality ? Discussed with her the need to absolutely discontinue drinking. She does have a little bit of a fatalistic mentality in our discussion this morning she seems to think that all of her health care is outside of her control and does not fully acknowledge I think the role that alcohol was played. There is likely severe undercurrent of mental health issues but she states that she has never sought aggressive treatment in the past ? Continue with aggressive diuresis with Lasix and Aldactone ? She had been on hydrocortisone and this was transitioned to prednisone which does explain her slight increase in her white blood cell count today ? She did go through alcohol withdrawal during this admission and was on a Precedex drip, this has since resolved ? Continue with PT/OT for evaluation of discharge planning SNF versus rehab for alcohol abuse versus home and then inpatient rehab DVT: SCDs Charges/Coding Visit Charges Inpatient E&M: 09874 Subs Hosp L2
--- NOTE | 2024-01-18 13:12 | PN.GI_ITS ---
Subjective Subjective Patient is talking very much. She has been eating. Flat affect today. Objective Data Objective Data Vital Signs: Vital Signs Temp Pulse Resp BP Pulse Ox O2 Del Method O2 Flow Rate 96.4 F L 73 18 118/72 100 Room Air 1 01/19/24 08:36 01/19/24 08:36 01/19/24 08:36 01/19/24 08:36 01/19/24 08:36 01/19/24 08:36 01/14/24 06:00 Oxygen Flow Rate (L/min) 1 Oxygen Delivery Method Room Air Weight: 192 lb 0.362 oz Body Mass Index (BMI) 35.1 Intake & Output: Intake and Output for Last 24 Hours 01/17/24 01/18/24 01/19/24 23:59 23:59 23:59 Intake Total 1617 / 1617 820 / 820 110 / 110 Output Total 3200 / 3200 2750 / 2750 400 / 400 Balance -1583 / -1583 -1930 / -1930 -290 / -290 Lab / Micro Data 01/19/24 05:28 01/19/24 05:28 Labs: Laboratory Results - last 24 hr 01/18/24 05:40: Diff Path Review Reviewed 01/19/24 05:28: WBC 13.2 H, RBC 2.62 L, Hgb 9.0 L, Hct 26.9 L, MCV 102.7 H, MCH 34.4 H, MCHC 33.5, RDW Std Deviation 96.5 H, RDW Coeff of Yan 26.8 H, Plt Count 91 L, MPV 11.7, Neut % (Auto) Not Reportable, Absolute Neuts (auto) 11.8 H, A bsolute Lymphs (auto) 0.50 L, Total Counted 100, Neutrophils % (Manual) 89 H, Band Neutrophils % 2, Lymphocytes % (Manual) 4 L, Monocytes % (Manual) 2, Blast Cells % 3 H*, Diff Path Review Reviewed, Platelet Estimate MKD DEC, Anisocytosis 1+, Sodium 140, Potassium 3.4 L, Chloride 106, Carbon Dioxide 27.0, Anion Gap 7, BUN 30 H, Creatinine 0.98, Estim Creat Clear Calc 85.22, Est GFR (MDRD) Af Amer 85, Est GFR (MDRD) Non-Af 70, BUN/Creatinine Ratio 30.8 H, Glucose 130 H, C alcium 7.8 L, Phosphorus 2.9, Total Bilirubin 26.30 H*, AST 240 H, ALT 259 H, A lkaline Phosphatase 142 H, Total Protein 5.0 L, Albumin 2.1 L, Globulin 2.9, A lbumin/Globulin Ratio 0.7 L Micro: Microbiology 01/09/24 10:25 Blood Culture (Wb) - Arm Left Blood Culture - Final No growth in 5 days. 01/09/24 09:54 Blood Culture (Wb) - Left Forearm Blood Culture - Final No growth in 5 days. 01/09/24 13:01 Urine, Clean Catch Urine Culture - Final Escherichia coli 01/10/24 02:15 Stool Stool Occult Blood (ESTRELLITA) - Final Occult Blood Positive 01/10/24 02:15 Stool Enteric Bacteriology - Final 01/10/24 02:15 Stool C. difficile GDH Antigen & Toxins - Final Toxigenic C. difficile 01/10/24 02:15 Stool Clostridioides difficile (PCR) - Final Physical Exam Narrative General: Alert, Oriented x3, Cooperative, No apparent distress HEENT: Atraumatic, PERRLA, EOMI, Normocephalic, scleral icterus Oral: Moist Mucosa Neck: Supple, No JVD Lungs: Diminished, Normal air movement, No rhonchi, No wheeze, No rales Cardiovascular: Regular rate, Regular Rhythm, Normal S1, Normal S2, No murmurs Abdomen: Soft, Non Tender, Non-Distended, No Hepato-splenomegaly Extremities: trace edema LE, Capillary Refill Less than 3 Seconds Skin: Jaundice Musculoskeletal: No Tenderness to Palpation of Joints or Extremities Neurological: No focal neurological deficits, Motor Exam 5/5 strength throughout, Sensory exam intact to light touch and pain Psych/Mental Status: Flat Assessment & Plan Assessment/Plan (1) Shock: (2) C. difficile colitis: (3) Alcoholic hepatitis: QUALIFIERS: Ascites presence: unspecified Qualified Code(s): K 70.10 - Alcoholic hepatitis without ascites PLAN: Plan 33-year-old female with history of alcohol abuse and possible alcoholic cirrhosis presents with intermittent episodes of hematemesis and discovered to have severe jaundice, abdominal pain, severe anemia and coagulopathy consistent with of acute liver injury and and shock Agree with her currently experiencing shock likely hemorrhagic shock. She has not had any more episodes of vomiting or hematemesis. Also the differential diagnosis is b septic shock possible or mild DIC secondary to hepatobiliary sepsis and/or pancolitis that was seen on the CT scan abdomen pelvis. Patient started on broad-spectrum IV antibiotic Zosyn for gram-positive, gram-negative aerobic and anaerobic bacteria. Patient had 1 dose of IV ceftriaxone in the ER. Plan is to perform an upper endoscopy tomorrow. Unless she becomes more hemodynamically unstable I would like her to have antibiotics and have doses of PPI and octreotide. Acute on chronic liver injury, severe acute alcoholic hepatitis with history of chronic alcoholic hepatitis: Liver chemistry shows total bilirubin 21.6, INR 1.5 with Madrey's discriminant function 48.3 showing poor prognosis. Patient not candidate for steroid because of possible septic shock. She is also not a candidate for N-acetylcysteine at this time because monotherapy with N- acetylcysteine and an acute alcoholic injury or been toxic finally do not have a long-term improvement or decrease length of stay in the hospital Pancolitis, possible infectious, but likely ischemic: CT abdomen shows pancolitis, mild thickening of multiple small bowel loops, diffuse thickening of gastric wall. Patient on IV antibiotic. Enteric bacteriology panel, C. difficile ordered. 01/10/2024-The patient underwent and upper endoscopy at the bedside. She was discovered to have large Iliana Tobar tear. They were no esophageal gastric or doudenal varices. She did have alcoholic and stress induced gastritis without any sign of recent hemorrhage. There were no ulcerations seen in the upper GI tract. She did have hemorrhagic esophagitis that was also seen. She still remains on pressors and receive stress dose steroids today for septic shock. Her severe alcoholic hepatitis is getting worse corresponding with the decrease completely count, increase INR and Bilirubin with the picture of DIC multifactorial from acute alcoholic hepatitis, and now discovered severe pain colitis associated with Cdiff. I am suspecting that she has elements of homolysis secondary to severe alcoholic hepatitis was as a unfortunate complication. She did receive blood transfusion today. Severe alcoholic hepatitis is defined by modified discriminant function >=2, is the most severe form of alcohol-induced liver disease and is associated with a 1-month mortality rate of around 30%. Corticosteroid treatment remains the only therapeutic option that improves short-term survival. Infectious complications, occurring in approximately 50% of patients, are the main causes of , even in patients who benefit from corticosteroids. Although infection is a well-described feature of cirrhosis, little is known about the characteristics of infections in SAH. Infection is mainly of bacterial origin and frequently affects the respiratory tract. Pathogens classically observed in cirrhosis, such as gram-negative bacilli, are frequently involved, but opportunistic pathogens, such as fungi (Aspergillus fumigatus, Pneumocystis jirovecii) or viruses (Cytomegalovirus, Herpes simplex) may appear, mainly related to corticosteroid treatment. She is on broad spectrum antibiotics at this time. She continues to be febrile. Recommendations: -low threshold for diagnostic paracentesis. -Check INR. -Start xifaxan 500 mg PO BID and lactulose 30 cc BID -Check ammonia level 01/11/2024-I had a talk with the family at the bedside and told him how sick she is. I explained to her with her very high modified discriminant score she has a almost 50% mortality due to severe alcoholic hepatitis in the setting of sepsis. She remains on vancomycin and fortunately has been able to be weaned off of pressors. She is on hydrocortisone prophylaxis. She is still bicytopenia with hemoglobin slightly down to 8.2 from 9.5 and platelet count of 53,000. Kidney function has improved which is a good sign. Her INR is down to 1.7 from 1.8. Her ammonia went from 62-48 which is also a good sign. Hopefully she will continue to improve. No clear need for paracenteses on exam. Mental status cannot be assessed at that time. Recommendations: -Continue to monitor INR, LFTs. -Continue to monitor ammonia -Continue current medications 01/12/2024-patient has worsening auto mental status. Her ammonia level is basically the same it went from 62-40 8-45. She is on prophylaxis for hyperammonemia. She is incoherent. Her bilirubin improved slightly to 21. That did help her overall numbers but clinically she looks a little worse. She is developing worsening pancytopenia. Her INR is the same at 1.7. Creatinine remains normal which is also a good sign Recommendations: -Liver biopsy to see if there is any sign of necrosis -Autoimmune labs are pending -Continue to monitor INR, LFTs, CBC -Guarded prognosis 01/15/2024-patient had liver biopsy. Liver, CT guided core biopsy: Consistent with cirrhosis. Extensive macro- and microvesicular steatosis. The patient's INR is holding at 1.7. His bilirubin still severely elevated secondary to alcoholic hepatitis. She is on treatment for C. difficile. I will start her on oral prednisone for alcoholic hepatitis to try to treat the remaining liver parenchyma that has extensive macro and microvesicular steatosis at this time. -Continue to monitor INR, LFTs. -Continue to monitor ammonia -Continue current medications 01/16/2024-patient is very edematous. She is on Lasix. And she is on Aldactone. Both of those will need to be increased. She is third spacing a lot of fluid secondary to cirrhosis and acute liver injury in the setting of acute alcoholic hepatitis with cirrhosis and volume loss from C. difficile colitis. She was started on oral prednisone. Hydrocortisone can be DC'd. -Continue to monitor INR, LFTs. -Continue to monitor ammonia -Continue current medications -Her Lasix goal should be 160 and her Aldactone goal should be 100. -Strict I's and O's -No more than 500 mg of sodium per d 01/17/2024 -her INR went down to 1.6. I think that correlates with a little bit better nutrition. She does complain of some bloating and abdominal pain. Her bilirubin increased to 26,000 today. She is having more and then output. Small bowel movement today. She still continues to take vancomycin. And she will be off of it soon. -Continue prednisone-I will calculate a Lucy score after 4 days of being on steroids to see if it is advantageous to continue it -Continue to monitor ammonia -Continue current medications -Her Lasix goal should be 160 and her Aldactone goal should be 100. -Strict I's and O's -No more than 500 mg of sodium per day 01/18/2024- Her Platelets are improving on steroids. Bilirubin and MADRE score is the same. INR is the same which also a very good sign. Continue prednisone-Calculate a Lucy score tomorrow -Continue to monitor ammonia -Continue current medications -Her Lasix goal should be 160 and her Aldactone goal should be 100. -Strict I's and O's -No more than 500 mg of sodium per day
--- NOTE | 2024-01-18 13:26 | PN.RENAL_ITS ---
Subjective Subjective Sitting up in bed. More alert and oriented today. No overnight events. Objective Data Objective Data Vital Signs: Vital Signs Temp Pulse Resp BP Pulse Ox O2 Del Method O2 Flow Rate 96.9 F L 76 18 100/59 L 97 Room Air 1 01/18/24 10:14 01/18/24 10:14 01/18/24 10:14 01/18/24 10:14 01/18/24 10:14 01/18/24 10:01/14/24 06:00 Oxygen Flow Rate (L/min) 1 Oxygen Delivery Method Room Air Weight: 88.1 kg Body Mass Index (BMI) 35.5 Intake & Output: Intake and Output for Last 24 Hours 01/16/24 01/17/24 01/18/24 23:59 23:59 23:59 Intake Total 1430 / 1580 1617 / 1617 470 / 470 Output Total 1900 / 2500 3200 / 3200 650 / 650 Balance -470 / -920 -1583 / -1583 -180 / -180 Lab / Micro Data 01/18/24 05:40 01/18/24 05:40 Labs: Laboratory Results - last 24 hr 01/18/24 05:40: WBC 13.0 H, RBC 2.32 L, Hgb 8.1 L, Hct 23.6 L, MCV 101.7 H, MCH 34.9 H, MCHC 34.3, RDW Std Deviation 91.8 H, RDW Coeff of Yan 26.1 H, Plt Count 84 L, MPV 10.7, Neut % (Auto) Not Reportable, Absolute Neuts (auto) 11.6 H, A bsolute Lymphs (auto) 0.30 L, Total Counted 100, Neutrophils % (Manual) 87 H, Band Neutrophils % 2, Lymphocytes % (Manual) 2 L, Monocytes % (Manual) 1, M etamyelocytes % 5 H, Myelocytes % 2 H, Blast Cells % 1 H*, Diff Path Review October foll, Platelet Estimate MKD DEC, Anisocytosis 1+, Sodium 142, Potassium 3.1 L, C hloride 109 H, Carbon Dioxide 24.0, Anion Gap 9, BUN 28 H, Creatinine 0.88, Estim Creat Clear Calc 95.49, Est GFR (MDRD) Af Amer 95, Est GFR (MDRD) Non-Af 79, BUN/Creatinine Ratio 31.7 H, Glucose 132 H, Calcium 7.9 L, Total Bilirubin 24.90 H*, AST 214 H, ALT 203 H, Alkaline Phosphatase 119 H, Total Protein 4.5 L, Albumin 1.9 L, Globulin 2.6, Albumin/Globulin Ratio 0.7 L Micro: Microbiology 01/09/24 10:25 Blood Culture (Wb) - Arm Left Blood Culture - Final No growth in 5 days. 01/09/24 09:54 Blood Culture (Wb) - Left Forearm Blood Culture - Final No growth in 5 days. 01/09/24 13:01 Urine, Clean Catch Urine Culture - Final Escherichia coli 01/10/24 02:15 Stool Stool Occult Blood (ESTRELLITA) - Final Occult Blood Positive 01/10/24 02:15 Stool Enteric Bacteriology - Final 01/10/24 02:15 Stool C. difficile GDH Antigen & Toxins - Final Toxigenic C. difficile 01/10/24 02:15 Stool Clostridioides difficile (PCR) - Final Physical Exam Narrative Alert and oriented x 3, no apparent distress S1, S2, RRR Lung sounds clear Abdomen rounded, soft, nontender Pitting edema bilateral legs and arms Indwelling [place] with straw-yellow urine in bag Assessment & Plan Assessment/Plan (1) Oliguria: (2) Alcoholic hepatitis: QUALIFIERS: Ascites presence: unspecified Qualified Code(s): K 70.10 - Alcoholic hepatitis without ascites (3) C. difficile colitis: PLAN: Plan This is a 33-year-old female with past medical history significant for chronic alcohol abuse who presented to the emergency room for generalized weakness, feeling unwell. Admitted to ICU for acute on chronic liver injury, severe acute alcoholic hepatitis, and combination septic and hemorrhagic shock. She was initially on IV pressor support. Fortunately hemodynamically patient has improved and is out of ICU. Patient is being followed by GI. Patient had liver biopsy consistent with cirrhosis. Patient underwent EGD with findings large Iliaan-Tobar tear, no esophageal, gastric or duodenal varices, hemorrhagic esophagitis seen. Patient has been started on Xifaxan and lactulose, also started on hydrocortisone, now on prednisone daily. Patient is being treated for C. difficile, on oral Vanco. Nephrology consulted for oliguria. Patient currently has [place] catheter and urine output yesterday 475 mL, urine output has been around 400 ml since admission with most urine output 715ml on 7/14. On admission (01/08) creatinine 1.9, serum creatinine has been improving daily and today her creatinine is 0.71. Patient has normal baseline creatinine, serum creatinine 0.43 mg/dL on 12/16/2023. Anasarca. Secondary to cirrhosis. Creatinine is relatively stable. Patient was oliguric pre-diuretics, urine output picked up with Lasix and Aldactone. 3.2L urine output yesterday. Lasix 40 mg twice daily p.o.. Creatinine remaining stable therefore increase Aldactone 100 mg daily. Blood pressure is relatively stable. K+ 3.1 again today. Replete potassium today as ordered. Reviewed with patient potassium rich foods to choose/eat if able. Per cumulative I&O patient was net +22 L. Admission weight 73.7 kg-->weight 88kg. Patient feels baseline weight ~68 kg.
[2024-01-18] MEDS: Potassium Chloride Oral Tablet 20 MEQ 40 MEQ PO (13:48)
[2024-01-18 15:57] VITALS: BP 106/64; PULSE 79; RESP 18; TEMP 36.1; O2SAT 98
[2024-01-18 22:10] VITALS: BP 108/63; PULSE 68; RESP 18; TEMP 36.6; O2SAT 100
[2024-01-19 03:50] VITALS: BP 123/69; PULSE 69; RESP 16; TEMP 36.3; O2SAT 96
[2024-01-19] MEDS: Vancomycin 125 MG/5 ML Susp PO.SYRINGE 500 MG PO ×4 (05:27→17:57)
[2024-01-19 06:00] VITALS: BMI 35.1
[2024-01-19 06:32] LABS: Hematocrit 26.9 % (37-47); Mean Corp Hgb Conc 33.5 g/dL (32-36); Mean Corpuscular Hgb 34.4 pg (27.0-32.0); Mean Corpuscular Volume 102.7 fL (81-99); Mean Platelet Vol. 11.7 fl (6.2-12.0); POSITIVE COUNT YES; POSITIVE DIFFERENTIAL YES; POSITIVE MORPHOLOGY YES; Platelet Count 91 K/mm3 (150-450); RBC Distribution Width CV 26.8 % (11.6-14.6); RBC Distribution Width SD 96.5 fl (35.1-43.9); Red Blood Count 2.62 M/mm3 (4.2-5.4); White Blood Count 13.2 K/mm3 (4.4-11.0)
[2024-01-19 06:50] LABS: Differential Indicated MANUAL DIFF
[2024-01-19 07:16] LABS: ALB/GLOB Ratio 0.7 RATIO (0.9-2.4); AST(SGOT) 240 U/L (15-37); Alanine Aminotransfer ALT/SGPT 259 U/L (13-56); Albumin, Serum 2.1 g/dL (3.2-5.0); Alkaline Phosphatase 142 U/L (45-117); Anion Gap 7 (5-15); BUN 30 mg/dL (7-18); BUN/Creat Ratio 30.8 RATIO (10-20); Calcium,Total 7.8 mg/dL (8.5-10.1); Chloride 106 mmol/L (98-107); Creatinine, Serum 0.98 mg/dL (0.55-1.02); EST Glomerular Filtration Rate 70 mL/min (>60); Est Glom Filt Rate - Afr Amer 85 mL/min (>60); Estimated Creatinine Clearance 85.22 ml/min; Globulin 2.9 g/dL (2.2-4.2); Glucose 130 mg/dL (74-106); Phosphorus 2.9 mg/dL (2.5-4.9); Potassium 3.4 mmol/L (3.5-5.1); Sodium Level 140 mmol/L (136-145)
[2024-01-19 08:14] LABS: Blast 3 % (0-0); Lymphocyte 4 % (19-41); Monocyte 2 % (0-10); Neutrophil-Band 2 % (0-5); Neutrophil-Segmented 89 % (47-70); Total Cells Counted 100 (MANUAL DIFF)
[2024-01-19 08:15] LABS: Anisocytosis 1+; Platelet Estimate MKD DEC (ADEQ)
[2024-01-19 08:16] LABS: Absolute Neutrophil Count 11.8 X10^3/uL (2.0-7.7)
[2024-01-19 08:30] VITALS: RESP 18; O2SAT 100
[2024-01-19 08:36] VITALS: BP 118/72; PULSE 73; RESP 18; TEMP 35.8; O2SAT 100
[2024-01-19] MEDS: Thiamine Hydrochloride 100 MG Tablet PO (09:22)
[2024-01-19] MEDS: Folic Acid 1 MG Tablet PO (09:22)
[2024-01-19] MEDS: Spironolactone 50 MG Tablet 100 MG PO (09:22)
[2024-01-19] MEDS: Menthol/Lanolin/Calamine/Znox 113 GM Tube 1 APPLIC TOPICAL ×2 (09:23→21:11)
[2024-01-19] MEDS: Furosemide 40 MG Tablet PO ×2 (09:24→17:57)
[2024-01-19] MEDS: Ensure Plus High Protein 120 ML LIQUID PO ×4 (09:24→21:10)
[2024-01-19] MEDS: predniSONE 20 MG Tablet 40 MG PO (09:25)
[2024-01-19] MEDS: Pantoprazole Sodium 40 MG in 0.9% Normal Saline (100mL MB+) 100 ML 330 MG IV ×2 (09:25→21:09)
[2024-01-19] MEDS: NYSTATIN 500,000 UNIT/5 ML UDC 500000 UNIT PO ×4 (09:25→21:10)
[2024-01-19] MEDS: 0.9% Saline Lock 10 ML Syringe IV ×4 (09:26→12:33)
[2024-01-19] MEDS: Acetaminophen 325 MG Tablet 650 MG PO (09:28)
--- NOTE | 2024-01-19 10:14 | PN.RENAL_ITS ---
Subjective Subjective Following for anasarca and prior CRICKET. Pt denies CP, SOB at rest. She had intermittent nausea but no vomiting. Appetite is poor. Objective Data Objective Data Vital Signs: Vital Signs Temp Pulse Resp BP Pulse Ox O2 Del Method O2 Flow Rate 96.4 F L 73 18 118/72 100 Room Air 1 01/19/24 08:36 01/19/24 08:36 01/19/24 08:36 01/19/24 08:36 01/19/24 08:36 01/19/24 08:36 01/14/24 06:00 Oxygen Flow Rate (L/min) 1 Oxygen Delivery Method Room Air Weight: 87.1 kg Body Mass Index (BMI) 35.1 Intake & Output: Intake and Output for Last 24 Hours 01/17/24 01/18/24 01/19/24 23:59 23:59 23:59 Intake Total 1617 / 1617 820 / 820 Output Total 3200 / 3200 2750 / 2750 400 / 400 Balance -1583 / -1583 -1930 / -1930 -400 / -400 Lab / Micro Data 01/19/24 05:28 01/19/24 05:28 Labs: Laboratory Results - last 24 hr 01/19/24 05:28: WBC 13.2 H, RBC 2.62 L, Hgb 9.0 L, Hct 26.9 L, MCV 102.7 H, MCH 34.4 H, MCHC 33.5, RDW Std Deviation 96.5 H, RDW Coeff of Yan 26.8 H, Plt Count 91 L, MPV 11.7, Neut % (Auto) Not Reportable, Absolute Neuts (auto) 11.8 H, A bsolute Lymphs (auto) 0.50 L, Total Counted 100, Neutrophils % (Manual) 89 H, Band Neutrophils % 2, Lymphocytes % (Manual) 4 L, Monocytes % (Manual) 2, Blast Cells % 3 H*, Diff Path Review October, Platelet Estimate MKD DEC, Anisocytosis 1+, Sodium 140, Potassium 3.4 L, Chloride 106, Carbon Dioxide 27.0, Anion Gap 7, BUN 30 H, Creatinine 0.98, Estim Creat Clear Calc 85.22, Est GFR (MDRD) Af Amer 85, Est GFR (MDRD) Non-Af 70, BUN/Creatinine Ratio 30.8 H, Glucose 130 H, C alcium 7.8 L, Phosphorus 2.9, Total Bilirubin 26.30 H*, AST 240 H, ALT 259 H, A lkaline Phosphatase 142 H, Total Protein 5.0 L, Albumin 2.1 L, Globulin 2.9, A lbumin/Globulin Ratio 0.7 L Micro: Microbiology 01/09/24 10:25 Blood Culture (Wb) - Arm Left Blood Culture - Final No growth in 5 days. 01/09/24 09:54 Blood Culture (Wb) - Left Forearm Blood Culture - Final No growth in 5 days. 01/09/24 13:01 Urine, Clean Catch Urine Culture - Final Escherichia coli 01/10/24 02:15 Stool Stool Occult Blood (ESTRELLITA) - Final Occult Blood Positive 01/10/24 02:15 Stool Enteric Bacteriology - Final 01/10/24 02:15 Stool C. difficile GDH Antigen & Toxins - Final Toxigenic C. difficile 01/10/24 02:15 Stool Clostridioides difficile (PCR) - Final Physical Exam Narrative Alert and oriented x 3, no apparent distress S1, S2, RRR Lung sounds clear Abdomen rounded, soft, nontender Pitting edema bilateral legs and arms Indwelling [place] with straw-yellow urine in bag Assessment & Plan Assessment/Plan (1) CRICKET (acute kidney injury): (2) Anasarca: (3) Hypokalemia: PLAN: Plan Impression/Plan: The patient is a 33-year-old female with past medical history significant for chronic alcohol abuse who presented to the emergency room for generalized weakness, feeling unwell. Admitted to ICU for acute on chronic liver injury, severe acute alcoholic hepatitis, and combination septic and hemorrhagic shock. She was initially on IV pressor support. Fortunately hemodynamically patient has improved and is out of ICU. Patient is being followed by GI. Patient had liver biopsy consistent with cirrhosis. Patient underwent EGD with findings large Iliana-Tobar tear, no esophageal, gastric or duodenal varices, hemorrhagic esophagitis seen. Patient has been started on Xifaxan and lactulose, also started on hydrocortisone, now on prednisone daily. Patient is being treated for C. difficile, on oral vanco. Nephrology is following for anasarca and prior CRICKET/oliguria. Acute kidney injury. Resolved. There is no history of CKD. Patient has normal baseline creatinine, serum creatinine 0.43 mg/dL on 12/16/2023. SCr peaked at 1.92 mg/dL on 01/09/24. CRICKET was prerenal realted to circulatory shock. Renal function has improved back to normal with improvement of hemodynamics. SCr is 0.98 mg/dL today. Continue to keep MAP>65 mmHg. Continue to monitor renal function while patient is being diuresed. Anasarca. Secondary to cirrhosis/low oncotic pressure (serum albumin is 2.1 g/dL). Responding well to spironolactone and furosemide. Continue current dose of diuretics. Goal is to keep I/O negative 500 mL-1 L per day. Hypokalemia. Likely due to diuresis and GI loss. Will give 40 mEq KCl. Check K and Mg in am.
--- NOTE | 2024-01-19 11:42 | CASEMGMT ---
RENETTA BRODY reviewed progress with therapy, recommending SNF. RN CM in to discuss progress with therapy and recommendations. Patient states she is surprised but understands that she needs additional therapy. RENETTA BRODY provided patient with list of SNFs in-network with her insurance and geographical area. Patient reviewed list and states [facility], [facility], and [facility] are her top preferences in no particular order. Patient had no further questions or concerns. RENETTA BRODY updated SW regarding SNF preferences. CM will continue to follow this patient and plan for a safe discharge.
[2024-01-19] MEDS: Potassium Chloride Oral Tablet 20 MEQ 40 MEQ PO (12:30)
--- NOTE | 2024-01-19 12:30 | PN.HOSP_ITS ---
Subjective Subjective Remains stable, no issues over night Objective Data Objective Data Vital Signs: Vital Signs Temp Pulse Resp BP Pulse Ox O2 Del Method O2 Flow Rate 96.4 F L 73 18 118/72 100 Room Air 1 01/19/24 08:36 01/19/24 08:36 01/19/24 08:36 01/19/24 08:36 01/19/24 08:36 01/19/24 08:36 01/14/24 06:00 Oxygen Flow Rate (L/min) 1 Oxygen Delivery Method Room Air Weight: 192 lb 0.362 oz Body Mass Index (BMI) 35.1 Intake & Output: Intake and Output for Last 24 Hours 01/18/24 01/19/24 01/20/24 03:59 03:59 03:59 Intake Total 1467 / 1467 820 / 820 110 / 110 Output Total 2600 / 2600 2750 / 2750 400 / 400 Balance -1133 / -1133 -1930 / -1930 -290 / -290 Lab / Micro Data 01/19/24 05:28 01/19/24 05:28 Labs: Laboratory Results - last 24 hr 01/19/24 05:28: WBC 13.2 H, RBC 2.62 L, Hgb 9.0 L, Hct 26.9 L, MCV 102.7 H, MCH 34.4 H, MCHC 33.5, RDW Std Deviation 96.5 H, RDW Coeff of Yan 26.8 H, Plt Count 91 L, MPV 11.7, Neut % (Auto) Not Reportable, Absolute Neuts (auto) 11.8 H, A bsolute Lymphs (auto) 0.50 L, Total Counted 100, Neutrophils % (Manual) 89 H, Band Neutrophils % 2, Lymphocytes % (Manual) 4 L, Monocytes % (Manual) 2, Blast Cells % 3 H*, Diff Path Review October foll, Platelet Estimate MKD DEC, Anisocytosis 1+, Sodium 140, Potassium 3.4 L, Chloride 106, Carbon Dioxide 27.0, Anion Gap 7, BUN 30 H, Creatinine 0.98, Estim Creat Clear Calc 85.22, Est GFR (MDRD) Af Amer 85, Est GFR (MDRD) Non-Af 70, BUN/Creatinine Ratio 30.8 H, Glucose 130 H, C alcium 7.8 L, Phosphorus 2.9, Total Bilirubin 26.30 H*, AST 240 H, ALT 259 H, A lkaline Phosphatase 142 H, Total Protein 5.0 L, Albumin 2.1 L, Globulin 2.9, A lbumin/Globulin Ratio 0.7 L Micro: Microbiology 01/09/24 10:25 Blood Culture (Wb) - Arm Left Blood Culture - Final No growth in 5 days. 01/09/24 09:54 Blood Culture (Wb) - Left Forearm Blood Culture - Final No growth in 5 days. 01/09/24 13:01 Urine, Clean Catch Urine Culture - Final Escherichia coli 01/10/24 02:15 Stool Stool Occult Blood (ESTRELLITA) - Final Occult Blood Positive 01/10/24 02:15 Stool Enteric Bacteriology - Final 01/10/24 02:15 Stool C. difficile GDH Antigen & Toxins - Final Toxigenic C. difficile 01/10/24 02:15 Stool Clostridioides difficile (PCR) - Final Physical Exam Narrative General: Alert, Oriented x3, Cooperative, No apparent distress HEENT: Atraumatic, PERRLA, EOMI, Normocephalic, scleral icterus Oral: Moist Mucosa Neck: Supple, No JVD Lungs: Diminished, Normal air movement, No rhonchi, No wheeze, No rales Cardiovascular: Regular rate, Regular Rhythm, Normal S1, Normal S2, No murmurs Abdomen: Soft, Non Tender, Non-Distended, No Hepato-splenomegaly Extremities: trace edema LE, Capillary Refill Less than 3 Seconds Skin: Jaundice Musculoskeletal: No Tenderness to Palpation of Joints or Extremities Neurological: No focal neurological deficits, Motor Exam 5/5 strength throughout, Sensory exam intact to light touch and pain Psych/Mental Status: Flat Assessment & Plan Assessment/Plan (1) Shock: PLAN: Plan 1. Combination septic and hemorrhagic shock secondary to C. difficile pancolitis with acute blood loss anemia from a Iliana-Tobar tear ? Continue with p.o. vancomycin ? EGD demonstrated Iliana-Tobar tear that was treated on 01/10/2024 ? Anemia appears of stabilized ? After septic and hemorrhagic shock has resolved ? PT/OT ? Had received a 2 unit transfusion 2. Severe acute alcoholic hepatitis with alcoholic cirrhosis with chronic thrombocytopenia ? Severe hyperbilirubinemia which will take a while to resolve ? She is at increased risk for mortality ? Discussed with her the need to absolutely discontinue drinking. She does have a little bit of a fatalistic mentality in our discussion this morning she seems to think that all of her health care is outside of her control and does not fully acknowledge I think the role that alcohol was played. There is likely severe undercurrent of mental health issues but she states that she has never sought aggressive treatment in the past ? Continue with aggressive diuresis with Lasix and Aldactone, appreciate nephrology's assistance ? She had been on hydrocortisone and this was transitioned to prednisone which does explain her slight increase in her white blood cell count today ? She did go through alcohol withdrawal during this admission and was on a Precedex drip, this has since resolved ? Continue with PT/OT for evaluation of discharge planning SNF versus rehab for alcohol abuse versus home and then inpatient rehab DVT: SCDs Charges/Coding Visit Charges Inpatient E&M: 35258 Subs Hosp L2
--- NOTE | 2024-01-19 12:48 | CASEMGMT ---
SW was informed patient was agreeable to SNF and patient's choices are [facility], [facility], and [facility]. SW faxed referrals to all 3 facilities. [facility] has declined patient. [employer] Hostess spoke with patient again and at this time no substance abuse residential facilities will accept patient right now due to patient's c-diff. LATASHA told Elder that patient will be going to a alf first. Elder spoke with patient and gave her Elder's card to call to work on residential when medically ready. Patient also told Elder she is going home. Yessenia FUNEZ
[2024-01-19 12:54] LABS: Pathologist Review Reviewed
[2024-01-19 12:57] LABS: Pathologist Review Reviewed
--- NOTE | 2024-01-19 12:58 | CASEMGMT ---
[facility] has declined patient. Awaiting [facility]'s response. Yessenia Pollard PURCHASING AND FISCAL CLERK DEE DEE
--- NOTE | 2024-01-19 13:15 | EX.PCM.PN.GI ---
Subjective Subjective She complains of diffuse total body swelling. She has a very poor appetite. Nausea is 3/10. Objective Data Objective Data Vital Signs: Vital Signs Temp Pulse Resp BP Pulse Ox O2 Del Method O2 Flow Rate 96.4 F L 73 18 118/72 100 Room Air 1 01/19/24 08:36 01/19/24 08:36 01/19/24 08:36 01/19/24 08:36 01/19/24 08:36 01/19/24 08:36 01/14/24 06:00 Oxygen Flow Rate (L/min) 1 Oxygen Delivery Method Room Air Weight: 192 lb 0.362 oz Body Mass Index (BMI) 35.1 Intake & Output: Intake and Output for Last 24 Hours 01/17/24 01/18/24 01/19/24 23:59 23:59 23:59 Intake Total 1617 / 1617 820 / 820 110 / 110 Output Total 3200 / 3200 2750 / 2750 400 / 400 Balance -1583 / -1583 -1930 / -1930 -290 / -290 Lab / Micro Data 01/19/24 05:28 01/19/24 05:28 Labs: Laboratory Results - last 24 hr 01/18/24 05:40: Diff Path Review Reviewed 01/19/24 05:28: WBC 13.2 H, RBC 2.62 L, Hgb 9.0 L, Hct 26.9 L, MCV 102.7 H, MCH 34.4 H, MCHC 33.5, RDW Std Deviation 96.5 H, RDW Coeff of Yan 26.8 H, Plt Count 91 L, MPV 11.7, Neut % (Auto) Not Reportable, Absolute Neuts (auto) 11.8 H, Absolute Lymphs (auto) 0.50 L, Total Counted 100, Neutrophils % (Manual) 89 H, Band Neutrophils % 2, Lymphocytes % (Manual) 4 L, Monocytes % (Manual) 2, Blast Cells % 3 H*, Diff Path Review Reviewed, Platelet Estimate MKD DEC, Anisocytosis 1+, Sodium 140, Potassium 3.4 L, Chloride 106, Carbon Dioxide 27.0, Anion Gap 7, BUN 30 H, Creatinine 0.98, Estim Creat Clear Calc 85.22, Est GFR (MDRD) Af Amer 85, Est GFR (MDRD) Non-Af 70, BUN/Creatinine Ratio 30.8 H, Glucose 130 H, Calcium 7.8 L, Phosphorus 2.9, Total Bilirubin 26.30 H*, AST 240 H, ALT 259 H, Alkaline Phosphatase 142 H, Total Protein 5.0 L, Albumin 2.1 L, Globulin 2.9, Albumin/Globulin Ratio 0.7 L Micro: Microbiology 01/09/24 10:25 Blood Culture (Wb) - Arm Left Blood Culture - Final No growth in 5 days. 01/09/24 09:54 Blood Culture (Wb) - Left Forearm Blood Culture - Final No growth in 5 days. 01/09/24 13:01 Urine, Clean Catch Urine Culture - Final Escherichia coli 01/10/24 02:15 Stool Stool Occult Blood (ESTRELLITA) - Final Occult Blood Positive 01/10/24 02:15 Stool Enteric Bacteriology - Final 01/10/24 02:15 Stool C. difficile GDH Antigen & Toxins - Final Toxigenic C. difficile 01/10/24 02:15 Stool Clostridioides difficile (PCR) - Final Physical Exam Narrative General: Alert, Oriented x3, Cooperative, No apparent distress HEENT: Atraumatic, PERRLA, EOMI, Normocephalic, scleral icterus Oral: Moist Mucosa Neck: Supple, No JVD Lungs: Diminished, Normal air movement, No rhonchi, No wheeze, No rales Cardiovascular: Regular rate, Regular Rhythm, Normal S1, Normal S2, No murmurs Abdomen: Soft, Non Tender, Non-Distended, No Hepato-splenomegaly Extremities: trace edema LE, Capillary Refill Less than 3 Seconds Skin: Jaundice Musculoskeletal: No Tenderness to Palpation of Joints or Extremities Neurological: No focal neurological deficits, Motor Exam 5/5 strength throughout, Sensory exam intact to light touch and pain Psych/Mental Status: Flat Assessment & Plan Assessment/Plan (1) Shock: (2) C. difficile colitis: (3) Alcoholic hepatitis: QUALIFIERS: Ascites presence: unspecified Qualified Code(s): K70.10 - Alcoholic hepatitis without ascites PLAN: Plan 33-year-old female with history of alcohol abuse and possible alcoholic cirrhosis presents with intermittent episodes of hematemesis and discovered to have severe jaundice, abdominal pain, severe anemia and coagulopathy consistent with of acute liver injury and and shock Agree with her currently experiencing shock likely hemorrhagic shock. She has not had any more episodes of vomiting or hematemesis. Also the differential diagnosis is b septic shock possible or mild DIC secondary to hepatobiliary sepsis and/or pancolitis that was seen on the CT scan abdomen pelvis. Patient started on broad-spectrum IV antibiotic Zosyn for gram-positive, gram-negative aerobic and anaerobic bacteria. Patient had 1 dose of IV ceftriaxone in the ER. Plan is to perform an upper endoscopy tomorrow. Unless she becomes more hemodynamically unstable I would like her to have antibiotics and have doses of PPI and octreotide. Acute on chronic liver injury, severe acute alcoholic hepatitis with history of chronic alcoholic hepatitis: Liver chemistry shows total bilirubin 21.6, INR 1.5 with Madrey's discriminant function 48.3 showing poor prognosis. Patient not candidate for steroid because of possible septic shock. She is also not a candidate for N-acetylcysteine at this time because monotherapy with N-acetylcysteine and an acute alcoholic injury or been toxic finally do not have a long-term improvement or decrease length of stay in the hospital Pancolitis, possible infectious, but likely ischemic: CT abdomen shows pancolitis, mild thickening of multiple small bowel loops, diffuse thickening of gastric wall. Patient on IV antibiotic. Enteric bacteriology panel, C. difficile ordered. 01/10/2024-The patient underwent and upper endoscopy at the bedside. She was discovered to have large Iliana Tobar tear. They were no esophageal gastric or doudenal varices. She did have alcoholic and stress induced gastritis without any sign of recent hemorrhage. There were no ulcerations seen in the upper GI tract. She did have hemorrhagic esophagitis that was also seen. She still remains on pressors and receive stress dose steroids today for septic shock. Her severe alcoholic hepatitis is getting worse corresponding with the decrease completely count, increase INR and Bilirubin with the picture of DIC multifactorial from acute alcoholic hepatitis, and now discovered severe pain colitis associated with Cdiff. I am suspecting that she has elements of homolysis secondary to severe alcoholic hepatitis was as a unfortunate complication. She did receive blood transfusion today. Severe alcoholic hepatitis is defined by modified discriminant function >=2, is the most severe form of alcohol-induced liver disease and is associated with a 1-month mortality rate of around 30%. Corticosteroid treatment remains the only therapeutic option that improves short-term survival. Infectious complications, occurring in approximately 50% of patients, are the main causes of , even in patients who benefit from corticosteroids. Although infection is a well-described feature of cirrhosis, little is known about the characteristics of infections in SAH. Infection is mainly of bacterial origin and frequently affects the respiratory tract. Pathogens classically observed in cirrhosis, such as gram-negative bacilli, are frequently involved, but opportunistic pathogens, such as fungi (Aspergillus fumigatus, Pneumocystis jirovecii) or viruses (Cytomegalovirus, Herpes simplex) may appear, mainly related to corticosteroid treatment. She is on broad spectrum antibiotics at this time. She continues to be febrile. Recommendations: -low threshold for diagnostic paracentesis. -Check INR. -Start xifaxan 500 mg PO BID and lactulose 30 cc BID -Check ammonia level 01/11/2024-I had a talk with the family at the bedside and told him how sick she is. I explained to her with her very high modified discriminant score she has a almost 50% mortality due to severe alcoholic hepatitis in the setting of sepsis. She remains on vancomycin and fortunately has been able to be weaned off of pressors. She is on hydrocortisone prophylaxis. She is still bicytopenia with hemoglobin slightly down to 8.2 from 9.5 and platelet count of 53,000. Kidney function has improved which is a good sign. Her INR is down to 1.7 from 1.8. Her ammonia went from 62-48 which is also a good sign. Hopefully she will continue to improve. No clear need for paracenteses on exam. Mental status cannot be assessed at that time. Recommendations: -Continue to monitor INR, LFTs. -Continue to monitor ammonia -Continue current medications 01/12/2024-patient has worsening auto mental status. Her ammonia level is basically the same it went from 62-40 8-45. She is on prophylaxis for hyperammonemia. She is incoherent. Her bilirubin improved slightly to 21. That did help her overall numbers but clinically she looks a little worse. She is developing worsening pancytopenia. Her INR is the same at 1.7. Creatinine remains normal which is also a good sign Recommendations: -Liver biopsy to see if there is any sign of necrosis -Autoimmune labs are pending -Continue to monitor INR, LFTs, CBC -Guarded prognosis 01/15/2024-patient had liver biopsy. Liver, CT guided core biopsy: Consistent with cirrhosis. Extensive macro- and microvesicular steatosis. The patient's INR is holding at 1.7. His bilirubin still severely elevated secondary to alcoholic hepatitis. She is on treatment for C. difficile. I will start her on oral prednisone for alcoholic hepatitis to try to treat the remaining liver parenchyma that has extensive macro and microvesicular steatosis at this time. -Continue to monitor INR, LFTs. -Continue to monitor ammonia -Continue current medications 01/16/2024-patient is very edematous. She is on Lasix. And she is on Aldactone. Both of those will need to be increased. She is third spacing a lot of fluid secondary to cirrhosis and acute liver injury in the setting of acute alcoholic hepatitis with cirrhosis and volume loss from C. difficile colitis. She was started on oral prednisone. Hydrocortisone can be DC'd. -Continue to monitor INR, LFTs. -Continue to monitor ammonia -Continue current medications -Her Lasix goal should be 160 and her Aldactone goal should be 100. -Strict I's and O's -No more than 500 mg of sodium per d 01/17/2024 -her INR went down to 1.6. I think that correlates with a little bit better nutrition. She does complain of some bloating and abdominal pain. Her bilirubin increased to 26,000 today. She is having more and then output. Small bowel movement today. She still continues to take vancomycin. And she will be off of it soon. -Continue prednisone-I will calculate a Lucy score after 4 days of being on steroids to see if it is advantageous to continue it -Continue to monitor ammonia -Continue current medications -Her Lasix goal should be 160 and her Aldactone goal should be 100. -Strict I's and O's -No more than 500 mg of sodium per day 01/18/2024- Her Platelets are improving on steroids. Bilirubin and MADRE score is the same. INR is the same which also a very good sign. Continue prednisone-Calculate a Lucy score tomorrow -Continue to monitor ammonia -Continue current medications -Her Lasix goal should be 160 and her Aldactone goal should be 100. -Strict I's and O's -No more than 500 mg of sodium per day 01/19/2024- I talked with the patient and her girlfriend regarding her prognosis and 30 to 90 day mortality. Continue prednisone- Lille Model risk stratifies patients already receiving steroids for alcoholic hepatitis treatment for 7 days to predict which will not improve and should be considered for other management strategies. All values besides 7-day bilirubin are taken from admission. Her score is 7. A Lille score at Day 4 greater than 0.45 can raise the risk of mortality by 7.2 times. Patients with liver cirrhosis have a higher risk of infections. -Continue to monitor ammonia -Continue current medications -Her Lasix goal should be 160 and her Aldactone goal should be 100. -Strict I's and O's -No more than 500 mg of sodium per day Charges/Coding Visit Charges Inpatient E&M: 49211 [facility] Hosp L3
--- NOTE | 2024-01-19 14:39 | CASEMGMT ---
[facility] notified that patient is coming up as [employer]. However, because patient is newly approved for Medicaid she is not in [employer]'s system yet. Therefore a pre-cert cannot be obtained until patient is in their system. Yessenia Pollard PRE CERTIFICATION SPECIALIST DEE DEE
[2024-01-19 15:45] VITALS: RESP 18; O2SAT 100
[2024-01-19 15:47] VITALS: BP 106/57; PULSE 65; RESP 18; TEMP 36.1; O2SAT 100
[2024-01-19 20:54] VITALS: BP 117/76; PULSE 56; RESP 16; TEMP 36.3; O2SAT 100
[2024-01-19] MEDS: 0.9 % NaCl (Sterile) Posiflush 10 mL IV (21:11)
[2024-01-20] MEDS: Vancomycin 125 MG/5 ML Susp PO.SYRINGE 500 MG PO ×5 (01:00→23:13)
[2024-01-20 03:15] VITALS: BP 102/58; PULSE 60; RESP 18; TEMP 36.5; O2SAT 100
[2024-01-20 06:00] VITALS: BMI 33.7
[2024-01-20 07:14] LABS: Albumin, Serum 1.9 g/dL (3.2-5.0); BUN 31 mg/dL (7-18); BUN/Creat Ratio 31.8 RATIO (10-20); Calcium,Total 7.8 mg/dL (8.5-10.1); Chloride 104 mmol/L (98-107); Creatinine, Serum 0.98 mg/dL (0.55-1.02); EST Glomerular Filtration Rate 70 mL/min (>60); Est Glom Filt Rate - Afr Amer 85 mL/min (>60); Estimated Creatinine Clearance 83.43 ml/min; Glucose 125 mg/dL (74-106); Magnesium 2.1 mg/dL (1.6-2.6); Phosphorus 2.5 mg/dL (2.5-4.9); Potassium 3.6 mmol/L (3.5-5.1); Sodium Level 139 mmol/L (136-145)
[2024-01-20] MEDS: NYSTATIN 500,000 UNIT/5 ML UDC 500000 UNIT PO (08:34)
[2024-01-20] MEDS: Furosemide 40 MG Tablet PO ×2 (08:34→18:37)
[2024-01-20] MEDS: Ensure Plus High Protein 120 ML LIQUID PO ×4 (08:35→22:15)
[2024-01-20] MEDS: Folic Acid 1 MG Tablet PO (08:35)
[2024-01-20] MEDS: Spironolactone 50 MG Tablet 100 MG PO (08:35)
[2024-01-20] MEDS: predniSONE 20 MG Tablet 40 MG PO (08:35)
[2024-01-20] MEDS: Thiamine Hydrochloride 100 MG Tablet PO (08:35)
[2024-01-20] MEDS: Menthol/Lanolin/Calamine/Znox 113 GM Tube 1 APPLIC TOPICAL ×2 (08:36→22:15)
[2024-01-20] MEDS: Pantoprazole Sodium 40 MG in 0.9% Normal Saline (100mL MB+) 100 ML 330 MG IV ×2 (08:36→22:15)
--- NOTE | 2024-01-20 08:46 | CASEMGMT ---
Social Work As per RN, pt is now asking for a referral to be sent to [facility]. SW spoke w/pt, confirmed this with her. SW explained can send referral today but we won't hear anything most likely until Monday. SW also explained that we are trying to figure out her insurance, as Renae Barr said they were reviewing her insurance and it came up as [employer]. SW explained we will figure this out next week as well. Pt states understanding. SW sent referral to [facility] via [facility]. GOLDIE Redd
--- NOTE | 2024-01-20 09:26 | PN.HOSP_ITS ---
Subjective Subjective Doing well, no issues overnight Objective Data Objective Data Vital Signs: Vital Signs Temp Pulse Resp BP Pulse Ox O2 Del Method O2 Flow Rate 97.7 F L 60 18 102/58 L 100 Room Air 1 01/20/24 03:15 01/20/24 03:15 01/20/24 03:15 01/20/24 03:15 01/20/24 03:15 01/20/24 03:15 01/14/24 06:00 Oxygen Flow Rate (L/min) 1 Oxygen Delivery Method Room Air Weight: 184 lb 8.43 oz Body Mass Index (BMI) 33.7 Intake & Output: Intake and Output for Last 24 Hours 01/19/24 01/20/24 01/21/24 03:59 03:59 03:59 Intake Total 820 / 820 220 / 220 Output Total 2750 / 2750 600 / 600 Balance -1930 / -1930 -380 / -380 Lab / Micro Data 01/19/24 05:28 01/20/24 06:22 Labs: Laboratory Results - last 24 hr 01/18/24 05:40: Diff Path Review Reviewed 01/19/24 05:28: Diff Path Review Reviewed 01/20/24 06:22: Sodium 139, Potassium 3.6, Chloride 104, Carbon Dioxide 27.0, B UN 31 H, Creatinine 0.98, Estim Creat Clear Calc 83.43, Est GFR (MDRD) Af Amer 85, Est GFR (MDRD) Non-Af 70, BUN/Creatinine Ratio 31.8 H, Glucose 125 H, C alcium 7.8 L, Phosphorus 2.5, Magnesium 2.1, Albumin 1.9 L Micro: Microbiology 01/09/24 10:25 Blood Culture (Wb) - Arm Left Blood Culture - Final No growth in 5 days. 01/09/24 09:54 Blood Culture (Wb) - Left Forearm Blood Culture - Final No growth in 5 days. 01/09/24 13:01 Urine, Clean Catch Urine Culture - Final Escherichia coli 01/10/24 02:15 Stool Stool Occult Blood (ESTRELLITA) - Final Occult Blood Positive 01/10/24 02:15 Stool Enteric Bacteriology - Final 01/10/24 02:15 Stool C. difficile GDH Antigen & Toxins - Final Toxigenic C. difficile 01/10/24 02:15 Stool Clostridioides difficile (PCR) - Final Physical Exam Narrative General: Alert, Oriented x3, Cooperative, No apparent distress HEENT: Atraumatic, PERRLA, EOMI, Normocephalic, scleral icterus Oral: Moist Mucosa Neck: Supple, No JVD Lungs: Diminished, Normal air movement, No rhonchi, No wheeze, No rales Cardiovascular: Regular rate, Regular Rhythm, Normal S1, Normal S2, No murmurs Abdomen: Soft, Non Tender, Non-Distended, No Hepato-splenomegaly Extremities: trace edema LE, Capillary Refill Less than 3 Seconds Skin: Jaundice Musculoskeletal: No Tenderness to Palpation of Joints or Extremities Neurological: No focal neurological deficits, Motor Exam 5/5 strength throughout, Sensory exam intact to light touch and pain Psych/Mental Status: Normal affect Assessment & Plan Assessment/Plan (1) Shock: PLAN: Plan 1. Combination septic and hemorrhagic shock secondary to C. difficile pancolitis with acute blood loss anemia from a Iliana-Tobar tear ? Continue with p.o. vancomycin ? EGD demonstrated Iliana-Tobar tear that was treated on 01/10/2024 ? Anemia appears of stabilized ? After septic and hemorrhagic shock has resolved ? PT/OT ? Had received a 2 unit transfusion 2. Severe acute alcoholic hepatitis with alcoholic cirrhosis with chronic thrombocytopenia ? Severe hyperbilirubinemia which will take a while to resolve ? She is at increased risk for mortality ? Discussed with her the need to absolutely discontinue drinking. She does have a little bit of a fatalistic mentality in our discussion this morning she seems to think that all of her health care is outside of her control and does not fully acknowledge I think the role that alcohol was played. There is likely severe undercurrent of mental health issues but she states that she has never sought aggressive treatment in the past ? Continue with aggressive diuresis with Lasix and Aldactone, appreciate nephrology's assistance ? She had been on hydrocortisone and this was transitioned to prednisone which does explain her slight increase in her white blood cell count today ? She did go through alcohol withdrawal during this admission and was on a Precedex drip, this has since resolved ? Awaiting pre-CERT for SNF DVT: SCDs Charges/Coding Visit Charges Inpatient E&M: 22365 Subs Hosp L2
[2024-01-20 10:00] VITALS: BP 108/56; PULSE 71; RESP 16; TEMP 36.4; O2SAT 99
--- NOTE | 2024-01-20 11:05 | EX.PCM.PN.GI ---
Subjective Subjective No acute events overnight. Patient still has a very poor appetite. Her weight is about the same. Objective Data Objective Data Vital Signs: Vital Signs Temp Pulse Resp BP Pulse Ox O2 Del Method O2 Flow Rate 97.6 F L 71 16 108/56 L 99 Room Air 1 01/20/24 10:00 01/20/24 10:00 01/20/24 10:00 01/20/24 10:00 01/20/24 10:00 01/20/24 10:00 01/14/24 06:00 Oxygen Flow Rate (L/min) 1 Oxygen Delivery Method Room Air Weight: 184 lb 8.43 oz Body Mass Index (BMI) 33.7 Intake & Output: Intake and Output for Last 24 Hours 01/18/24 01/19/24 01/20/24 23:59 23:59 23:59 Intake Total 820 / 820 220 / 220 110 / 110 Output Total 2750 / 2750 600 / 600 Balance -1930 / -1930 -380 / -380 110 / 110 Lab / Micro Data 01/19/24 05:28 01/20/24 06:22 Labs: Laboratory Results - last 24 hr 01/18/24 05:40: Diff Path Review Reviewed 01/19/24 05:28: Diff Path Review Reviewed 01/20/24 06:22: Sodium 139, Potassium 3.6, Chloride 104, Carbon Dioxide 27.0, BUN 31 H, Creatinine 0.98, Estim Creat Clear Calc 83.43, Est GFR (MDRD) Af Amer 85, Est GFR (MDRD) Non-Af 70, BUN/Creatinine Ratio 31.8 H, Glucose 125 H, Calcium 7.8 L, Phosphorus 2.5, Magnesium 2.1, Albumin 1.9 L Micro: Microbiology 01/09/24 10:25 Blood Culture (Wb) - Arm Left Blood Culture - Final No growth in 5 days. 01/09/24 09:54 Blood Culture (Wb) - Left Forearm Blood Culture - Final No growth in 5 days. 01/09/24 13:01 Urine, Clean Catch Urine Culture - Final Escherichia coli 01/10/24 02:15 Stool Stool Occult Blood (ESTRELLITA) - Final Occult Blood Positive 01/10/24 02:15 Stool Enteric Bacteriology - Final 01/10/24 02:15 Stool C. difficile GDH Antigen & Toxins - Final Toxigenic C. difficile 01/10/24 02:15 Stool Clostridioides difficile (PCR) - Final Physical Exam Narrative General: Alert, Oriented x3, Cooperative, No apparent distress HEENT: Atraumatic, PERRLA, EOMI, Normocephalic, scleral icterus Oral: Moist Mucosa Neck: Supple, No JVD Lungs: Diminished, Normal air movement, No rhonchi, No wheeze, No rales Cardiovascular: Regular rate, Regular Rhythm, Normal S1, Normal S2, No murmurs Abdomen: Soft, Non Tender, Non-Distended, No Hepato-splenomegaly Extremities: trace edema LE, Capillary Refill Less than 3 Seconds Skin: Jaundice Musculoskeletal: No Tenderness to Palpation of Joints or Extremities Neurological: No focal neurological deficits, Motor Exam 5/5 strength throughout, Sensory exam intact to light touch and pain Psych/Mental Status: Normal affect Assessment & Plan Assessment/Plan (1) Shock: (2) C. difficile colitis: (3) Alcoholic hepatitis: QUALIFIERS: Ascites presence: unspecified Qualified Code(s): K70.10 - Alcoholic hepatitis without ascites PLAN: Plan 33-year-old female with history of alcohol abuse and possible alcoholic cirrhosis presents with intermittent episodes of hematemesis and discovered to have severe jaundice, abdominal pain, severe anemia and coagulopathy consistent with of acute liver injury and and shock Agree with her currently experiencing shock likely hemorrhagic shock. She has not had any more episodes of vomiting or hematemesis. Also the differential diagnosis is b septic shock possible or mild DIC secondary to hepatobiliary sepsis and/or pancolitis that was seen on the CT scan abdomen pelvis. Patient started on broad-spectrum IV antibiotic Zosyn for gram-positive, gram-negative aerobic and anaerobic bacteria. Patient had 1 dose of IV ceftriaxone in the ER. Plan is to perform an upper endoscopy tomorrow. Unless she becomes more hemodynamically unstable I would like her to have antibiotics and have doses of PPI and octreotide. Acute on chronic liver injury, severe acute alcoholic hepatitis with history of chronic alcoholic hepatitis: Liver chemistry shows total bilirubin 21.6, INR 1.5 with Madrey's discriminant function 48.3 showing poor prognosis. Patient not candidate for steroid because of possible septic shock. She is also not a candidate for N-acetylcysteine at this time because monotherapy with N-acetylcysteine and an acute alcoholic injury or been toxic finally do not have a long-term improvement or decrease length of stay in the hospital Pancolitis, possible infectious, but likely ischemic: CT abdomen shows pancolitis, mild thickening of multiple small bowel loops, diffuse thickening of gastric wall. Patient on IV antibiotic. Enteric bacteriology panel, C. difficile ordered. 01/10/2024-The patient underwent and upper endoscopy at the bedside. She was discovered to have large Iliana Tobar tear. They were no esophageal gastric or doudenal varices. She did have alcoholic and stress induced gastritis without any sign of recent hemorrhage. There were no ulcerations seen in the upper GI tract. She did have hemorrhagic esophagitis that was also seen. She still remains on pressors and receive stress dose steroids today for septic shock. Her severe alcoholic hepatitis is getting worse corresponding with the decrease completely count, increase INR and Bilirubin with the picture of DIC multifactorial from acute alcoholic hepatitis, and now discovered severe pain colitis associated with Cdiff. I am suspecting that she has elements of homolysis secondary to severe alcoholic hepatitis was as a unfortunate complication. She did receive blood transfusion today. Severe alcoholic hepatitis is defined by modified discriminant function >=2, is the most severe form of alcohol-induced liver disease and is associated with a 1-month mortality rate of around 30%. Corticosteroid treatment remains the only therapeutic option that improves short-term survival. Infectious complications, occurring in approximately 50% of patients, are the main causes of , even in patients who benefit from corticosteroids. Although infection is a well-described feature of cirrhosis, little is known about the characteristics of infections in SAH. Infection is mainly of bacterial origin and frequently affects the respiratory tract. Pathogens classically observed in cirrhosis, such as gram-negative bacilli, are frequently involved, but opportunistic pathogens, such as fungi (Aspergillus fumigatus, Pneumocystis jirovecii) or viruses (Cytomegalovirus, Herpes simplex) may appear, mainly related to corticosteroid treatment. She is on broad spectrum antibiotics at this time. She continues to be febrile. Recommendations: -low threshold for diagnostic paracentesis. -Check INR. -Start xifaxan 500 mg PO BID and lactulose 30 cc BID -Check ammonia level 01/11/2024-I had a talk with the family at the bedside and told him how sick she is. I explained to her with her very high modified discriminant score she has a almost 50% mortality due to severe alcoholic hepatitis in the setting of sepsis. She remains on vancomycin and fortunately has been able to be weaned off of pressors. She is on hydrocortisone prophylaxis. She is still bicytopenia with hemoglobin slightly down to 8.2 from 9.5 and platelet count of 53,000. Kidney function has improved which is a good sign. Her INR is down to 1.7 from 1.8. Her ammonia went from 62-48 which is also a good sign. Hopefully she will continue to improve. No clear need for paracenteses on exam. Mental status cannot be assessed at that time. Recommendations: -Continue to monitor INR, LFTs. -Continue to monitor ammonia -Continue current medications 01/12/2024-patient has worsening auto mental status. Her ammonia level is basically the same it went from 62-40 8-45. She is on prophylaxis for hyperammonemia. She is incoherent. Her bilirubin improved slightly to 21. That did help her overall numbers but clinically she looks a little worse. She is developing worsening pancytopenia. Her INR is the same at 1.7. Creatinine remains normal which is also a good sign Recommendations: -Liver biopsy to see if there is any sign of necrosis -Autoimmune labs are pending -Continue to monitor INR, LFTs, CBC -Guarded prognosis 01/15/2024-patient had liver biopsy. Liver, CT guided core biopsy: Consistent with cirrhosis. Extensive macro- and microvesicular steatosis. The patient's INR is holding at 1.7. His bilirubin still severely elevated secondary to alcoholic hepatitis. She is on treatment for C. difficile. I will start her on oral prednisone for alcoholic hepatitis to try to treat the remaining liver parenchyma that has extensive macro and microvesicular steatosis at this time. -Continue to monitor INR, LFTs. -Continue to monitor ammonia -Continue current medications 01/16/2024-patient is very edematous. She is on Lasix. And she is on Aldactone. Both of those will need to be increased. She is third spacing a lot of fluid secondary to cirrhosis and acute liver injury in the setting of acute alcoholic hepatitis with cirrhosis and volume loss from C. difficile colitis. She was started on oral prednisone. Hydrocortisone can be DC'd. -Continue to monitor INR, LFTs. -Continue to monitor ammonia -Continue current medications -Her Lasix goal should be 160 and her Aldactone goal should be 100. -Strict I's and O's -No more than 500 mg of sodium per d 01/17/2024 -her INR went down to 1.6. I think that correlates with a little bit better nutrition. She does complain of some bloating and abdominal pain. Her bilirubin increased to 26,000 today. She is having more and then output. Small bowel movement today. She still continues to take vancomycin. And she will be off of it soon. -Continue prednisone-I will calculate a Lucy score after 4 days of being on steroids to see if it is advantageous to continue it -Continue to monitor ammonia -Continue current medications -Her Lasix goal should be 160 and her Aldactone goal should be 100. -Strict I's and O's -No more than 500 mg of sodium per day 01/18/2024- Her Platelets are improving on steroids. Bilirubin and MADRE score is the same. INR is the same which also a very good sign. Continue prednisone-Calculate a Lucy score tomorrow -Continue to monitor ammonia -Continue current medications -Her Lasix goal should be 160 and her Aldactone goal should be 100. -Strict I's and O's -No more than 500 mg of sodium per day 01/19/2024- I talked with the patient and her girlfriend regarding her prognosis and 30 to 90 day mortality. Continue prednisone- Lille Model risk stratifies patients already receiving steroids for alcoholic hepatitis treatment for 7 days to predict which will not improve and should be considered for other management strategies. All values besides 7-day bilirubin are taken from admission. Her score is 7. A Lille score at Day 4 greater than 0.45 can raise the risk of mortality by 7.2 times. Patients with liver cirrhosis have a higher risk of infections. -Continue to monitor ammonia -Continue current medications -Her Lasix goal should be 160 and her Aldactone goal should be 100. -Strict I's and O's -No more than 500 mg of sodium per day 01/20/2024-patient is not talking much today. She is waiting for [facility] facility placement. She will need long-term prednisone to continue as an outpatient until she is followed up in the clinic with 40 mg of prednisone a day. -Continue to monitor ammonia -Continue current medications -Her Lasix goal should be 160 and her Aldactone goal should be 100. -Strict I's and O's -No more than 500 mg of sodium per day Charges/Coding Visit Charges Inpatient E&M: 59822 Subs Hosp L3
[2024-01-20 15:44] VITALS: BP 108/64; PULSE 56; RESP 16; TEMP 36.6; O2SAT 100
[2024-01-20 20:20] VITALS: BP 120/70; PULSE 63; RESP 16; TEMP 36.3; O2SAT 100
[2024-01-20] MEDS: hydrOXYzine PAM 25 MG Capsule 50 MG PO (20:35)
[2024-01-20] MEDS: 0.9 % NaCl (Sterile) Posiflush 10 mL IV ×2 (22:16→23:13)
[2024-01-21 01:47] VITALS: BP 100/61; PULSE 61; RESP 18; TEMP 36.2; O2SAT 100
[2024-01-21] MEDS: Vancomycin 125 MG/5 ML Susp PO.SYRINGE 500 MG PO ×4 (05:53→23:08)
[2024-01-21 06:00] VITALS: BMI 32.1
[2024-01-21 06:28] VITALS: BP 112/74; PULSE 55; RESP 16; TEMP 36.3; O2SAT 97
[2024-01-21 07:06] LABS: Anion Gap 7 (5-15); BUN 33 mg/dL (7-18); BUN/Creat Ratio 38.7 RATIO (10-20); Calcium,Total 7.1 mg/dL (8.5-10.1); Chloride 100 mmol/L (98-107); Creatinine, Serum 0.85 mg/dL (0.55-1.02); EST Glomerular Filtration Rate 82 mL/min (>60); Est Glom Filt Rate - Afr Amer 99 mL/min (>60); Estimated Creatinine Clearance 93.66 ml/min; Glucose 108 mg/dL (74-106); Potassium 3.5 mmol/L (3.5-5.1); Sodium Level 137 mmol/L (136-145)
[2024-01-21 08:52] VITALS: BP 98/58; PULSE 63; RESP 18; TEMP 36.2; O2SAT 100
[2024-01-21] MEDS: Ensure Plus High Protein 120 ML LIQUID PO ×3 (09:01→17:54)
[2024-01-21] MEDS: predniSONE 20 MG Tablet 40 MG PO (09:01)
[2024-01-21] MEDS: Spironolactone 50 MG Tablet 100 MG PO (09:01)
[2024-01-21] MEDS: Thiamine Hydrochloride 100 MG Tablet PO (09:01)
[2024-01-21] MEDS: Furosemide 40 MG Tablet PO (09:01)
[2024-01-21] MEDS: Pantoprazole Sodium 40 MG in 0.9% Normal Saline (100mL MB+) 100 ML 330 MG IV ×2 (09:01→22:00)
[2024-01-21] MEDS: Folic Acid 1 MG Tablet PO (09:01)
--- NOTE | 2024-01-21 10:00 | PN.HOSP_ITS ---
Subjective Subjective Still has significant dependent edema which she says is limiting her mobility Objective Data Objective Data Vital Signs: Vital Signs Temp Pulse Resp BP Pulse Ox O2 Del Method O2 Flow Rate 97.1 F L 63 18 98/58 L 100 Room Air 1 01/21/24 08:52 01/21/24 08:52 01/21/24 08:52 01/21/24 08:52 01/21/24 08:52 01/21/24 09:10 01/14/24 06:00 Oxygen Flow Rate (L/min) 1 Oxygen Delivery Method Room Air Weight: 175 lb 4.8 oz Body Mass Index (BMI) 32.1 Intake & Output: Intake and Output for Last 24 Hours 01/20/24 01/21/24 01/22/24 03:59 03:59 03:59 Intake Total 220 / 220 900 / 900 160 / 160 Output Total 600 / 600 1250 / 1250 500 / 500 Balance -380 / -380 -350 / -350 -340 / -340 Lab / Micro Data 01/19/24 05:28 01/21/24 06:00 Labs: Laboratory Results - last 24 hr 01/21/24 06:00: Sodium 137, Potassium 3.5, Chloride 100, Carbon Dioxide 30.0, Anion Gap 7, BUN 33 H, Creatinine 0.85, Estim Creat Clear Calc 93.66, Est GFR (MDRD) Af Amer 99, Est GFR (MDRD) Non-Af 82, BUN/Creatinine Ratio 38.7 H, G lucose 108 H, Calcium 7.1 L Micro: Microbiology 01/09/24 10:25 Blood Culture (Wb) - Arm Left Blood Culture - Final No growth in 5 days. 01/09/24 09:54 Blood Culture (Wb) - Left Forearm Blood Culture - Final No growth in 5 days. 01/09/24 13:01 Urine, Clean Catch Urine Culture - Final Escherichia coli 01/10/24 02:15 Stool Stool Occult Blood (ESTRELLITA) - Final Occult Blood Positive 01/10/24 02:15 Stool Enteric Bacteriology - Final 01/10/24 02:15 Stool C. difficile GDH Antigen & Toxins - Final Toxigenic C. difficile 01/10/24 02:15 Stool Clostridioides difficile (PCR) - Final Physical Exam Narrative General: Alert, Oriented x3, Cooperative, No apparent distress HEENT: Atraumatic, PERRLA, EOMI, Normocephalic, scleral icterus Oral: Moist Mucosa Neck: Supple, No JVD Lungs: Diminished, Normal air movement, No rhonchi, No wheeze, No rales Cardiovascular: Regular rate, Regular Rhythm, Normal S1, Normal S2, No murmurs Abdomen: Soft, Non Tender, Non-Distended, No Hepato-splenomegaly Extremities: Dependent edema, Capillary Refill Less than 3 Seconds Skin: Jaundice Musculoskeletal: No Tenderness to Palpation of Joints or Extremities Neurological: No focal neurological deficits, Motor Exam 5/5 strength throughout, Sensory exam intact to light touch and pain Psych/Mental Status: Normal affect Assessment & Plan Assessment/Plan (1) Shock: PLAN: Plan 1. Combination septic and hemorrhagic shock secondary to C. difficile pancolitis with acute blood loss anemia from a Iliana-Tobar tear ? Continue with p.o. vancomycin to complete 14 days ? EGD demonstrated Iliana-Tobar tear that was treated on 01/10/2024 ? Anemia appears of stabilized ? After septic and hemorrhagic shock has resolved ? PT/OT, continue with PPI ? Had received a 2 unit transfusion 2. Severe acute alcoholic hepatitis with alcoholic cirrhosis with chronic thrombocytopenia ? Severe hyperbilirubinemia which will take a while to resolve ? She is at increased risk for mortality ? Discussed with her the need to absolutely discontinue drinking. She does have a little bit of a fatalistic mentality in our discussion this morning she seems to think that all of her health care is outside of her control and does not fully acknowledge I think the role that alcohol was played. There is likely severe undercurrent of mental health issues but she states that she has never sought aggressive treatment in the past ? Continue with aggressive diuresis with Lasix and Aldactone, appreciate nephrology's assistance. Will increase Lasix to 40 mg p.o. 3 times daily and continue with Aldactone at 100 mg p.o. daily ? She had been on hydrocortisone and this was transitioned to prednisone ? She did go through alcohol withdrawal during this admission and was on a Precedex drip, this has since resolved ? Awaiting pre-CERT for SNF DVT: SCDs Charges/Coding Visit Charges Inpatient E&M: 73790 Subs Hosp L2
[2024-01-21 14:31] VITALS: BP 115/63; PULSE 58; RESP 18; TEMP 36.8; O2SAT 100
[2024-01-21] MEDS: Nicotine Polacrilex 2 MG GUM PO (15:49)
[2024-01-21 21:55] VITALS: BP 116/63; PULSE 59; RESP 16; TEMP 36.3; O2SAT 100
[2024-01-21] MEDS: Menthol/Lanolin/Calamine/Znox 113 GM Tube 1 APPLIC TOPICAL (22:02)
[2024-01-21] MEDS: 0.9 % NaCl (Sterile) Posiflush 10 mL IV (22:02)
[2024-01-22 03:46] VITALS: BP 112/55; PULSE 61; RESP 16; TEMP 36.5; O2SAT 98
[2024-01-22 04:14] VITALS: BMI 31.9
[2024-01-22 05:52] LABS: Absolute Lymphocyte Count 0.35 X10^3/uL (0.83-4.51); Absolute Neutrophil Count 14.6 X10^3/uL (2.0-7.7); Basophil# 0.05 X10^3/uL; Basophil% 0.3 % (0-1); Hematocrit 24.7 % (37-47); Hemoglobin 8.6 g/dL (12.0-15.0); Lymphocyte # 0.35 X10^3/ul (0.83-4.51); Lymphocyte % 2.1 % (19-41); Mean Corp Hgb Conc 34.8 g/dL (32-36); Mean Corpuscular Hgb 35.2 pg (27.0-32.0); Mean Corpuscular Volume 101.2 fL (81-99); Mean Platelet Vol. 11.8 fl (6.2-12.0); Monocyte# 0.95 X10^3/uL; Monocyte% 5.8 % (0-10); NRBC Flagged by Analyzer 0 % (0-5); POSITIVE COUNT YES; POSITIVE DIFFERENTIAL YES; POSITIVE MORPHOLOGY YES; Platelet Count 99 K/mm3 (150-450); RBC Distribution Width CV 26.9 % (11.6-14.6); Red Blood Count 2.44 M/mm3 (4.2-5.4); White Blood Count 16.4 K/mm3 (4.4-11.0)
[2024-01-22] MEDS: Vancomycin 125 MG/5 ML Susp PO.SYRINGE 500 MG PO ×3 (05:59→23:25)
[2024-01-22] MEDS: Furosemide 40 MG Tablet PO (06:00)
[2024-01-22 06:03] LABS: Differential Indicated SCAN CRITERIA MET
[2024-01-22 06:34] LABS: ALB/GLOB Ratio 0.6 RATIO (0.9-2.4); AST(SGOT) 159 U/L (15-37); Alanine Aminotransfer ALT/SGPT 246 U/L (13-56); Albumin, Serum 2.1 g/dL (3.2-5.0); Alkaline Phosphatase 162 U/L (45-117); Anion Gap 7 (5-15); BUN 37 mg/dL (7-18); BUN/Creat Ratio 42.6 RATIO (10-20); Calcium,Total 8.4 mg/dL (8.5-10.1); Chloride 101 mmol/L (98-107); Creatinine, Serum 0.87 mg/dL (0.55-1.02); EST Glomerular Filtration Rate 80 mL/min (>60); Est Glom Filt Rate - Afr Amer 97 mL/min (>60); Estimated Creatinine Clearance 91.38 ml/min; Globulin 3.3 g/dL (2.2-4.2); Glucose 117 mg/dL (74-106); Potassium 3.4 mmol/L (3.5-5.1); Protein, Total 5.4 g/dL (6.4-8.2); Sodium Level 137 mmol/L (136-145)
[2024-01-22 06:57] LABS: Differential Comment SCANNED
[2024-01-22 06:58] LABS: Platelet Estimate ADEQUATE (ADEQ)
[2024-01-22 07:58] VITALS: BP 104/62; PULSE 64; RESP 18; TEMP 36.4; O2SAT 100
--- NOTE | 2024-01-22 08:22 | PN.HOSP_ITS ---
Reason for Visit Reason for Visit: Diagnoses Enterocolitis due to Clostridium difficile, not specified as recurrent (01/09/24) Hypokalemia (01/09/24) Alcoholic hepatitis without ascites (01/09/24) Acute kidney failure, unspecified (01/09/24) Anuria and oliguria (01/09/24) Shock, unspecified (01/09/24) Generalized edema (01/09/24) Objective Data Objective Data Vital Signs: Vital Signs Temp Pulse Resp BP Pulse Ox O2 Del Method O2 Flow Rate 97.5 F L 64 18 104/62 100 Room Air 1 01/22/24 07:58 01/22/24 07:58 01/22/24 07:58 01/22/24 07:58 01/22/24 07:58 01/22/24 07:58 01/14/24 06:00 Oxygen Flow Rate (L/min) 1 Oxygen Delivery Method Room Air Weight: 174 lb 13.225 oz Body Mass Index (BMI) 31.9 Intake & Output: Intake and Output for Last 24 Hours 01/20/24 01/21/24 01/22/24 23:59 23:59 23:59 Intake Total 900 / 900 490 / 490 Output Total 1250 / 1250 1400 / 1400 300 / 300 Balance -350 / -350 -910 / -910 -300 / -300 Lab / Micro Data 01/22/24 05:33 01/22/24 05:33 Labs: Laboratory Results - last 24 hr 01/22/24 05:33: WBC 16.4 H, RBC 2.44 L, Hgb 8.6 L, Hct 24.7 L, MCV 101.2 H, MCH 35.2 H, MCHC 34.8, RDW Std Deviation 94.0 H, RDW Coeff of Yan 26.9 H, Plt Count 99 L, MPV 11.8, Immature Gran % (Auto) 2.800 H, Neut % (Auto) 89.0 H, Lymph % (Auto) 2.1 L, Franklin % (Auto) 5.8, Eos % (Auto) 0.0, Baso % (Auto) 0.3, Absolute Neuts (auto) 14.6 H, Absolute Lymphs (auto) 0.35 L, Nucleated RBC % 0, Differential Comment SCANNED, Platelet Estimate ADEQUATE, Sodium 137, Potassium 3.4 L, Chloride 101, Carbon Dioxide 29.0, Anion Gap 7, BUN 37 H, Creatinine 0.87, Estim Creat Clear Calc 91.38, Est GFR (MDRD) Af Amer 97, Est GFR (MDRD) Non-Af 80, BUN/Creatinine Ratio 42.6 H, Glucose 117 H, Calcium 8.4 L, Total Bilirubin 22.00 H*, AST 159 H, ALT 246 H, Alkaline Phosphatase 162 H, Total Protein 5.4 L, Albumin 2.1 L, Globulin 3.3, Albumin/Globulin Ratio 0.6 L Micro: Microbiology 01/09/24 10:25 Blood Culture (Wb) - Arm Left Blood Culture - Final No growth in 5 days. 01/09/24 09:54 Blood Culture (Wb) - Left Forearm Blood Culture - Final No growth in 5 days. 01/09/24 13:01 Urine, Clean Catch Urine Culture - Final Escherichia coli 01/10/24 02:15 Stool Stool Occult Blood (ESTRELLITA) - Final Occult Blood Positive 01/10/24 02:15 Stool Enteric Bacteriology - Final 01/10/24 02:15 Stool C. difficile GDH Antigen & Toxins - Final Toxigenic C. difficile 01/10/24 02:15 Stool Clostridioides difficile (PCR) - Final Physical Exam Narrative Seen and examined. Patient is very nonadherent to regimen of Lasix medications. She is all the time refusing as per the nursing staff report. Physical exam General: Alert, Oriented x3, Cooperative HEENT: Icterus, jaundice. Atraumatic, PERRLA, EOMI, Normocephalic Oral: No Gingival or Mucosal Lesions/ Ulcerations Neck: Supple, No JVD, Negative Carotid Bruits Chest wall/Lungs: Air entry diminished in bilateral lung bases. No crepitation/rhonchi Cardiovascular: Regular rate, Regular Rhythm, Normal S1, Normal S2, No M/G/R Abdomen: Bowel Sounds Present, Soft, Non Tender, Non-Distended : No dysuria. No renal angle tenderness. No suprapubic tenderness. Extremities: 4+ bilateral lower extremity pitting edema, Capillary Refill Less than 3 Seconds Skin: Large subcutaneous hematoma on right medial thigh. Nontender. Jaundice. Musculoskeletal: No Tenderness to Palpation of Joints or Extremities Neurological: Cranial nerves II-XII grossly intact, DTR 2+/4. No acute focal neurological deficit. Psych/Mental Status: Flat affect. Assessment & Plan Assessment/Plan (1) Shock: PLAN: Plan This is a 33-year-old female is being admitted in ICU for severe jaundice, abdominal pain, severe anemia and coagulopathy consistent with of acute liver injury and and shock 1. Shock likely hemorrhagic shock but possible septic shock possible due to hepatobiliary sepsis and/or pancolitis: Patient is being admitted in ICU. The patient presented with possible septic shock with clinical indicators of Low- grade fever Tmax 100.2 Fahrenheit, tachycardia, tachypnea due to hepatobiliary sepsis/acute liver injury with acute sepsis-related organ dysfunction as evidenced by hypotension not responsive to IV fluid, requiring vasopressor, coagulopathy, severe thrombocytopenia, hyperbilirubinemia. Patient started on broad-spectrum IV antibiotic Zosyn for gram-positive, gram-negative aerobic and anaerobic bacteria. Patient had 1 dose of IV ceftriaxone in the ER. 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 ABG was not done but VBG shows 7.56/20/total bicarb 18. Anion gap 14. Overall suggestive of high anion gap metabolic acidosis with respiratory alkalosis. 01/21: Resolved from septic shock. Transfer from ICU to PCU. Had EGD on 01/10/2024 Impressions : - Iliana-Tobar tear. Clip was placed. 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 - Normal stomach. - Normal first portion of the duodenum. - No specimens collected. 2. Acute liver injury, severe acute alcoholic hepatitis with history of chronic alcoholic hepatitis: CT abdomen shows hepatomegaly with diffuse heterogenous, fatty infiltration and splenomegaly. Liver chemistry shows total bilirubin 21.6, INR 1.5 with Madrey's discriminant function 48.3 showing poor prognosis. 01/21, at the time of admission patient was not candidate for steroid because of possible septic shock. After the resolution of septic shock, she was started on prednisone 40 mg daily. Discussed with Dr. Dyson. He had already talked to patient's girlfriend and family members and they understand the poor prognosis with nonadherence, refusal to medical advice and still wants to drink alcohol. Patient has severe bilateral lower extremity edema probably due to increased portal hypertension. Patient not related to furosemide 40 mg 3 times daily therefore was changed to furosemide drip 10 mg/h. Patient refused for IV drip as she does not want to cooperate with voiding urine. Later on changed to furosemide 80 mg twice daily. 3. Pancolitis, due to C. difficile: CT abdomen shows pancolitis, mild thickening of multiple small bowel loops, diffuse thickening of gastric wall. On vancomycin. 4. Electrolyte abnormality, hyponatremia, hypokalemia: Electrolytes have gotten better. Sodium 137. K3.4. Mild hypokalemia potassium mid-October. 5. CRICKET, possible prerenal but at risk for ATN, possible HRS: BUN/creatinine 10/1.58. BUNs/creatinine ratio 6.3. Previous creatinine was 0.43 on December 16, 2023. Patient has [place] catheter. Strict intake and output. Patient was on octreotide drip. 01/21 CRICKET resolved. BUNs/creatinine 37/0.87. 6. Coagulopathy and severe thrombocytopenia due to severe liver disease: INR 1.5. Platelet count is 58,000. Patient platelet count was low on December 15 56,000 and was 146,000 and infiltrate 2022. 7. DVT prophylaxis: Bilateral SCDs. Pharmacological prophylaxis contraindicated. Living will/advanced directive/end of life care: Patient does not have living will or advanced directive. Patient is accompanied with her girlfriend. After discussion of benefits/risks procedures involved with full code, DNR CC arrest and DNR CC, the patient Opted for full code. Patient does want artificial life support including intubation, tube feed, ventilator and/chest compression, central venous catheter, vasopressor and DC shock if needed Total time spent in [id number] encounter in discussion of advanced directive 17 minutes. Clinical Impression(s) from Imaging Studies Chest X-Ray 01/09/24 09:40 IMPRESSION: No radiographic evidence of acute cardiopulmonary disease. Electronically Signed: Xochitl King MD at 9:50 EDT , Chest/Abdomen/Pelvis CTA 01/09/24 12:00 IMPRESSION: Hepatomegaly and diffuse fatty infiltration of the liver with the heterogeneities in appearance. Mild splenomegaly. Pancolitis. Diffuse thickening of the gastric wall. Thickened small bowel loops. Small amount of free fluid in the pelvis and perihepatic region. Electronically Signed: Tony Falcon MD at 14:56 EDT , Charges/Coding Addendum Addendum: Total time of the visit including total time spent in counseling or coordination of care, (more than 50% of the total time, spent in obtaining medical information from nurses and other ancillary care providers,explaining to the patient about labs, imaging, diagnosis and management of active complex medical conditions), , review of labs and imaging is 40 minutes. Visit Charges Inpatient E&M: 27563 Subs Hosp L3
[2024-01-22] MEDS: Acetaminophen 325 MG Tablet 650 MG PO (08:23)
--- NOTE | 2024-01-22 09:15 | CASEMGMT ---
Discharge Planning Updates sent to [facility] and [place] via [facility]. Molly Harris DC Planning Asst.
--- NOTE | 2024-01-22 09:16 | VDLE_ITS ---
Reason For Study: Bilateral leg pain RIGHT LEFT GSV is normal. GSV is normal. CFV is compressible, spontaneous, phasic, CFV is compressible, spontaneous, phasic, competent and demonstrates normal competent, and demonstrates normal augmentation. augmentation. FV is compressible, spontaneous, phasic, FV is compressible, spontaneous, phasic, competent and demonstrates normal competent and demonstrates normal augmentation. augmentation. FV distal visualized with color only, appear POP V is compressible, spontaneous, phasic, patent. Patient unable to tolerate competent and demonstrates normal compression due to large hematoma. augmentation. POP V is compressible, spontaneous, phasic, T/P Trunk is compressible. competent and demonstrates normal PTV is compressible. augmentation. LT PerV is compressible. T/P Trunk is compressible. PTV is compressible. RT PerV is compressible. Procedure This is a venous duplex using B-mode, color flow and spectral Doppler. Exam performed in department. A preliminary report was called and/or faxed to accounting bookkeeper. VL/Venous Duplex US - Dane Extrem Interpretation Summary Deep veins of the bilateral lower extremities are patent and compressible segme ntally. There is no evidence of bilateral lower extremity deep vein thrombosis. The bilateral great saphenous veins appear patent and compressible segmentally. Ordering Physician: Wood Rich Performed By: Yokasta Castaneda RVT
--- NOTE | 2024-01-22 10:00 | CASEMGMT ---
[facility] has declined patient. LATASHA will talk with patient letting her know [facility] is the only facility that has accepted her. Per RN patient continues to intermittently refuse Lasix. LATASHA met with patient. Introduced self and role at [facility]. Patient was holding her phone and SW said SW can come back as SW did not realize she was on the phone. Patient told SW I am not I am just scrolling on Facebook (SW did notice towards end of SW's visit that patient did have an active phone call while SW in the room). LATASHA told patient referrals were made to [facility], [facility], [place], and [place] and [facility] is the only one that said yes. Patient was in agreement with [facility]. Patient said she is not ready to go anywhere due to the pain from her swollen legs. Patient said the doctor said he was going to put her on continuous IV Lasix. Patient stated she refused and said, Why so I can constantly piss myself. SW told patient she needs to take the Lasix that is how the fluid will get pulled off. Patient then said it doesn't work. It is not taking the fluid off. LATASHA will ask [facility] to please start pre-cert. Plan: d/c to [facility] under intermediate level of care pending insurance approval. Yessenia Pollard ARTIFICIAL INSEMINATION TECHNICIAN DEE DEE
--- NOTE | 2024-01-22 10:03 | CASEMGMT ---
Discharge Planning [facility] declined referral. SW updated. Molly Harris DC Planning Asst.
[2024-01-22] MEDS: Pantoprazole Sodium 40 MG in 0.9% Normal Saline (100mL MB+) 100 ML 330 MG IV (11:19)
--- NOTE | 2024-01-22 11:30 | NURSING ---
This RN attempted twice to administer pt's 1000 prednisone dose on 01/21. Pt said she did not want to take medication at those times. Medication package was already opened each time, so the medication was wasted. Will try to administer medication at a later time. Pt was also made aware that Dr Rich had ordered IV lasix. Pt refused IV lasix, expressing that she was in too much pain to be voiding often from the medication. Dr Rich was made aware that pt refused IV lasix.
[2024-01-22] MEDS: Ensure Plus High Protein 120 ML LIQUID PO ×2 (15:06→22:12)
[2024-01-22 15:07] VITALS: BP 96/48; PULSE 80; RESP 18; TEMP 36.8; O2SAT 100
--- NOTE | 2024-01-22 16:44 | PN.GI_ITS ---
Subjective Subjective I discussed with the hospitalist that the patient has not been taking her diuretics and other medicines. She has become increasingly distended and is complaining of a lot of lower extremity edema. She says she wants to smoke a cigarette. She is awaiting placement Objective Data Objective Data Vital Signs: Vital Signs Temp Pulse Resp BP Pulse Ox O2 Del Method O2 Flow Rate 98.2 F 80 18 96/48 L 100 Room Air 1 01/22/24 15:01/22/24 15:01/22/24 15:01/22/24 15:01/22/24 15:01/22/24 16:36 01/14/24 06:00 Oxygen Flow Rate (L/min) 1 Oxygen Delivery Method Room Air Weight: 174 lb 13.225 oz Body Mass Index (BMI) 31.9 Intake & Output: Intake and Output for Last 24 Hours 01/20/24 01/21/24 01/22/24 23:59 23:59 23:59 Intake Total 900 / 900 490 / 490 110 / 110 Output Total 1250 / 1250 1400 / 1400 300 / 300 Balance -350 / -350 -910 / -910 -190 / -190 Lab / Micro Data 01/22/24 05:33 01/22/24 05:33 Labs: Laboratory Results - last 24 hr 01/22/24 05:33: WBC 16.4 H, RBC 2.44 L, Hgb 8.6 L, Hct 24.7 L, MCV 101.2 H, MCH 35.2 H, MCHC 34.8, RDW Std Deviation 94.0 H, RDW Coeff of Yan 26.9 H, Plt Count 99 L, MPV 11.8, Immature Gran % (Auto) 2.800 H, Neut % (Auto) 89.0 H, Lymph % (Auto) 2.1 L, Snyder % (Auto) 5.8, Eos % (Auto) 0.0, Baso % (Auto) 0.3, Absolute Neuts (auto) 14.6 H, Absolute Lymphs (auto) 0.35 L, Nucleated RBC % 0, Differential Comment SCANNED, Platelet Estimate ADEQUATE, Sodium 137, Potassium 3.4 L, Chloride 101, Carbon Dioxide 29.0, Anion Gap 7, BUN 37 H, Creatinine 0.87, Estim Creat Clear Calc 91.38, Est GFR (MDRD) Af Amer 97, Est GFR (MDRD) Non-Af 80, BUN/Creatinine Ratio 42.6 H, Glucose 117 H, Calcium 8.4 L, Total Bilirubin 22.00 H*, AST 159 H, ALT 246 H, Alkaline Phosphatase 162 H, Total Protein 5.4 L, Albumin 2.1 L, Globulin 3.3, Albumin/Globulin Ratio 0.6 L Micro: Microbiology 01/09/24 10:25 Blood Culture (Wb) - Arm Left Blood Culture - Final No growth in 5 days. 01/09/24 09:54 Blood Culture (Wb) - Left Forearm Blood Culture - Final No growth in 5 days. 01/09/24 13:01 Urine, Clean Catch Urine Culture - Final Escherichia coli 01/10/24 02:15 Stool Stool Occult Blood (ESTRELLITA) - Final Occult Blood Positive 01/10/24 02:15 Stool Enteric Bacteriology - Final 01/10/24 02:15 Stool C. difficile GDH Antigen & Toxins - Final Toxigenic C. difficile 01/10/24 02:15 Stool Clostridioides difficile (PCR) - Final Radiography Diagnostic Testing: Radiology Impression Venous Doppler Study 01/22/24 09:16 Interpretation Summary Deep veins of the bilateral lower extremities are patent and compressible segmentally. There is no evidence of bilateral lower extremity deep vein thrombosis. The bilateral great saphenous veins appear patent and compressible segmentally. Ordering Physician: Wood Rich Performed By: Yokasta Castaneda RVT Physical Exam Narrative Seen and examined. . Physical exam General: Alert, Oriented x3, Cooperative HEENT: Icterus, jaundice. Atraumatic, PERRLA, EOMI, Normocephalic Oral: No Gingival or Mucosal Lesions/ Ulcerations Neck: Supple, No JVD, Negative Carotid Bruits Chest wall/Lungs: Air entry diminished in bilateral lung bases. No crepitation/rhonchi Cardiovascular: Regular rate, Regular Rhythm, Normal S1, Normal S2, No M/G/R Abdomen: Bowel Sounds Present, Soft, Non Tender, Non-Distended : No dysuria. No renal angle tenderness. No suprapubic tenderness. Extremities: 4+ bilateral lower extremity pitting edema, Capillary Refill Less than 3 Seconds Skin: Large subcutaneous hematoma on right medial thigh. Nontender. Jaundice. Musculoskeletal: No Tenderness to Palpation of Joints or Extremities Neurological: Cranial nerves II-XII grossly intact, DTR 2+/4. No acute focal neurological deficit. Psych/Mental Status: Flat affect. Assessment & Plan Assessment/Plan (1) Shock: (2) C. difficile colitis: (3) Alcoholic hepatitis: QUALIFIERS: Ascites presence: unspecified Qualified Code(s): K 70.10 - Alcoholic hepatitis without ascites PLAN: Plan 33-year-old female with history of alcohol abuse and possible alcoholic cirrhosis presents with intermittent episodes of hematemesis and discovered to have severe jaundice, abdominal pain, severe anemia and coagulopathy consistent with of acute liver injury and and shock Agree with her currently experiencing shock likely hemorrhagic shock. She has not had any more episodes of vomiting or hematemesis. Also the differential diagnosis is b septic shock possible or mild DIC secondary to hepatobiliary sepsis and/or pancolitis that was seen on the CT scan abdomen pelvis. Patient started on broad-spectrum IV antibiotic Zosyn for gram-positive, gram-negative aerobic and anaerobic bacteria. Patient had 1 dose of IV ceftriaxone in the ER. Plan is to perform an upper endoscopy tomorrow. Unless she becomes more hemodynamically unstable I would like her to have antibiotics and have doses of PPI and octreotide. Acute on chronic liver injury, severe acute alcoholic hepatitis with history of chronic alcoholic hepatitis: Liver chemistry shows total bilirubin 21.6, INR 1.5 with Madrey's discriminant function 48.3 showing poor prognosis. Patient not candidate for steroid because of possible septic shock. She is also not a candidate for N-acetylcysteine at this time because monotherapy with N- acetylcysteine and an acute alcoholic injury or been toxic finally do not have a long-term improvement or decrease length of stay in the hospital Pancolitis, possible infectious, but likely ischemic: CT abdomen shows pancolitis, mild thickening of multiple small bowel loops, diffuse thickening of gastric wall. Patient on IV antibiotic. Enteric bacteriology panel, C. difficile ordered. 01/10/2024-The patient underwent and upper endoscopy at the bedside. She was discovered to have large Iliana Tobar tear. They were no esophageal gastric or doudenal varices. She did have alcoholic and stress induced gastritis without any sign of recent hemorrhage. There were no ulcerations seen in the upper GI tract. She did have hemorrhagic esophagitis that was also seen. She still remains on pressors and receive stress dose steroids today for septic shock. Her severe alcoholic hepatitis is getting worse corresponding with the decrease completely count, increase INR and Bilirubin with the picture of DIC multifactorial from acute alcoholic hepatitis, and now discovered severe pain colitis associated with Cdiff. I am suspecting that she has elements of homolysis secondary to severe alcoholic hepatitis was as a unfortunate complication. She did receive blood transfusion today. Severe alcoholic hepatitis is defined by modified discriminant function >=2, is the most severe form of alcohol-induced liver disease and is associated with a 1-month mortality rate of around 30%. Corticosteroid treatment remains the only therapeutic option that improves short-term survival. Infectious complications, occurring in approximately 50% of patients, are the main causes of , even in patients who benefit from corticosteroids. Although infection is a well-described feature of cirrhosis, little is known about the characteristics of infections in SAH. Infection is mainly of bacterial origin and frequently affects the respiratory tract. Pathogens classically observed in cirrhosis, such as gram-negative bacilli, are frequently involved, but opportunistic pathogens, such as fungi (Aspergillus fumigatus, Pneumocystis jirovecii) or viruses (Cytomegalovirus, Herpes simplex) may appear, mainly related to corticosteroid treatment. She is on broad spectrum antibiotics at this time. She continues to be febrile. Recommendations: -low threshold for diagnostic paracentesis. -Check INR. -Start xifaxan 500 mg PO BID and lactulose 30 cc BID -Check ammonia level 01/11/2024-I had a talk with the family at the bedside and told him how sick she is. I explained to her with her very high modified discriminant score she has a almost 50% mortality due to severe alcoholic hepatitis in the setting of sepsis. She remains on vancomycin and fortunately has been able to be weaned off of pressors. She is on hydrocortisone prophylaxis. She is still bicytopenia with hemoglobin slightly down to 8.2 from 9.5 and platelet count of 53,000. Kidney function has improved which is a good sign. Her INR is down to 1.7 from 1.8. Her ammonia went from 62-48 which is also a good sign. Hopefully she will continue to improve. No clear need for paracenteses on exam. Mental status cannot be assessed at that time. Recommendations: -Continue to monitor INR, LFTs. -Continue to monitor ammonia -Continue current medications 01/12/2024-patient has worsening auto mental status. Her ammonia level is basically the same it went from 62-40 8-45. She is on prophylaxis for hyperammonemia. She is incoherent. Her bilirubin improved slightly to 21. That did help her overall numbers but clinically she looks a little worse. She is developing worsening pancytopenia. Her INR is the same at 1.7. Creatinine remains normal which is also a good sign Recommendations: -Liver biopsy to see if there is any sign of necrosis -Autoimmune labs are pending -Continue to monitor INR, LFTs, CBC -Guarded prognosis 01/15/2024-patient had liver biopsy. Liver, CT guided core biopsy: Consistent with cirrhosis. Extensive macro- and microvesicular steatosis. The patient's INR is holding at 1.7. His bilirubin still severely elevated secondary to alcoholic hepatitis. She is on treatment for C. difficile. I will start her on oral prednisone for alcoholic hepatitis to try to treat the remaining liver parenchyma that has extensive macro and microvesicular steatosis at this time. -Continue to monitor INR, LFTs. -Continue to monitor ammonia -Continue current medications 01/16/2024-patient is very edematous. She is on Lasix. And she is on Aldactone. Both of those will need to be increased. She is third spacing a lot of fluid secondary to cirrhosis and acute liver injury in the setting of acute alcoholic hepatitis with cirrhosis and volume loss from C. difficile colitis. She was started on oral prednisone. Hydrocortisone can be DC'd. -Continue to monitor INR, LFTs. -Continue to monitor ammonia -Continue current medications -Her Lasix goal should be 160 and her Aldactone goal should be 100. -Strict I's and O's -No more than 500 mg of sodium per d 01/17/2024 -her INR went down to 1.6. I think that correlates with a little bit better nutrition. She does complain of some bloating and abdominal pain. Her bilirubin increased to 26,000 today. She is having more and then output. Small bowel movement today. She still continues to take vancomycin. And she will be off of it soon. -Continue prednisone-I will calculate a Lucy score after 4 days of being on steroids to see if it is advantageous to continue it -Continue to monitor ammonia -Continue current medications -Her Lasix goal should be 160 and her Aldactone goal should be 100. -Strict I's and O's -No more than 500 mg of sodium per day 01/18/2024- Her Platelets are improving on steroids. Bilirubin and MADRE score is the same. INR is the same which also a very good sign. Continue prednisone-Calculate a Lucy score tomorrow -Continue to monitor ammonia -Continue current medications -Her Lasix goal should be 160 and her Aldactone goal should be 100. -Strict I's and O's -No more than 500 mg of sodium per day 01/19/2024- I talked with the patient and her girlfriend regarding her prognosis and 30 to 90 day mortality. Continue prednisone- Lille Model risk stratifies patients already receiving steroids for alcoholic hepatitis treatment for 7 days to predict which will not improve and should be considered for other management strategies. All values besides 7-day bilirubin are taken from admission. Her score is 7. A Lille score at Day 4 greater than 0.45 can raise the risk of mortality by 7.2 times. Patients with liver cirrhosis have a higher risk of infections. -Continue to monitor ammonia -Continue current medications -Her Lasix goal should be 160 and her Aldactone goal should be 100. -Strict I's and O's -No more than 500 mg of sodium per day 01/20/2024-patient is not talking much today. She is waiting for retirement facility placement. She will need long-term prednisone to continue as an outpatient until she is followed up in the clinic with 40 mg of prednisone a day. -Continue to monitor ammonia -Continue current medications -Her Lasix goal should be 160 and her Aldactone goal should be 100. -Strict I's and O's -No more than 500 mg of sodium per day 01/22/2024-patient is positive about 8 L. She needs to get aggressively diuresed. She also needs concomitant Aldactone. She still has severe hyperbilirubinemia but her platelet count is responding very well to prednisone. However I think it could be contributing to her lower extremity swelling. Lasix was restarted by primary team. -Continue to monitor ammonia -Continue current medications -Her Lasix goal should be 160 and her Aldactone goal should be 100. -Strict I's and O's -No more than 500 mg of sodium per day Charges/Coding Visit Charges Inpatient E&M: 57434 Subs Hosp L3
--- NOTE | 2024-01-22 19:00 | NURSING ---
Patient demanding PICC line to be taken out and wants to leave to go home. This RN advised patient that she can not leave unless signing out AMA. Patient also advised that it is shift change (1900) and there is a new nurse on that needs to be given a report and discuss about her wanting to leave as well as physician that needs to be notified and possibly come talk to you. Patient became frustrated and states she will just leave and take out PICC line herself. This RN informed patient that she can not do that due to risk of bleeding and damage to vessels. Patient informed she can not leave with PICC line in. Patient informed this RN will not take PICC line out without talking with RN assuming her care and the physician. Patient advised this is a process and needs to wait until MD talks with her. Patient stated she will not wait hours. Report given to RENETTA Kate on this matter.
--- NOTE | 2024-01-22 19:49 | NURSING ---
Daysohft RN reported to this RN about pt wanting to leave. Was told that pt was refusing care and medicine. Pt was wanting to leave and wanting her PICC line removed, stating she would leave with the PICC line or rip it out. After report this RN went to talk to pt, but the pt wanted to talk to a doctor, wanting her PICC removed, and leave. This RN advised pt against leaving, educating pt on the risk of leaving. This RN then went to message the physician for the night to see with pt.
--- NOTE | 2024-01-22 20:26 | PN.RENAL_ITS ---
Subjective Subjective no new events Objective Data Objective Data Vital Signs: Vital Signs Temp Pulse Resp BP Pulse Ox O2 Del Method O2 Flow Rate 98.2 F 80 18 96/48 L 100 Room Air 1 01/22/24 15:07 01/22/24 15:07 01/22/24 15:07 01/22/24 15:07 01/22/24 15:07 01/22/24 16:36 01/14/24 06:00 Oxygen Flow Rate (L/min) 1 Oxygen Delivery Method Room Air Weight: 79.3 kg Body Mass Index (BMI) 31.9 Intake & Output: Intake and Output for Last 24 Hours 01/20/24 01/21/24 01/22/24 23:59 23:59 23:59 Intake Total 900 / 900 490 / 490 110 / 110 Output Total 1250 / 1250 1400 / 1400 300 / 300 Balance -350 / -350 -910 / -910 -190 / -190 Lab / Micro Data 01/22/24 05:33 01/22/24 05:33 Labs: Laboratory Results - last 24 hr 01/22/24 05:33: WBC 16.4 H, RBC 2.44 L, Hgb 8.6 L, Hct 24.7 L, MCV 101.2 H, MCH 35.2 H, MCHC 34.8, RDW Std Deviation 94.0 H, RDW Coeff of Yan 26.9 H, Plt Count 99 L, MPV 11.8, Immature Gran % (Auto) 2.800 H, Neut % (Auto) 89.0 H, Lymph % (Auto) 2.1 L, Wetzel % (Auto) 5.8, Eos % (Auto) 0.0, Baso % (Auto) 0.3, Absolute Neuts (auto) 14.6 H, Absolute Lymphs (auto) 0.35 L, Nucleated RBC % 0, Differential Comment SCANNED, Platelet Estimate ADEQUATE, Sodium 137, Potassium 3.4 L, Chloride 101, Carbon Dioxide 29.0, Anion Gap 7, BUN 37 H, Creatinine 0.87, Estim Creat Clear Calc 91.38, Est GFR (MDRD) Af Amer 97, Est GFR (MDRD) Non-Af 80, BUN/Creatinine Ratio 42.6 H, Glucose 117 H, Calcium 8.4 L, Total Bilirubin 22.00 H*, AST 159 H, ALT 246 H, Alkaline Phosphatase 162 H, Total Protein 5.4 L, Albumin 2.1 L, Globulin 3.3, Albumin/Globulin Ratio 0.6 L Micro: Microbiology 01/09/24 10:25 Blood Culture (Wb) - Arm Left Blood Culture - Final No growth in 5 days. 01/09/24 09:54 Blood Culture (Wb) - Left Forearm Blood Culture - Final No growth in 5 days. 01/09/24 13:01 Urine, Clean Catch Urine Culture - Final Escherichia coli 01/10/24 02:15 Stool Stool Occult Blood (ESTRELLITA) - Final Occult Blood Positive 01/10/24 02:15 Stool Enteric Bacteriology - Final 01/10/24 02:15 Stool C. difficile GDH Antigen & Toxins - Final Toxigenic C. difficile 01/10/24 02:15 Stool Clostridioides difficile (PCR) - Final Radiography Diagnostic Testing: Radiology Impression Venous Doppler Study 01/22/24 09:16 Interpretation Summary Deep veins of the bilateral lower extremities are patent and compressible segmentally. There is no evidence of bilateral lower extremity deep vein thrombosis. The bilateral great saphenous veins appear patent and compressible segmentally. Ordering Physician: Wood Rich Performed By: Yokasta Castaneda RVT Physical Exam Narrative Alert awake oriented x 3 no obvious distress no pallor no icterus no JVD s1s2 no murmurs lungs clear abdomen soft no organomegaly +++ edema no cyanosis Assessment & Plan Assessment/Plan (1) CRICKET (acute kidney injury): (2) Anasarca: (3) Hypokalemia: PLAN: Plan Impression/Plan: The patient is a 33-year-old female with past medical history significant for chronic alcohol abuse who presented to the emergency room for generalized weakness, feeling unwell. Admitted to ICU for acute on chronic liver injury, severe acute alcoholic hepatitis, and combination septic and hemorrhagic shock. She was initially on IV pressor support. Fortunately hemodynamically patient has improved and is out of ICU. Patient is being followed by GI. Patient had liver biopsy consistent with cirrhosis. Patient underwent EGD with findings large Iliana-Tobar tear, no esophageal, gastric or duodenal varices, hemorrhagic esophagitis seen. Acute kidney injury. Resolved. There is no history of CKD. Patient has normal baseline creatinine, serum creatinine 0.43 mg/dL on 12/16/2023. SCr peaked at 1.92 mg/dL on 01/09/24. CRICKET was prerenal realted to circulatory shock. Renal function has improved back to normal with improvement of hemodynamics. SCr is 0.98 mg/dL today. Anasarca. Secondary to cirrhosis/low oncotic pressure (serum albumin is 2.1 g/dL). Responding well to spironolactone and furosemide. primary note reviewed. not a candidate for liver txp eval
[2024-01-22 22:08] VITALS: BP 110/56; PULSE 76; RESP 18; TEMP 36.6; O2SAT 100
[2024-01-22] MEDS: Menthol/Lanolin/Calamine/Znox 113 GM Tube 1 APPLIC TOPICAL (22:12)
--- NOTE | 2024-01-23 00:38 | PN.HOSP_ITS ---
Hospitalist Note Notified by nursing staff denies that patient was disappointed with having to remain in the hospital and was wanting to leave. She was reportedly saying that she would pull her PICC line out and leave AGAINST MEDICAL ADVICE if needed. Nursing staff was able to get her to remain in the hospital. I saw the patient at the bedside to discuss further. She noted that she was tired of being in the hospital and feeling like she could not leave. She understood that she continues to have significant edema of her bilateral legs but has refused se veral doses of Lasix because she has been peeing all over herself. She is able to get up and go to the bathroom with one-person assist but states it has been very tiring for her to do this so often on the Lasix. On my review of notes, it appears that the significant edema is a large barrier to her discharge. Patient was agreeable to having Kearney catheter placed for aggressive diuresis with IV Lasix with a plan to have Kearney removed prior to discharge. Will place Kearney tonight and give dose of IV Lasix, followed by further IV Lasix dosing tomorrow morning.
[2024-01-23] MEDS: Furosemide 80 MG Tablet PO (01:31)
[2024-01-23] MEDS: Nicotine Polacrilex 2 MG GUM PO (01:31)
[2024-01-23 02:07] VITALS: BP 109/59; PULSE 78; RESP 18; TEMP 37.1; O2SAT 100
[2024-01-23] MEDS: HYDROmorphone 0.5 MG/0.5 ML SYRINGE IV ×3 (02:08→21:17)
[2024-01-23 04:43] VITALS: BMI 31.8
[2024-01-23 05:18] VITALS: BP 112/60; PULSE 68; RESP 18; TEMP 36.5; O2SAT 100
[2024-01-23] MEDS: Vancomycin 125 MG/5 ML Susp PO.SYRINGE 500 MG PO ×4 (05:20→23:49)
[2024-01-23 08:56] LABS: Absolute Lymphocyte Count 0.43 X10^3/uL (0.83-4.51); Absolute Neutrophil Count 12.7 X10^3/uL (2.0-7.7); Basophil# 0.02 X10^3/uL; Basophil% 0.1 % (0-1); Differential Indicated SCAN CRITERIA MET; Eosinophil# 0.02 X10^3/uL; Eosinophils% 0.1 % (0-5); Hematocrit 24.6 % (37-47); Hemoglobin 8.4 g/dL (12.0-15.0); Lymphocyte # 0.43 X10^3/ul (0.83-4.51); Lymphocyte % 3.1 % (19-41); Mean Corp Hgb Conc 34.1 g/dL (32-36); Mean Corpuscular Hgb 34.7 pg (27.0-32.0); Mean Corpuscular Volume 101.7 fL (81-99); Mean Platelet Vol. 12.9 fl (6.2-12.0); Monocyte# 0.48 X10^3/uL; Monocyte% 3.5 % (0-10); NRBC Flagged by Analyzer 0 % (0-5); Neutrophil # 12.69 X10^3/uL (2.7-7.7); POSITIVE COUNT YES; POSITIVE DIFFERENTIAL YES; POSITIVE MORPHOLOGY YES; Platelet Count 87 K/mm3 (150-450); RBC Distribution Width CV 26.7 % (11.6-14.6); RBC Distribution Width SD 94.6 fl (35.1-43.9); Red Blood Count 2.42 M/mm3 (4.2-5.4); White Blood Count 13.8 K/mm3 (4.4-11.0)
[2024-01-23 09:05] LABS: International Normalized Ratio 1.3; Prothrombin Time (Protime)PT. 15.8 SECONDS (11.7-14.9)
[2024-01-23 09:06] LABS: Partial Thromboplast Time 30.7 Seconds (24.1-36.2)
[2024-01-23 09:24] LABS: Anisocytosis 2+; Differential Comment SCANNED; Platelet Estimate MOD DEC (ADEQ)
[2024-01-23] MEDS: Thiamine Hydrochloride 100 MG Tablet PO (09:24)
[2024-01-23] MEDS: Furosemide 40 MG/4 ML Vial IV ×2 (09:24→14:09)
[2024-01-23] MEDS: Folic Acid 1 MG Tablet PO (09:24)
[2024-01-23] MEDS: Spironolactone 50 MG Tablet 100 MG PO (09:24)
[2024-01-23] MEDS: Menthol/Lanolin/Calamine/Znox 113 GM Tube 1 APPLIC TOPICAL ×2 (09:25→21:13)
[2024-01-23] MEDS: Ensure Plus High Protein 120 ML LIQUID PO ×3 (09:25→17:58)
[2024-01-23] MEDS: predniSONE 20 MG Tablet 40 MG PO (09:25)
[2024-01-23] MEDS: Pantoprazole Sodium 40 MG Tablet PO ×2 (09:26→21:13)
[2024-01-23] MEDS: oxyCODONE 5 MG Tablet PO (09:26)
[2024-01-23] MEDS: hydrOXYzine PAM 25 MG Capsule 50 MG PO (09:26)
[2024-01-23 09:55] LABS: AST(SGOT) 165 U/L (15-37); Alanine Aminotransfer ALT/SGPT 232 U/L (13-56); Albumin, Serum 1.9 g/dL (3.2-5.0); Alkaline Phosphatase 157 U/L (45-117); Anion Gap 7 (5-15); BUN 34 mg/dL (7-18); BUN/Creat Ratio 36.6 RATIO (10-20); Bilirubin, Direct 18.24 mg/dL (0.00-0.30); Calcium,Total 8.4 mg/dL (8.5-10.1); Chloride 95 mmol/L (98-107); Creatinine, Serum 0.93 mg/dL (0.55-1.02); EST Glomerular Filtration Rate 74 mL/min (>60); Est Glom Filt Rate - Afr Amer 90 mL/min (>60); Estimated Creatinine Clearance 85.37 ml/min; Globulin 3.3 g/dL (2.2-4.2); Glucose 99 mg/dL (74-106); Potassium 3.3 mmol/L (3.5-5.1); Protein, Total 5.2 g/dL (6.4-8.2); Sodium Level 135 mmol/L (136-145)
--- NOTE | 2024-01-23 10:22 | CASEMGMT ---
Insurance is requesting [id number] or PASRR. SW completed a PASRR and sent it to [facility] via [employer]. Plan: d/c to [facility] pending insurance approval. Yessenia FUNEZ
[2024-01-23 13:22] VITALS: BP 100/56; PULSE 68; RESP 16; TEMP 36.6; O2SAT 99
--- NOTE | 2024-01-23 13:35 | CASEMGMT ---
Discharge Planning [facility] has obtained auth to admit. SW updated. Molly Harris DC Planning Asst.
[2024-01-23] MEDS: 0.9% Saline Lock 10 ML Syringe IV (14:09)
--- NOTE | 2024-01-23 14:10 | WOUNDNOTE ---
wound photo: right foot
--- NOTE | 2024-01-23 14:11 | WOUNDNOTE ---
skin photo: right leg
--- NOTE | 2024-01-23 14:28 | CASEMGMT ---
Physician notified patient was approved for SNF. However, patient is not medically ready today. [facility] updated. Yessenia Pollard SUBACUTE NURSE DEE DEE
--- NOTE | 2024-01-23 16:05 | PCM.PN.HOSP ---
Reason for Visit Reason for Visit: Diagnoses Enterocolitis due to Clostridium difficile, not specified as recurrent (01/09/24) Hypokalemia (01/09/24) Alcoholic hepatitis without ascites (01/09/24) Acute kidney failure, unspecified (01/09/24) Anuria and oliguria (01/09/24) Shock, unspecified (01/09/24) Generalized edema (01/09/24) Objective Data Objective Data Vital Signs: Vital Signs Temp Pulse Resp BP Pulse Ox O2 Del Method O2 Flow Rate 97.9 F 68 16 100/56 L 99 Room Air 1 01/23/24 13:22 01/23/24 13:22 01/23/24 13:22 01/23/24 13:22 01/23/24 13:22 01/23/24 13:22 01/14/24 06:00 Oxygen Flow Rate (L/min) 1 Oxygen Delivery Method Room Air Weight: 174 lb 6.17 oz Body Mass Index (BMI) 31.8 Intake & Output: Intake and Output for Last 24 Hours 01/21/24 01/22/24 01/23/24 23:59 23:59 23:59 Intake Total 490 / 490 110 / 110 480 / 480 Output Total 1400 / 1400 700 / 700 2650 / 2650 Balance -910 / -910 -590 / -590 -2170 / -2170 Lab / Micro Data 01/23/24 08:40 01/23/24 08:40 Labs: Laboratory Results - last 24 hr 01/23/24 08:40: WBC 13.8 H, RBC 2.42 L, Hgb 8.4 L, Hct 24.6 L, MCV 101.7 H, MCH 34.7 H, MCHC 34.1, RDW Std Deviation 94.6 H, RDW Coeff of Yan 26.7 H, Plt Count 87 L, MPV 12.9 H, Immature Gran % (Auto) 1.200 H, Neut % (Auto) 92.0 H, Lymph % (Auto) 3.1 L, Estill % (Auto) 3.5, Eos % (Auto) 0.1, Baso % (Auto) 0.1, Absolute Neuts (auto) 12.7 H, Absolute Lymphs (auto) 0.43 L, Nucleated RBC % 0, Differential Comment SCANNED, Platelet Estimate MOD DEC, Anisocytosis 2+, PT 15.8 H, INR 1.3, APTT 30.7, Sodium 135 L, Potassium 3.3 L, Chloride 95 L, Carbon Dioxide 33.0 H, Anion Gap 7, BUN 34 H, Creatinine 0.93, Estim Creat Clear Calc 85.37, Est GFR (MDRD) Af Amer 90, Est GFR (MDRD) Non-Af 74, BUN/Creatinine Ratio 36.6 H, Glucose 99, Calcium 8.4 L, Total Bilirubin 23.80 H*, Direct Bilirubin 18.24 H, AST 165 H, ALT 232 H, Alkaline Phosphatase 157 H, Total Protein 5.2 L, Albumin 1.9 L, Globulin 3.3 Micro: Microbiology 01/09/24 10:25 Blood Culture (Wb) - Arm Left Blood Culture - Final No growth in 5 days. 01/09/24 09:54 Blood Culture (Wb) - Left Forearm Blood Culture - Final No growth in 5 days. 01/09/24 13:01 Urine, Clean Catch Urine Culture - Final Escherichia coli 01/10/24 02:15 Stool Stool Occult Blood (ESTRELLITA) - Final Occult Blood Positive 01/10/24 02:15 Stool Enteric Bacteriology - Final 01/10/24 02:15 Stool C. difficile GDH Antigen & Toxins - Final Toxigenic C. difficile 01/10/24 02:15 Stool Clostridioides difficile (PCR) - Final Physical Exam Narrative Seen and examined. Nursing note reviewed. Patient wanted to sign AMA yesterday evening but nighttime hospitalist reconciled the patient and she agreed to stay. She agreed to take Lasix only when she has a Kearney catheter. Kearney catheter was inserted last night. Started on Lasix 40 mg IV every 8 hourly but changed to IV Lasix drip because blood pressure is also low 100/56. Patient has alcoholic cirrhosis on biopsy with splanchnic vasodilatation and portal hypertension. Not candidate for liver transplant. Physical exam General: Alert, Oriented x3, Cooperative HEENT: Icterus, jaundice. Atraumatic, PERRLA, EOMI, Normocephalic Oral: No Gingival or Mucosal Lesions/ Ulcerations Neck: Supple, No JVD, Negative Carotid Bruits Chest wall/Lungs: Air entry diminished in bilateral lung bases. No crepitation/rhonchi Cardiovascular: Regular rate, Regular Rhythm, Normal S1, Normal S2, No M/G/R Abdomen: Bowel Sounds Present, Soft, Non Tender, Non-Distended : No dysuria. No renal angle tenderness. No suprapubic tenderness. Extremities: 4+ bilateral lower extremity pitting edema, Capillary Refill Less than 3 Seconds Skin: Large subcutaneous hematoma on right medial thigh as petechial morphology. Nontender. Jaundice. Musculoskeletal: No Tenderness to Palpation of Joints or Extremities Neurological: Cranial nerves II-XII grossly intact, DTR 2+/4. No acute focal neurological deficit. Psych/Mental Status: Flat affect. Assessment & Plan Assessment/Plan (1) Shock: PLAN: Plan This is a 33-year-old female is being admitted in ICU for severe jaundice, abdominal pain, severe anemia and coagulopathy consistent with of acute liver injury and and shock 1. Shock likely hemorrhagic shock but possible septic shock possible due to hepatobiliary sepsis and/or pancolitis: Patient is being admitted in ICU. The patient presented with possible septic shock with clinical indicators of Low-grade fever Tmax 100.2 Fahrenheit, tachycardia, tachypnea due to hepatobiliary sepsis/acute liver injury with acute sepsis-related organ dysfunction as evidenced by hypotension not responsive to IV fluid, requiring vasopressor, coagulopathy, severe thrombocytopenia, hyperbilirubinemia. Patient started on broad-spectrum IV antibiotic Zosyn for gram-positive, gram-negative aerobic and anaerobic bacteria. Patient had 1 dose of IV ceftriaxone in the ER. Wholesaler and GI consulted. ABG was not done but VBG shows 7.56/20/total bicarb 18. Anion gap 14. Overall suggestive of high anion gap metabolic acidosis with respiratory alkalosis. 01/21: Resolved from septic shock. Transfer from ICU to PCU. Had EGD on 01/10/2024 Impressions : - Iliana-Tobar tear. Clip was placed. 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 - Normal stomach. - Normal first portion of the duodenum. - No specimens collected. 2. Acute liver injury, severe acute alcoholic hepatitis progressed to alcoholic cirrhosis, biopsy-proven: CT abdomen shows hepatomegaly with diffuse heterogenous, fatty infiltration and splenomegaly. Liver chemistry shows total bilirubin 21.6, INR 1.5 with Madrey's discriminant function 48.3 showing poor prognosis. 01/21, at the time of admission patient was not candidate for steroid because of possible septic shock. After the resolution of septic shock, she was started on prednisone 40 mg daily. Discussed with Dr. Dyson. He had already talked to patient's girlfriend and family members and they understand the poor prognosis with nonadherence, refusal to medical advice and still wants to drink alcohol. Patient has severe bilateral lower extremity edema probably due to increased portal hypertension. Patient not related to furosemide 40 mg 3 times daily therefore was changed to furosemide drip 10 mg/h. Patient refused for IV drip as she does not want to cooperate with voiding urine. Later on changed to furosemide 80 mg twice daily. 01/22: Overnight Kearney catheter was inserted as patient did not want to void spontaneously because of lower extremity edema and discomfort. Oral Lasix changed to 40 mg IV every 8 hourly but since blood pressure on lower side therefore started on IV drip. Poor prognosis with high mortality rate and increases more if patient is nonadherent and noncompliant. 3. Pancolitis, due to C. difficile: CT abdomen shows pancolitis, mild thickening of multiple small bowel loops, diffuse thickening of gastric wall. On vancomycin. 4. Electrolyte abnormality, hyponatremia, hypokalemia: Electrolytes have gotten better. Sodium 137. K3.4. Mild hypokalemia potassium mid-October. 5. CRICKET, possible prerenal but at risk for ATN, possible HRS: BUN/creatinine 10/1.58. BUNs/creatinine ratio 6.3. Previous creatinine was 0.43 on December 16, 2023. Patient has Kearney catheter. Strict intake and output. Patient was on octreotide drip. 01/21 CRICKET resolved. BUNs/creatinine 37/0.87. 6. Coagulopathy and severe thrombocytopenia due to severe liver disease: INR 1.5. Platelet count is 58,000. Patient platelet count was low on December 15 56,000 and was 146,000 and infiltrate 2022. 01/22: Large subcutaneous hematoma/petechial hemorrhage noted for last 2 days. Vascular surgery is consulted. INR 1.3. Platelet count 87,000. 7. DVT prophylaxis: Bilateral SCDs. Pharmacological prophylaxis contraindicated. Living will/advanced directive/end of life care: Patient does not have living will or advanced directive. Patient is accompanied with her girlfriend. After discussion of benefits/risks procedures involved with full code, DNR CC arrest and DNR CC, the patient Opted for full code. Patient does want artificial life support including intubation, tube feed, ventilator and/chest compression, central venous catheter, vasopressor and DC shock if needed Total time spent in [id number] encounter in discussion of advanced directive 17 minutes. Laboratory Results 01/23/24 08:40: WBC 13.8 H, RBC 2.42 L, Hgb 8.4 L, Hct 24.6 L, MCV 101.7 H, MCH 34.7 H, MCHC 34.1, RDW Std Deviation 94.6 H, RDW Coeff of Yan 26.7 H, Plt Count 87 L, MPV 12.9 H, Immature Gran % (Auto) 1.200 H, Neut % (Auto) 92.0 H, Lymph % (Auto) 3.1 L, Estill % (Auto) 3.5, Eos % (Auto) 0.1, Baso % (Auto) 0.1, Absolute Neuts (auto) 12.7 H, Absolute Lymphs (auto) 0.43 L, Nucleated RBC % 0, Differential Comment SCANNED, Platelet Estimate MOD DEC, Anisocytosis 2+, PT 15.8 H, INR 1.3, APTT 30.7, Sodium 135 L, Potassium 3.3 L, Chloride 95 L, Carbon Dioxide 33.0 H, Anion Gap 7, BUN 34 H, Creatinine 0.93, Estim Creat Clear Calc 85.37, Est GFR (MDRD) Af Amer 90, Est GFR (MDRD) Non-Af 74, BUN/Creatinine Ratio 36.6 H, Glucose 99, Calcium 8.4 L, Total Bilirubin 23.80 H*, Direct Bilirubin 18.24 H, GGT Pending, AST 165 H, ALT 232 H, Alkaline Phosphatase 157 H, Total Protein 5.2 L, Albumin 1.9 L, Globulin 3.3 Clinical Impression(s) from Imaging Studies Chest X-Ray 01/09/24 09:40 IMPRESSION: No radiographic evidence of acute cardiopulmonary disease. Electronically Signed: Xochitl King MD at 9:50 EDT , Chest/Abdomen/Pelvis CTA 01/09/24 12:00 IMPRESSION: Hepatomegaly and diffuse fatty infiltration of the liver with the heterogeneities in appearance. Mild splenomegaly. Pancolitis. Diffuse thickening of the gastric wall. Thickened small bowel loops. Small amount of free fluid in the pelvis and perihepatic region. Electronically Signed: Tony Falcon MD at 14:56 EDT , Charges/Coding Visit Charges Inpatient E&M: 65566 Subs Hosp L3
--- NOTE | 2024-01-23 16:18 | EX.PCM.PN.GI ---
Subjective Subjective Patient states that she wants to leave the hospital. She was going to leave [facility] but was convinced to stay in the hospital. Objective Data Objective Data Vital Signs: Vital Signs Temp Pulse Resp BP Pulse Ox O2 Del Method O2 Flow Rate 97.9 F 68 16 100/56 L 99 Room Air 1 01/23/24 13:22 01/23/24 13:22 01/23/24 13:22 01/23/24 13:22 01/23/24 13:22 01/23/24 13:22 01/14/24 06:00 Oxygen Flow Rate (L/min) 1 Oxygen Delivery Method Room Air Weight: 174 lb 6.17 oz Body Mass Index (BMI) 31.8 Intake & Output: Intake and Output for Last 24 Hours 01/21/24 01/22/24 01/23/24 23:59 23:59 23:59 Intake Total 490 / 490 110 / 110 480 / 480 Output Total 1400 / 1400 700 / 700 2650 / 2650 Balance -910 / -910 -590 / -590 -2170 / -2170 Lab / Micro Data 01/23/24 08:40 01/23/24 08:40 Labs: Laboratory Results - last 24 hr 01/23/24 08:40: WBC 13.8 H, RBC 2.42 L, Hgb 8.4 L, Hct 24.6 L, MCV 101.7 H, MCH 34.7 H, MCHC 34.1, RDW Std Deviation 94.6 H, RDW Coeff of Yan 26.7 H, Plt Count 87 L, MPV 12.9 H, Immature Gran % (Auto) 1.200 H, Neut % (Auto) 92.0 H, Lymph % (Auto) 3.1 L, Angelina % (Auto) 3.5, Eos % (Auto) 0.1, Baso % (Auto) 0.1, Absolute Neuts (auto) 12.7 H, Absolute Lymphs (auto) 0.43 L, Nucleated RBC % 0, Differential Comment SCANNED, Platelet Estimate MOD DEC, Anisocytosis 2+, PT 15.8 H, INR 1.3, APTT 30.7, Sodium 135 L, Potassium 3.3 L, Chloride 95 L, Carbon Dioxide 33.0 H, Anion Gap 7, BUN 34 H, Creatinine 0.93, Estim Creat Clear Calc 85.37, Est GFR (MDRD) Af Amer 90, Est GFR (MDRD) Non-Af 74, BUN/Creatinine Ratio 36.6 H, Glucose 99, Calcium 8.4 L, Total Bilirubin 23.80 H*, Direct Bilirubin 18.24 H, AST 165 H, ALT 232 H, Alkaline Phosphatase 157 H, Total Protein 5.2 L, Albumin 1.9 L, Globulin 3.3 Micro: Microbiology 01/09/24 10:25 Blood Culture (Wb) - Arm Left Blood Culture - Final No growth in 5 days. 01/09/24 09:54 Blood Culture (Wb) - Left Forearm Blood Culture - Final No growth in 5 days. 01/09/24 13:01 Urine, Clean Catch Urine Culture - Final Escherichia coli 01/10/24 02:15 Stool Stool Occult Blood (ESTRELLITA) - Final Occult Blood Positive 01/10/24 02:15 Stool Enteric Bacteriology - Final 01/10/24 02:15 Stool C. difficile GDH Antigen & Toxins - Final Toxigenic C. difficile 01/10/24 02:15 Stool Clostridioides difficile (PCR) - Final Physical Exam Narrative Seen and examined. Physical exam General: Alert, Oriented x3, Cooperative HEENT: Icterus, jaundice. Atraumatic, PERRLA, EOMI, Normocephalic Oral: No Gingival or Mucosal Lesions/ Ulcerations Neck: Supple, No JVD, Negative Carotid Bruits Chest wall/Lungs: Air entry diminished in bilateral lung bases. No crepitation/rhonchi Cardiovascular: Regular rate, Regular Rhythm, Normal S1, Normal S2, No M/G/R Abdomen: Bowel Sounds Present, Soft, Non Tender, Non-Distended : No dysuria. No renal angle tenderness. No suprapubic tenderness. Extremities: 4+ bilateral lower extremity pitting edema, Capillary Refill Less than 3 Seconds Skin: Large subcutaneous hematoma on right medial thigh as petechial morphology. Nontender. Jaundice. Musculoskeletal: No Tenderness to Palpation of Joints or Extremities Neurological: Cranial nerves II-XII grossly intact, DTR 2+/4. No acute focal neurological deficit. Psych/Mental Status: Flat affect. Assessment & Plan Assessment/Plan (1) Shock: (2) C. difficile colitis: (3) Alcoholic hepatitis: QUALIFIERS: Ascites presence: unspecified Qualified Code(s): K70.10 - Alcoholic hepatitis without ascites PLAN: Plan 33-year-old female with history of alcohol abuse and possible alcoholic cirrhosis presents with intermittent episodes of hematemesis and discovered to have severe jaundice, abdominal pain, severe anemia and coagulopathy consistent with of acute liver injury and and shock Agree with her currently experiencing shock likely hemorrhagic shock. She has not had any more episodes of vomiting or hematemesis. Also the differential diagnosis is b septic shock possible or mild DIC secondary to hepatobiliary sepsis and/or pancolitis that was seen on the CT scan abdomen pelvis. Patient started on broad-spectrum IV antibiotic Zosyn for gram-positive, gram-negative aerobic and anaerobic bacteria. Patient had 1 dose of IV ceftriaxone in the ER. Plan is to perform an upper endoscopy tomorrow. Unless she becomes more hemodynamically unstable I would like her to have antibiotics and have doses of PPI and octreotide. Acute on chronic liver injury, severe acute alcoholic hepatitis with history of chronic alcoholic hepatitis: Liver chemistry shows total bilirubin 21.6, INR 1.5 with Madrey's discriminant function 48.3 showing poor prognosis. Patient not candidate for steroid because of possible septic shock. She is also not a candidate for N-acetylcysteine at this time because monotherapy with N-acetylcysteine and an acute alcoholic injury or been toxic finally do not have a long-term improvement or decrease length of stay in the hospital Pancolitis, possible infectious, but likely ischemic: CT abdomen shows pancolitis, mild thickening of multiple small bowel loops, diffuse thickening of gastric wall. Patient on IV antibiotic. Enteric bacteriology panel, C. difficile ordered. 01/10/2024-The patient underwent and upper endoscopy at the bedside. She was discovered to have large Iliana Tobar tear. They were no esophageal gastric or doudenal varices. She did have alcoholic and stress induced gastritis without any sign of recent hemorrhage. There were no ulcerations seen in the upper GI tract. She did have hemorrhagic esophagitis that was also seen. She still remains on pressors and receive stress dose steroids today for septic shock. Her severe alcoholic hepatitis is getting worse corresponding with the decrease completely count, increase INR and Bilirubin with the picture of DIC multifactorial from acute alcoholic hepatitis, and now discovered severe pain colitis associated with Cdiff. I am suspecting that she has elements of homolysis secondary to severe alcoholic hepatitis was as a unfortunate complication. She did receive blood transfusion today. Severe alcoholic hepatitis is defined by modified discriminant function >=2, is the most severe form of alcohol-induced liver disease and is associated with a 1-month mortality rate of around 30%. Corticosteroid treatment remains the only therapeutic option that improves short-term survival. Infectious complications, occurring in approximately 50% of patients, are the main causes of , even in patients who benefit from corticosteroids. Although infection is a well-described feature of cirrhosis, little is known about the characteristics of infections in SAH. Infection is mainly of bacterial origin and frequently affects the respiratory tract. Pathogens classically observed in cirrhosis, such as gram-negative bacilli, are frequently involved, but opportunistic pathogens, such as fungi (Aspergillus fumigatus, Pneumocystis jirovecii) or viruses (Cytomegalovirus, Herpes simplex) may appear, mainly related to corticosteroid treatment. She is on broad spectrum antibiotics at this time. She continues to be febrile. Recommendations: -low threshold for diagnostic paracentesis. -Check INR. -Start xifaxan 500 mg PO BID and lactulose 30 cc BID -Check ammonia level 01/11/2024-I had a talk with the family at the bedside and told him how sick she is. I explained to her with her very high modified discriminant score she has a almost 50% mortality due to severe alcoholic hepatitis in the setting of sepsis. She remains on vancomycin and fortunately has been able to be weaned off of pressors. She is on hydrocortisone prophylaxis. She is still bicytopenia with hemoglobin slightly down to 8.2 from 9.5 and platelet count of 53,000. Kidney function has improved which is a good sign. Her INR is down to 1.7 from 1.8. Her ammonia went from 62-48 which is also a good sign. Hopefully she will continue to improve. No clear need for paracenteses on exam. Mental status cannot be assessed at that time. Recommendations: -Continue to monitor INR, LFTs. -Continue to monitor ammonia -Continue current medications 01/12/2024-patient has worsening auto mental status. Her ammonia level is basically the same it went from 62-40 8-45. She is on prophylaxis for hyperammonemia. She is incoherent. Her bilirubin improved slightly to 21. That did help her overall numbers but clinically she looks a little worse. She is developing worsening pancytopenia. Her INR is the same at 1.7. Creatinine remains normal which is also a good sign Recommendations: -Liver biopsy to see if there is any sign of necrosis -Autoimmune labs are pending -Continue to monitor INR, LFTs, CBC -Guarded prognosis 01/15/2024-patient had liver biopsy. Liver, CT guided core biopsy: Consistent with cirrhosis. Extensive macro- and microvesicular steatosis. The patient's INR is holding at 1.7. His bilirubin still severely elevated secondary to alcoholic hepatitis. She is on treatment for C. difficile. I will start her on oral prednisone for alcoholic hepatitis to try to treat the remaining liver parenchyma that has extensive macro and microvesicular steatosis at this time. -Continue to monitor INR, LFTs. -Continue to monitor ammonia -Continue current medications 01/16/2024-patient is very edematous. She is on Lasix. And she is on Aldactone. Both of those will need to be increased. She is third spacing a lot of fluid secondary to cirrhosis and acute liver injury in the setting of acute alcoholic hepatitis with cirrhosis and volume loss from C. difficile colitis. She was started on oral prednisone. Hydrocortisone can be DC'd. -Continue to monitor INR, LFTs. -Continue to monitor ammonia -Continue current medications -Her Lasix goal should be 160 and her Aldactone goal should be 100. -Strict I's and O's -No more than 500 mg of sodium per d 01/17/2024 -her INR went down to 1.6. I think that correlates with a little bit better nutrition. She does complain of some bloating and abdominal pain. Her bilirubin increased to 26,000 today. She is having more and then output. Small bowel movement today. She still continues to take vancomycin. And she will be off of it soon. -Continue prednisone-I will calculate a Lucy score after 4 days of being on steroids to see if it is advantageous to continue it -Continue to monitor ammonia -Continue current medications -Her Lasix goal should be 160 and her Aldactone goal should be 100. -Strict I's and O's -No more than 500 mg of sodium per day 01/18/2024- Her Platelets are improving on steroids. Bilirubin and MADRE score is the same. INR is the same which also a very good sign. Continue prednisone-Calculate a Lucy score tomorrow -Continue to monitor ammonia -Continue current medications -Her Lasix goal should be 160 and her Aldactone goal should be 100. -Strict I's and O's -No more than 500 mg of sodium per day 01/19/2024- I talked with the patient and her girlfriend regarding her prognosis and 30 to 90 day mortality. Continue prednisone- Lille Model risk stratifies patients already receiving steroids for alcoholic hepatitis treatment for 7 days to predict which will not improve and should be considered for other management strategies. All values besides 7-day bilirubin are taken from admission. Her score is 7. A Lille score at Day 4 greater than 0.45 can raise the risk of mortality by 7.2 times. Patients with liver cirrhosis have a higher risk of infections. -Continue to monitor ammonia -Continue current medications -Her Lasix goal should be 160 and her Aldactone goal should be 100. -Strict I's and O's -No more than 500 mg of sodium per day 01/20/2024-patient is not talking much today. She is waiting for nursing home facility placement. She will need long-term prednisone to continue as an outpatient until she is followed up in the clinic with 40 mg of prednisone a day. -Continue to monitor ammonia -Continue current medications -Her Lasix goal should be 160 and her Aldactone goal should be 100. -Strict I's and O's -No more than 500 mg of sodium per day 01/22/2024-patient is positive about 8 L. She needs to get aggressively diuresed. She also needs concomitant Aldactone. She still has severe hyperbilirubinemia but her platelet count is responding very well to prednisone. However I think it could be contributing to her lower extremity swelling. Lasix was restarted by primary team. 01/23/2024-patient has diuresed approximately 500 mL of free fluid. Her abdomen is a little bit more distended today. She is eating minimal diet on a daily basis. There was no sign of hepatocellular carcinoma on her previous imaging. Her alpha-fetoprotein is pending. She suffers from portosystemic shunt that she form spontaneously in the setting of cirrhosis. She is not taking lactulose. Would suggest Xifaxan or neomycin 500 mg twice a day. -Continue to monitor ammonia -Continue current medications -Her Lasix goal should be 160 and her Aldactone goal should be 100. -Strict I's and O's -No more than 500 mg of sodium per day Charges/Coding Visit Charges Inpatient E&M: 20412 Subs Hosp L3
[2024-01-23] MEDS: 0.9 % NaCl (Sterile) Posiflush 10 mL IV (16:32)
[2024-01-23] MEDS: Furosemide 500 MG in Empty Viaflex 50 mL 1 EACH CONT INF (16:32)
--- NOTE | 2024-01-23 16:55 | EX.PCM.CON.S ---
Assessment & Plan Assessment/Plan (1) Ecchymosis: PLAN: Plan Patient had venous duplex ultrasound. Images reviewed. Showed general diffuse edema, no focal hematoma identified. Skin integrity is intact throughout the area of ecchymosis. No surgical indication at this time. Continue to monitor. Continue to monitor lesion on the R dorsal foot. HPI Consult Data Date of Consult: 01/23/24 HPI Narrative HPI Narrative: DEANA BADILLO, is a 33 F who is admitted secondary to septic/hemorrhagic shock due to C. Diff pancolitis and acute anemia due to Iliana-Tobar tear and severe acute alcoholic hepatitis with alcoholic cirrhosis and thrombocytopenia. At lowest, PLT count was 35 7/14; today PLT 87. Hgb 8.4. She is generalized edema, most notably in her lower extremities. Per cumulative I+O she is net + 12L. IV diuresis has been initiated. We are consulted secondary to bruising/concern for hematoma on her R thigh and concerning area on her R dorsal foot. On exam, patient was quite drowsy and falling to sleep at times. Her partner was at bedside and provided history. They noticed the bruising on her inner thigh over the last few days and it seems to be tracking downward. Her leg was hanging on the edge of the bed a while a few days ago such that her inner thigh was resting against the edge of the mattress; otherwise, no apparent trauma/pressure to the area. She did have a central line placed in the R femoral vein in the ER when she initially presented, but this was removed last week and the bruising is newer as of this week. The area of concern on the dorsum of the R foot just appeared today. There is associated hypersensitivity to light touch and pain to palpation. No trauma to this area and nothing that would be applying pressure to this area. There is no wound. FOR[facility]LY [facility] Medical History Alcoholism Home Medications ?Medication ?Instructions ?Recorded ?Last Taken ?Type pantoprazole 40 mg tablet,delayed 40 mg PO BID GERD 30 days #60 tabs 12/16/23 Unknown Rx release (Protonix) Allergy/AdvReac Type Severity Reaction Status Date / Time hydrocodone Allergy Hives Verified 01/09/24 09:29 Social History Smoking Status: Current every day smoker tobacco type: cigarettes Physical Exam Const oriented x3 Constitutional Narrative: lethargic HEENT normocephalic, head/scalp atraumatic and external nose normal Eyes EOMs intact bilaterally General Eye: normal appearance of both eyes Neck General: normal visual inspection Resp normal respiratory effort and no retractions Cardio Rate: regular rate Rhythm: regular rhythm Extremity Extremity Narrative: Bilateral lower extremities with diffuse edema. R medial thigh with significant area of ecchymosis proximally which tracks dependently toward the knee. This area of ecchymosis is soft to palpation. There is no focal area of edema. The skin integrity is intact throughout. R dorsal foot area of concern with reticulated erythematous/petechial lesion with central pallor. Tender to touch. Non-blanching. No associated warmth. Skin integrity intact. R DP and PT pulses are diminished to palpation secondary to significant edema but triphasic on doppler. Lab / Micro Data 01/23/24 08:40 01/23/24 08:40 Labs: Laboratory Results - last 24 hr 01/23/24 08:40: WBC 13.8 H, RBC 2.42 L, Hgb 8.4 L, Hct 24.6 L, MCV 101.7 H, MCH 34.7 H, MCHC 34.1, RDW Std Deviation 94.6 H, RDW Coeff of Yan 26.7 H, Plt Count 87 L, MPV 12.9 H, Immature Gran % (Auto) 1.200 H, Neut % (Auto) 92.0 H, Lymph % (Auto) 3.1 L, [place] % (Auto) 3.5, Eos % (Auto) 0.1, Baso % (Auto) 0.1, Absolute Neuts (auto) 12.7 H, Absolute Lymphs (auto) 0.43 L, Nucleated RBC % 0, Differential Comment SCANNED, Platelet Estimate MOD DEC, Anisocytosis 2+, PT 15.8 H, INR 1.3, APTT 30.7, Sodium 135 L, Potassium 3.3 L, Chloride 95 L, Carbon Dioxide 33.0 H, Anion Gap 7, BUN 34 H, Creatinine 0.93, Estim Creat Clear Calc 85.37, Est GFR (MDRD) Af Amer 90, Est GFR (MDRD) Non-Af 74, BUN/Creatinine Ratio 36.6 H, Glucose 99, Calcium 8.4 L, Total Bilirubin 23.80 H*, Direct Bilirubin 18.24 H, AST 165 H, ALT 232 H, Alkaline Phosphatase 157 H, Total Protein 5.2 L, Albumin 1.9 L, Globulin 3.3 Charges/Coding Visit Charges Inpatient E&M: 54064 Init Hosp L2
[2024-01-23 18:00] VITALS: BP 119/67; PULSE 72; RESP 16; TEMP 35.3; O2SAT 100
[2024-01-23 21:22] VITALS: BP 105/57; PULSE 86; RESP 18; TEMP 35.8; O2SAT 100
[2024-01-24 03:47] VITALS: BP 109/68; PULSE 86; RESP 18; TEMP 35.7; O2SAT 100
[2024-01-24 04:08] LABS: GGTP 463 IU/L (0-60)
[2024-01-24] MEDS: HYDROmorphone 0.5 MG/0.5 ML SYRINGE IV (04:24)
[2024-01-24] MEDS: Vancomycin 125 MG/5 ML Susp PO.SYRINGE 500 MG PO ×2 (05:34→12:20)
[2024-01-24 06:00] VITALS: BMI 30.4
[2024-01-24 06:13] LABS: Absolute Lymphocyte Count 0.22 X10^3/uL (0.83-4.51); Basophil# 0.03 X10^3/uL; Basophil% 0.3 % (0-1); Eosinophil# 0.01 X10^3/uL; Eosinophils% 0.1 % (0-5); Hematocrit 22.4 % (37-47); Hemoglobin 7.6 g/dL (12.0-15.0); Lymphocyte # 0.22 X10^3/ul (0.83-4.51); Lymphocyte % 2.2 % (19-41); Mean Corp Hgb Conc 33.9 g/dL (32-36); Mean Corpuscular Hgb 34.4 pg (27.0-32.0); Mean Corpuscular Volume 101.4 fL (81-99); Mean Platelet Vol. 13.4 fl (6.2-12.0); Monocyte# 0.38 X10^3/uL; Monocyte% 3.9 % (0-10); NRBC Flagged by Analyzer 0 % (0-5); Neutrophil # 8.96 X10^3/uL (2.7-7.7); Neutrophil % 91.6 % (47-70); POSITIVE COUNT YES; POSITIVE DIFFERENTIAL YES; POSITIVE MORPHOLOGY YES; Platelet Count 64 K/mm3 (150-450); Red Blood Count 2.21 M/mm3 (4.2-5.4); White Blood Count 9.8 K/mm3 (4.4-11.0)
[2024-01-24 06:24] LABS: International Normalized Ratio 1.3; Prothrombin Time (Protime)PT. 16.6 SECONDS (11.7-14.9)
[2024-01-24 06:35] LABS: Differential Indicated SCAN CRITERIA MET
[2024-01-24 06:39] LABS: ALB/GLOB Ratio 0.6 RATIO (0.9-2.4); AST(SGOT) 122 U/L (15-37); Alanine Aminotransfer ALT/SGPT 208 U/L (13-56); Albumin, Serum 1.9 g/dL (3.2-5.0); Alkaline Phosphatase 160 U/L (45-117); Anion Gap 7 (5-15); BUN 35 mg/dL (7-18); BUN/Creat Ratio 35.5 RATIO (10-20); Calcium,Total 8.7 mg/dL (8.5-10.1); Chloride 94 mmol/L (98-107); Creatinine, Serum 0.98 mg/dL (0.55-1.02); EST Glomerular Filtration Rate 70 mL/min (>60); Est Glom Filt Rate - Afr Amer 84 mL/min (>60); Estimated Creatinine Clearance 81.02 ml/min; Globulin 3.2 g/dL (2.2-4.2); Glucose 147 mg/dL (74-106); Potassium 3.5 mmol/L (3.5-5.1); Protein, Total 5.1 g/dL (6.4-8.2); Sodium Level 135 mmol/L (136-145)
[2024-01-24 09:16] LABS: Platelet Estimate MOD DEC (ADEQ)
[2024-01-24 09:50] VITALS: BP 113/72; PULSE 91; RESP 16; TEMP 36.4; O2SAT 100
[2024-01-24] MEDS: predniSONE 20 MG Tablet 40 MG PO (10:18)
[2024-01-24] MEDS: Thiamine Hydrochloride 100 MG Tablet PO (10:18)
[2024-01-24] MEDS: Pantoprazole Sodium 40 MG Tablet PO (10:18)
[2024-01-24] MEDS: Ensure Plus High Protein 120 ML LIQUID PO (10:18)
[2024-01-24] MEDS: Folic Acid 1 MG Tablet PO (10:19)
[2024-01-24] MEDS: Spironolactone 50 MG Tablet 100 MG PO (10:19)
[2024-01-24] MEDS: Menthol/Lanolin/Calamine/Znox 113 GM Tube 1 APPLIC TOPICAL (10:20)
--- NOTE | 2024-01-24 11:16 | WOUNDNOTE ---
In to reassess the right foot/leg. there is some darker discoloration to the foot, but just appears to be blood pooled in this area. the edema is improving. still very ecchymotic. patient states she was able to walk a little on the leg this morning. plan is for patient to be discharged to the [place] today. vascular surgery had assessed leg/foot yesterday as well.
--- NOTE | 2024-01-24 11:27 | TREXTCAR_ITS ---
Diet Diet Order/Speech Therapy: 01/15/24 12:41 Diet: Regular - General Food consistency:: Regular Liquid Consistency:: Regular/Thin Dietary Modifications:: Sodium Restricted Is pt able to select menu?: Yes Diet Comments: Meds whole w/ water, large pills crushed Routine Orders/Code Status Suppository Type: Dulcolax 10mg Suppository Frequency: Daily PRN Wound(s) right lower abdomen: Wound Type: cluster of open blisters Dressing Change: Adaptic right groin: Wound Type: Puncture rt side upper abd: Wound Type: open blistered area lt flank/side: Wound Type: blisters Therapies Extremity Affected:: Bilateral Lower Physical Therapy: Eval and Treat Occupational Therapy: Eval and Treat Speech Therapy: Eval and Treat Problem/Diagnosis (1) Ecchymosis: Status: Acute Code(s): R58 - Hemorrhage, not elsewhere classified Plan This is a 33-year-old female is being admitted in ICU for severe jaundice, abdominal pain, severe anemia and coagulopathy consistent with of acute liver injury and and shock 1. Shock likely hemorrhagic shock but possible septic shock possible due to hepatobiliary sepsis and/or pancolitis: Patient is being admitted in ICU. The patient presented with possible septic shock with clinical indicators of Low- grade fever Tmax 100.2 Fahrenheit, tachycardia, tachypnea due to hepatobiliary sepsis/acute liver injury with acute sepsis-related organ dysfunction as evidenced by hypotension not responsive to IV fluid, requiring vasopressor, coagulopathy, severe thrombocytopenia, hyperbilirubinemia. Patient started on broad-spectrum IV antibiotic Zosyn for gram-positive, gram-negative aerobic and anaerobic bacteria. Patient had 1 dose of IV ceftriaxone in the ER. Kitchen Work Supervisor and GI consulted. ABG was not done but VBG shows 7.56/20/total bicarb 18. Anion gap 14. Overall suggestive of high anion gap metabolic acidosis with respiratory alkalosis. 01/21: Resolved from septic shock. Transfer from ICU to PCU. Had EGD on 01/10/2024 Impressions : - Iliana-Tobar tear. Clip was placed. 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 - Normal stomach. - Normal first portion of the duodenum. - No specimens collected. 2. Acute liver injury, severe acute alcoholic hepatitis progressed to alcoholic cirrhosis, biopsy-proven: CT abdomen shows hepatomegaly with diffuse heterogenous, fatty infiltration and splenomegaly. Liver chemistry shows total bilirubin 21.6, INR 1.5 with Madrey's discriminant function 48.3 showing poor prognosis. 01/21, at the time of admission patient was not candidate for steroid because of possible septic shock. After the resolution of septic shock, she was started on prednisone 40 mg daily[address]iscuss[address] with Dr. Dyson. He had already talked to patient's girlfriend and family members and they understand the poor prognosis with nonadherence, refusal to medical advice and still wants to drink alcohol. Patient has severe bilateral lower extremity edema probably due to increased portal hypertension. Patient not related to furosemide 40 mg 3 times daily therefore was changed to furosemide drip 10 mg/h. Patient refused for IV drip as she does not want to cooperate with voiding urine. Later on changed to furosemide 80 mg twice daily. 01/22: Overnight [place] catheter was inserted as patient did not want to void spontaneously because of lower extremity edema and discomfort. Oral Lasix changed to 40 mg IV every 8 hourly but since blood pressure on lower side therefore started on IV drip. Poor prognosis with high mortality rate and increases more if patient is nonadherent and noncompliant. 3. Pancolitis, due to C. difficile: CT abdomen shows pancolitis, mild thickening of multiple small bowel loops, diffuse thickening of gastric wall. On vancomycin. 4. Electrolyte abnormality, hyponatremia, hypokalemia: Electrolytes have gotten better. Sodium 137. K3.4. Mild hypokalemia potassium mid-October. 5. CRICKET, possible prerenal but at risk for ATN, possible HRS: BUN/creatinine 10/1.58. BUNs/creatinine ratio 6.3. Previous creatinine was 0.43 on December 16, 2023. Patient has [place] catheter. Strict intake and output. Patient was on octreotide drip. 01/21 CRICKET resolved. BUNs/creatinine 37/0.87. 6. Coagulopathy and severe thrombocytopenia due to severe liver disease: INR 1.5. Platelet count is 58,000. Patient platelet count was low on December 15 56,000 and was 146,000 and infiltrate 2022. 01/22: Large subcutaneous hematoma/petechial hemorrhage noted for last 2 days. Vascular surgery is consulted. INR 1.3. Platelet count 87,000. 7. DVT prophylaxis: Bilateral SCDs. Pharmacological prophylaxis contraindicated. Living will/advanced directive/end of life care: Patient does not have living will or advanced directive. Patient is accompanied with her girlfriend. After discussion of benefits/risks procedures involved with full code, DNR CC arrest and DNR CC, the patient Opted for full code. Patient does want artificial life support including intubation, tube feed, ventilator and/chest compression, central venous catheter, vasopressor and DC shock if needed Total time spent in [id number] encounter in discussion of advanced directive 17 minutes. Laboratory Results 01/23/24 08:40: WBC 13.8 H, RBC 2.42 L, Hgb 8.4 L, Hct 24.6 L, MCV 101.7 H, MCH 34.7 H, MCHC 34.1, RDW Std Deviation 94.6 H, RDW Coeff of Yan 26.7 H, Plt Count 87 L, MPV 12.9 H, Immature Gran % (Auto) 1.200 H, Neut % (Auto) 92.0 H, Lymph % (Auto) 3.1 L, [place] % (Auto) 3.5, Eos % (Auto) 0.1, Baso % (Auto) 0.1, Absolute Neuts (auto) 12.7 H, Absolute Lymphs (auto) 0.43 L, Nucleated RBC % 0, Differential Comment SCANNED, Platelet Estimate MOD DEC, Anisocytosis 2+, PT 15.8 H, INR 1.3, APTT 30.7, Sodium 135 L, Potassium 3.3 L, Chloride 95 L, Carbon Dioxide 33.0 H, Anion Gap 7, BUN 34 H, Creatinine 0.93, Estim Creat Clear Calc 85.37, Est GFR (MDRD) Af Amer 90, Est GFR (MDRD) Non-Af 74, BUN/Creatinine Ratio 36.6 H, Glucose 99, Calcium 8.4 L, Total Bilirubin 23.80 H*, Direct Bilirubin 18.24 H, GGT Pending, AST 165 H, ALT 232 H, Alkaline Phosphatase 157 H, Total Protein 5.2 L, Albumin 1.9 L, Globulin 3.3 Clinical Impression(s) from Imaging Studies Chest X-Ray 01/09/24 09:40 IMPRESSION: No radiographic evidence of acute cardiopulmonary disease. Electronically Signed: Xochitl King MD at 9:50 EDT , Chest/Abdomen/Pelvis CTA 01/09/24 12:00 IMPRESSION: Hepatomegaly and diffuse fatty infiltration of the liver with the heterogeneities in appearance. Mild splenomegaly. Pancolitis. Diffuse thickening of the gastric wall. Thickened small bowel loops. Small amount of free fluid in the pelvis and perihepatic region. Electronically Signed: Tony Falcon MD at 14:56 EDT , Allergies/Procedures Done in Hospital Allergies hydrocodone Allergy (Verified 01/09/24 09:29) Hives Type of Care/Length of Stay Estimated LOS: Convalescent Care Less Than 30 days Type of Care Needed: Intermediate Rehab Potential: Fair Prognosis: Fair Additional Orders/Day of Discharge Day of Discharge: 01/24/24 Dietary and Speech Recommendations Dietitian Recommendations/Changes: Continue Regular diet with sodium restriction to manage medical conditions. continue 120mL Ensure plus high protein 4x w/ medpass to provide supplemental energy Discharge Plan Admission Admit Date/Time: 01/09/24 15:23 Primary Reason for Your Visit: Decompensated alcoholic cirrhosis with severe GI bleed, jaundice, C. diffi Attending Provider: Wood Rich Primary Care Provider: Care Physician,No Primary Consulting Providers: Wood Rich; Arnie Wynne; Fabian Martinez; Willy De La Garza; Fabian Charles Discharge Orders/Prescriptions Prescriptions: New furosemide 10 mg/mL Solution 40 mg IV Q12H 2 Days Qty: 16 0RF Rx Instructions: For 2 days and then change to furosemide 40 mg oral twice daily and discharged with PICC line. ondansetron HCl 8 mg Tablet 8 mg PO Q8H PRN PRN (Reason: Nausea) Qty: 0 0RF prednisone 20 mg Tablet 40 mg PO DAILY 21 Days Qty: 42 0RF Rx Instructions: 40 mg daily till 02/11/2024 and then taper over 10 days. 30 mg for 3 days, 20 mg for 3 days, 10 mg for 4 days and then discontinue. nicotine 21 mg/24 hr Patch 24 Hour 21 mg transdermal DAILY 28 Days Qty: 0 0RF folic acid 1 mg Tablet 1 mg PO BREAKFAST 30 Days Qty: 30 0RF hydroxyzine pamoate 25 mg Capsule 25 mg PO Q4H PRN PRN (Reason: mild anxiety) Qty: 0 0RF sennosides-docusate sodium [Stimulant Laxative Plus] 8.6-50 mg Tablet 2 tab PO BID PRN (Reason: Constipation) Qty: 0 0RF thiamine HCl (vitamin B1) 100 mg Tablet 100 mg PO BREAKFAST Qty: 0 0RF spironolactone 50 mg Tablet 100 mg PO DAILY Qty: 0 0RF Continued pantoprazole [Protonix] 40 mg tablet,delayed release (DR/EC) 40 mg PO BID 30 Days Qty: 60 0RF Referrals / Follow Up: Fabian Charles MD [Med Staff - Active Staff] - Within 2 Weeks Arnie Wynne MD [Med Staff - Consulting] - Within 1 Month Richar Dyson DO [Med Staff - Active Staff] - Within 1 Month Care Physician,No Primary [Primary Care Provider] - Disposition Disposition (needs filled in before D/C Order can be placed): [facility]
--- NOTE | 2024-01-24 11:37 | DS.PCM_ITS ---
Providers Date of Admission: 01/09/24 Date of Discharge: 01/24/24 Primary Care Physician: Frances Primary Care Phys Consultations 01/09/24 16:27 Consult: Gastroenterology Routine Consulting Provider: Lidya Gastroenterology Reason for Consult: GI bleed EMERGENT Consult: No Notified: Yes Date Notified: 01/09/24 Time Notified: 15:29 Method of Notification: ED Physician Initiated Consult: Director Consumer / Pulmonary Medicine Routine Consulting Provider: Intensivists/Pulmonary Med Reason for Consult: shock, septic or hemorrhagic shock EMERGENT Consult: No MD Notified: Yes Date Notified: 01/09/24 Time Notified: 15:32 Method of Notification: ED Physician Initiated 01/12/24 12:18 Consult: Interventional Radiology Routine Consulting Provider: Tony Falcon Reason for Consult: liver biopsy EMERGENT Consult: No MD Notified: Yes Date Notified: 01/12/24 Time Notified: 12:18 Method of Notification: Verbal 01/16/24 10:40 Consult: Nephrology Routine Consulting Provider: Arnie Wynne Reason for Consult: oliguria EMERGENT Consult: No Notified: Yes Date Notified: 01/16/24 Time Notified: 10:40 Method of Notification: Answering Service 01/21/24 14:43 Consult: Onc/Wound/product steward Routine Comment: Reason for Consult:: wound on abdomen area 01/23/24 11:22 Consult: Vascular Surgery Routine Consulting Provider: Fabian Charles Reason for Consult: RLE/thigh superfiical hemorrhage/hematoma, swelling EMERGENT Consult: No Notified: Yes Date Notified: 01/23/24 Time Notified: 11:22 Method of Notification: Verbal Reason For Visit: SEPTIC SHOCK Diagnosis Discharge Diagnosis (1) Ecchymosis: Status: Acute Code(s): R58 - Hemorrhage, not elsewhere classified Plan This is a 33-year-old female is being admitted in ICU for severe jaundice, abdominal pain, severe anemia and coagulopathy consistent with of acute liver injury and and shock 1. Shock likely hemorrhagic shock but possible septic shock possible due to hepatobiliary sepsis and/or pancolitis: Patient is being admitted in ICU. The patient presented with possible septic shock with clinical indicators of Low- grade fever Tmax 100.2 Fahrenheit, tachycardia, tachypnea due to hepatobiliary sepsis/acute liver injury with acute sepsis-related organ dysfunction as evidenced by hypotension not responsive to IV fluid, requiring vasopressor, coagulopathy, severe thrombocytopenia, hyperbilirubinemia. Patient started on broad-spectrum IV antibiotic Zosyn for gram-positive, gram-negative aerobic and anaerobic bacteria. Patient had 1 dose of IV ceftriaxone in the ER. Director Consumer and GI consulted. ABG was not done but VBG shows 7.56/20/total bicarb 18. Anion gap 14. Overall suggestive of high anion gap metabolic acidosis with respiratory alkalosis. 01/21: Resolved from septic shock. Transfer from ICU to PCU. Patient completed antibiotic Had EGD on 01/10/2024 Impressions : - Iliana-Tobar tear. Clip was placed. Clip [employer]: [employer]. - Normal stomach. - Normal first portion of the duodenum. - No specimens collected. 2. Acute liver injury, severe acute alcoholic hepatitis progressed to alcoholic cirrhosis, biopsy-proven: CT abdomen shows hepatomegaly with diffuse heterogenous, fatty infiltration and splenomegaly. Liver chemistry shows total bilirubin 21.6, INR 1.5 with Madrey's discriminant function 48.3 showing poor prognosis. 01/21, at the time of admission patient was not candidate for steroid because of possible septic shock. After the resolution of septic shock, she was started on prednisone 40 mg daily[address]iscuss[address] with Dr. Dyson. He had already talked to patient's girlfriend and family members and they understand the poor prognosis with nonadherence, refusal to medical advice and still wants to drink alcohol. Patient has severe bilateral lower extremity edema probably due to increased portal hypertension. Patient not related to furosemide 40 mg 3 times daily therefore was changed to furosemide drip 10 mg/h. Patient refused for IV drip as she does not want to cooperate with voiding urine. Later on changed to furosemide 80 mg twice daily. 01/22: Overnight [place] catheter was inserted as patient did not want to void spontaneously because of lower extremity edema and discomfort. Oral Lasix changed to 40 mg IV every 8 hourly but since blood pressure on lower side therefore started on IV drip. Poor prognosis with high mortality rate and increases more if patient is nonadherent and noncompliant. 01/23: Bilateral lower extremity much better with 1 day of IV Lasix drip. Patient is discharged on Lasix 40 mg IV twice daily for next 2 to 3 days manage the patient can have been snf under the physician guidance and then changed to Lasix 40 mg twice daily. Continue spironolactone 100 mg daily. Pantoprazole 40 mg twice daily to continue. Patient completed antibiotic and oral vancomycin. Patient is discharged with PICC line and Kearney catheter which can be discontinued within a week. Total bilirubin no significant change. Mild improvement in ALT AST and alkaline phosphatase remain elevated 160. Severe hypoalbuminemia. 3. Pancolitis, due to C. difficile: CT abdomen shows pancolitis, mild thickening of multiple small bowel loops, diffuse thickening of gastric wall. On vancomycin. Completed vancomycin for 2 weeks 4. Electrolyte abnormality, hyponatremia, hypokalemia: Electrolytes have gotten better. Sodium 137. K3.4. Mild hypokalemia potassium mid-October. 5. CRICKET, possible prerenal but at risk for ATN, possible HRS: BUN/creatinine 10/1.58. BUNs/creatinine ratio 6.3. Previous creatinine was 0.43 on December 16, 2023. Patient has Kearney catheter. Strict intake and output. Patient was on octreotide drip. 01/21 CRICKET resolved. BUNs/creatinine 37/0.87. 6. Coagulopathy and severe thrombocytopenia due to severe liver disease: INR 1.5. Platelet count is 58,000. Patient platelet count was low on December 15 56,000 and was 146,000 and infiltrate 2022. 01/22: Large subcutaneous hematoma/petechial hemorrhage noted for last 2 days. Vascular surgery is consulted. INR 1.3. Platelet count 87,000. 01/23: Patient was evaluated by vascular surgeon. Superficial ecchymosis and hemorrhage of his skin subcutaneous tissue. Possible necrotic patch of the right dorsum of foot. Wound nurse consulted. Follow-up in vascular surgery office 7. DVT prophylaxis: Bilateral SCDs. Pharmacological prophylaxis contraindicated. Living will/advanced directive/end of life care: Patient does not have living will or advanced directive. Patient is accompanied with her girlfriend. After discussion of benefits/risks procedures involved with full code, DNR CC arrest and DNR CC, the patient Opted for full code. Patient does want artificial life support including intubation, tube feed, ventilator and/chest compression, central venous catheter, vasopressor and DC shock if needed Total time spent in [id number] encounter in discussion of advanced directive 17 minutes. Laboratory Results 01/23/24 08:40: GGT 463 H 01/24/24 05:27: WBC 9.8, RBC 2.21 L, Hgb 7.6 L, Hct 22.4 L, MCV 101.4 H, MCH 34.4 H, MCHC 33.9, RDW Std Deviation Not Reportable, RDW Coeff of Yan Not Reportable, Plt Count 64 L, MPV 13.4 H, Immature Gran % (Auto) 1.900 H, Neut % (Auto) 91.6 H, Lymph % (Auto) 2.2 L, Stearns % (Auto) 3.9, Eos % (Auto) 0.1, Baso % (Auto) 0.3, Absolute Neuts (auto) 9.0 H, Absolute Lymphs (auto) 0.22 L, Nucleated RBC % 0, Differential Comment COMMENT, Platelet Estimate MOD DEC, PT 16.6 H, INR 1.3, Sodium 135 L, Potassium 3.5, Chloride 94 L, Carbon Dioxide 34.0 H, Anion Gap 7, BUN 35 H, Creatinine 0.98, Estim Creat Clear Calc 81.02, Est GFR (MDRD) Af Amer 84, Est GFR (MDRD) Non-Af 70, BUN/Creatinine Ratio 35.5 H, G lucose 147 H, Calcium 8.7, Total Bilirubin 22.50 H*, AST 122 H, ALT 208 H, A lkaline Phosphatase 160 H, Total Protein 5.1 L, Albumin 1.9 L, Globulin 3.2, A lbumin/Globulin Ratio 0.6 L Clinical Impression(s) from Imaging Studies Chest X-Ray 01/09/24 09:40 IMPRESSION: No radiographic evidence of acute cardiopulmonary disease. Electronically Signed: Xochitl King MD at 9:50 EDT , Chest/Abdomen/Pelvis CTA 01/09/24 12:00 IMPRESSION: Hepatomegaly and diffuse fatty infiltration of the liver with the heterogeneities in appearance. Mild splenomegaly. Pancolitis. Diffuse thickening of the gastric wall. Thickened small bowel loops. Small amount of free fluid in the pelvis and perihepatic region. Electronically Signed: Tony Falcon MD at 14:56 EDT , Medications at Discharge Home Medications pantoprazole 40 mg tablet,delayed release (Protonix) 40 mg PO BID GERD 30 days #60 tabs 12/16/23 folic acid 1 mg tablet 1 mg PO BREAKFAST 30 days #30 tabs 01/24/24 furosemide 10 mg/mL injection solution 40 mg (4 mL) IV Q12H 2 days #16 mL 01/24/24 hydroxyzine pamoate 25 mg capsule 25 mg PO Q4H PRN PRN mild anxiety #0 caps 01/24/24 nicotine 21 mg/24 hr daily transdermal patch 21 mg transdermal DAILY 28 days #0 ea 01/24/24 ondansetron HCl 8 mg tablet 8 mg PO Q8H PRN PRN Nausea #0 tabs 01/24/24 prednisone 20 mg tablet 40 mg (2 x 20 mg) PO DAILY 3 weeks #42 tabs 01/24/24 sennosides 8.6 mg-docusate sodium 50 mg tablet (Stimulant Laxative Plus) 2 tab PO BID PRN Constipation #0 tabs 01/24/24 spironolactone 50 mg tablet 100 mg (2 x 50 mg) PO DAILY #0 tabs 01/24/24 thiamine HCl (vitamin B1) 100 mg tablet 100 mg PO BREAKFAST #0 tabs 01/24/24 Physical Exam Narrative Seen and examined. Nursing note reviewed. Bilateral lower extremity edema is much improved. Change IV Lasix drip to bolus 40 mg IV twice daily. Patient has alcoholic cirrhosis on biopsy with splanchnic vasodilatation and portal hypertension. Not candidate for liver transplant. Physical exam General: Alert, Oriented x3, Cooperative HEENT: Icterus, jaundice. Atraumatic, PERRLA, EOMI, Normocephalic Oral: No Gingival or Mucosal Lesions/ Ulcerations Neck: Supple, No JVD, Negative Carotid Bruits Chest wall/Lungs: Air entry diminished in bilateral lung bases. No crepitation/rhonchi Cardiovascular: Regular rate, Regular Rhythm, Normal S1, Normal S2, No M/G/R Abdomen: Bowel Sounds Present, Soft, Non Tender, Non-Distended : No dysuria. No renal angle tenderness. No suprapubic tenderness. Extremities: 2+ bilateral lower extremity pitting edema, thigh edema has decreased and now edema below knee level Skin: Large subcutaneous hematoma on right medial thigh as petechial morphol. Discolored patch over dorsum of right foot, pale looking possible turn necrotic patch. Musculoskeletal: No Tenderness to Palpation of Joints or Extremities Neurological: Cranial nerves II-XII grossly intact, DTR 2+/4. No acute focal neurological deficit. Psych/Mental Status: Flat affect. Weight / BMI Weight Weight: 166 lb 7.184 oz Body Mass Index (BMI) 30.4 ABG / Lab / Microbiology Data 01/24/24 05:27 01/24/24 05:27 Laboratory: Laboratory Results - last 24 hr 01/23/24 08:40: GGT 463 H 01/24/24 05:27: WBC 9.8, RBC 2.21 L, Hgb 7.6 L, Hct 22.4 L, MCV 101.4 H, MCH 34.4 H, MCHC 33.9, RDW Std Deviation Not Reportable, RDW Coeff of Yan Not Reportable, Plt Count 64 L, MPV 13.4 H, Immature Gran % (Auto) 1.900 H, Neut % (Auto) 91.6 H, Lymph % (Auto) 2.2 L, Stearns % (Auto) 3.9, Eos % (Auto) 0.1, Baso % (Auto) 0.3, Absolute Neuts (auto) 9.0 H, Absolute Lymphs (auto) 0.22 L, Nucleated RBC % 0, Differential Comment COMMENT, Platelet Estimate MOD DEC, PT 16.6 H, INR 1.3, Sodium 135 L, Potassium 3.5, Chloride 94 L, Carbon Dioxide 34.0 H, Anion Gap 7, BUN 35 H, Creatinine 0.98, Estim Creat Clear Calc 81.02, Est GFR (MDRD) Af Amer 84, Est GFR (MDRD) Non-Af 70, BUN/Creatinine Ratio 35.5 H, G lucose 147 H, Calcium 8.7, Total Bilirubin 22.50 H*, AST 122 H, ALT 208 H, A lkaline Phosphatase 160 H, Total Protein 5.1 L, Albumin 1.9 L, Globulin 3.2, A lbumin/Globulin Ratio 0.6 L Microbiology: Microbiology 01/09/24 10:25 Blood Culture (Wb) - Arm Left Blood Culture - Final No growth in 5 days. 01/09/24 09:54 Blood Culture (Wb) - Left Forearm Blood Culture - Final No growth in 5 days. 01/09/24 13:01 Urine, Clean Catch Urine Culture - Final Escherichia coli 01/10/24 02:15 Stool Stool Occult Blood (ESTRELLITA) - Final Occult Blood Positive 01/10/24 02:15 Stool Enteric Bacteriology - Final 01/10/24 02:15 Stool C. difficile GDH Antigen & Toxins - Final Toxigenic C. difficile 01/10/24 02:15 Stool Clostridioides difficile (PCR) - Final Meaningful Use Info Meaningful Use Meaningful Use Diagnoses (Choose all that apply): None applicable Ischemic Stroke Statin Dosing Therapy Reference: STATIN DOSE THERAPY REFERENCE: * Patients > 75 years receive moderate or high dose statin therapy. * Patients 75 years or YOUNGER should receive HIGH intensity statin dose unless contraindicated. You will be required to document reason for non-treatment if statin daily dose does not meet guidelines. HIGH DOSE STATIN THERAPY DAILY Atorvastatin > than or = to 40 mg Rosuvastatin > than or = to 20 mg Amlodipine + Atorvastatin > than or = to 2.5/40 mg Ezetimibe + Simvastatin 10/80 mg Simvastatin 80mg Discharge Plan Admission Admit Date/Time: 01/09/24 15:23 Primary Reason for Your Visit: Decompensated alcoholic cirrhosis with severe GI bleed, jaundice, C. diffi Attending Provider: Wood Rich Primary Care Provider: Care Physician,No Primary Consulting Providers: Wood Rich; Arnie Wynne; Fabian Martinez; Willy De La Garza; Fabian Charles Instructions Additional Instructions / Restrictions: patient is discharged with PICC line and K[place] catheter as patient on IV Lasix. Discontinue both PICC line and [place] catheter in 1 week. Discharge Orders/Prescriptions Prescriptions: New furosemide 10 mg/mL Solution 40 mg IV Q12H 2 Days Qty: 16 0RF Rx Instructions: For 2 days and then change to furosemide 40 mg oral twice daily and discharged with PICC line. ondansetron HCl 8 mg Tablet 8 mg PO Q8H PRN PRN (Reason: Nausea) Qty: 0 0RF prednisone 20 mg Tablet 40 mg PO DAILY 21 Days Qty: 42 0RF Rx Instructions: 40 mg daily till 02/11/2024 and then taper over 10 days. 30 mg for 3 days, 20 mg for 3 days, 10 mg for 4 days and then discontinue. nicotine 21 mg/24 hr Patch 24 Hour 21 mg transdermal DAILY 28 Days Qty: 0 0RF folic acid 1 mg Tablet 1 mg PO BREAKFAST 30 Days Qty: 30 0RF hydroxyzine pamoate 25 mg Capsule 25 mg PO Q4H PRN PRN (Reason: mild anxiety) Qty: 0 0RF sennosides-docusate sodium [Stimulant Laxative Plus] 8.6-50 mg Tablet 2 tab PO BID PRN (Reason: Constipation) Qty: 0 0RF thiamine HCl (vitamin B1) 100 mg Tablet 100 mg PO BREAKFAST Qty: 0 0RF spironolactone 50 mg Tablet 100 mg PO DAILY Qty: 0 0RF Continued pantoprazole [Protonix] 40 mg tablet,delayed release (DR/EC) 40 mg PO BID 30 Days Qty: 60 0RF Referrals / Follow Up: Fabian Charles MD [Med Staff - Active Staff] - Within 2 Weeks Arnie Wynne MD [Med Staff - Consulting] - Within 1 Month Richar Dyson DO [Med Staff - Active Staff] - Within 1 Month Care Physician,No Primary [Primary Care Provider] - Disposition Disposition (needs filled in before D/C Order can be placed): [facility] Charges/Coding Visit Charges Inpatient E&M: 06499 Disch Hosp >30min
--- NOTE | 2024-01-24 12:24 | WOUNDNOTE ---
wound photo: right foot
--- NOTE | 2024-01-24 12:45 | CASEMGMT ---
Discharge Planning Discharge orders, signed med list, and transport time sent to [facility] via [facility]. Physicians will transport patient by wheelchair at 1:15. Nursing, SW, patient, and her sig other/HC POA (Addi) updated. Molly Harris DC Planning Asst.
--- NOTE | 2024-01-24 12:50 | CASEMGMT ---
Patient is ready for discharge to [facility]. SW was informed by RN that patient would like her significant other to transport her to [facility]. SW informed patient she will have to go by wheelchair van as she has a picc line and ta. Patient was agreeable. SW did inform patient she will be able to smoke at [facility]. SW completed a PASRR in [employer] system. Plan: d/c to [facility] under intermediate level of care on a PASRR. Physicians will transport patient via wheelchair van. Yessenia FUNEZ
--- NOTE | 2024-01-24 13:31 | PHA.DC.MR.R ---
Pharmacy [place] Med Reconciliation Pharmacy Service has performed discharge medication reconciliation for this patient. The patient's discharge medication list was reviewed for discrepancies and discrepancies were resolved. Medications at Discharge Home Medications pantoprazole 40 mg tablet,delayed release (Protonix) 40 mg PO BID GERD 30 days #60 tabs 12/16/23 folic acid 1 mg tablet 1 mg PO BREAKFAST 30 days #30 tabs 01/24/24 furosemide 10 mg/mL injection solution 40 mg (4 mL) IV Q12H 2 days #16 mL 01/24/24 hydroxyzine pamoate 25 mg capsule 25 mg PO Q4H PRN PRN mild anxiety #0 caps 01/24/24 nicotine 21 mg/24 hr daily transdermal patch 21 mg transdermal DAILY 28 days #0 ea 01/24/24 ondansetron HCl 8 mg tablet 8 mg PO Q8H PRN PRN Nausea #0 tabs 01/24/24 prednisone 20 mg tablet 40 mg (2 x 20 mg) PO DAILY 3 weeks #42 tabs 01/24/24 sennosides 8.6 mg-docusate sodium 50 mg tablet (Stimulant Laxative Plus) 2 tab PO BID PRN Constipation #0 tabs 01/24/24 spironolactone 50 mg tablet 100 mg (2 x 50 mg) PO DAILY #0 tabs 01/24/24 thiamine HCl (vitamin B1) 100 mg tablet 100 mg PO BREAKFAST #0 tabs 01/24/24
--- NOTE | 2024-01-24 14:08 | NURSING ---
[facility] changed to po. Dr. Rich was called and was changed to po talked to nurse in 100 unit and also to [place] lasix 40 po tid x 3 days then lasix 40 po bid dc picc line
== END 2024-01-24 13:29 | disposition skilled nursing facility (03) | DRG 720 ==
LOC: ED 11:23 → ICU 15:47 → PCU 01-15 16:38
PROVIDERS: Family Medicine; Internal Medicine Critical Care Medicine; Internal Medicine Gastroenterology; Internal Medicine Nephrology; Internal Medicine Pulmonary Disease; Admitting Provider Internal Medicine; Emergency Provider Emergency Medicine; Visit Provider Internal Medicine
PROC: 0DJ08ZZ Inspection of Upper Intestinal Tract, Via Natural or Artificial Opening Endoscopic (ICD-10-PCS; CPT 43235; principal; 2024-01-10 11:55)
DX: A41.4 Sepsis due to anaerobes (principal); K76.7 Hepatorenal syndrome; R57.8 Other shock; D61.818 Other pancytopenia; A04.72 Enterocolitis due to Clostridium difficile, not specified as recurrent; K22.6 Gastro-esophageal laceration-hemorrhage syndrome; K29.21 Alcoholic gastritis with bleeding; R65.21 Severe sepsis with septic shock; K70.10 Alcoholic hepatitis without ascites; K70.30 Alcoholic cirrhosis of liver without ascites; K76.6 Portal hypertension; F10.230 Alcohol dependence with withdrawal, uncomplicated; F12.10 Cannabis abuse, uncomplicated; N17.8 Other acute kidney failure; E87.21 Acute metabolic acidosis; E87.1 Hypo-osmolality and hyponatremia; D62 Acute posthemorrhagic anemia; E87.6 Hypokalemia; F17.210 Nicotine dependence, cigarettes, uncomplicated; E83.42 Hypomagnesemia; E83.39 Other disorders of phosphorus metabolism; E86.1 Hypovolemia; E87.3 Alkalosis; K20.81 Other esophagitis with bleeding; Y90.9 Presence of alcohol in blood, level not specified; B37.0 Candidal stomatitis; N39.0 Urinary tract infection, site not specified; B96.20 Unspecified Escherichia coli [E. coli] as the cause of diseases classified elsewhere; R23.3 Spontaneous ecchymoses; R60.0 Localized edema; Z91.148 Patient's other noncompliance with medication regimen for other reason; Z91.198 Patient's noncompliance with other medical treatment and regimen for other reason; Z79.899 Other long term (current) drug therapy
CPT/HCPCS: 36415; 36556; 36569; 51702; 71045; 71275; 74174; 74230; 77012; 80048; 80053; 80069; 80076; 81001; 81025; 82140; 82274; 82570; 82803; 82962; 82977; 83010; 83605; 83615; 83690; 83735; 84100; 84300; 84484; 85014; 85018; 85025; 85384; 85610; 85730; 86850; 86900; 86901; 86920; 87040; 87077; 87086; 87088; 87186; 87493; 87506; 88307; 88312; 92526; 92610; 92611; 93005; 93970; 94640; 94762; 97110; 97162; 97166; 97530; 97535; 97802; 97803; 99152; 99153; 99285; J7030; J7040; J7050; P9016; P9047; Q9967; A4216; C1751; J1940; J2405; J3490

== ENCOUNTER → 2024-01-25 | Outpatient (REF) | payer MEDICAID, SELFPAY ==
[2024-01-25 08:15] LABS: International Normalized Ratio 1.3; Prothrombin Time (Protime)PT. 15.7 SECONDS (11.7-14.9)
[2024-01-25 08:25] LABS: Ammonia < 10.0 umol/L (11-32)
[2024-01-25 08:39] LABS: Hematocrit 20.6 % (37-47); Hemoglobin 7.1 g/dL (12.0-15.0); Mean Corp Hgb Conc 34.5 g/dL (32-36); Mean Corpuscular Hgb 34.6 pg (27.0-32.0); Mean Corpuscular Volume 100.5 fL (81-99); POSITIVE COUNT YES; POSITIVE MORPHOLOGY YES; Platelet Count 78 K/mm3 (150-450); Red Blood Count 2.05 M/mm3 (4.2-5.4); Scan Indicated on CBC? Y/N YES- FLAGS NOTED; White Blood Count 6.2 K/mm3 (4.4-11.0)
[2024-01-25 08:52] LABS: ALB/GLOB Ratio 0.5 RATIO (0.9-2.4); AST(SGOT) 113 U/L (15-37); Alanine Aminotransfer ALT/SGPT 177 U/L (13-56); Albumin, Serum 1.7 g/dL (3.2-5.0); Alkaline Phosphatase 169 U/L (45-117); Anion Gap 6 (5-15); BUN 36 mg/dL (7-18); BUN/Creat Ratio 37.7 RATIO (10-20); Bilirubin, Direct 15.14 mg/dL (0.00-0.30); Calcium,Total 8.5 mg/dL (8.5-10.1); Chloride 96 mmol/L (98-107); Cholesterol 110 mg/dL (200); Creatinine, Serum 0.96 mg/dL (0.55-1.02); EST Glomerular Filtration Rate 72 mL/min (>60); Est Glom Filt Rate - Afr Amer 87 mL/min (>60); Globulin 3.5 g/dL (2.2-4.2); Glucose 83 mg/dL (74-106); High Density Lipoprotein 13 mg/dL; Potassium 2.9 mmol/L (3.5-5.1); Protein, Total 5.2 g/dL (6.4-8.2); Sodium Level 137 mmol/L (136-145); Thyroid Stim Hormone (TSH) 9.21 uIU/mL (0.358-3.74); Triglycerides 219 mg/dL; Very Low Density Lipoprotein 44 mg/dL (5-40)
[2024-01-25 09:18] LABS: Vitamin B12 1066 pg/mL (211-911); Vitamin D,25 Hydroxy 21.6 ng/mL
== END | disposition home or self-care (01) ==
LOC: OLS.SW 05:00
PROVIDERS: Referring Provider Internal Medicine; Visit Provider Internal Medicine
DX: Z02.2 Encounter for examination for admission to residential institution (principal)
CPT/HCPCS: 36415; 80053; 80061; 82140; 82248; 82306; 82607; 83735; 84443; 85027; 85610

== ENCOUNTER → 2024-01-29 | Outpatient (REF) | payer MEDICAID, SELFPAY ==
[2024-01-29 08:33] LABS: Hematocrit 19.2 % (37-47); Hemoglobin 6.5 g/dL (12.0-15.0); Mean Corp Hgb Conc 33.9 g/dL (32-36); Mean Corpuscular Hgb 34.8 pg (27.0-32.0); Mean Corpuscular Volume 102.7 fL (81-99); Mean Platelet Vol. 13.3 fl (6.2-12.0); POSITIVE COUNT YES; POSITIVE MORPHOLOGY YES; Platelet Count 84 K/mm3 (150-450); RBC Distribution Width CV 26.1 % (11.6-14.6); Red Blood Count 1.87 M/mm3 (4.2-5.4); White Blood Count 13.1 K/mm3 (4.4-11.0)
[2024-01-29 08:34] LABS: Scan Indicated on CBC? Y/N YES- FLAGS NOTED
[2024-01-29 08:56] LABS: ALB/GLOB Ratio 0.4 RATIO (0.9-2.4); AST(SGOT) 115 U/L (15-37); Alanine Aminotransfer ALT/SGPT 162 U/L (13-56); Albumin, Serum 1.8 g/dL (3.2-5.0); Alkaline Phosphatase 200 U/L (45-117); Anion Gap 5 (5-15); BUN 45 mg/dL (7-18); BUN/Creat Ratio 42.1 RATIO (10-20); Calcium,Total 9.1 mg/dL (8.5-10.1); Chloride 96 mmol/L (98-107); Creatinine, Serum 1.07 mg/dL (0.55-1.02); EST Glomerular Filtration Rate 63 mL/min (>60); Est Glom Filt Rate - Afr Amer 77 mL/min (>60); Glucose 113 mg/dL (74-106); Magnesium 2.4 mg/dL (1.6-2.6); Potassium 4.3 mmol/L (3.5-5.1); Protein, Total 5.8 g/dL (6.4-8.2); Sodium Level 136 mmol/L (136-145)
== END | disposition home or self-care (01) ==
LOC: OLS.SW 05:00
PROVIDERS: Visit Provider Internal Medicine
DX: K70.30 Alcoholic cirrhosis of liver without ascites (principal); R23.3 Spontaneous ecchymoses; E87.6 Hypokalemia; K22.6 Gastro-esophageal laceration-hemorrhage syndrome
CPT/HCPCS: 36415; 80053; 83735; 85027

== ENCOUNTER 2024-01-30 07:18 | Outpatient (CLI) | payer MEDICAID, MEDICARE, SELFPAY ==
[2024-01-30 08:14] VITALS: BP 103/68; PULSE 78; RESP 16; TEMP 36.1; O2SAT 98; BMI 26.5
[2024-01-30 08:48] VITALS: BP 98/67; PULSE 68; RESP 16; TEMP 36.1; O2SAT 99
[2024-01-30 09:50] VITALS: BP 90/66; PULSE 84; RESP 16; TEMP 36.1; O2SAT 98
[2024-01-30 10:52] VITALS: BP 106/66; PULSE 65; RESP 16; TEMP 36.1; O2SAT 98
[2024-01-30 11:52] VITALS: BP 110/72; PULSE 67; RESP 16; TEMP 36.3
[2024-01-30 12:30] VITALS: BP 109/72; PULSE 79; RESP 16; TEMP 36.2; O2SAT 100
== END 2024-01-30 23:59 | disposition home or self-care (01) ==
PROVIDERS: PCP Internal Medicine; Referring Provider Internal Medicine; Visit Provider Internal Medicine
DX: D64.9 Anemia, unspecified (principal); K74.60 Unspecified cirrhosis of liver; K51.00 Ulcerative (chronic) pancolitis without complications; K92.2 Gastrointestinal hemorrhage, unspecified
CPT/HCPCS: 36415; 36430; 86850; 86900; 86901; 86920; 86922; P9016

== ENCOUNTER → 2024-02-01 | Outpatient (REF) | payer MEDICAID, SELFPAY ==
[2024-02-01 07:48] LABS: Hematocrit 32.7 % (37-47); Mean Corp Hgb Conc 33.6 g/dL (32-36); Mean Corpuscular Hgb 33.2 pg (27.0-32.0); Mean Corpuscular Volume 98.8 fL (81-99); POSITIVE MORPHOLOGY YES; Platelet Count 109 K/mm3 (150-450); RBC Distribution Width CV 24.2 % (11.6-14.6); RBC Distribution Width SD 86.3 fl (35.1-43.9); Red Blood Count 3.31 M/mm3 (4.2-5.4); White Blood Count 24.2 K/mm3 (4.4-11.0)
[2024-02-01 08:53] LABS: ALB/GLOB Ratio 0.6 RATIO (0.9-2.4); AST(SGOT) 130 U/L (15-37); Alanine Aminotransfer ALT/SGPT 214 U/L (13-56); Albumin, Serum 2.4 g/dL (3.2-5.0); Alkaline Phosphatase 226 U/L (45-117); Anion Gap 4 (5-15); BUN 59 mg/dL (7-18); BUN/Creat Ratio 56.2 RATIO (10-20); Calcium,Total 9.1 mg/dL (8.5-10.1); Chloride 93 mmol/L (98-107); Creatinine, Serum 1.05 mg/dL (0.55-1.02); EST Glomerular Filtration Rate 65 mL/min (>60); Est Glom Filt Rate - Afr Amer 78 mL/min (>60); Globulin 4.2 g/dL (2.2-4.2); Glucose 127 mg/dL (74-106); Magnesium 3.3 mg/dL (1.6-2.6); Potassium 4.3 mmol/L (3.5-5.1); Protein, Total 6.6 g/dL (6.4-8.2); Sodium Level 130 mmol/L (136-145)
[2024-02-01 09:11] LABS: Scan Indicated on CBC? Y/N YES- FLAGS NOTED
[2024-02-01 10:16] LABS: Differential Comment SCANNED
== END | disposition home or self-care (01) ==
LOC: OLS.SW 05:00
PROVIDERS: PCP Internal Medicine; Visit Provider Internal Medicine
DX: D62 Acute posthemorrhagic anemia (principal); R23.3 Spontaneous ecchymoses; K51.018 Ulcerative (chronic) pancolitis with other complication; K70.30 Alcoholic cirrhosis of liver without ascites
CPT/HCPCS: 36415; 80053; 83735; 85027

== ENCOUNTER → 2024-02-02 | Outpatient (REF) | payer MEDICAID, SELFPAY ==
[2024-02-02 08:15] LABS: Hematocrit 34.2 % (37-47); Hemoglobin 11.7 g/dL (12.0-15.0); Mean Corp Hgb Conc 34.2 g/dL (32-36); Mean Corpuscular Hgb 33.4 pg (27.0-32.0); Mean Corpuscular Volume 97.7 fL (81-99); Mean Platelet Vol. 12.5 fl (6.2-12.0); POSITIVE COUNT YES; POSITIVE MORPHOLOGY YES; Platelet Count 72 K/mm3 (150-450); RBC Distribution Width CV 22.9 % (11.6-14.6); White Blood Count 20.2 K/mm3 (4.4-11.0)
[2024-02-02 08:19] LABS: Scan Indicated on CBC? Y/N YES- FLAGS NOTED
[2024-02-02 08:47] LABS: Differential Comment SCANNED
== END | disposition home or self-care (01) ==
LOC: OLS.SW 05:00
PROVIDERS: PCP Internal Medicine; Visit Provider Internal Medicine
DX: K51.018 Ulcerative (chronic) pancolitis with other complication (principal); R23.3 Spontaneous ecchymoses
CPT/HCPCS: 36415; 85027

== ENCOUNTER → 2024-02-05 | Outpatient (REF) | payer MEDICAID, SELFPAY ==
[2024-02-05 08:55] LABS: Hematocrit 30.2 % (37-47); Mean Corp Hgb Conc 33.1 g/dL (32-36); Mean Corpuscular Hgb 33.4 pg (27.0-32.0); Mean Platelet Vol. 11.8 fl (6.2-12.0); POSITIVE COUNT YES; POSITIVE MORPHOLOGY YES; Platelet Count 96 K/mm3 (150-450); RBC Distribution Width CV 21.3 % (11.6-14.6); RBC Distribution Width SD 78.6 fl (35.1-43.9); Red Blood Count 2.99 M/mm3 (4.2-5.4); Scan Indicated on CBC? Y/N YES- FLAGS NOTED; White Blood Count 12.4 K/mm3 (4.4-11.0)
[2024-02-05 09:32] LABS: Differential Comment SCANNED
[2024-02-05 09:39] LABS: ALB/GLOB Ratio 0.6 RATIO (0.9-2.4); AST(SGOT) 123 U/L (15-37); Alanine Aminotransfer ALT/SGPT 212 U/L (13-56); Albumin, Serum 2.4 g/dL (3.2-5.0); Alkaline Phosphatase 198 U/L (45-117); Anion Gap 10 (5-15); BUN 53 mg/dL (7-18); BUN/Creat Ratio 55.2 RATIO (10-20); Calcium,Total 8.9 mg/dL (8.5-10.1); Chloride 98 mmol/L (98-107); Creatinine, Serum 0.96 mg/dL (0.55-1.02); EST Glomerular Filtration Rate 72 mL/min (>60); Est Glom Filt Rate - Afr Amer 87 mL/min (>60); Glucose 130 mg/dL (74-106); Magnesium 2.8 mg/dL (1.6-2.6); Potassium 5.1 mmol/L (3.5-5.1); Protein, Total 6.4 g/dL (6.4-8.2); Sodium Level 133 mmol/L (136-145)
== END | disposition home or self-care (01) ==
LOC: OLS.SW 05:00
PROVIDERS: PCP Internal Medicine; Visit Provider Internal Medicine
DX: K51.018 Ulcerative (chronic) pancolitis with other complication (principal); K70.30 Alcoholic cirrhosis of liver without ascites; R17 Unspecified jaundice
CPT/HCPCS: 36415; 80053; 83735; 85027

== ENCOUNTER → 2024-02-08 | Outpatient (REF) | payer MEDICAID, SELFPAY ==
[2024-02-08 09:27] LABS: Hematocrit 30.8 % (37-47); Hemoglobin 10.1 g/dL (12.0-15.0); Mean Corp Hgb Conc 32.8 g/dL (32-36); Mean Corpuscular Hgb 33.3 pg (27.0-32.0); Mean Corpuscular Volume 101.7 fL (81-99); Mean Platelet Vol. 11.8 fl (6.2-12.0); POSITIVE MORPHOLOGY YES; Platelet Count 154 K/mm3 (150-450); RBC Distribution Width CV 20.7 % (11.6-14.6); Red Blood Count 3.03 M/mm3 (4.2-5.4)
[2024-02-08 09:49] LABS: ALB/GLOB Ratio 0.6 RATIO (0.9-2.4); AST(SGOT) 106 U/L (15-37); Alanine Aminotransfer ALT/SGPT 211 U/L (13-56); Albumin, Serum 2.5 g/dL (3.2-5.0); Alkaline Phosphatase 202 U/L (45-117); Anion Gap 8 (5-15); BUN 55 mg/dL (7-18); Calcium,Total 8.7 mg/dL (8.5-10.1); Chloride 96 mmol/L (98-107); Creatinine, Serum 0.96 mg/dL (0.55-1.02); EST Glomerular Filtration Rate 71 mL/min (>60); Est Glom Filt Rate - Afr Amer 86 mL/min (>60); Globulin 4.1 g/dL (2.2-4.2); Glucose 169 mg/dL (74-106); Magnesium 2.9 mg/dL (1.6-2.6); Potassium 4.9 mmol/L (3.5-5.1); Protein, Total 6.6 g/dL (6.4-8.2); Sodium Level 130 mmol/L (136-145)
[2024-02-08 10:05] LABS: Scan Indicated on CBC? Y/N YES- FLAGS NOTED
== END | disposition home or self-care (01) ==
LOC: OLS.SW 05:00
PROVIDERS: PCP Internal Medicine; Visit Provider Internal Medicine
DX: K51.018 Ulcerative (chronic) pancolitis with other complication (principal); K70.30 Alcoholic cirrhosis of liver without ascites; R23.3 Spontaneous ecchymoses
CPT/HCPCS: 36415; 80053; 83735; 85027

== ENCOUNTER → 2024-02-09 | Outpatient (REF) | payer MEDICAID, SELFPAY ==
[2024-02-09 08:01] LABS: Thyroid Stim Hormone (TSH) 4.03 uIU/mL (0.358-3.74)
== END | disposition home or self-care (01) ==
LOC: OLS.SW 05:00
PROVIDERS: PCP Internal Medicine; Visit Provider Internal Medicine
DX: E03.9 Hypothyroidism, unspecified (principal)
CPT/HCPCS: 36415; 84443

== ENCOUNTER → 2024-02-12 | Outpatient (REF) | payer MEDICAID, SELFPAY ==
[2024-02-12 09:07] LABS: Hematocrit 31.4 % (37-47); Hemoglobin 10.3 g/dL (12.0-15.0); Mean Corp Hgb Conc 32.8 g/dL (32-36); Mean Corpuscular Hgb 33.3 pg (27.0-32.0); Mean Corpuscular Volume 101.6 fL (81-99); Mean Platelet Vol. 12.1 fl (6.2-12.0); POSITIVE MORPHOLOGY YES; Platelet Count 160 K/mm3 (150-450); RBC Distribution Width CV 19.3 % (11.6-14.6); RBC Distribution Width SD 71.2 fl (35.1-43.9); Red Blood Count 3.09 M/mm3 (4.2-5.4); White Blood Count 16.2 K/mm3 (4.4-11.0)
[2024-02-12 09:12] LABS: Scan Indicated on CBC? Y/N YES- FLAGS NOTED
[2024-02-12 11:24] LABS: ALB/GLOB Ratio 0.6 RATIO (0.9-2.4); AST(SGOT) 135 U/L (15-37); Alanine Aminotransfer ALT/SGPT 269 U/L (13-56); Albumin, Serum 2.6 g/dL (3.2-5.0); Alkaline Phosphatase 218 U/L (45-117); Anion Gap 13 (5-15); BUN 56 mg/dL (7-18); BUN/Creat Ratio 42.4 RATIO (10-20); Calcium,Total 8.1 mg/dL (8.5-10.1); Chloride 87 mmol/L (98-107); Creatinine, Serum 1.32 mg/dL (0.55-1.02); EST Glomerular Filtration Rate 50 mL/min (>60); Est Glom Filt Rate - Afr Amer 60 mL/min (>60); Globulin 4.4 g/dL (2.2-4.2); Glucose 110 mg/dL (74-106); Magnesium 2.9 mg/dL (1.6-2.6); Potassium 4.1 mmol/L (3.5-5.1); Sodium Level 124 mmol/L (136-145)
== END | disposition home or self-care (01) ==
LOC: OLS.SW 05:00
PROVIDERS: PCP Internal Medicine; Visit Provider Internal Medicine
DX: K51.018 Ulcerative (chronic) pancolitis with other complication (principal); D62 Acute posthemorrhagic anemia; K70.30 Alcoholic cirrhosis of liver without ascites; R17 Unspecified jaundice; R23.3 Spontaneous ecchymoses
CPT/HCPCS: 36415; 80053; 83735; 85027

== ENCOUNTER 2024-02-17 08:33 | Emergency (ER) | payer MEDICAID, SELFPAY ==
[2024-02-17] VITALS (7 sets, daily range): BP systolic 113–128; BP diastolic 73–89; PULSE 84–99; RESP 16; TEMP 36.4–36.9; O2SAT 97; BMI 23.6
--- NOTE | 2024-02-17 09:38 | EDS_ITS ---
HPI HPI - GI History of Present Illness Chief Complaint: Constipation Informant: patient Narrative Narrative: Patient is a 33-year-old female presenting from [facility] for concern of constipation and rectal discomfort. Patient has a history of anasarca, alcoholic hepatitis and recent admission for severe jaundice, coagulopathy associated with liver injury and concern for GI bleed. Also has a history of C. difficile. Was noted to have a large Iliana-Tobar tear on EGD on 01/10/2024 with no varices. Gastritis was present. Ultimately discharged from the hospital on 01/23 to nursing facility. Hospital course was prolonged and patient was noncompliant with her lactulose. She completed a course of vancomycin for 2 weeks. Patient is presenting today because she not have bowel movement for 2 weeks and feels a lot of pressure in her rectum. She is complain of lower abdominal discomfort associated this. Has nausea when she tries have a bowel movement but otherwise denies nausea. States she is passing gas. 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 States she is received a suppository last night as well as 2 Fleet enemas. Her last enema was at 5:30 AM. Nursing staff told her that there is a lot of stool and they will try to take it out but were unsuccessful. She was transferred to ER for further evaluation of this. No other complaints or concerns reported at this time. [facility] Medical History Ecchymosis Alcoholic hepatitis Alcoholism Home Medications ?Medication ?Instructions ?Recorded ?Last Taken ?Type pantoprazole 40 mg tablet,delayed 40 mg PO BID GERD 30 days #60 tabs 12/16/23 Unknown Rx release (Protonix) folic acid 1 mg tablet 1 mg PO BREAKFAST 30 days #30 tabs 01/24/24 Unknown Rx furosemide 10 mg/mL injection 40 mg (4 mL) IV Q12H 2 days #16 mL 01/24/24 Unknown Rx solution hydroxyzine pamoate 25 mg capsule 25 mg PO Q4H PRN PRN mild anxiety 01/24/24 Unknown Rx #0 caps nicotine 21 mg/24 hr daily 21 mg transdermal DAILY 28 days #0 01/24/24 Unknown Rx transdermal patch ea ondansetron HCl 8 mg tablet 8 mg PO Q8H PRN PRN Nausea #0 tabs 01/24/24 Unknown Rx prednisone 20 mg tablet 40 mg (2 x 20 mg) PO DAILY 3 weeks 01/24/24 Unknown Rx #42 tabs sennosides 8.6 mg-docusate sodium 2 tab PO BID PRN Constipation #0 01/24/24 Unknown Rx 50 mg tablet (Stimulant Laxative tabs Plus) spironolactone 50 mg tablet 100 mg (2 x 50 mg) PO DAILY #0 tabs 01/24/24 Unknown Rx thiamine HCl (vitamin B1) 100 mg 100 mg PO BREAKFAST #0 tabs 01/24/24 Unknown Rx tablet mesalamine 1.2 gram tablet,delayed 1.2 g PO DAILY 6 weeks #42 tabs 02/17/24 Unknown Rx release metronidazole 500 mg tablet 500 mg PO Q8H #30 tabs 02/17/24 Unknown Rx vancomycin 125 mg capsule 125 mg PO BID 10 days #20 caps 02/17/24 Unknown Rx Allergy/AdvReac Type Severity Reaction Status Date / Time hydrocodone Allergy Hives Verified 02/17/24 08:40 Social History Smoking Status: Current every day smoker tobacco type: cigarettes ROS ROS ED Constitutional Constitutional ED: Denies chills or fever(s) Gastrointestinal Gastrointestinal: Reports abdominal pain, constipation and nausea; Denies vomiting Genitourinary Genitourinary ED: Denies dysuria Musculoskeletal Musculoskeletal: Denies arthralgias or myalgias Integumentary Reports rash Hematologic/Lymphatic Hematologic/Lymphatic: Reports easy bleeding EXAM Physical Exam Const Vital Signs: 02/17/24 08:35 02/17/24 11:00 02/17/24 13:03 Temperature 98.4 F Temperature Source Oral Pulse Rate 99 Respiratory Rate 16 Blood Pressure 120/89 H 115/83 H Blood Pressure Mean 99 93 Oxygen Delivery Method Room Air 02/17/24 13:08 02/17/24 15:01 02/17/24 17:00 Temperature Temperature Source Pulse Rate 84 Respiratory Rate Blood Pressure 114/80 116/84 H 113/73 Blood Pressure Mean 91 94 86 Oxygen Delivery Method Positive well nourished and well developed Constitutional Narrative: Chronically ill-appearing General Appearance ED: well developed HEENT Reports moist mucous membranes Eyes General Eye ED: Yes scleral icterus Neck supple Resp normal respiratory effort Cardio regular rate and regular rhythm GI non-tender GI Narrative: Mild suprapubic tenderness, no ascites appreciated. Fecal impaction appreciated on rectal exam. Patient is a large amount of semihard stool. Does not tolerate initial attempt at disimpaction stating it is too painful. Palpation: soft; Negative for guarding Extremity General Extremety ED: Negative for edema General Extremity: Negative for edema Psych mental status grossly normal and thought process normal Skin Skin Narrative: Scattered petechia on the lower extremities General Skin Exam: jaundice MDM MDM MDM Narrative Medical decision making narrative: Patient is evaluated for constipation. Does complain of a lot of pain and discomfort in her rectum. She has fecal impaction on physical exam. She is not tolerated initial attempt at disimpaction. Is given oral Valium and will reattempt. On repeat attempt and further success but did have to stop because patient was having too much pain. There is still a fecal impaction present. Since partial disimpaction was performed will attempt soapsuds enema. Nursing staff was not able to advance the enema. Will give the patient a break, obtain IV access and give IV fentanyl and try again for disimpaction. Disimpaction successful this time. Lab work does show worsening leukocytosis with signs of a left shift. She has multiple abnormalities on her CMP however these are all improving. Hyponatremia is improved from couple days ago but worse since her admission. 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 Patient reevaluated, she does not have any upper abdominal pain. I spoke with GI on-call who is really the patient about her proctitis. He recommends oral vancomycin twice a day for 10 days (because of her recent C. difficile) in addition to Flagyl 3 times daily for her proctitis. From that standpoint he feels that she be discharged home. Suspect the leukocytosis is reactive from her proctitis. He also recommends mesalamine 1.2 g daily for 6 weeks for decrease inflammation and pain control. I spoke with general surgery on-call, Dr. Dill, given her CT findings of acute cholecystitis. He recommends ultrasound of the right upper quadrant. In review of his labs is concerned that her leukocytosis is worsening with a new lead shift and does feel that observation overnight in the hospital might be more appropriate as long as she does not have cholecystitis. She would not be candidate for laparoscopic or open cholecystectomy and will require a ANGELA drain. Do not currently have IR capabilities for this and at that time would require transfer. Ultrasound is negative for acute cholecystitis. Patient reevaluated and I did offer her admission per recommendation of surgery for observation overnight. Patient states that she feels better. Her abdomen feels much better and she just wants to leave. She states that she is already been in the ER for 8 hours and we been watching her and she has been fine so she would like to just go back to [facility]. Did drug and alcohol counselor her that her white blood cell count is slightly increasing. She is aware and is still fine going back. I think this is reasonable. She remains hemodynamically stable, does not have a fever and clinically is much improved compared to when she arrived. Is given first dose of mesalamine, oral vancomycin and Flagyl in the ER. Will discharge home. Given strict return precautions. Will start lactulose tonight to help further treat her constipation. Lab Data Attestation: I reviewed the patient's lab results. Labs: Laboratory Results - last 24 hr 02/17/24 02/17/24 02/17/24 13:00 13:00 13:26 WBC Cancelled 18.2 H Corrected WBC Cancelled RBC Cancelled 3.17 L Hgb Cancelled 10.6 L Hct Cancelled 31.9 L MCV Cancelled 100.6 H MCH Cancelled 33.4 H MCHC Cancelled 33.2 RDW Std Deviation Cancelled 65.2 H RDW Coeff of Yan Cancelled 17.6 H Plt Count Cancelled 141 L MPV Cancelled 11.3 Immature Gran % (Auto) Cancelled 3.100 H Neut % (Auto) Cancelled 84.2 H Lymph % (Auto) Cancelled 4.6 L Barren % (Auto) Cancelled 7.8 Eos % (Auto) Cancelled 0.1 Baso % (Auto) Cancelled 0.2 Absolute Neuts (auto) Cancelled 15.4 H Absolute Lymphs (auto) Cancelled 0.84 Total Counted Cancelled Neutrophils % (Manual) Cancelled Band Neutrophils % Cancelled Lymphocytes % (Manual) Cancelled Monocytes % (Manual) Cancelled Eosinophils % (Manual) Cancelled Basophils % (Manual) Cancelled Metamyelocytes % Cancelled Myelocytes % Cancelled Promyelocytes % Cancelled Blast Cells % Cancelled Plasma Cell % (Manual) Cancelled Other Cells % Cancelled Nucleated RBC % Cancelled 0 Nucleated RBCs/100 WBC Cancelled Differential Comment Cancelled Diff Path Review Cancelled Hypersegmented Neuts Cancelled Atypical Lymphocytes Cancelled Reactive Lymphocytes Cancelled Smudge Cells Cancelled Toxic Granulation Cancelled Toxic Vacuolation Cancelled Dohle Bodies Cancelled Heather Rods Cancelled Platelet Estimate Cancelled Plt Morphology Comment Cancelled RBC Morphology Cancelled Cancelled Polychromasia Cancelled Hypochromasia Cancelled 1+ Basophilic Stippling Cancelled Anisocytosis Cancelled 1+ Microcytosis Cancelled Macrocytosis Cancelled Spherocytes Cancelled Sickle Cells Cancelled Target Cells Cancelled Tear Drop Cells Cancelled Ovalocytes Cancelled Stomatocytes Cancelled Eisenberg-Pacifica Bodies Cancelled Josette Cells Cancelled Bite Cells Cancelled Crenated Cell Cancelled Acanthocytes (Spur) Cancelled Rouleaux Cancelled Schistocytes Cancelled Sodium 125 L Potassium 3.9 Chloride 91 L Carbon Dioxide 24.0 Anion Gap 10 BUN 46 H Creatinine 1.13 H Estim Creat Clear Calc 57.05 Est GFR (MDRD) Af Amer 72 Est GFR (MDRD) Non-Af 59 L BUN/Creatinine Ratio 40.7 H Glucose 100 Calcium 9.2 Total Bilirubin 10.80 H AST 102 H ALT 177 H Alkaline Phosphatase 196 H Total Protein 6.8 Albumin 2.5 L Globulin 4.3 H Albumin/Globulin Ratio 0.6 L Radiography Diagnostic Testing: Clinical Impression(s) from Imaging Studies Abdomen/Pelvis CT 02/17/24 14:13 IMPRESSION: 1. Cholelithiasis. Findings suggestive of acute cholecystitis. 2. Rectal wall thickening associated with moderate stool burden within the large bowel. Proctitis to be differentiated from an underlying rectal mass. 3. Interval resolution of the hepatic steatosis. Electronically Signed: Molina Aguilera MD at 14:45 EDT , Gallbladder Ultrasound 02/17/24 15:36 IMPRESSION: Cholelithiasis. Electronically Signed: Molina Aguilera MD at 17:04 EDT , Discharge Plan Triage Chief Complaint: Constipation ED Provider: Darlene Webb Dx/Rx/DC Orders Clinical Impression: Fecal impaction in rectum, Acute proctitis, Gallstones, Leukocytosis, Hyponatremia Prescriptions: New mesalamine 1.2 gram tablet,delayed release (DR/EC) 1.2 g PO DAILY 42 Days Qty: 42 0RF vancomycin 125 mg capsule 125 mg PO BID 10 Days Qty: 20 0RF metronidazole 500 mg tablet 500 mg PO Q8H Qty: 30 0RF No Action pantoprazole [Protonix] 40 mg tablet,delayed release (DR/EC) 40 mg PO BID 30 Days Qty: 60 0RF furosemide 10 mg/mL Solution 40 mg IV Q12H 2 Days Qty: 16 0RF Rx Instructions: For 2 days and then change to furosemide 40 mg oral twice daily and discharged with PICC line. ondansetron HCl 8 mg Tablet 8 mg PO Q8H PRN PRN (Reason: Nausea) Qty: 0 0RF prednisone 20 mg Tablet 40 mg PO DAILY 21 Days Qty: 42 0RF Rx Instructions: 40 mg daily till 02/11/2024 and then taper over 10 days. 30 mg for 3 days, 20 mg for 3 days, 10 mg for 4 days and then discontinue. nicotine 21 mg/24 hr Patch 24 Hour 21 mg transdermal DAILY 28 Days Qty: 0 0RF folic acid 1 mg Tablet 1 mg PO BREAKFAST 30 Days Qty: 30 0RF hydroxyzine pamoate 25 mg Capsule 25 mg PO Q4H PRN PRN (Reason: mild anxiety) Qty: 0 0RF sennosides-docusate sodium [Stimulant Laxative Plus] 8.6-50 mg Tablet 2 tab PO BID PRN (Reason: Constipation) Qty: 0 0RF thiamine HCl (vitamin B1) 100 mg Tablet 100 mg PO BREAKFAST Qty: 0 0RF spironolactone 50 mg Tablet 100 mg PO DAILY Qty: 0 0RF Primary Care Provider: Lashell Conner Referrals: Lashell Conner MD [Primary Care Provider] - Activity Restrictions/Additional Instructions: You had a fecal impaction. Because of your continued pain we did a CT scan which adjustment formation of the rectum consistent with proctitis. Per recommendations of our GI doctor, Dr. Dyson, you have been started on these medications to help with your symptoms. Please make sure you are taking your lactulose to help with the constipation further. Your sodium was mildly low but stable. This can be managed at [facility]. Please have your doctor follow your white blood cell count is mildly uptrending (18 today) Print Language: Swedish Disposition Disposition: Home, Self Care
[2024-02-17 13:24] LABS: ALB/GLOB Ratio 0.6 RATIO (0.9-2.4); AST(SGOT) 102 U/L (15-37); Alanine Aminotransfer ALT/SGPT 177 U/L (13-56); Albumin, Serum 2.5 g/dL (3.2-5.0); Alkaline Phosphatase 196 U/L (45-117); Anion Gap 10 (5-15); BUN 46 mg/dL (7-18); BUN/Creat Ratio 40.7 RATIO (10-20); Calcium,Total 9.2 mg/dL (8.5-10.1); Chloride 91 mmol/L (98-107); Creatinine, Serum 1.13 mg/dL (0.55-1.02); EST Glomerular Filtration Rate 59 mL/min (>60); Est Glom Filt Rate - Afr Amer 72 mL/min (>60); Estimated Creatinine Clearance 57.05 ml/min; Globulin 4.3 g/dL (2.2-4.2); Glucose 100 mg/dL (74-106); Potassium 3.9 mmol/L (3.5-5.1); Protein, Total 6.8 g/dL (6.4-8.2); Sodium Level 125 mmol/L (136-145)
[2024-02-17 13:34] LABS: Absolute Lymphocyte Count 0.84 X10^3/uL (0.83-4.51); Absolute Neutrophil Count 15.4 X10^3/uL (2.0-7.7); Basophil# 0.04 X10^3/uL; Basophil% 0.2 % (0-1); Eosinophil# 0.01 X10^3/uL; Eosinophils% 0.1 % (0-5); Hematocrit 31.9 % (37-47); Hemoglobin 10.6 g/dL (12.0-15.0); Lymphocyte # 0.84 X10^3/ul (0.83-4.51); Lymphocyte % 4.6 % (19-41); Mean Corp Hgb Conc 33.2 g/dL (32-36); Mean Corpuscular Hgb 33.4 pg (27.0-32.0); Mean Corpuscular Volume 100.6 fL (81-99); Mean Platelet Vol. 11.3 fl (6.2-12.0); Monocyte# 1.42 X10^3/uL; Monocyte% 7.8 % (0-10); NRBC Flagged by Analyzer 0 % (0-5); Neutrophil # 15.35 X10^3/uL (2.7-7.7); Neutrophil % 84.2 % (47-70); POSITIVE MORPHOLOGY YES; Platelet Count 141 K/mm3 (150-450); RBC Distribution Width CV 17.6 % (11.6-14.6); RBC Distribution Width SD 65.2 fl (35.1-43.9); Red Blood Count 3.17 M/mm3 (4.2-5.4); White Blood Count 18.2 K/mm3 (4.4-11.0)
[2024-02-17 13:35] LABS: Differential Indicated SCAN CRITERIA MET
[2024-02-17 13:55] LABS: Anisocytosis 1+; Hypochromasia 1+
--- NOTE | 2024-02-17 14:13 | CT_ITS ---
EXAM: CT ABDOMEN AND PELVIS WITHOUT INTRAVENOUS CONTRAST CLINICAL INDICATION: abdominal pain TECHNIQUE: Helically acquired images were obtained of the abdomen and pelvis without intravenous contrast. This CT exam was performed using one or more of the following dose reduction techniques: automated exposure control, adjustment of the mA and/or kV according to patient size, and/or use of iterative reconstruction technique. COMPARISON: CT Abdomen Pelvis dated January 09 2024 and December 16 2023 FINDINGS: LOWER THORAX: Normal. Lung bases are clear. No cardiomegaly. No pericardial effusion. ABDOMEN: LIVER: Interval resolution of the hepatic steatosis. GALLBLADDER AND BILE DUCTS: Small mildly calcified stones are present within the dependent portion of the gallbladder. Fat stranding adjacent to the gallbladder raises possibility of acute cholecystitis. No intra- or extrahepatic biliary ductal dilation. PANCREAS: Normal. No focal cystic mass. SPLEEN: Normal. Normal size without focal cystic or solid mass. ADRENALS: Normal. No nodules. KIDNEYS AND URETERS: Normal. No hydronephrosis. STOMACH AND BOWEL: Mild to moderate stool burden within the large bowel. Rectal wall thickening noted. Follow-up recommended to differentiate proctitis from underlying rectal mass. PELVIS: APPENDIX: Appendix is visualized and normal in appearance. BLADDER: Normal. REPRODUCTIVE: Unremarkable as visualized. No mass. ABDOMEN and PELVIS: INTRAPERITONEAL SPACE: Normal. No ascites or other fluid collection. No free air. BONES/JOINTS: No suspicious lytic or blastic abnormality. SOFT TISSUES: Normal. No discrete abdominal or pelvic wall hernia. VASCULATURE: Normal. Abdominal aorta is non-dilated. LYMPH NODES: Normal. No enlarged lymph nodes. CT/Abdomen/Pelvis without Cont IMPRESSION: 1. Cholelithiasis. Findings suggestive of acute cholecystitis. 2. Rectal wall thickening associated with moderate stool burden within the large bowel. Proctitis to be differentiated from an underlying rectal mass. 3. Interval resolution of the hepatic steatosis. Electronically Signed: Molina Aguilera MD at 14:45 EDT ,
--- NOTE | 2024-02-17 15:36 | US_ITS ---
EXAM: US ABDOMEN LIMITED, RIGHT UPPER QUADRANT CLINICAL INDICATION: abnormal CT TECHNIQUE: Real-time ultrasound of the right upper quadrant with image documentation. COMPARISON: No relevant prior studies available. FINDINGS: LIVER: Normal. There is normal echotexture. No focal hepatic lesion. No intrahepatic biliary ductal dilation. GALLBLADDER: Multiple small stones are present within the gallbladder. No gallbladder wall thickening is demonstrated. No pericholecystic fluid. Negative sonographic Lewis''s sign. COMMON BILE DUCT: Unremarkable as visualized. The proximal common bile duct is normal size. PANCREAS: Unremarkable as visualized. No focal abnormality is demonstrated in the pancreas. No pancreatic ductal dilatation. RIGHT KIDNEY: Normal. There is no hydronephrosis. No shadowing calculus. No focal lesion or perinephric collection is demonstrated. US/Gallbladder IMPRESSION: Cholelithiasis. Electronically Signed: Molina Aguilera MD at 17:04 EDT ,
== END 2024-02-17 18:17 | disposition home or self-care (01) ==
PROVIDERS: Emergency Provider Emergency Medicine; PCP Internal Medicine; Visit Provider Emergency Medicine
DX: K56.41 Fecal impaction (principal); F17.210 Nicotine dependence, cigarettes, uncomplicated; K62.89 Other specified diseases of anus and rectum; D72.829 Elevated white blood cell count, unspecified; E87.1 Hypo-osmolality and hyponatremia; K80.20 Calculus of gallbladder without cholecystitis without obstruction
CPT/HCPCS: 36415; 74176; 76705; 80053; 85025; 96374; 96376; 99284; J7030; A4216

== ENCOUNTER 2024-03-22 18:33 | Emergency (ER) | payer MEDICAID, SELFPAY ==
[2024-03-22 18:34] VITALS: BP 98/71; PULSE 112; RESP 17; TEMP 36.6; O2SAT 100; BMI 24.2
--- NOTE | 2024-03-22 19:26 | CT_ITS ---
STUDY: CT BRAIN WITHOUT CONTRAST REASON FOR EXAM: Female, 33 years old. head injury RADIATION DOSAGE (If Supplied By Facility): CTDIvol = ( 44.99 ) mGy, DLP = ( 796.11 ) mGycm TECHNIQUE: Transaxial CT imaging of the brain was performed without administration of intravenous contrast material. Individualized dose optimization techniques were used for this CT. COMPARISON: 05/08/2022 FINDINGS: Normal soft tissue structures. Normal calvarium. Normal size ventricles and extra-axial spaces for the patient''s age. Normal white matter tracts of the cerebral hemispheres. Normal basal ganglia and thalami. Normal brainstem. Normal cerebellum. There is no intracranial hemorrhage. There are no findings of an acute ischemic infarction. Normal visualized paranasal sinuses. CT/Brain/Head without Contrast IMPRESSION: Normal unenhanced CT scan of the brain. Electronically Signed: Tony Henderson MD at 20:23 EDT ,
--- NOTE | 2024-03-22 19:26 | EKG12_ITS ---
Test Reason : DYSRHYTHMIA Blood Pressure : / mmHG Vent. Rate : 091 BPM Atrial Rate : 091 BPM P-R Int : 124 ms QRS Dur : 086 ms QT Int : 378 ms P-R-T Axes : 043 026 050 degrees QTc Int : 464 ms Normal sinus rhythm Normal ECG Confirmed by Edvin Foster ([id number]), sports editor DUNG BENNETT ([id number]) on 03/25/2024 10:50:13 AM Referred By: Confirmed By:Edvin Foster
--- NOTE | 2024-03-22 19:27 | EX.ED.DYSGE1 ---
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 Patient was walking from the bedroom to the bathroom when she became lightheaded and fell to the ground. Significant other helped her up and then patient completely passed out. She did hit her head and injured her left side of the body. She is currently complaining of headache, swelling and bruising to the left thigh and multiple skin tears. She notes that she has been more lightheaded lately but does have a extensive history of lightheadedness her whole life. Denies any recent alcohol use and has been sober. Patient was recently discharged from [facility] and has had an issue getting her medications. She states that she only has her potassium, Lasix, mesalamine and pantoprazole at home. There seems to be some disconnect with you that having drug [place] fill her medications. Denies any chest pain or shortness of breath. Denies any nausea or vomiting. No other complaints or concerns reported at this time. [facility] Medical History Ecchymosis Alcoholic hepatitis Alcoholism Home Medications ?Medication ?Instructions ?Recorded ?Last Taken ?Type pantoprazole 40 mg tablet,delayed 40 mg PO BID GERD 30 days #60 tabs 12/16/23 Unknown Rx release (Protonix) folic acid 1 mg tablet 1 mg PO BREAKFAST 30 days #30 tabs 01/24/24 Unknown Rx furosemide 10 mg/mL injection 40 mg (4 mL) IV Q12H 2 days #16 mL 01/24/24 Unknown Rx solution hydroxyzine pamoate 25 mg capsule 25 mg PO Q4H PRN PRN mild anxiety 01/24/24 Unknown Rx #0 caps nicotine 21 mg/24 hr daily 21 mg transdermal DAILY 28 days #0 01/24/24 Unknown Rx transdermal patch ea ondansetron HCl 8 mg tablet 8 mg PO Q8H PRN PRN Nausea #0 tabs 01/24/24 Unknown Rx prednisone 20 mg tablet 40 mg (2 x 20 mg) PO DAILY 3 weeks 01/24/24 Unknown Rx #42 tabs sennosides 8.6 mg-docusate sodium 2 tab PO BID PRN Constipation #0 01/24/24 Unknown Rx 50 mg tablet (Stimulant Laxative tabs Plus) spironolactone 50 mg tablet 100 mg (2 x 50 mg) PO DAILY #0 tabs 01/24/24 Unknown Rx thiamine HCl (vitamin B1) 100 mg 100 mg PO BREAKFAST #0 tabs 01/24/24 Unknown Rx tablet mesalamine 1.2 gram tablet,delayed 1.2 g PO DAILY 6 weeks #42 tabs 02/17/24 Unknown Rx release metronidazole 500 mg tablet 500 mg PO Q8H #30 tabs 02/17/24 Unknown Rx vancomycin 125 mg capsule 125 mg PO BID 10 days #20 caps 02/17/24 Unknown Rx Allergy/AdvReac Type Severity Reaction Status Date / Time hydrocodone Allergy Hives Verified 03/22/24 18:34 Family History no significant family his Social History Smoking Status: Current every day smoker tobacco type: cigarettes ROS ROS ED Constitutional Constitutional ED: Reports other Details: lightheaded ; Denies chills or fever(s) Eyes Eyes: Denies blurry vision or change in vision Cardiovascular Cardiovascular: Denies chest pain Respiratory/Chest Respiratory/Chest: Denies cough or dyspnea Gastrointestinal Gastrointestinal: Denies nausea or vomiting Musculoskeletal Musculoskeletal: Reports arthralgias Integumentary Reports Abrasions Neurologic Neurologic: Reports weakness; Denies headache(s) Psychiatric Psychiatric: Denies anxiety Hematologic/Lymphatic Hematologic/Lymphatic: Reports easy bleeding and easy bruising EXAM Physical Exam Const Vital Signs: 03/22/24 18:34 03/22/24 18:46 03/22/24 20:13 Temperature 98 F Temperature Source Oral Pulse Rate 112 H 82 Respiratory Rate 17 15 Respiratory Effort Normal Respiratory Depth Normal Respiratory Pattern Normal Blood Pressure 98/71 110/54 L Blood Pressure Mean 80 72 Pulse Ox 100 100 Oxygen Delivery Method Room Air Room Air Room Air Constitutional Narrative: Well-kept, Chronically ill-appearing General Appearance ED: NAD HEENT Reports moist mucous membranes Eyes PERRL Eyes Narrative: Very mild scleral icterus Neck supple General: Negative for tenderness Chest Wall inspection of chest normal and palpation of chest normal Chest Narrative: No chest wall crepitus or tenderness to palpation Resp normal respiratory effort and clear to auscultation bilaterally Cardio regular rate and regular rhythm GI normal to inspection, nondistended, normoactive bowel sounds, non-tender and non-distended Extremity normal to inspection Extremity Narrative: No deformity of the extremities appreciated. There is approximately 6 cm x 5 cm area of hematoma of the right inner mid thigh. No pulsatile mass appreciated. Mildly tender to palpation. General Extremety ED: Negative for edema or tenderness General Extremity: Negative for edema Neuro oriented x3 Sensorium / Orientation: alert Motor Exam: Negative for general weakness Psych mental status grossly normal Skin Skin Narrative: Scattered skin tears noted on the left shoulder, underneath the right breast and just inferior to the left knee. There is scattered ecchymosis in various stages of healing on the extremities. MDM MDM MDM Narrative Medical decision making narrative: Patient is evaluated after syncopal episode. Patient states she has a longstanding history of lightheadedness and syncope. She did sustain multiple skin tears and has a hematoma to her left thigh. On serial evaluation of the left thigh does not appear to be expanding. I do not think requires any vascular imaging at this time. Patient's vital signs significant for mild tachycardia. Patient actually looks much better than she did when I saw her about a month ago. Syncope workup is obtained. Patient has a mild anemia the hemoglobin 11.4. She has normal platelet count and correction of her coagulopathy. She still has a mild elevation of her PTT however her INR is normalizing. BMP is improving and her sodium is now 135 (was 125 on 02/16). Her kidney function is normal. She has normal bicarb and normal anion gap. Potassium is normal at 3.8. Patient's total bili is now down to 1.4. Her AST and ALT continue to normalize and her alkaline phosphatase is now normal. Urinalysis is not particularly consistent with infection. 2 view chest x-ray reviewed by myself as well as radiology does not show any acute abnormalities. CT of the brain does not show any acute traumatic process. EKG is normal sinus rhythm with no arrhythmia. Patient is given 500 cc fluid bolus. Repeat evaluation she states she is feeling better and does not feel as dizzy. Patient will follow-up outpatient with GI. She states she also got a call that she is was to follow-up with nephrology. Will be given information again for Dr. Wynne. Given return precautions. Discussed a high-protein diet as well. Discussed encouraging fluids. History & Record Review Additional record(s) reviewed:: Prior inpatient record (Discharge summary from 01/24/2024-admitted with decompensated alcoholic cirrhosis with severe GI bleed, jaundice and C. difficile) Lab Data Attestation: I reviewed the patient's lab results. Labs: Laboratory Results - last 24 hr 03/22/24 03/22/24 19:03 20:58 WBC 9.6 RBC 3.58 L Hgb 11.4 L Hct 35.4 L MCV 98.9 MCH 31.8 MCHC 32.2 RDW Std Deviation 48.9 H RDW Coeff of Yan 13.5 Plt Count 181 MPV 10.6 Immature Gran % (Auto) 1.900 H Neut % (Auto) 67.9 Lymph % (Auto) 16.1 L [place] % (Auto) 11.3 H Eos % (Auto) 2.1 Baso % (Auto) 0.7 Absolute Neuts (auto) 6.6 Absolute Lymphs (auto) 1.55 Nucleated RBC % 0 PT 15.5 H INR 1.2 APTT 31.2 Sodium 135 L Potassium 3.8 Chloride 100 Carbon Dioxide 29.0 Anion Gap 6 BUN 22 H Creatinine 0.91 Estim Creat Clear Calc 70.85 Est GFR (MDRD) Af Amer 93 Est GFR (MDRD) Non-Af 77 BUN/Creatinine Ratio 24.3 H Glucose 116 H Calcium 8.9 Total Bilirubin 1.40 H AST 66 H ALT 57 H Alkaline Phosphatase 117 Troponin I High Sens 3 Total Protein 7.2 Albumin 2.5 L Globulin 4.7 H Albumin/Globulin Ratio 0.5 L Urine Color Yellow Urine Clarity Sl. Cloudy Urine pH 7.0 Ur Specific [place] 1.015 Urine Protein Negative Urine Glucose (UA) Normal Urine Ketones Negative Urine Occult Blood Negative Urine Nitrite Negative Urine Bilirubin Negative Urine Urobilinogen 4 H Ur Leukocyte Esterase 25 H Radiography Diagnostic Testing: Clinical Impression(s) from Imaging Studies Brain CT 03/22/24 19:26 IMPRESSION: Normal unenhanced CT scan of the brain. Electronically Signed: Tony Henderson MD at 20:23 EDT , Chest X-Ray 03/22/24 20:00 IMPRESSION: Normal x-ray examination of the chest. Electronically Signed: Tony Henderson MD at 20:24 EDT , Rhythm Strip Rhythm Strip: Sinus Rhythm Rate: 91 Ectopy: None EKG Initial EKG: Attestation: I personally reviewed and interpreted this EKG as follows: Interpretation: Sinus Rhythm Comments: Normal sinus rhythm at a rate of 91 bpm Normal axis Normal intervals Normal ST segments Discharge Plan Triage Chief Complaint: Fall ED Provider: Darlene Webb Dx/Rx/DC Orders Clinical Impression: Syncope and collapse, Skin tear, Hematoma of left thigh Instructions: ED Hematoma, ED Skin Tear (Skin Avulsion), ED Fainting, Uncertain Cause Prescriptions: No Action pantoprazole [Protonix] 40 mg tablet,delayed release (DR/EC) 40 mg PO BID 30 Days Qty: 60 0RF furosemide 10 mg/mL Solution 40 mg IV Q12H 2 Days Qty: 16 0RF Rx Instructions: For 2 days and then change to furosemide 40 mg oral twice daily and discharged with PICC line. ondansetron HCl 8 mg Tablet 8 mg PO Q8H PRN PRN (Reason: Nausea) Qty: 0 0RF prednisone 20 mg Tablet 40 mg PO DAILY 21 Days Qty: 42 0RF Rx Instructions: 40 mg daily till 02/11/2024 and then taper over 10 days. 30 mg for 3 days, 20 mg for 3 days, 10 mg for 4 days and then discontinue. nicotine 21 mg/24 hr Patch 24 Hour 21 mg transdermal DAILY 28 Days Qty: 0 0RF folic acid 1 mg Tablet 1 mg PO BREAKFAST 30 Days Qty: 30 0RF hydroxyzine pamoate 25 mg Capsule 25 mg PO Q4H PRN PRN (Reason: mild anxiety) Qty: 0 0RF sennosides-docusate sodium [Stimulant Laxative Plus] 8.6-50 mg Tablet 2 tab PO BID PRN (Reason: Constipation) Qty: 0 0RF thiamine HCl (vitamin B1) 100 mg Tablet 100 mg PO BREAKFAST Qty: 0 0RF spironolactone 50 mg Tablet 100 mg PO DAILY Qty: 0 0RF mesalamine 1.2 gram tablet,delayed release (DR/EC) 1.2 g PO DAILY 42 Days Qty: 42 0RF vancomycin 125 mg capsule 125 mg PO BID 10 Days Qty: 20 0RF metronidazole 500 mg tablet 500 mg PO Q8H Qty: 30 0RF Primary Care Provider: Jennifer Penn Referrals: Arnie Wynne MD [Med Staff - Consulting] - Keep Yvan appointment Friend,DO Richar [Med Staff - Active Staff] - As soon as possible Jennifer Penn [Primary Care Provider] - Activity Restrictions/Additional Instructions: Use the Mason wrap's to keep pressure on the large bruise on your thigh. As we discussed try to increase your protein intake. Make sure you are drinking plenty of fluids. Your lab work is improving over the last month. Continue to abstain from alcohol. Follow-up outpatient as you have scheduled. Exact cause of your syncopal episodes not clear. If you have further symptoms please return to the emergency room. Print Language: German Disposition Disposition: Home, Self Care
[2024-03-22 19:40] LABS: Absolute Lymphocyte Count 1.55 X10^3/uL (0.83-4.51); Absolute Neutrophil Count 6.6 X10^3/uL (2.0-7.7); Basophil# 0.07 X10^3/uL; Basophil% 0.7 % (0-1); Eosinophils% 2.1 % (0-5); Hematocrit 35.4 % (37-47); Hemoglobin 11.4 g/dL (12.0-15.0); Lymphocyte # 1.55 X10^3/ul (0.83-4.51); Lymphocyte % 16.1 % (19-41); Mean Corp Hgb Conc 32.2 g/dL (32-36); Mean Corpuscular Hgb 31.8 pg (27.0-32.0); Mean Corpuscular Volume 98.9 fL (81-99); Mean Platelet Vol. 10.6 fl (6.2-12.0); Monocyte# 1.09 X10^3/uL; Monocyte% 11.3 % (0-10); NRBC Flagged by Analyzer 0 % (0-5); Neutrophil # 6.55 X10^3/uL (2.7-7.7); Neutrophil % 67.9 % (47-70); Platelet Count 181 K/mm3 (150-450); RBC Distribution Width CV 13.5 % (11.6-14.6); RBC Distribution Width SD 48.9 fl (35.1-43.9); Red Blood Count 3.58 M/mm3 (4.2-5.4); White Blood Count 9.6 K/mm3 (4.4-11.0)
[2024-03-22] MEDS: 0.9% Normal Saline (500mL Bag) 500 ML 1000 ML IV (19:40)
[2024-03-22 19:50] LABS: International Normalized Ratio 1.2; Prothrombin Time (Protime)PT. 15.5 SECONDS (11.7-14.9)
[2024-03-22 19:51] LABS: Partial Thromboplast Time 31.2 Seconds (24.1-36.2)
--- NOTE | 2024-03-22 20:00 | RAD_ITS ---
STUDY: X-RAY CHEST REASON FOR EXAM: Female, 33 years old. syncope TECHNIQUE: Frontal and lateral views of the chest. COMPARISON: 01/09/2024. FINDINGS: The lungs are clear and expanded. There is no demonstrated pleural abnormality. Normal size heart. Normal mediastinum and abdirizak. Normal visualized pulmonary arteries. Normal visualized aortic arch and descending thoracic aorta. Normal visualized thoracic spine. Normal visualized ribs, clavicles, and shoulders. There is no demonstrated abnormality of the visualized soft tissue structures of the upper abdomen. RAD/Chest PA and Lateral IMPRESSION: Normal x-ray examination of the chest. Electronically Signed: Tony Henderson MD at 20:24 EDT ,
[2024-03-22 20:05] LABS: ALB/GLOB Ratio 0.5 RATIO (0.9-2.4); AST(SGOT) 66 U/L (15-37); Alanine Aminotransfer ALT/SGPT 57 U/L (13-56); Albumin, Serum 2.5 g/dL (3.2-5.0); Alkaline Phosphatase 117 U/L (45-117); Anion Gap 6 (5-15); BUN 22 mg/dL (7-18); BUN/Creat Ratio 24.3 RATIO (10-20); Calcium,Total 8.9 mg/dL (8.5-10.1); Chloride 100 mmol/L (98-107); Creatinine, Serum 0.91 mg/dL (0.55-1.02); EST Glomerular Filtration Rate 77 mL/min (>60); Est Glom Filt Rate - Afr Amer 93 mL/min (>60); Estimated Creatinine Clearance 70.85 ml/min; Globulin 4.7 g/dL (2.2-4.2); Glucose 116 mg/dL (74-106); Potassium 3.8 mmol/L (3.5-5.1); Protein, Total 7.2 g/dL (6.4-8.2); Sodium Level 135 mmol/L (136-145); Troponin-I HS 3 pg/mL (3.0-54.0)
[2024-03-22 20:13] VITALS: BP 110/54; PULSE 82; RESP 15; O2SAT 100
[2024-03-22 21:05] LABS: Bacteria 0 SEEN /hpf (None Seen); Mucous, Urine 0 SEEN /hpf (<or=2+); Red Blood Cells-Urine 0 SEEN /hpf (0-5); Squamous Epithelial Cells - UA 0 SEEN /hpf (5-10); White Blood Cells 0 SEEN /hpf (0-5)
[2024-03-22 21:12] LABS: Color, Urine Yellow (Yellow); Glucose, Dipstick Normal (Normal); Ketone-Dipstick Negative (Negative); Leukocyte Esterase-Dipstick 25 /ul (Negative); Nitrite-Dipstick Negative (Negative); Occult Blood-Urine Negative /ul (Negative); Protein-Dipstick Negative (Negative); Specific Gravity, Urine 1.015 (1.002-1.030); Urine Bilirubin Dipstick Negative (Negative); Urine Clarity Sl. Cloudy (Clear); Urine Urobilinogen 4 mg/dl (Normal)
[2024-03-22 22:00] VITALS: BP 95/60; PULSE 88; RESP 18; O2SAT 99
[2024-03-22 22:20] VITALS: BP 95/60; PULSE 88; RESP 18; TEMP 36.6; O2SAT 99
== END 2024-03-22 22:20 | disposition home or self-care (01) ==
PROVIDERS: Emergency Provider Emergency Medicine; Visit Provider Emergency Medicine
DX: R55 Syncope and collapse (principal); S70.12XA Contusion of left thigh, initial encounter; F17.210 Nicotine dependence, cigarettes, uncomplicated; W19.XXXA Unspecified fall, initial encounter
CPT/HCPCS: 70450; 71046; 80053; 81001; 84484; 85025; 85610; 85730; 93005; 99284; J7040; A4216

== ENCOUNTER → 2024-05-28 | Outpatient (CLI) | payer MEDICAID, SELFPAY ==
[2024-05-28 18:21] LABS: Anion Gap 8 (5-15); BUN 26 mg/dL (7-18); Calcium,Total 10.7 mg/dL (8.5-10.1); Chloride 96 mmol/L (98-107); Creatinine, Serum 1.53 mg/dL (0.55-1.02); EST Glomerular Filtration Rate 42 mL/min (>60); Est Glom Filt Rate - Afr Amer 51 mL/min (>60); Glucose 132 mg/dL (74-106); Potassium 3.6 mmol/L (3.5-5.1); Sodium Level 134 mmol/L (136-145)
== END | disposition home or self-care (01) ==
LOC: VSLAB 13:15
PROVIDERS: PCP Nurse Practitioner Family; Visit Provider Nurse Practitioner Family
DX: I95.9 Hypotension, unspecified (principal)
CPT/HCPCS: 36415; 80048

== ENCOUNTER → 2024-08-15 | Outpatient (CLI) | payer MEDICAID, SELFPAY ==
--- NOTE | 2024-08-15 09:23 | US_ITS ---
PROCEDURE: ABD LIMITED W/ ELASTOGRAPHY REASON FOR EXAM: Cirrhosis. Splenomegaly. COMPARISON: None. TECHNIQUE: Right upper quadrant abdominal ultrasound. [employer] ElastQ Imaging shear wave elastography for non-invasive assessment of liver tissue stiffness. Roney EPIQ Elite. FINDINGS: LIVER: Size: Unremarkable Length: 15.7 cm Echotexture: Diffusely echogenic suggesting fatty infiltration Contour: Normal Lesions: None identified Elastography: EQI Med: 11.2 kPa EQI Med Harish: 1.92 m/s IQR/Med: 17 %* GALLBLADDER: Multiple gallstones. COMMON BILE DUCT: Normal . PANCREAS: Normal Visualized portions of the right kidney are unremarkable. No right upper quadrant ascites. The spleen is not enlarged. It measures 12.1 cm x 4.1 cm x 4.7 cm. US/ABD Limited w/ Elastography IMPRESSION: MODERATE TO SEVERE HEPATIC FIBROSIS Reference Values: SRU <1.37 m/s (5.7kPa): No to mild fibrosis 1.37 m/s - 2.2 m/s: Moderate to severe fibrosis >2.2 m/s (15kPa): Significant fibrosis / cirrhosis METAVIR Score F2 or higher: 1.34 m/s (5.7kPa) F3 or higher: 1.55 m/s (7.3kPa) F4: 1.80 m/s (10kPa) * If the IQR/Med is >30%, the variance in the measurements is a large and the a ccuracy of the measurement may be in question. Reading Location: [place] [id number]
== END | disposition home or self-care (01) ==
LOC: US 09:22
PROVIDERS: PCP Nurse Practitioner Family; Referring Provider Internal Medicine; Visit Provider Internal Medicine
DX: E87.6 Hypokalemia (principal); K92.2 Gastrointestinal hemorrhage, unspecified
CPT/HCPCS: 76705; 76981

== ENCOUNTER → 2024-08-20 | Outpatient (CLI) | payer MEDICAID, SELFPAY ==
[2024-08-20 09:22] LABS: Absolute Lymphocyte Count 1.32 X10^3/uL (0.83-4.51); Basophil# 0.03 X10^3/uL; Basophil% 0.3 % (0-1); Eosinophil# 0.13 X10^3/uL; Eosinophils% 1.3 % (0-5); Hematocrit 44.3 % (37-47); Hemoglobin 15.3 g/dL (12.0-15.0); Lymphocyte # 1.32 X10^3/ul (0.83-4.51); Lymphocyte % 13.1 % (19-41); Mean Corp Hgb Conc 34.5 g/dL (32-36); Mean Corpuscular Hgb 31.4 pg (27.0-32.0); Mean Platelet Vol. 9.9 fl (6.2-12.0); Monocyte# 0.61 X10^3/uL; NRBC Flagged by Analyzer 0 % (0-5); Neutrophil # 7.96 X10^3/uL (2.7-7.7); Neutrophil % 78.9 % (47-70); Platelet Count 160 K/mm3 (150-450); RBC Distribution Width CV 13.3 % (11.6-14.6); RBC Distribution Width SD 44.1 fl (35.1-43.9); Red Blood Count 4.87 M/mm3 (4.2-5.4); White Blood Count 10.1 K/mm3 (4.4-11.0)
[2024-08-20 09:24] LABS: Prothrombin Time (Protime)PT. 13.5 SECONDS (11.7-14.9)
[2024-08-20 10:30] LABS: AST(SGOT) 31 U/L (15-37); Alanine Aminotransfer ALT/SGPT 44 U/L (13-56); Albumin, Serum 3.9 g/dL (3.2-5.0); Alkaline Phosphatase 93 U/L (45-117); Anion Gap 8 (5-15); BUN 21 mg/dL (7-18); BUN/Creat Ratio 15.8 RATIO (10-20); Bilirubin, Direct 0.36 mg/dL (0.00-0.30); CRP < 2.90 mg/L (0.0-3.0); Chloride 105 mmol/L (98-107); Creatinine, Serum 1.33 mg/dL (0.55-1.02); EST Glomerular Filtration Rate 49 mL/min (>60); Est Glom Filt Rate - Afr Amer 59 mL/min (>60); Glucose 101 mg/dL (74-106); Lipase 34 U/L (73-393); Phosphorus 2.9 mg/dL (2.5-4.9); Potassium 4.2 mmol/L (3.5-5.1); Protein, Total 7.9 g/dL (6.4-8.2); Sodium Level 139 mmol/L (136-145); T4 Free Direct 1.12 ng/dL (0.76-1.46)
[2024-08-20 12:05] LABS: Hemoglobin A1c 4.8 % (3.8-5.6)
[2024-08-20 14:57] LABS: Vitamin B12 552 pg/mL (211-911)
[2024-08-21 14:08] LABS: AFP, Tumor Marker 2.6 ng/mL (0.0-6.4); ANTINUCLEAR ANTIBODIES DIRECT Negative (Negative); Anti-Mitochondrial AB <20.0 Units (0.0-20.0); Anti-Smooth Muscle ABS 9 Units (0-19)
[2024-08-22 16:52] LABS: Vitamin D,25 Hydroxy 34.7 ng/mL
== END | disposition home or self-care (01) ==
PROVIDERS: Internal Medicine; PCP Nurse Practitioner Family; Referring Provider Nurse Practitioner Family; Visit Provider Nurse Practitioner Family
DX: E87.6 Hypokalemia (principal); K70.30 Alcoholic cirrhosis of liver without ascites; K92.2 Gastrointestinal hemorrhage, unspecified; R11.2 Nausea with vomiting, unspecified
CPT/HCPCS: 86225; 86235; 80053; 82105; 82140; 82248; 82306; 82607; 82746; 83036; 83516; 83690; 83735; 84100; 84439; 84443; 85025; 85610; 86038; 86140

== ENCOUNTER → 2024-09-30 | Outpatient (CLI) | payer MEDICAID, SELFPAY ==
--- NOTE | 2024-09-30 12:16 | NM_ITS ---
PROCEDURE: HEPATOBILLIARY IMG W/PHARM INT 09/30/2024 REASON FOR EXAM: RUQ PAIN TECHNIQUE: Intravenous Choletec with planar imaging of the abdomen. 1.4 mcg Kinevac intravenously approximately 60 minutes after the radiopharmaceutical with additional anterior imaging and a region of interest drawn around the gallbladder to calculate a time-activity curve. RADIOPHARMACEUTICAL: 5.6 mCi of technetium labeled mebrofenin COMPARISON: None. FINDINGS: There is good uptake of the radiopharmaceutical by the liver. Normal gallbladder visualization with the gallbladder identified by 15 minutes. Gallbladder Ejection Fraction: 53 % (Normal is >35%) NM/Hepatobilliary Img w/Pharm Int IMPRESSION: Normal hepatobiliary scan with Kinevac. Reading Location: [place] [id number]
== END | disposition home or self-care (01) ==
PROVIDERS: PCP Nurse Practitioner Family; Referring Provider Surgery; Visit Provider Surgery
DX: R11.0 Nausea (principal)
CPT/HCPCS: 78227; A9537; J2805

== ENCOUNTER → 2024-10-09 | Outpatient (CLI) | payer MEDICAID, SELFPAY | END | disposition home or self-care (01) | LOC: LABSPEC 13:26 | PROVIDERS: PCP Nurse Practitioner Family; Visit Provider Nurse Practitioner Family | DX: N89.8 Other specified noninflammatory disorders of vagina (principal) ==

== ENCOUNTER → 2024-10-16 | Outpatient (CLI) | payer MEDICAID, SELFPAY ==
[2024-10-16 15:11] LABS: Absolute Lymphocyte Count 2.05 X10^3/uL (0.83-4.51); Absolute Neutrophil Count 8.8 X10^3/uL (2.0-7.7); Basophil# 0.02 X10^3/uL; Basophil% 0.2 % (0-1); Eosinophil# 0.13 X10^3/uL; Eosinophils% 1.1 % (0-5); Hematocrit 44.5 % (37-47); Hemoglobin 15.6 g/dL (12.0-15.0); Lymphocyte # 2.05 X10^3/ul (0.83-4.51); Lymphocyte % 17.6 % (19-41); Mean Corp Hgb Conc 35.1 g/dL (32-36); Mean Corpuscular Hgb 32.6 pg (27.0-32.0); Mean Corpuscular Volume 93.1 fL (81-99); Mean Platelet Vol. 10.5 fl (6.2-12.0); Monocyte# 0.65 X10^3/uL; Monocyte% 5.6 % (0-10); NRBC Flagged by Analyzer 0 % (0-5); Neutrophil # 8.75 X10^3/uL (2.7-7.7); Platelet Count 178 K/mm3 (150-450); RBC Distribution Width CV 13.3 % (11.6-14.6); RBC Distribution Width SD 45.6 fl (35.1-43.9); Red Blood Count 4.78 M/mm3 (4.2-5.4); White Blood Count 11.7 K/mm3 (4.4-11.0)
[2024-10-16 16:08] LABS: ALB/GLOB Ratio 1.3 RATIO (0.9-2.4); AST(SGOT) 29 U/L (<=31); Alanine Aminotransfer ALT/SGPT 24 U/L (<=34); Albumin, Serum 4.3 g/dL (3.5-5.0); Alkaline Phosphatase 118 U/L (35-104); Anion Gap 11 (5-15); BUN 22 mg/dL (4-19); BUN/Creat Ratio 16.4 RATIO (10-20); Calcium,Total 9.8 mg/dL (7.6-11.0); Carbon Dioxide 26.9 mmol/L (21.0-32.0); Chloride 100 mmol/L (98-108); Creatinine, Serum 1.34 mg/dL (0.70-1.20); EST Glomerular Filtration Rate 54 (>60); Estradiol 52.2 pg/mL; Follicle Stimulating Hormone 5.5 mIU/mL; Globulin 3.3 g/dL (2.2-4.2); Glucose 95 mg/dL (70-99); Luteinizing Hormone 28.8 mIU/mL; Potassium 3.9 mmol/L (3.3-5.1); Protein, Total 7.6 g/dL (5.9-8.4); Sodium Level 138 mmol/L (133-145); Total Bilirubin 1.09 mg/dL (0.00-1.30)
== END | disposition home or self-care (01) ==
PROVIDERS: PCP Nurse Practitioner Family; Visit Provider Nurse Practitioner Family
DX: N91.2 Amenorrhea, unspecified (principal); K80.20 Calculus of gallbladder without cholecystitis without obstruction
CPT/HCPCS: 36415; 80053; 82670; 83001; 83002; 84403; 84443; 85025

== ENCOUNTER 2025-02-18 10:46 | Day surgery (SDC) | payer MEDICAID, SELFPAY ==
[2025-02-18] VITALS (8 sets, daily range): BP systolic 83–106; BP diastolic 57–80; PULSE 60–73; RESP 16; TEMP 36.1–36.6; O2SAT 97–100; BMI 28.0
[2025-02-18 11:24] LABS: Internal QC Validated? YES +Cl - CLEAR BKGD; Pregnancy, Urine Negative Negative
[2025-02-18 11:26] LABS: Record Kit Lot#,Urine Preg 0000962302
[2025-02-18] MEDS: Lactated Ringers 1,000 ML 15 ML IV (11:34)
--- NOTE | 2025-02-18 11:55 | PRE.ANES_ITS ---
ASA Classification* ASA Classification ASA Classification: 2 Assessment & Plan Anesthesia* Anesthesia Assessment Anesthesia Assessment: Discussed sedation and/or anesthesia options, risks, benefits, and alternatives with patient/parents/legal guardian/POA. Questions invited. The patient/parents/legal guardian/POA seems to understand and agrees to proceed with anesthesia plan. Reviewed the physical assessment, medical history, allergy history and patient home medications list prior to surgery/procedure/anesthetic and documented any changes. Performed airway and anesthesia risk assessments. Anesthesia Type Anesthesia Type: MAC Anesthesia Focused Assessment* Temperature: 97.0 F Pulse Rate: 64 Blood Pressure: 97/57 Respiratory Rate: 16 Pulse Ox: 97 Oxygen Delivery Method: Room Air Airway Assessment Mouth opens: >3 cm Mallampati Score: I Teeth Condition: Intact Neck Range of motion (ROM): Full ROM Labs Anesthesia Preop lab: CBC WBC 11.7 K/mm3 (4.4-11.0) H 10/16/24 13:58 5 RBC 4.78 M/mm3 (4.2-5.4) 10/16/24 13:58 10/16/24 Hgb 15.6 g/dL (12.0-15.0) H 10/16/24 13:58 5 Hct 44.5 % (37-47) 10/16/24 13:58 10/16/24 Plt Count 178 K/mm3 (150-450) 10/16/24 13:58 10/16/24 CHEMISTRY Potassium 3.9 mmol/L (3.3-5.1) 10/16/24 13:58 10/16/24 Sodium 138 mmol/L (133-145) 10/16/24 13:58 10/16/24 Magnesium 2.0 mg/dL (1.6-2.6) 08/20/24 08:56 08/20/24 Phosphorus 2.9 mg/dL (2.5-4.9) 08/20/24 08:56 08/20/24 BUN 22 mg/dL (4-19) H 10/16/24 13:58 10/16/24 Creatinine 1.34 mg/dL (0.70-1.20) H 10/16/24 13:58 Glucose 95 mg/dL (70-99) 10/16/24 13:58 10/16/24 POC Glucose 146 mg/dL (74-106) H 01/14/24 01:12 01/14/24 TSH 1.270 uIU/mL (0.300-4.200) 10/16/24 13:58 10/01 12/25 COAG PT 13.5 SECONDS (11.7-14.9) 08/20/24 08:56 Urine Test Negative Negative 02/18/25 11:15 02/18/25 Pre-Assessment Diagnosis/Proposed Procedure Planned Operative Procedure(s): EGD Anesthesia History Anesthesia History - registered occupational therapist: Anesthesia History - registered occupational therapist Hx Hospitalization Yes: ALCOHOLIC CIRRHOSIS 02/17/25 12:02 2023 Any Problems With Anesthesia No 02/17/25 12:02 Cholinesterase deficiency No 02/17/25 12:02 You/Your Family Experience No 02/17/25 12:02 fever (hyperthermia) with Relationship Recent Exposure to Contagious No 02/18/25 11:24 Disease Does patient have nerve No 02/17/25 12:02 stimulator Patient instructed to have device shut off --Does patient have Pacemaker No 02/18/25 11:26 or ICD? When Was Last Pacemaker Check QUESTION #4 FULL TEXT: You/Your Family Experience fever (hyperthermia) with Anesthesia Last Oral Intake Last Oral intake: Last Oral Intake NPO since 23:00 02/18/25 11:26 Meds taken in AM with sips of No 02/18/25 11:26 water? Meds patient instructed to take am of surgery PONV PONV - registered occupational therapist: PONV - registered occupational therapist Female Yes 02/17/25 12:02 HX of Motion Sickness Yes 02/17/25 12:02 HX of N/V After Surgery No 02/17/25 12:02 Non-Smoker No 02/17/25 12:02 Duration of Surgery greater No 02/17/25 12:02 than 60 minutes Number of Risk Factors 2 02/17/25 12:02 PONV Score Moderate Risk 02/17/25 12:02 Height & Weight Height & Weight: Anesthesia: Height & Weight Height 5 ft 2 in 02/18/25 11:26 Weight: 69.49 kg 02/18/25 11:26 Body Mass Index (BMI) 28.0 02/18/25 11:26 Respiratory Assessment Respiratory Assessment - registered occupational therapist: Respiratory Tract Infection Hx - registered occupational therapist Hx Respiratory Tract Infection No 02/17/25 12:02 STOP Sleep Apnea STOP Sleep Apnea - registered occupational therapist: STOP Sleep Apnea - registered occupational therapist Hx Hypertension Yes: CONTROLLED WITH MED 02/17/25 12:02 Hx Sleep Apnea No 02/17/25 12:02 CPAP BIPAP Do you snore loudly (louder No 02/17/25 12:02 than talking or can be heard Do you often feel tired/ No 02/17/25 12:02 fatigued/ sleepy during daytime? Has anyone observed you stop No 02/17/25 12:02 breathing during sleep? STOP Results Negative 02/17/25 12:02 QUESTION #5 FULL TEXT : Do you snore loudly (louder than talking or can be heard through closed doors)? Tobacco Use History Tobacco Use History - registered occupational therapist: Tobacco Use History - registered occupational therapist Tobacco Use Smoking Status Current every day smoker 02/17/25 12:02 Hx Tobacco Use Yes 02/17/25 12:02 Years Smoking Packs Smoked per Day 0.5 02/17/25 12:02 Smoking Cessation Date was within the last 15 years Hx Smoking Cessation Date Hx Smoking Cessation Counseling Hematologic Medial History Hematologic Hx - registered occupational therapist: Hematologic Medical Hx - setter helper Hx of Blood Transfusion Yes 02/17/25 12:02 Hx of Transfusion in last 3 No 02/17/25 12:02 Months Date of Last Transfusion (if within last 3 months) Ever experience any problems No 02/17/25 12:02 with transfusion(s)? Specify any problems Hx of Preganancy in last 3 N/A 02/17/25 12:02 Months Nurse Filling Out Transfusion NBUCHER 02/17/25 12:02 & Questions: Date: 02/17/25 02/17/25 12:02 Time: 12:04 02/17/25 12:02 Patient unable to answer at this time (ie. confused, unrespo /Reproduction History /Reproductive History - registered occupational therapist: /Reproductive Hx- registered occupational therapist Hx Now No 02/17/25 12:02 Gestational Age (in weeks): EDC: Hx Hx Para Hx Section SAB No 02/17/25 12:02 Active Medications Active Medications: Current Medications Generic Name Dose Route Start Last Admin Trade Name Sandy PRN Reason Stop Dose Admin Lactated Ringer's 1,000 mls @ 15 mls/hr 02/18/25 11:00 02/18/25 11:34 IV 15 mls/hr .Q48H XENIA Administration PFSH Medical History Anxiety Easy bruising Cirrhosis Restless legs Gastric reflux Smoker Hypertension Acid reflux Diarrhea Constipation Nausea Abdominal pain Ecchymosis Alcoholic hepatitis Alcoholism Home Medications ?Medication ?Instructions ?Recorded ?Last Taken ?Type folic acid 1 mg tablet 1 mg PO BREAKFAST 30 days #3 0 tabs 01/24/24 02/17/25 Rx spironolactone 50 mg tablet 100 mg (2 x 50 mg) PO JOSSY Y #0 tabs 01/24/24 02/17/25 Rx thiamine HCl (vitamin B1) 100 mg 100 mg PO BREAKFAST # 0 tabs 01/24/24 02/17/25 Rx tablet gabapentin 600 mg tablet 600 mg PO QHS 08/28/2402/17 History naltrexone microspheres 380 mg 380 mg IM QMONTH 01/31/25 History intramuscular suspension,extended release (Vivitrol) pantoprazole 40 mg tablet,delayed 40 mg PO DAILY 08/2802/17/25 History release carvedilol 3.125 mg tablet 3.125 mg PO BID 1 month #60 tabs 08/29/24 02/17/25 Rx ursodiol 500 mg tablet 500 mg PO TID 1 month #90 ta bs 08/29/24 02/17/25 Rx Allergy/AdvReac Type Severity Reaction Status Date / Time hydrocodone Allergy Hives Verified 02/18/25 11:21 Surgical History History of esophagogastroduodenoscopy (EGD) Hx of tonsillectomy Social History Smoking Status: Current every day smoker tobacco type: cigarettes alcohol intake: never substance use type: does not use Review of Systems (Anesthesia) ROS Narrative System reviewed and no additional complaints, except as documented.
--- NOTE | 2025-02-18 12:02 | PCM.HP.STD ---
HPI - General General Date of Admission: 02/18/25 Date of Service: 02/18/25 Chief Complaint: varices surveillance HPI Narrative DEANA BADILLO, is a 34 F who presents cirrhosis varices surveillance [facility] inpatient 01.09.24-24- GI bleed, decompensated alcoholic cirrhosis, jaundice, C. Diff, Pancolitis OV 11..24: Follow-up after hospital discharge for severe decompensated alcoholic cirrhosis with jaundice, ascites, lower extremity edema which progressed from the alcoholic hepatitis. Patient also had C. difficile infection and GI bleed and was in hemorrhagic/septic shock in the ICU. Her hospital stay was 15 days OV 08.29.24 Pt here today for f/u cirrhosis. Pt reports n/v/d/c, RUQ pain, and dizziness. Reports she has not had any alcohol since January 2024. Pt states she saw Dr Sawyer 08.28.23 for gallstones and is having a HIDA soon. Continues pantoprazole daily. US abd/ elastography 08.15.24- Liver measures 15.7cm, Stiffness 11.2 kPa HIDA 3.31.25- Normal, EF 53% Ov 7.7.25- Pt reports continued RUQ pain. States pain is daily and not worsened by eating certain foods. Occasional nausea but no vomiting. States BMs are sporadic. Will not go for a few days followed by multiple BMs. Denies dizziness, weakness, confusion, itching or swelling. COUNT INCLUDES THE [facility] Medical History Anxiety Easy bruising Cirrhosis Restless legs Gastric reflux Smoker Hypertension Acid reflux Diarrhea Constipation Nausea Abdominal pain Ecchymosis Alcoholic hepatitis Alcoholism Home Medications ?Medication ?Instructions ?Recorded ?Last Taken ?Type folic acid 1 mg tablet 1 mg PO BREAKFAST 30 days #30 tabs 01/24/24 02/17/25 Rx spironolactone 50 mg tablet 100 mg (2 x 50 mg) PO DAILY #0 tabs 01/24/24 02/17/25 Rx thiamine HCl (vitamin B1) 100 mg 100 mg PO BREAKFAST #0 tabs 01/24/24 02/17/25 Rx tablet gabapentin 600 mg tablet 600 mg PO QHS 08/28/24 02/17/25 History naltrexone microspheres 380 mg 380 mg IM QMONTH 08/28/24 01/31/25 History intramuscular suspension,extended release (Vivitrol) pantoprazole 40 mg tablet,delayed 40 mg PO DAILY 08/28/24 02/17/25 History release carvedilol 3.125 mg tablet 3.125 mg PO BID 1 month #60 tabs 08/29/24 02/17/25 Rx ursodiol 500 mg tablet 500 mg PO TID 1 month #90 tabs 08/29/24 02/17/25 Rx Allergy/AdvReac Type Severity Reaction Status Date / Time hydrocodone Allergy Hives Verified 02/18/25 11:21 Surgical History History of esophagogastroduodenoscopy (EGD) Hx of tonsillectomy Social History Smoking Status: Current every day smoker tobacco type: cigarettes alcohol intake: never substance use type: does not use ROS Constitutional Constitutional: Denies fatigue, fever(s), poor appetite, weight gain or weight loss Gastrointestinal Gastrointestinal: Denies belching, bloating, change in bowel habits, change in stool character, chewing difficulty, coffee ground emesis, constipation, cramping, diarrhea, dyspepsia, dysphagia, early satiety, excessive flatus, fecal incontinence, heartburn, hematemesis, hematochezia, hemorrhoids, loose stools, melena, nausea, odynophagia, rectal bleeding, tenesmus, vomiting or weight changes Vital Signs Vital Signs Vital Signs: 02/18/25 11:24 02/18/25 11:26 02/18/25 11:56 Temperature 97.0 F L 97.0 F L Temperature Source Temporal Pulse Rate 64 64 Respiratory Rate 16 16 Respiratory Pattern Normal Blood Pressure 97/57 L 97/57 L Blood Pressure Mean 70 Blood Pressure Source Monitor Blood Pressure Position Semi-Fowlers Blood Pressure Location Left Arm Pulse Ox 97 97 Oxygen Delivery Method Room Air Room Air Weight Weight: 153 lb 3.2 oz Body Mass Index (BMI) 28.0 Physical Exam Const alert, oriented x3, no apparent distress and healthy appearing General Appearance: cooperative GI normal to inspection, nondistended, normoactive bowel sounds, soft to palpation, non-tender and non-distended Percussion: normal to percussion Rectal Exam: deferred Results Lab / Micro Data Labs: Laboratory Results - last 24 hr 02/18/25 11:15: Urine Test Negative Assessment & Plan Assessment/Plan (1) Alcoholic cirrhosis: QUALIFIERS: Ascites presence: without ascites Qualified Code(s): K70.30 - Alcoholic cirrhosis of liver without ascites (2) Abdominal pain: PLAN: Assessment and Plan Assessment and Plan (1) Alcoholic cirrhosis: Status: Chronic Qualifiers: Ascites presence: without ascites Qualified Code(s): K70.30 - Alcoholic cirrhosis of liver without ascites Plan: She was admitted for decompensated liver cirrhosis with jaundice, GI bleed which was more from Iliana-Tobar tear, ascites and leg swelling and splenomegaly suggestive of portal hypertension in May 2024.In the hospital course she had total bilirubin 21.6, INR 1.5 with Madrey's discriminant function 48.3 but has improved now She is on spironolactone 100 mg daily Carvedilol 3.125 mg twice daily, tolerating well Liver ultrasound with elastography shows cirrhosis, splenomegaly, median liver stiffness 11.2 K PA, median velocity 1.92 m/s suggestive of Metavir score 4 for cirrhosis. MELD sodium score is 11, CTP score 5, class A as per August blood work. platelet count 1 78K She has quit alcohol after hospital discharge. Advised to remain sober Patient had progression of alcoholic hepatitis to alcoholic cirrhosis, biopsy-proven: CT abdomen shows hepatomegaly with diffuse heterogenous, fatty infiltration and splenomegaly. Lab test reviewed. From October 2024. BUN/creatinine 22/1.34. Calcium normal. TB 1.09. ALP 118 Continue the above regimen. Folic acid is elevated therefore advised to hold folic acid for 3 months. Vitamin D 25-hydroxy normal TSH high normal (2) RUQ pain: Status: Acute Plan: Patient still has abdominal pain in the right upper quadrant, had irregular interval, no periodicity with food, stays for 5 to 10 minutes usually 7 but goes to 10/10. It is sharp in quality. She also has irregular bowel movement most probably 1 every 2 to 3 days firm to hard. She already had cholecystectomy by Dr. Krissy Hunter in [place]. Couple months ago. She missed the follow-up. HIDA scan was normal. Advised to follow-up with her. After cholecystectomy possible differential may be CBD contraction/biliary colic, sphincter of Oddi dysfunction or motor dysfunction of CBD. Others might be related to stomach or duodenum. Will schedule EGD. She denies symptoms pertaining gastroparesis including early satiety or full abdomen after food. Denies burping or other dyspeptic symptoms Orders: Orders CBC W/Diff, Automated 4 Months K70.30 - Alcoholic cirrhosis of liver without ascites, R10.11 - Right upper quadrant pain Comprehensive Metabolic Profil 4 Months K70.30 - Alcoholic cirrhosis of liver without ascites, R10.11 - Right upper quadrant pain Prothrombin Time w/INR 4 Months K70.30 - Alcoholic cirrhosis of liver without ascites, R10.11 - Right upper quadrant pain AFP, Tumor Marker 4 Months K70.30 - Alcoholic cirrhosis of liver without ascites, R10.11 - Right upper quadrant pain
--- NOTE | 2025-02-18 12:30 | EGD_PTH ---
PATIENT: DEANA BADILLO LOC: EN U#:[id number] AGE/SX: 34/F ROOM: RE02/18/[address]: Dr. Richar Dyson DO : 1990 BED: DIS: 02/18/2025 SPEC #: [id number] RECD: 02/18/25 16:36 STATUS: LIZETH REMaribell #: [id number] GRISEL: 02/18/25 12:[address]: Richar Dyson DEPT: SURGICAL PATHOLOGY RECD BY: Lionel Pacheco ENTERED: 02/19/25 08:40 SP TYPE: EGD BIOPSY OT DR: Kelley Bell, [facility], STOCK CHASER-C Tissues: A - Gastric mucous membrane B - Esophagus, NOS Procedures: Surgery Specimen Level IV HEADER OPERATION: EGD with biopsy PRE-OP DIAGNOSIS: Alcoholic cirrhosis TISSUE SUBMITTED: A- Gastric body biopsy, B- Esophageal mass biopsy MICROSCOPIC DIAGNOSIS A. Stomach, gastric body, biopsies: - Oxyntic mucosa with slight chronic inflammation - No Helicobacter pylori-like organisms are identified in these H & E stained sections B. Esophagus: * Benign squamous epithelium * Adjacent oxynto-cardiac mucosa with chronic inflammation * No goblet cell metaplasia is identified A. MICROSCOPIC DESCRIPTION Slides are reviewed. GROSS DESCRIPTION A. Received in fixative is one container labeled with the patient's name and designated Gastric body biopsy. The specimen consists of three irregular fragments of light liu tissue that measure 0.1 to 0.3 cm. The specimen is totally submitted in one cassette. B. Received in fixative is one container labeled with the patient's name and designated Esophageal mass biopsy. The specimen consists of two irregular fragments of light liu tissue that measure 0.1 to 0.4 cm with flocculent material. The specimen is totally submitted in one cassette. ME 02/19/2025 CPT:63076i8
--- NOTE | 2025-02-18 13:45 | OP.EGD_ITS ---
Patient Name: Genevieve Maldonado Procedure Date: 02/18/2025 1:21 PM Date of : 1990 Age: 34 Procedure: Upper GI endoscopy Indications: Epigastric abdominal pain, Cirrhosis with suspected esophageal varices Providers: Richar Dyson DO Referring MD: Kelley Bell [facility], Chief Of Field Operations-c Medicines: Monitored Anesthesia Care Patient Profile: This is a 34 year old female. Refer to note in patient chart for documentation of history and physical. Patient has symptoms of chronic epigastric abdominal pain, chronic dyspepsia and chronic nausea. Complications: No immediate complications. Procedure: Pre-Anesthesia Assessment: - Prior to the procedure, a History and Physical was performed, and patient medications and allergies were reviewed. The patient is competent. The risks and benefits of the procedure and the sedation options and risks were discussed with the patient. All questions were answered and informed consent was obtained. Patient identification and proposed procedure were verified by the physician in the pre-procedure area. Mental Status Examination: alert and oriented. Airway Examination: normal oropharyngeal airway and neck mobility. Respiratory Examination: clear to auscultation. CV Examination: normal. Prophylactic Antibiotics: The patient does not require prophylactic antibiotics. Prior Anticoagulants: The patient has taken no anticoagulant or antiplatelet agents except for NSAID medication. ASA Grade Assessment: II - A patient with mild systemic disease. After reviewing the risks and benefits, the patient was deemed in satisfactory condition to undergo the procedure. The anesthesia plan was to use monitored anesthesia care (MAC). Immediately prior to administration of medications, the patient was re-assessed for adequacy to receive sedatives. The heart rate, respiratory rate, oxygen saturations, blood pressure, adequacy of pulmonary ventilation, and response to care were monitored throughout the procedure. The physical status of the patient was re-assessed after the procedure. After obtaining informed consent, the endoscope was passed under direct vision. Throughout the procedure, the patient's blood pressure, pulse, and oxygen saturations were monitored continuously. The Endoscope was introduced through the mouth, and advanced to the third part of the duodenum. Small bowel enteroscopy was deemed necessary. The upper GI endoscopy was accomplished without difficulty. The patient tolerated the procedure well. Scope In: 1:32:24 PM Scope Out: 1:37:03 PM Total Procedure Duration Time 0 hours 4 minutes 39 seconds Findings: Grade I varices were found in the lower third of the esophagus. They were 5 mm in largest diameter. A medium-sized, submucosal mass with no bleeding and no stigmata of recent bleeding was found in the distal esophagus, 39 cm from the incisors. The mass was non-obstructing and not circumferential. Biopsies were taken with a cold forceps for histology. Verification of patient identification for the specimen was done. Estimated blood loss was minimal. Suspect gastroparesis due to absence of peristalsis, patient symptoms and retained gastric contents. Patchy mildly erythematous mucosa without bleeding was found in the stomach. Biopsies were taken with a cold forceps for histology. Biopsies were taken with a cold forceps for Helicobacter pylori testing. Verification of patient identification for the specimen was done. Estimated blood loss was minimal. No gross lesions were noted in the entire examined duodenum. A small hiatal hernia was present. Impression: - Grade I esophageal varices. 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 Biopsied. - Gastroparesis. - Erythematous mucosa in the stomach. Biopsied. - No gross lesions in the entire examined duodenum. Recommendation: - Discharge patient to home. - Resume previous diet. - Continue present medications. - Await pathology results. Procedure Code(s): --- Professional --- 26994, Small intestinal endoscopy, enteroscopy beyond second portion of duodenum, not including ileum; with biopsy, single or multiple CPT copyright 2021 [employer]. All rights reserved. The codes documented in this report are preliminary and upon braille coder review may be revised to meet current compliance requirements. Richar Dyson DO 02/18/2025 1:44:45 PM This report has been signed electronically. Number of Addenda: 0 Note Initiated On: 02/18/2025 1:21 PM
--- NOTE | 2025-02-18 13:45 | OP.PROVAT_ITS ---
02/18/2025 Kelley Bell [facility], Project Finance Analyst-c Re : Upper GI endoscopy procedure for Genevieve Salazarr Ray This procedure was performed on Tuesday, February 18, 2025. My impressions and recommendations are as follows: Impressions : - Grade I esophageal varices. 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 Biopsied. - Gastroparesis. - Erythematous mucosa in the stomach. Biopsied. - No gross lesions in the entire examined duodenum. Recommendations : - Discharge patient to home. - Resume previous diet. - Continue present medications. - Await pathology results. My findings are described in the full procedure note, which is enclosed. If I can be of further assistance, please feel free to contact me at . Sincerely, Richar Dyson, 02/18/2025 1:44:45 PM This report has been signed electronically.
--- NOTE | 2025-02-18 13:52 | PCM.POST.ANE ---
Anesthesia: Postop Eval I Current Vital Signs Temperature: 97.3 F Pulse Rate: 73 Blood Pressure: 83/73 Respiratory Rate: 16 Pulse Ox: 98 Oxygen Delivery Method: Room Air Assessment Airway patent: Yes Spontaneous unlabored respirations: Yes Mental status: Awake and Calm nausea: No Vomiting: No Anesthesia Complication: No Fluid Hydration Crystalloid volume administer (ml): 300 Total IV fluid infused: 300 Progress Note Anesthesia document: Postop Eval 1 completed: Yes
--- NOTE | 2025-02-18 14:31 | PCM.POSTANE2 ---
Anesthesia Postop Eval I Sum Postop Eval Completion status Anesthesia document: Postop Eval 1 completed: Yes Anesthesia Postop Eval I Summary Anesthesia Postop Eval I Summary: Anesthesia Postop Eval I: Assessment Summary Airway patent Yes 02/18/25 13:52 [email or web address] Spontaneous unlabored Yes 02/18/25 13:52 [email or web address] respirations Mental status Awake,Calm 02/18/25 13:52 [email or web address] nausea No 02/18/25 13:52 [email or web address] Vomiting No 02/18/25 13:52 [email or web address] Anesthesia Postop Eval I: Fluid Summary Crystalloid volume administer 300 02/18/25 13:52 [email or web address] (ml) Colloids volume administered ( ml) Blood Product volume administered (ml) Total IV fluid infused 300 02/18/25 13:52 [email or web address] Anesthesia Postop Eval I: Summary Notes Anesthesia Complication No 02/18/25 13:52 [email or web address] Anesthesia Complication Comment: Post-operative progress note Anesthesia: Postop Eval II Evaluation Mental status: Awake Pain Level: 0 nausea: No Vomiting: No Complications Anesthesia Complication: No
== END 2025-02-18 14:14 | disposition home or self-care (01) ==
LOC: EN 10:47 → AC 10:48
PROVIDERS: Anesthesiology; PCP Nurse Practitioner Family; Referring Provider Nurse Practitioner Family; Visit Provider Internal Medicine Gastroenterology
PROC: 0DJ08ZZ Inspection of Upper Intestinal Tract, Via Natural or Artificial Opening Endoscopic (ICD-10-PCS; CPT 43235; principal; 2025-02-18 12:25)
DX: K70.30 Alcoholic cirrhosis of liver without ascites (principal); I85.00 Esophageal varices without bleeding; K31.84 Gastroparesis; I10 Essential (primary) hypertension; K21.9 Gastro-esophageal reflux disease without esophagitis; Z79.899 Other long term (current) drug therapy; F17.210 Nicotine dependence, cigarettes, uncomplicated; R10.11 Right upper quadrant pain; R19.06 Epigastric swelling, mass or lump; K44.9 Diaphragmatic hernia without obstruction or gangrene; K31.89 Other diseases of stomach and duodenum
CPT/HCPCS: 43239; 81025; 88305; J2405

== ENCOUNTER → 2025-05-27 | Outpatient (CLI) | payer MEDICAID, SELFPAY ==
[2025-05-27 17:07] LABS: Hematocrit 47.6 % (37-47); Hemoglobin 16.6 g/dL (12.0-15.0); Immature Granulocytes Count 0.030 X10^3/uL (0.0-0.0); Mean Corp Hgb Conc 34.9 g/dL (32-36); Mean Corpuscular Volume 88.0 fL (81-99); Mean Platelet Vol. 10.5 fl (6.2-12.0); NRBC Flagged by Analyzer 0 % (0-5); Platelet Count 199 K/mm3 (150-450); RBC Distribution Width CV 12.6 % (11.6-14.6); RBC Distribution Width SD 40.7 fl (35.1-43.9); Red Blood Count 5.41 M/mm3 (4.2-5.4); White Blood Count 8.3 K/mm3 (4.4-11.0)
[2025-05-27 17:51] LABS: AST(SGOT) 32 U/L (<=31); Alanine Aminotransfer ALT/SGPT 41 U/L (<=34); Albumin, Serum 4.3 g/dL (3.5-5.0); Alkaline Phosphatase 105 U/L (35-104); Anion Gap 14 (5-15); BUN 14 mg/dL (4-19); BUN/Creat Ratio 10.8 RATIO (10-20); Calcium,Total 9.1 mg/dL (7.6-11.0); Carbon Dioxide 27.5 mmol/L (21.0-32.0); Chloride 99 mmol/L (98-108); Globulin 3.1 g/dL (2.2-4.2); Glucose 106 mg/dL (70-99); Potassium 3.4 mmol/L (3.3-5.1); Vitamin D,25 Hydroxy 30.6 ng/mL (30-100)
== END | disposition home or self-care (01) ==
LOC: VSLAB 15:52
PROVIDERS: PCP Nurse Practitioner Family; Referring Provider Nurse Practitioner Family; Visit Provider Nurse Practitioner Family
DX: K70.30 Alcoholic cirrhosis of liver without ascites (principal); G62.1 Alcoholic polyneuropathy; E56.9 Vitamin deficiency, unspecified
CPT/HCPCS: 36415; 80053; 82306; 84439; 84443; 85025